=== PATIENT | male | born 1950 | race Caucasian/White ===

== ENCOUNTER 2019-09-24 03:04 | Emergency (ER) | payer MEDICARE, SELFPAY ==
--- NOTE | ~2019-09-24 | CT_ITS ---
EXAMINATION: CT abdomen pelvis w con DATE: 09/24/2019 04:09 INDICATION: Right flank pain. History of kidney stones. TECHNIQUE: Computed tomography (CT) of the abdomen and pelvis was performed with 100 cc Omnipaque 350 intravenous contrast. Automated exposure control and iterative reconstruction technique were employe d. Exam dose: 1540.76 mGy-cm total exam DLP. COMPARISON: 03/26/2019 CT abdomen pelvis noncontrast examination FINDINGS: The lung bases are clear of infiltrate or consolidation. Normal heart size. No pericardial or pleural effusion. Small sliding hiatal hernia. Multiple gallstones are noted. No gallbladder distention or apparent significant wall thickening or a ny pericholecystic fluid or stranding. Approximately 13 mm hepatic dome cyst. There is prominent surface nodularity of the liver and diminis hed liver size, consistent with cirrhosis. Varices are evident, consistent with portal hypertension. Splenomegaly. No bile duct or pancreatic duct dilatation. No pancreatic mass lesion or calcification. Normal morphology of the adrenal glands. Approximately 5 mm distal right ureteral obstructing calculus with mild right hydroureteronephrosis. Approximately 3 mm nonobstructing left renal calculus. Probable renal cysts. No evidence of appendicitis. No bowel obstruction or intraperitoneal free air. Trace perihepatic ascites. Prostate enlargement and calcifications. The urinary bladder is unremarkable except for possible 2.7 x 6.8 mm stone or calcification at the lower posterior urinary bladder wall. No abdominal aortic aneurysm. No intraperitoneal or retroperitoneal or pelvic mass lesion or adenopat hy or ascites. IMPRESSION: 5 mm distal right ureteral obstructing calculus with mild right hydroureteronephrosis Approximately 3 mm nonobstructing left renal calculus Possible urinary bladder calculus or bladder wall calcification Cirrhosis 13 mm hepatic dome cyst Bilateral renal cysts Reviewed, dictated and finalized at [facility]. Reviewed, dictated and finalized at location A. IMPRESSION: 5 mm distal right ureteral obstructing calculus with mild right hy droureteronephrosis Approximately 3 mm nonobstructing left renal calculus Possible urinary bladder calculus or bladder wall calcification Cirrhosis 13 mm hepatic dome cyst Bilateral renal cysts
[2019-09-24 03:08] VITALS: BP 154/70; PULSE 76; RESP 16; TEMP 37.6; O2SAT 98
[2019-09-24 03:43] LABS: Add Urine Microscopic? YES; Appearance Urine Clear (Clear); Basophils Percent Auto 0.6 % (0.2-1.2); Bilirubin Urine Negative (Negative); Blood Urine Negative (Negative); Color Urine Yellow (Yellow); Eosinophils Absolute Auto 0.1 K/mm3 (0-0.3); Eosinophils Percent Auto 2.4 % (0-4.4); Glucose Urine UA Negative (Negative); Hematocrit 36.1 % (42.0-52.0); Hemoglobin 12.7 g/dL (14.0-18.0); Immature Granulocyte Absolute 0.01 K/mm3 (0.00-0.031); Immature Granulocyte Percent A 0.2 % (0-0.5); Immature Platelet Fraction Pct 8.1 % (0.9-11.2); Ketones Urine Negative (Negative); Leukocyte Esterase Ur Negative LEU/UL (Negative); Lymphocytes Absolute Auto 0.95 K/mm3 (0.9-3.2); Lymphocytes Percent Auto 20.3 % (18.3-44.2); Mean Corpuscular HGB Conc 35.2 g/dl (32-36); Mean Corpuscular Hemoglobin 35.1 pg (26-34); Mean Corpuscular Volume 99.7 fl (80-100); Mean Platelet Volume 13.6 fl (7.4-10.4); Monocytes Absolute Auto 0.5 K/mm3 (0.1-0.6); Monocytes Percent Auto 9.8 % (2.6-8.5); Mucus Urine Rare /lpf; Neutrophils Absolute Auto 3.1 K/mm3 (1.3-6.7); Neutrophils Percent Auto 66.7 % (45.5-73.1); Nitrate Urine Negative (Negative); Platelet Count Result 42 k/mm3 (150-375); Protein Urine 1+ mg/dL (Negative); Red Blood Count 3.62 M/mm3 (4.6-6.20); Red Cell Distribution Width 13.2 % (11.5-14.5); Specific Grav Ur 1.016 (1.001-1.035); WBC Urine 0-3 /hpf; White Blood Count 4.7 K/mm3 (4.5-10.0)
[2019-09-24 03:52] LABS: Alanine Aminotransferase 63 U/L (4-50); Albumin Level 3.6 g/dL (3.5-5.1); Alkaline Phosphatase 109 U/L (38-126); Aspartate Amino Transferase 97 U/L (17-59); Blood Urea Nitrogen 23 mg/dL (9-20); Calcium 9.8 mg/dL (8.4-10.2); Carbon Dioxide 21 mmol/L (22-30); Chloride 110 mmol/L (98-107); Estimated Glomerular Filt Rate 55; Glucose 109 mg/dL (75-110); Lipase 269 U/L (23-300); Sodium 136 mmol/L (137-145)
--- NOTE | 2019-09-24 04:06 | ED.ABDPAIN ---
HPI - Abdominal Pain General Chief Complaint: Abdominal Pain Stated Complaint: abd pain Time Seen by Provider: 09/24/19 03:34 History of Present Illness HPI narrative: Patient presents for right lower abdominal pain. Last night he tried to go to bed, but the pain was 8 out of 10 and he could not get to sleep, the pain is currently a 3 out of 10. He is known to have kidney stones, and gallstones. He said he did not know about the cirrhosis that showed up on his CAT scan last time. He had an alcoholic beverage last evening. MD elicited complaint: abdominal pain Pertinent past history: kidney stones and other (Gallstones, cirrhosis) Onset (ago): hour(s) Pain Consistency: constant Severity: moderate Related Data Home Medications Medication Instructions Recorded Confirmed losartan 50 mg tablet 50 mg PO DAILY 02/24/19 04/08/19 Centrum Men 1 tablet PO DAILY 04/04/19 04/08/19 Allergies Allergy/AdvReac Type Severity Reaction Status Date / Time No Known Allergies Allergy Verified 09/24/19 03:19 Review of Systems Review of Systems: Narrative: CONSTITUTIONAL: Denies fever, chills, or sweats. EYES: Denies visual changes, redness, or discharge. ENT: Denies rhinorrhea, congestion, sore throat, or otalgia. CARDIOVASCULAR: Denies chest pain, palpitations, or edema. RESPIRATORY: Denies cough or dyspnea. GASTROINTESTINAL: He has abdominal pain, but not nausea, vomiting, or diarrhea. GENITOURINARY: Denies dysuria or hematuria. SKIN: Denies rash or itching. MUSCULOSKELETAL: Denies back pain, joint pain, or myalgia. NEUROLOGIC: Denies headache, numbness, or weakness. PSYCHIATRIC: Denies anxiety or depression. [facility] Social History Social History Smoking status: Former smoker Smoking end date: 04/20/16 Alcohol intake: current Gender identity (if verbalized by the patient): Male Course Reevaluation(s) Reevaluation #1: Patient needed several doses of pain medicine to get through this stone passing. His is now here and would rather get prescriptions and go home. Date: 09/24/19 Time: 06:59 Vital Signs Vital signs: Vital Signs Temperature 99.6 F 09/24/19 03:08 Pulse Rate 76 09/24/19 03:08 Respiratory Rate 16 09/24/19 03:08 Blood Pressure 154/70 H 09/24/19 03:08 Pulse Oximetry 98 09/24/19 03:08 Temperature 99.6 F 09/24/19 03:08 Pulse Rate 74 09/24/19 06:40 Respiratory Rate 18 09/24/19 06:40 Blood Pressure 143/77 H 09/24/19 06:40 Pulse Oximetry 98 09/24/19 06:40 MDM - Abdominal Pain Lab Data Result diagrams: 09/24/19 03:36 09/24/19 03:36 Labs: Lab Results 09/24/19 09/24/19 09/24/19 Range/Units 03:36 03:36 03:36 WBC 4.7 (4.5-10.0) K/mm3 RBC 3.62 L (4.6-6.20) M/mm3 Hgb 12.7 L (14.0-18.0) g/dL Hct 36.1 L (42.0-52.0) % MCV 99.7 (80-100) fl MCH 35.1 H (26-34) pg MCHC 35.2 (32-36) g/dl RDW 13.2 (11.5-14.5) % Plt Count 42 L (150-375) k/mm3 MPV 13.6 H (7.4-10.4) fl Immature Gran % (Auto) 0.2 (0-0.5) % Neut % (Auto) 66.7 (45.5-73.1) % Lymph % (Auto) 20.3 (18.3-44.2) % [place] % (Auto) 9.8 H (2.6-8.5) % Eos % (Auto) 2.4 (0-4.4) % Baso % (Auto) 0.6 (0.2-1.2) % Lymph # (Auto) 0.95 (0.9-3.2) K/mm3 [place] # (Auto) 0.5 (0.1-0.6) K/mm3 Eos # (Auto) 0.1 (0-0.3) K/mm3 Baso # (Auto) 0.0 (0.0-0.1) K/mm3 Abs Immat Gran (auto) 0.01 (0.00-0.031) K/mm3 Absolute Neuts (auto) 3.1 (1.3-6.7) K/mm3 Absolute Nucleated RBC 0.0 (0.0-0.012) K/mm3 Nucleated RBC % 0.0 (0.0-0.2) % % Immature Plt Fraction 8.1 (0.9-11.2) % Sodium 136 L (137-145) mmol/L Potassium 4.0 (3.4-5.0) mmol/L Chloride 110 H (98-107) mmol/L Carbon Dioxide 21 L (22-30) mmol/L BUN 23 H (9-20) mg/dL Creatinine 1.30 (0.7-1.3) mg/dL Estim Creat Clear Calc Not Reportable Estimated GFR 55 L (59
[2019-09-24] MEDS: MORPHINE SULFATE 4 MG/ML INJ IV PUSH (04:27)
[2019-09-24] MEDS: TAMSULOSIN HCL 0.4 MG CAPSULE PO (05:39)
[2019-09-24] MEDS: SODIUM CHLORIDE 0.9% IV 1,000 ML 999 ML IV CONT (05:39)
[2019-09-24 06:40] VITALS: BP 143/77; PULSE 74; RESP 18; O2SAT 98
[2019-09-24] MEDS: MORPHINE SULFATE 2 MG/ML INJ IV PUSH (06:40)
[2019-09-24 07:11] VITALS: BP 132/77; PULSE 84; RESP 18; O2SAT 99
== END 2019-09-24 07:12 | disposition home or self-care (01) ==
PROVIDERS: Emergency Provider Emergency Medicine; PCP Family Medicine
DX: N13.2 Hydronephrosis with renal and ureteral calculous obstruction (principal); K74.60 Unspecified cirrhosis of liver; Z87.891 Personal history of nicotine dependence
CPT/HCPCS: 36415; 74177; 80053; 81001; 83690; 85025; 85055; 96365; 96375; 96376; 99284; A9270; J0696; J2270; J7030; Q9967

== ENCOUNTER 2019-09-28 10:35 | Outpatient (CLI) | payer MEDICARE, SELFPAY ==
[2019-09-28 11:40] LABS: Iron 78 ug/dL (49-181)
[2019-09-28 11:51] LABS: Percent Iron Saturation 22 % (20-50)
[2019-09-28 12:12] LABS: Hepatitis B Surface Antigen Negative (Negative)
[2019-09-28 12:17] LABS: HAV RESULT Negative (Negative); Hepatitis B Core IgM Result Negative (Negative)
[2019-09-28 12:29] LABS: Hepatitis C Virus Antibody Negative (Negative)
[2019-09-30 21:35] LABS: Mitochondrial (M2) Ab (IgG) <=20.0 U (<=20.0)
[2019-10-01 22:01] LABS: Ceruloplasmin 27 mg/dL (18-36)
== END 2019-09-28 10:36 | disposition home or self-care (01) ==
LOC: ANHLAB 10:37
PROVIDERS: PCP Family Medicine; Visit Provider Internal Medicine Gastroenterology
DX: K74.60 Unspecified cirrhosis of liver (principal); D69.6 Thrombocytopenia, unspecified
CPT/HCPCS: 36415; 80074; 82103; 82390; 82728; 83520; 83540; 83550; 86038

== ENCOUNTER 2019-10-01 01:30 | Outpatient (CLI) | payer MEDICARE, SELFPAY ==
[2019-10-01 16:42] LABS: SARS-CoV-2 RNA PCR Negative
== END 2019-10-01 01:31 | disposition home or self-care (01) ==
LOC: ANHCOVIDDT 01:30
PROVIDERS: PCP Family Medicine; Visit Provider Internal Medicine Gastroenterology
DX: Z01.812 Encounter for preprocedural laboratory examination (principal); Z20.828 Contact with and (suspected) exposure to other viral communicable diseases
CPT/HCPCS: 87635; C9803; U0003

== ENCOUNTER 2019-10-04 00:55 | Day surgery (SDC) | payer MEDICARE, SELFPAY ==
[2019-09-28 13:34] VITALS: BMI 40.5
[2019-10-04 07:36] VITALS: BP 147/71; PULSE 72; RESP 16; TEMP 37.1; O2SAT 99; BMI 40.1
[2019-10-04] MEDS: LACTATED RINGERS 1,000 ML 150 ML IV CONT (07:39)
--- NOTE | 2019-10-04 08:01 | WPDANESEPPF ---
Anes - Initial Pre Proc Eval Procedure: Operation Date: 10/04/19 08:30 Proposed Procedures p Esophagogastroduodenoscopy - Chapo Chiu MD Date/Time: 10/04/19 08:01 Surgeon: Chapo Chiu MD Pre Op Diagnosis: hepatic cirrhosis Patient Data Age: 69 Gender: M Height: 5 ft 8 in Weight: 119.8 kg Last Vital Signs Temp 37.1 C 10/04/19 07:36 Pulse 72 10/04/19 07:36 Resp 16 10/04/19 07:36 BP 147/71 H 10/04/19 07:36 Pulse Ox 99 10/04/19 07:36 Allergies Allergy/AdvReac Type Severity Reaction Status Date / Time No Known Allergies Allergy Verified 10/04/19 07:33 Home Medications Medication Instructions Recorded Confirmed Type losartan 50 mg tablet 50 mg PO DAILY 02/24/19 09/28/19 History ciprofloxacin HCl 500 mg PO Q12H #10 tablet 09/24/19 09/28/19 Rx Patient hx anesthesia problems: none Family hx anesthesia problems: none PMFSH Past Medical History Medical History Asthma Basal cell carcinoma CPAP (continuous positive airway pressure) dependence HTN (hypertension) Kidney stone Kidney stone Liver disease 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 Sleep apnea Thrombocytopenia Surgical History Surgical History H/O colonoscopy Hx of tonsillectomy Family History Family History Father Family history of elevated blood lipids Family history of coronary artery disease Mother Family history of lung cancer Social History Social History Smoking status: Former smoker Smoking end date: 04/20/16 Alcohol intake: current Gender identity (if verbalized by the patient): Male Anes - Eval Final PreProcedure Day of Procedure 10/04/19 08:01 Patient weight: morbidly obese Heart: regular rate and rhythm Lungs: clear to auscultation Airway: Mallampati scale class II Neurological: alert and oriented Last oral intake: >/= 8 hours ASA classification: III Emergent: no Anesthetic plan: proceed Anesthesia type and monitoring: general GIVS and standard monitoring Informed Consent: The patient's anesthetic plan and its attendant risks and benefits were discussed with the patient/family/POA. Questions were solicited and answers provided to the satisfaction of the patient/family/POA.
--- NOTE | 2019-10-04 09:04 | WPDHPUPDATE1 ---
History and Physical Update Update Date/Time: 10/04/19 09:04 History and Physical has been reviewed, including an updated exam of the patient. There are NO changes in the patient's condition. Risks, benefits, and alternatives have been discussed and questions answered. Patient agrees to proceed with procedure.
[2019-10-04 09:18] VITALS: BP 117/60; PULSE 67; RESP 23; O2SAT 100
[2019-10-04 09:28] VITALS: BP 130/72; PULSE 67; RESP 23; O2SAT 98
[2019-10-04 09:38] VITALS: BP 133/73; PULSE 66; RESP 20; O2SAT 98
== END 2019-10-04 09:44 | disposition home or self-care (01) ==
PROVIDERS: PCP Family Medicine; Visit Provider Internal Medicine Gastroenterology
PROC: 0DJ08ZZ Inspection of Upper Intestinal Tract, Via Natural or Artificial Opening Endoscopic (ICD-10-PCS; CPT 43235; principal; 2019-10-04 08:30)
DX: K74.60 Unspecified cirrhosis of liver (principal); K29.50 Unspecified chronic gastritis without bleeding; J45.909 Unspecified asthma, uncomplicated; I10 Essential (primary) hypertension; G47.33 Obstructive sleep apnea (adult) (pediatric); Z87.891 Personal history of nicotine dependence; E66.01 Morbid (severe) obesity due to excess calories; Z68.41 Body mass index [BMI] 40.0-44.9, adult
CPT/HCPCS: 43239; 88305; J2704; J7120

== ENCOUNTER 2019-10-08 07:08 | Outpatient (CLI) | payer MEDICARE, SELFPAY ==
--- NOTE | ~2019-10-08 | XR_ITS ---
XR abdomen/kub 1V 10/08/2019 07:33 Indication: Right ureteral stone Procedure: KUB Comparison: Comparison to multiple prior studies sequentially, with oldest reviewed study dated 02/19. Findings: There is a small left renal stone. Bowel gas pattern is nonobstructive. No acute osseous ab normality. Moderate degenerative changes of the hips. Impression: 1: Left nephrolithiasis. Reviewed, dictated and finalized at location [facility]. Impression: 1: Left nephrolithiasis.
== END 2019-10-08 07:09 | disposition home or self-care (01) ==
PROVIDERS: PCP Family Medicine; Visit Provider Urology
DX: N20.0 Calculus of kidney (principal)
CPT/HCPCS: 74018

== ENCOUNTER 2020-01-01 11:16 | Outpatient (CLI) | payer MEDICARE, SELFPAY ==
--- NOTE | ~2020-01-01 | MR_ITS ---
EXAMINATION: MR brain IAC wo/w con DATE: 01/01/2020 13:16 INDICATION: Other amnesia. Memory loss. Gait abnormality. TECHNIQUE: Magnetic resonance imaging (MRI) of the brain, brainstem, and internal auditory canals was performed without and with 20 mL MultiHance intravenous contrast. Sequences included sagittal and ax ial T1-weighted FSE, axial diffusion-weighted FS EPI, axial T2*-weighted GRE, axial T2-weighted FLAIR Propeller, axial T2-weighted Propeller, small xjwze-vm-nttt coronal FIESTA, small syrmy-vx-znxo raissa nal T1-weighted FSE, and small kwwxy-lt-kqqj axial T1-weighted SPGR. Postcontrast sequences included axial T1-weighted FSE, small xobnr-ke-amtf coronal T1-weighted FSE, and small oigjq-dg-rviy axial T1- weighted SPGR. Apparent diffusion coefficient (ADC) maps were created. COMPARISON: None. FINDINGS: There are scattered areas of nonspecific increased T2-weighted signal intensity in the cere bral white matter. In the right frontal lobe, there is an area of thickened cortex, consistent with p olymicrogyria. There is no acute ischemic infarct or intracranial hemorrhage. The ventricles are norm al in size. There is mild mucosal thickening in the paranasal sinuses. The orbits are normal. The int ernal auditory canals and inner and middle ears are normal. The mastoid air cells are normal. 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 2. Moderate nonspecific cerebral white matter disease, which likely represents chronic small vessel i schemic disease. Reviewed, dictated and finalized at location A. 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 2. Moderate nonspecific cerebral white matter disease, which likely represents chronic small vessel ischemic disease.
== END 2020-01-01 11:17 | disposition home or self-care (01) ==
PROVIDERS: PCP Family Medicine; Visit Provider Family Medicine
DX: R41.3 Other amnesia (principal); R90.82 White matter disease, unspecified; G93.89 Other specified disorders of brain
CPT/HCPCS: 70553; A9577

== ENCOUNTER 2020-03-27 09:06 | Outpatient (CLI) | payer MEDICARE, SELFPAY ==
--- NOTE | ~2020-03-27 | XR_ITS ---
EXAMINATION: XR abdomen/kub 1V INDICATION: Left ureteral stone TECHNIQUE: Supine views of the abdomen were obtained on 2 radiographs. COMPARISON: 10/08/2019 FINDINGS: A 2 mm stone projects in the left kidney lower pole. Punctate right upper quadrant calcific ations have the appearance of cholelithiasis. No definite stones are identified in the right kidney o r the expected course of the ureters or bladder. The visualized lung bases are clear. The bowel gas p attern is normal. There is moderate osteoarthritis of the hips. IMPRESSION: 1. Left nephrolithiasis. Reviewed, dictated and finalized at location A. OR COURT OFFICE ASSISTANT IMPRESSION: 1. Left nephrolithiasis.
--- NOTE | ~2020-03-27 | US_ITS ---
EXAMINATION: US right upper quadrant DATE: 03/27/2020 09:48 INDICATION: Cirrhosis of the liver. TECHNIQUE: Multiple grayscale and Doppler ultrasound images of the abdomen were obtained. COMPARISON: CT abdomen and pelvis 09/24/2019 FINDINGS: The visualized portions of the head and body of the fingers are normal. The liver demonstra junior coarsened echotexture and surface nodularity, consistent with cirrhosis. There is a 13 mm cyst in the liver. There is normal flow in main portal vein. The gallbladder is contracted and contains gall stones. Gallbladder wall thickening is likely secondary to chronic liver disease and gallbladder cont raction. No sonographic Burden sign. The common duct is normal and measures 4 mm. The spleen measures 17.9 cm, consistent with portal venous hypertension. IMPRESSION: 1. Cirrhosis of the liver with portal venous hypertension. 2. Cholelithiasis. Reviewed, dictated and finalized at location B. F PROJECTIONIST
== END 2020-03-27 09:07 | disposition home or self-care (01) ==
PROVIDERS: PCP Family Medicine; Referring Provider Urology; Visit Provider Internal Medicine Gastroenterology
DX: K74.60 Unspecified cirrhosis of liver (principal); N20.2 Calculus of kidney with calculus of ureter; D69.6 Thrombocytopenia, unspecified; K76.89 Other specified diseases of liver; K80.80 Other cholelithiasis without obstruction; M16.0 Bilateral primary osteoarthritis of hip
CPT/HCPCS: 74018; 76705

== ENCOUNTER 2020-05-03 10:12 | Outpatient (CLI) | payer MEDICARE, SELFPAY ==
--- NOTE | ~2020-05-03 | US_ITS ---
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 TECHNIQUE: Multiple grayscale and Doppler images of the abdomen right upper quadrant were obtained (b y a technologist who performed the scan) and subsequently reviewed. There is no prior study for db ibarra. FINDINGS: The pancreatic head and body are normal in appearance. The pancreatic tail is not visualized. Mild liver surface nodularity. There are no focal liver lesions identified. There is no evidence of int rahepatic biliary duct dilation. Portal venous flow was seen in the hepatopedal, normal direction an d has normal Doppler waveform. No right-sided hydronephrosis. Common bile duct measures 6 mm, which is normal. The gallbladder wall is normal in thickness, with ex pected amount of distention. No sonographic evidence of pericholecystic fluid. There is cholelithia sis. Technologist performing exam reports patient did not demonstrate sonographic Burden's sign. P lease note that this sign is less reliable in patients who have received pain medication. IMPRESSION: 1. Mild liver surface nodularity consistent with cirrhosis. No focal lesions identified. 2. Cholelithiasis. Reviewed, dictated and finalized at location B. EGE INSTRUCTOR IMPRESSION: 1. Mild liver surface nodularity consistent with cirrhosis. No focal lesions i dentified. 2. Cholelithiasis.
== END 2020-05-03 10:13 | disposition home or self-care (01) ==
PROVIDERS: PCP Family Medicine
DX: K75.81 Nonalcoholic steatohepatitis (NASH) (principal); K74.60 Unspecified cirrhosis of liver; K80.20 Calculus of gallbladder without cholecystitis without obstruction
CPT/HCPCS: 76705

== ENCOUNTER 2020-09-05 07:21 | Outpatient (CLI) | payer MEDICARE, SELFPAY ==
--- NOTE | ~2020-09-05 | US_ITS ---
US right upper quadrant DATE: 09/05/2020 07:41 INDICATION: Nonalcoholic steatohepatitis TECHNIQUE: Real-time imaging of liver, pancreas, gallbladder COMPARISON: 05/03/2020 Limited abdominal ultrasound examination 09/24/2019 CT abdomen pelvis FINDINGS: There is surface nodularity of the liver and coarsened echotexture of the liver consistent with cirrhosis. Normal hepatopedal portal venous flow direction. The pancreas is obscured by bowel gas. Dependent gallstones are noted. Borderline gallbladder wall thickness. Negative sonographic Burden's sign. Common bile duct measures 4 mm, normal. IMPRESSION: Cirrhosis Cholelithiasis Reviewed, dictated and finalized at [facility]. Reviewed, dictated and finalized at location B. IMPRESSION: Cirrhosis Cholelithiasis
== END 2020-09-05 07:22 | disposition home or self-care (01) ==
LOC: ANHIMG 07:23
PROVIDERS: PCP Family Medicine; Visit Provider Internal Medicine Gastroenterology
DX: D69.6 Thrombocytopenia, unspecified (principal); K75.81 Nonalcoholic steatohepatitis (NASH); K74.60 Unspecified cirrhosis of liver; K80.20 Calculus of gallbladder without cholecystitis without obstruction
CPT/HCPCS: 76705

== ENCOUNTER 2021-02-27 09:45 | Outpatient (CLI) | payer MEDICARE, SELFPAY ==
--- NOTE | 2021-03-20 13:45 | WPDSLEEPSTUD ---
Sleep Study Date of Study: 02/27/21 <Mery Diaz, DO - Last Filed: 03/20/21 14:58> Ordering Provider: Jeffry Edge MD <Mery Diaz, DO - Last Filed: 03/20/21 14:58> Interpreting Physician: Mery Diaz DO <Mery Diaz, DO - Last Filed: 03/20/21 14:58> Sleep Study Type: CPAP Titration <Mery Diaz DO - Last Filed: 03/20/21 14:58> Height: 1.83 m <Mery Diaz DO - Last Filed: 03/20/21 14:58> Weight: 77.111 kg <Mery Diaz DO - Last Filed: 03/20/21 14:58> Body Mass Index: 23.0 <Mery Diaz DO - Last Filed: 03/20/21 14:58> Neck Circumference (inches): 18 <Mery Diaz DO - Last Filed: 03/20/21 14:58> [place]: 7 <Mery Diaz DO - Last Filed: 03/20/21 14:58> Reason for Sleep Study The patient has known EDUARDO and has been compliant with PAP Therapy for 20 years. He needs to re-establish his diagnosis because he needs a new machine. <Mery Diaz, DO - Last Filed: 03/20/21 14:58> Sleep History The patient is a 70 y/o male with HTN, COPD, GERD, Hx of TIA x2, Hx of throat cancer x2, and EDUARDO on PAP that had a HSAT ordered by his ENT. The HSAT was done on 01/05/21 had an evaluation time of 135 minutes and had an AHI of 1.3. A PSG was then ordered. Questions Answered While Patient is Regularly using CPAP: The patient denies awakening from sleep short of breath. He denies awakening at night with heartburn, belching or cough. He denies snoring loudly enough that others complain. He denies having trouble sleeping when he has a cold. He denies waking gasping for air throughout the night. He occasionally has breathing problems at night observed by others. He denies sweating excessively at night. He denies heart palpitations or irregular heartbeats during the night. He occasionally falls asleep during the day but never while driving. He denies sleep paralysis, cataplexy and hypnagogic / hypnopompic hallucinations. He denies having nightmares. He denies feeling sad, depressed or anxious. He denies noticing parts of his body jerk. He occasionally kicks during the night. He denies crawling and aching feelings in his legs as well as leg pain during the night. He denies grinding his teeth during sleep as well as awakening with jaw pain in the morning. He denies being bothered by pain during the day and being awakened by pain during the night. He denies waking up feeling stiff in the morning with sore and achy muscles. The patient goes to bed at 6:00 p.m. on both weekdays and weekends. He takes him 3 hours to fall asleep. He wakes up 3 times throughout the night. When he awakens, he will watch television. He wakes up at 8:00 a.m. on both weekdays and weekends. He typically gets 5 hours of sleep per night. He will stay in bed after awakening in the morning. He currently lives with his spouse. He does consume caffeinated beverages within 2 hours of bedtime. He does engage in physical exercise before bedtime. He will watch television before falling asleep. He does take naps in the afternoon or the evening. He drinks 1 soda per day. He denies tobacco, alcohol recreational drug use. 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
[2021-03-20 14:13] VITALS: BMI 23.0
== END 2021-02-28 08:25 | disposition home or self-care (01) ==
LOC: ANHCSM 09:45
PROVIDERS: PCP Family Medicine; Visit Provider Otolaryngology
DX: G47.33 Obstructive sleep apnea (adult) (pediatric) (principal)
CPT/HCPCS: 95810

== ENCOUNTER 2021-03-25 12:41 | Outpatient (CLI) | payer MEDICARE, SELFPAY ==
--- NOTE | ~2021-03-25 | US_ITS ---
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 COMPARISON: 09/05/2020 FINDINGS: visualized portion of the pancreatic body appears normal. The majority of the pancreas is obscured. V isualized proximal inferior vena cava is normal. There is moderate amount of perihepatic ascites. Shr unken liver with nodular surface consistent with given history of cirrhosis. No liver lesion identifi ed. No intrahepatic biliary duct dilation suspected. Portal venous flow was seen in the hepatopetal, normal direction and has normal Doppler waveform. The gallbladder is normal in appearance. Small shad owing gallstones layering in the neck of the gallbladder.. The common bile duct measures 3 mm, which is normal. Sonographic Burden sign was reported as negative by the machine iii coremaker. IMPRESSION: 1. Cirrhotic liver with moderate amount of perihepatic ascites. 2. Cholelithiasis. Reviewed, dictated and finalized at location B. D HAND
== END 2021-03-25 12:42 | disposition home or self-care (01) ==
LOC: ANHIMG 12:47
PROVIDERS: PCP Family Medicine; Visit Provider Internal Medicine Gastroenterology
DX: K75.81 Nonalcoholic steatohepatitis (NASH) (principal); K74.60 Unspecified cirrhosis of liver; K80.20 Calculus of gallbladder without cholecystitis without obstruction
CPT/HCPCS: 76705

== ENCOUNTER 2021-09-27 12:45 | Outpatient (CLI) | payer MEDICARE, SELFPAY ==
[2021-09-27 13:33] LABS: Hemoglobin 9.6 g/dL (14.0-18.0); Immature Platelet Fraction Pct 11.4 % (0.9-11.2); Mean Corpuscular HGB Conc 33.1 g/dl (32-36); Mean Corpuscular Hemoglobin 35.3 pg (26-34); Mean Corpuscular Volume 106.6 fl (80-100); Mean Platelet Volume 13.6 fl (7.4-10.4); Platelet Count Result 44 k/mm3 (150-375); Red Blood Count 2.72 M/mm3 (4.6-6.20); Red Cell Distribution Width 13.1 % (11.5-14.5)
[2021-09-27 13:46] LABS: Alanine Aminotransferase 56 U/L (6-50); Alkaline Phosphatase 139 U/L (38-126); Anion Gap 2 mmol/L (8-16); Aspartate Amino Transferase 87 U/L (17-59); Bilirubin,Total 2.1 mg/dL (0.2-1.3); Blood Urea Nitrogen 25 mg/dL (9-20); Calcium 11.3 mg/dL (8.4-10.2); Carbon Dioxide 22 mmol/L (22-30); Chloride 114 mmol/L (98-107); Estimated Glomerular Filt Rate 60; Glucose 110 mg/dL (65-110); INR 1.4; Potassium 4.9 mmol/L (3.4-5.0); Prothrombin Time 16.2 Seconds (11.1-14.7); Sodium 138 mmol/L (137-145)
== END 2021-09-27 12:46 | disposition home or self-care (01) ==
LOC: ANHLAB 12:48
PROVIDERS: PCP Family Medicine; Visit Provider Internal Medicine Gastroenterology
DX: K74.60 Unspecified cirrhosis of liver (principal)
CPT/HCPCS: 36415; 80053; 85027; 85055; 85610

== ENCOUNTER 2021-10-01 09:14 | Outpatient (CLI) | payer MEDICARE, SELFPAY ==
--- NOTE | ~2021-10-01 | US_ITS ---
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 TECHNIQUE: Multiple grayscale and Doppler ultrasound images of the abdomen were obtained. COMPARISON: CT abdomen and pelvis 09/24/2019 FINDINGS: The visualized portions of the head, body, and tail of the pancreas are normal. The liver d emonstrates coarsened echotexture and surface nodularity, consistent with cirrhosis. There is normal flow in main portal vein. The gallbladder is normal in size and contains gallstones. Gallbladder wall thickening is seen, likely secondary to chronic liver disease. The common duct is normal and measure s 4 mm. IMPRESSION: 1. Cirrhosis of the liver. 2. Cholelithiasis. Reviewed, dictated and finalized at location B.
== END 2021-10-01 09:15 | disposition home or self-care (01) ==
PROVIDERS: PCP Family Medicine; Referring Provider Internal Medicine Gastroenterology; Visit Provider Internal Medicine Gastroenterology
DX: K75.81 Nonalcoholic steatohepatitis (NASH) (principal); K74.60 Unspecified cirrhosis of liver; K80.20 Calculus of gallbladder without cholecystitis without obstruction
CPT/HCPCS: 76705

== ENCOUNTER 2022-03-10 16:37 | Inpatient (IN) | payer MEDICARE, SELFPAY ==
[2022-03-10] VITALS (17 sets, daily range): BP systolic 117–130; BP diastolic 55–86; PULSE 100–126; RESP 19–96; TEMP 37–37.9; O2SAT 97–100; BMI 36.6
--- NOTE | ~2022-03-10 | US_ITS ---
EXAMINATION: US paracentesis abd w/image DATE: 03/11/2022 16:02 INDICATION: Fever. Altered mental status. Ascites. TECHNIQUE: The procedure and its risks and benefits were discussed with the patient. Potential risks discussed included bleeding and infection. The skin was prepped and draped in sterile fashion. 1% lid ocaine was used for local anesthesia. Under ultrasound guidance, a 5 Fr catheter with trochar was adv anced into the largest but still relatively small pocket of ascites in the left lower quadrant. Fluid was aspirated into vacuum bottles. The catheter was removed, and a dressing was applied. There were no immediate complications. FINDINGS: Ultrasound images demonstrate ascites and the catheter within the fluid. IMPRESSION: 1. Successful ultrasound-guided paracentesis yielding 30 mL of clear yellow fluid. Reviewed, dictated and finalized at location A. MAKER IMPRESSION: 1. Successful ultrasound-guided paracentesis yielding 30 mL of clear yellow fl uid.
--- NOTE | ~2022-03-10 | XR_ITS ---
EXAMINATION: XR chest 1V portable Exam Date/Time: 03/10/2022 18:10 PHOTOGRAPHIC EQUIPMENT TECHNICIAN HISTORY: fever/ ams, HX LIVER DISEASE, NO CARDIAC HX Comparison: None available. RESULT: Lines, tubes, and devices: A temporary heart monitor overlies the Chest. Lungs and pleura: Clear. Cardiomediastinal silhouette: Unremarkable. Other: No acute osseous or upper abdominal finding. IMPRESSION: No acute cardiopulmonary process. Reviewed, dictated and finalized at location K. OGRAPHIC EQUIPMENT TECHNICIAN
--- NOTE | ~2022-03-10 | CT_ITS ---
EXAMINATION: CT abdomen pelvis w con DATE: 03/10/2022 19:16 INDICATION: fever, confusion, hx of liver cirrhosis TECHNIQUE: Computed tomography (CT) of the abdomen and pelvis was performed with 100 mL Omnipaque-350 intravenous contrast. Automated exposure control and iterative reconstruction technique were employe d. The dose-length product was 1712.38 mGy-cm. COMPARISON: None. FINDINGS: Motion limited examination. Lower thorax: Senescent change. Bilateral gynecomastia. Mild coronary artery calcification. Small hia janice hernia. Liver: Nodular, shrunken liver. Biliary/Gallbladder: Cholelithiasis. Gallbladder wall edema. No bile duct dilation. Pancreas: No mass or duct dilation. Spleen: Splenomegaly. Adrenals:No mass. Kidneys: Simple left midpole cyst. Punctate bilateral nonobstructing calculi. No suspicious mass. No hydronephrosis. GI tract: No small or large bowel dilation. Mild gastric and small bowel wall thickening, likely rela israel to chronic liver disease. Colonic wall edema involving the cecum, ascending colon, and proximal t ransverse colon Appendix not confidently visualized. Mesentery/Peritoneum: Small volume simple appearing mesenteric and deep pelvic free fluid. Upper abdo sera varices. Retroperitoneum: No mass. Mild atherosclerotic abdominal aortic and/or arterial calcifications. Pelvis: The bladder is decompressed by a Anderson catheter. Prostatomegaly. Soft Tissues: Soft tissues and body wall unremarkable. Bones: No acute osseous finding. IMPRESSION: Cirrhosis and portal hypertension. Cholelithiasis. Gallbladder wall thickening/edema, a nonspecific f inding in the setting of chronic liver disease, correlate with clinical and laboratory findings of ch olecystitis. Right-sided colitis, likely related to portal hypertension but infectious and ischemic c olitis can appear similarly. Reviewed, dictated and finalized at location K. ET WRITER IMPRESSION: Cirrhosis and portal hypertension. Cholelithiasis. Gallbladder wall thickening/ edema, a nonspecific finding in the setting of chronic liver disease, correlate with clinical and laboratory findings of cholecystitis. Right-sided colitis, l ikely related to portal hypertension but infectious and ischemic colitis can ap pear similarly.
--- NOTE | 2022-03-10 17:08 | ECG_ITS ---
Measurements Intervals [place] Rate: 111 P: 44 NV: 135 QRS: 10 QRSD: 101 T: 58 QT: 320 QTc: 435 Interpretive Statements SINUS TACHYCARDIA ABNORMAL ECG COMPARED TO ECG 04/05/2019 14:51:14 SINUS TACHYCARDIA NOW PRESENT Electronically Signed On 03-10-2022 20:13:09 INSTRUCTIONAL CONSULTANT by Valentin Horn D.O.
--- NOTE | 2022-03-10 17:31 | ED.FEVER ---
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 According to his , who is at the bedside, patient recently spent 8 days at [facility] for confusion secondary to encephalopathy. Patient was also found to be anemic, and was evaluated by GI with colonoscopy and endoscopy. No source of bleeding was identified. Family states that patient was at his mental status baseline yesterday, but when he woke up today was showing signs of confusion and had a low-grade fever. Family also states patient has had a cough. Related Data Home Medications Medication Instructions Recorded Confirmed furosemide 20 mg tablet 10 mg PO BID On hold 08/22/21 lactulose 10 gram/15 mL oral 15 ml PO BID 08/22/21 solution rifaximin 550 mg tablet (Xifaxan) 550 mg PO BID 08/22/21 spironolactone 50 mg tablet 50 mg PO BID on hold 08/22/21 Allergies Allergy/AdvReac Type Severity Reaction Status Date / Time No Known Allergies Allergy Verified 03/10/22 17:08 Review of Systems Review of Systems: CONSTITUTIONAL: Reports fever EYES: Denies visual changes, redness, or discharge. ENT: Denies rhinorrhea, congestion, sore throat, or otalgia. CARDIOVASCULAR: Denies chest pain, palpitations, or edema. RESPIRATORY: Reports cough GASTROINTESTINAL: Denies abdominal pain, nausea, vomiting, or diarrhea. GENITOURINARY: Denies dysuria or hematuria. SKIN: Denies rash or itching. MUSCULOSKELETAL: Denies back pain, joint pain, or myalgia. NEUROLOGIC: Reports confusion PSYCHIATRIC: Denies anxiety or depression. 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 Roxana Heller of tonsillectomy Family History Family History Father Family history of elevated blood lipids Family history of coronary artery disease Heart disease Mother Family history of lung cancer Grandparent Dementia Throat cancer Social History Social History Smoking status: Former smoker Tobacco type: cigars Smoking end date: 04/20/16 Alcohol intake: current Alcohol use details: occasional Lack of Transportation: No Lack of Food: Never True Current Housing: I Have Housing Concerned About Future Housing: No Difficulty Paying Gas/Electric Bills: No Difficulty Paying for Meds: No Currently Unemployed: No Education: Master's Degree or Higher Difficulty w/ Childcare or Family Care: No Gender identity (if verbalized by the patient): Male Exam Narrative: GENERAL: ill-appearing chronically, well-nourished HEAD: Normocephalic, atraumatic. EYES: Conjunctivae normal, PERRLA and EOMI. CHEST: Clear to auscultation. No respiratory distress. No wheezes rales or rhonchi. No tenderness. HEART: Sinus tachycardia. No murmur heard. Normal peripheral pulses. ABDOMEN: Soft, nontender, nondistended, normal active bowel sounds. EXTREMITIES: Normal range of motion. No kuldip
--- NOTE | 2022-03-10 17:48 | PC.NURSE ---
Upon arrival to room 12, accompanied by his pt is confused, does not answer questions or follow commands. reports pt had recent [facility]. Abdomen is large, firm and appears edematous
[2022-03-10 17:56] LABS: Hematocrit 25.7 % (42.0-52.0); Hemoglobin 8.3 g/dL (14.0-18.0); Immature Platelet Fraction Pct 12.4 % (0.9-11.2); Mean Corpuscular HGB Conc 32.3 g/dl (32-36); Mean Corpuscular Hemoglobin 32.9 pg (26-34); Platelet Count Result 39 k/mm3 (150-375); Red Blood Count 2.52 M/mm3 (4.6-6.20); Red Cell Distribution Width 18.5 % (11.5-14.5); White Blood Count 10.7 K/mm3 (4.5-10.0)
[2022-03-10 18:00] LABS: Influenza A QL RT-PCR Negative (Negative); Influenza B QL RT-PCR Negative (Negative); RSV RNA, RT-PCR Negative (Negative); SARS-CoV-2 RNA PCR Negative
[2022-03-10 18:03] LABS: Ammonia 33 umol/L (9-30)
[2022-03-10 18:03] LABS: Lactic Acid Reflex 2.4 mmol/L (0.7-2.0)
[2022-03-10 18:05] LABS: INR 1.7; Prothrombin Time 19.2 Seconds (11.1-14.7)
[2022-03-10 18:06] LABS: Alanine Aminotransferase 40 U/L (6-50); Albumin Level 3.1 g/dL (3.5-5.1); Alkaline Phosphatase 139 U/L (38-126); Anion Gap 9 mmol/L (8-16); Aspartate Amino Transferase 73 U/L (17-59); Bilirubin,Total 4.6 mg/dL (0.2-1.3); Blood Urea Nitrogen 20 mg/dL (9-20); CRP 3.4 mg/dL (<1.0); Carbon Dioxide 17 mmol/L (22-30); Chloride 111 mmol/L (98-107); Estimated CRCL calculation 67 ml/min; Estimated Glomerular Filt Rate > 60; Glucose 114 mg/dL (65-110); Potassium 4.3 mmol/L (3.4-5.0); Sodium 137 mmol/L (137-145)
[2022-03-10 18:06] LABS: Partial Thromboplastin Time 39.7 SECONDS (22.3-36.8)
[2022-03-10 18:31] LABS: Band Neutrophils Percent 8 % (0-6); Lymphocytes Absolute Manual 0.74 K/mm3 (1.1-4.5); Monocytes Absolute Manual 0.32 K/mm3 (0.1-0.90); Monocytes Percent Manual 3 % (3-9); Neutrophils Absolute Manual 9.63 K/mm3 (1.3-6.7); Neutrophils Percent Manual 82 % (46-73); Total Cells Counted 100
[2022-03-10 18:32] LABS: Platelet Estimate Decreased (Adequate); Schistocytes None Seen (NORMAL)
[2022-03-10 18:33] LABS: Anisocytosis 2+ (NORMAL); Microcytosis 1+ (NORMAL)
[2022-03-10 19:11] LABS: Appearance Urine Clear (Clear); Bilirubin Urine Negative (Negative); Blood Urine 1+ (Negative); Color Urine Yellow (Yellow); Glucose Urine UA Negative (Negative); Ketones Urine Negative (Negative); Leukocyte Esterase Ur Negative LEU/UL (Negative); Nitrate Urine Negative (Negative); Protein Urine Negative (Negative); Specific Grav Ur 1.015 (1.001-1.035); Urobilinogen Urine 0.2 mg/dL (<2.0); pH Urine 5.5 (5.0-9.0)
[2022-03-10] MEDS: SODIUM CHLORIDE 0.9% IV 1,000 ML 999 ML IV CONT ×2 (19:18→21:09)
[2022-03-10] MEDS: KETOROLAC 30 MG/ML VIAL (*BKC) IV PUSH (19:19)
[2022-03-10 19:22] LABS: Bacteria Urine Trace /hpf; Mucus Urine Rare /lpf
[2022-03-10 19:23] LABS: Add Urine Microscopic? YES
[2022-03-10 20:51] LABS: Reflex Lactic Acid Yes or No Add Lactic
--- NOTE | 2022-03-10 20:58 | PM.IMHP ---
H&P: HPI History of Present Illness Date/Time: 03/10/22 22:58 Chief Complaint: Confusion Narrative: 71-year-old male with past medical history of cirrhosis due to TORO, central hypertension, GERD and obstructive sleep apnea who presented to the ER with confusion and fever. The patient had recently been hospitalized at [facility] for 8 days due to confusion from hepatic encephalopathy.. The patient is alert oriented person the S HPI has been obtained from review of ER records and past medical records. Patient's reported the ER staff that the patient had recent EGD and colonoscopy at [facility] due to recurrent anemia. No source of bleeding was identified. The patient had returned to his baseline mental status prior to being discharged from the hospital. He was at his normal yesterday. When he woke up today he was confused and they reported a low-grade fever. Family also reported that the patient had a cough. On arrival to the ER the patient was noted to have a fever of 100.3?. He had RSV, COVID and influenza PCR is completed that were negative. His chest x-ray demonstrated no acute cardiopulmonary process. He had a CT of the abdomen and pelvis with contrast that demonstrated cirrhosis, portal hypertension, cholelithiasis and gallbladder wall thickening/edema fluid these findings are nonspecific in the setting of the patient's chronic liver disease. Patient had no evidence of right upper quadrant pain on exam. CT scan also demonstrated right-sided colitis likely related to portal hypotension but infectious or ischemic colitis could not be ruled out. The patient had no reproducible pain on abdominal exam. The patient answered no to every question I asked. He told me that he was at Dr. Vegas's office. He denied any nausea or vomiting. Patient was noted to be tachypneic at the time of my exam with respiratory rate around 22 and tachycardic with heart rate in the low 100s. He denied feeling short of breath. Review of Systems Review of Systems: Unobtainable due to patient's mentation /confusion. 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 Schmidt Hx of tonsillectomy Family History Family History Father Family history of elevated blood lipids Family history of coronary artery disease Heart disease Mother Family history of lung cancer Grandparent Dementia Throat cancer Social History Social History Smoking status: Never smoker Tobacco type: cigars Smoking end date: 04/20/16 Alcohol intake: never Alcohol use details: occasional Substance use: never Substance use type: does not use Lack of Transportation: No Lack of Food: Never True Current Housing: Decline to Answer Concerned About Future Housing: No Difficulty Paying Gas/Electric Bills: No Difficulty Paying for Meds: No Currently Unemployed: No Education: Decline to Answer Difficulty w/ Childcare or Family Care: No Gender identity (if verbalized by the patient): Male Spiritual care concerns: No Meds Home Medications and Allergies Home Medications Medication Instructions Recorded Confirmed Type losartan 50 mg tablet See Rx Ins
[2022-03-10 21:11] LABS: Lipase 289 U/L (23-300)
[2022-03-10] MEDS: SODIUM CHLORIDE 0.9% IV 1,000 ML 125 ML IV CONT (21:55)
--- NOTE | 2022-03-10 22:12 | PC.NURSE ---
This patient, Emmanuel Norris, was admitted to [facility] Room 327-01. Patient/family oriented to hospital policies and general routines including ID bracelet, bed and alarms, visiting hours, pain management, procedures, bathroom and other care routines, personal items, smoking policy, room service/diet, and visiting hours. Information on how to activate the Rapid Response Team has been discussed. Patient/Family are encouraged to report perceived risks to care and to ask questions if they do not understand what they are told or what they should do. Pt remains confused, medication and health hx verified with daughter Bess. Continue to monitor. Report received from Teresa ED RN.
[2022-03-10 22:37] LABS: Lactic Acid 1.6 mmol/L (0.7-2.0)
--- NOTE | 2022-03-10 23:50 | PC.NURSE ---
informed respiratory of home cpap order per DO Horner
[2022-03-11] VITALS (19 sets, daily range): BP systolic 103–121; BP diastolic 59–90; PULSE 73–100; RESP 16–20; TEMP 36.8–37.6; O2SAT 99–100
--- NOTE | 2022-03-11 00:12 | PC.NURSE ---
respiratory here to place on cpap
[2022-03-11] MEDS: SODIUM CHLORIDE 0.9% IV 1,000 ML 125 ML IV CONT (06:16)
[2022-03-11 06:34] LABS: Prothrombin Time 21.7 Seconds (11.1-14.7)
[2022-03-11 06:35] LABS: Partial Thromboplastin Time 41.3 SECONDS (22.3-36.8)
[2022-03-11 06:39] LABS: Alanine Aminotransferase 36 U/L (6-50); Albumin Level 2.6 g/dL (3.5-5.1); Alkaline Phosphatase 117 U/L (38-126); Anion Gap 5 mmol/L (8-16); Aspartate Amino Transferase 59 U/L (17-59); Bilirubin,Total 4.2 mg/dL (0.2-1.3); Blood Urea Nitrogen 23 mg/dL (9-20); CRP 5.2 mg/dL (<1.0); Calcium 10.4 mg/dL (8.4-10.2); Carbon Dioxide 16 mmol/L (22-30); Chloride 116 mmol/L (98-107); Estimated CRCL calculation 69 ml/min; Estimated Glomerular Filt Rate > 60; Glucose 101 mg/dL (65-110); Lactate Dehydrogenase 187 U/L (120-246); Potassium 3.9 mmol/L (3.4-5.0); Sodium 137 mmol/L (137-145)
[2022-03-11 07:52] LABS: Hematocrit 21.5 % (42.0-52.0); Immature Platelet Fraction Pct 9.5 % (0.9-11.2); Mean Corpuscular HGB Conc 32.1 g/dl (32-36); Mean Corpuscular Hemoglobin 33.2 pg (26-34); Mean Corpuscular Volume 103.4 fl (80-100); Red Blood Count 2.08 M/mm3 (4.6-6.20); Red Cell Distribution Width 18.3 % (11.5-14.5); White Blood Count 4.1 K/mm3 (4.5-10.0)
[2022-03-11] MEDS: LACTULOSE 20 GM/30 ML UDC 10 GM PO ×3 (08:00→16:30)
[2022-03-11] MEDS: LOSARTAN POTASSIUM 50 MG TABLET BY MOUTH (08:00)
[2022-03-11] MEDS: SPIRONOLACTONE 50 MG TABLET PO ×2 (08:00→16:31)
[2022-03-11] MEDS: rifAXIMin 550 MG TABLET PO ×2 (08:00→16:31)
[2022-03-11 08:22] LABS: Hemoglobin 6.9 g/dL (14.0-18.0); Platelet Count Result 22 k/mm3 (150-375)
[2022-03-11 08:49] LABS: Band Neutrophils Percent 1 % (0-6); Eosinophils Absolute Manual 0.04 K/mm3 (0.02-0.5); Eosinophils Percent Manual 1 % (0-4); Lymphocytes Absolute Manual 0.49 K/mm3 (1.1-4.5); Monocytes Absolute Manual 0.16 K/mm3 (0.1-0.90); Monocytes Percent Manual 4 % (3-9); Neutrophils Percent Manual 82 % (46-73); Platelet Estimate Decreased (Adequate); Total Cells Counted 100
[2022-03-11 08:50] LABS: Schistocytes None Seen (NORMAL)
[2022-03-11 09:20] LABS: Vitamin D 25 Hydroxy 40.7 ng/mL
[2022-03-11 09:22] LABS: Parathyroid Intact 306.2 pg/mL (7.5-53.5)
[2022-03-11] MEDS: SODIUM CHLORIDE 0.9% IV 250 ML 30 ML IV CONT (11:18)
[2022-03-11] MEDS: TUBING, BLOOD PLUM PUMP TUBING 1 EACH XX (11:19)
--- NOTE | 2022-03-11 11:35 | PM.IMPN ---
Progress Note: A&P Assessment and Plan (1) Sepsis: Qualifiers: Sepsis acute organ dysfunction status: with acute organ dysfunction Sepsis type: sepsis due to unspecified organism Severe sepsis acute organ dysfunction type: encephalopathy Code(s): A41.9 - Sepsis, unspecified organism Status: Acute Assessment and Plan: Sepsis criteria met on admission with tachycardia, tachypnea, transient hypotension, lactic acidosis and acute encephalopathy with fever. Possibly due to colitis versus SBP versus bacteremia. chest x-ray negative for acute pulmonary disease UA negative for leukocytes or nitrates Will treat with IV Rocephin 2 g Q 24 hours for possible SBP and add metronidazole 500 mg IV q.8 hours for possible colitis. ultrasound-guided paracentesis ordered with minimal ascites removed. Gram stain and culture ordered. albumin 25% 1.5 g per kg x1 ordered -max dose 100 g given Blood cultures are pending. continue IV fluid hydration. trend CBC and CMP in a.m. Will provide antipyretic therapy with low-dose Tylenol 500 mg q.6 hours as needed. With a goal to not exceed 2 g of Tylenol in a 24 hour interval. Patient does have a cardiac murmur it is unknown if he has a prior history of cardiac murmur. If blood cultures come back positive will probably need at on echocardiogram. (2) Altered mental status: Qualifiers: Altered mental status type: delirium Qualified Code(s): R41.0 - Disorientation, unspecified Code(s): R41.82 - Altered mental status, unspecified Status: Acute Assessment and Plan: Encephalopathy resulting in delirium associated with acute sepsis. possible hepatic encephalopathy as patient was previously admitted to [facility] with similar symptoms. ammonia level 33 (prior values of up to 120). Repeat ammonia level 61 today. Increase lactulose 10 g p.o. t.i.d. with goal of at least 3 bowel movements per day. continue rifaximin. continue antibiotics as above. A calcium level is noted to be elevated when corrected for help hypoalbuminemia, calcium is 11.5. Continue IV fluids. Will give 1 dose Lasix 40 mg IV x1 following administration of albumin repeat chemistry in a.m. (3) Transient hypotension: Code(s): I95.9 - Hypotension, unspecified Status: Acute Assessment and Plan: Resolved after 1 L fluid bolus. Continue maintenance fluids. stop losartan. Will continue spironolactone and low-dose Lasix for liver cirrhosis as BP tolerates. IV albumin given x1 as above (4) Bandemia: Code(s): D72.825 - Bandemia Status: Acute Assessment and Plan: likely due to underlying sepsis given pitcher of fever, tachycardia and encephalopathy. trend CBC with differential in a.m.. (5) Lactic acidosis: Code(s): E87.20 - Acidosis, unspecified Status: Acute Assessment and Plan: Due to underlying sepsis and/or component of chronic cirrhosis. However more acute component associated with sepsis is suspected given low serum bicarb on CMP. Repeat lactic acid improved 1.6. (6) Thrombocytopenia: Code(s): D69.6 - Thrombocytopenia, unspecified Status: Acute Assessment and Plan: Chronic thrombocytopenia due to cirrhosis. Hold any anti-platelet medications and or blood thinners. 03/11/2022 platelet count 22, it was 39 on admission, may be worsened secondary to acute infection and sepsis. Trend CBC. Consider platelet transfusion if platelet count continues to drop less than 20 (7) Hypercalcemia: Code(s): E83.52 - Hypercalcemia Status: Acute Assessment and Plan: calcium level 11 on admission and 10.4 today. Albumin 2.6 therefore corrected calcium 11.5 and elevated. Appears to be somewhat chronic at least since July of this year. Continue IV fluids and Lasix 40 mg IV x1 given PTH mildly elevated 300 and vitamin-D level 40, TSH within normal limits. PTH related prot
[2022-03-11] MEDS: ALBUMIN HUMAN 25% 25 GM/100 ML 200 ML IVPB ×2 (12:15→14:11)
[2022-03-11 15:22] LABS: Hematocrit 25.2 % (42.0-52.0); Hemoglobin 8.2 g/dL (14.0-18.0)
[2022-03-11 15:32] LABS: Ammonia 61 umol/L (9-30)
[2022-03-11] MEDS: FUROSEMIDE INJ 40 MG/4 ML VIAL IV PUSH (16:30)
[2022-03-11] MEDS: cefTRIAXone 2 GM in SODIUM CHLORIDE 0.9% IV 100 ML 200 ML IVPB (17:28)
[2022-03-11 18:26] LABS: Appearance Peritoneal Fluid Cloudy (Clear); Color Peritoneal Fluid Yellow (Colorless); Lymphocytes Peritoneal Fluid 9 %; Neutrophils Peritoneal Fluid 64 % (0-25); Source Peritoneal Fluid Peritoneal Fluid
[2022-03-11 18:27] LABS: Macrophages Peritoneal Fluid 5 %; Mesothelial Cells Peritoneal Fluid 6 %; Monocytes Peritoneal Fluid 16 %
[2022-03-11 18:35] LABS: Nucleated Cells Peritoneal Flu 4374 /uL (0-500); RBC Peritoneal Fluid 1726 /uL (0-100000)
[2022-03-11] MEDS: metroNIDAZOLE 500 MG/ISO 100ML 500 MG/100 ML BAG 100 MG IVPB (21:07)
[2022-03-11] MEDS: SODIUM CHLORIDE 0.9% IV 1,000 ML 75 ML IV CONT (21:07)
[2022-03-11] MEDS: ACETAMINOPHEN 500 MG TABLET PO (22:24)
[2022-03-12] VITALS (10 sets, daily range): BP systolic 105–114; BP diastolic 44–66; PULSE 70–110; RESP 18–20; TEMP 36.6–36.9; O2SAT 98–100
[2022-03-12] MEDS: metroNIDAZOLE 500 MG/ISO 100ML 500 MG/100 ML BAG 100 MG IVPB ×3 (05:05→21:03)
[2022-03-12 07:32] LABS: Basophils Percent Auto 1.3 % (0.2-1.2); Eosinophils Absolute Auto 0.1 K/mm3 (0-0.3); Hematocrit 22.9 % (42.0-52.0); Hemoglobin 7.5 g/dL (14.0-18.0); Immature Granulocyte Absolute 0.01 K/mm3 (0.00-0.031); Immature Granulocyte Percent A 0.4 % (0-0.5); Immature Platelet Fraction Pct 10.1 % (0.9-11.2); Lymphocytes Absolute Auto 0.64 K/mm3 (0.9-3.2); Lymphocytes Percent Auto 28.4 % (18.3-44.2); Mean Corpuscular HGB Conc 32.8 g/dl (32-36); Mean Corpuscular Hemoglobin 31.9 pg (26-34); Mean Corpuscular Volume 97.4 fl (80-100); Mean Platelet Volume 14.7 fl (7.4-10.4); Monocytes Absolute Auto 0.3 K/mm3 (0.1-0.6); Monocytes Percent Auto 11.1 % (2.6-8.5); Neutrophils Absolute Auto 1.2 K/mm3 (1.3-6.7); Neutrophils Percent Auto 54.8 % (45.5-73.1); Red Blood Count 2.35 M/mm3 (4.6-6.20); Red Cell Distribution Width 19.1 % (11.5-14.5); White Blood Count 2.3 K/mm3 (4.5-10.0)
[2022-03-12 07:35] LABS: Alanine Aminotransferase 31 U/L (6-50); Albumin Level 2.7 g/dL (3.5-5.1); Alkaline Phosphatase 89 U/L (38-126); Anion Gap 5 mmol/L (8-16); Aspartate Amino Transferase 51 U/L (17-59); Bilirubin,Total 4.4 mg/dL (0.2-1.3); Blood Urea Nitrogen 23 mg/dL (9-20); Calcium 10.1 mg/dL (8.4-10.2); Carbon Dioxide 20 mmol/L (22-30); Chloride 115 mmol/L (98-107); Estimated CRCL calculation 69 ml/min; Estimated Glomerular Filt Rate > 60; Glucose 79 mg/dL (65-110); Potassium 3.7 mmol/L (3.4-5.0); Sodium 140 mmol/L (137-145)
[2022-03-12 08:08] LABS: Platelet Count Result 20 k/mm3 (150-375)
[2022-03-12] MEDS: FUROSEMIDE 20 MG TABLET PO (09:13)
[2022-03-12] MEDS: rifAXIMin 550 MG TABLET PO ×2 (09:13→17:08)
[2022-03-12] MEDS: LACTULOSE 20 GM/30 ML UDC 10 GM PO ×3 (09:13→17:08)
[2022-03-12] MEDS: PANTOPRAZOLE SODIUM IV 40 MG VIAL IV PUSH (09:14)
[2022-03-12] MEDS: SPIRONOLACTONE 50 MG TABLET PO ×2 (09:14→17:09)
[2022-03-12 10:21] LABS: Iron 62 ug/dL (49-181)
[2022-03-12 10:31] LABS: Percent Iron Saturation 25 % (20-50)
[2022-03-12 10:36] LABS: Transferrin 167 mg/dL (206-381)
[2022-03-12 11:35] LABS: Folic Acid 10.9 ng/mL (2.76->20); Vitamin B12 > 1000.0 pg/mL (239-931)
--- NOTE | 2022-03-12 16:41 | PM.IMPN ---
Progress Note: A&P Assessment and Plan (1) Sepsis: Qualifiers: Sepsis type: sepsis due to unspecified organism Sepsis acute organ dysfunction status: with acute organ dysfunction Severe sepsis acute organ dysfunction type: encephalopathy Code(s): A41.9 - Sepsis, unspecified organism Status: Acute Assessment and Plan: Sepsis criteria met on admission with tachycardia, tachypnea, transient hypotension, lactic acidosis and acute encephalopathy with fever. Possibly due to colitis versus SBP versus bacteremia. chest x-ray negative for acute pulmonary disease UA negative for leukocytes or nitrates Will treat with IV Rocephin 2 g Q 24 hours for possible SBP and add metronidazole 500 mg IV q.8 hours for possible colitis. ultrasound-guided paracentesis ordered with minimal ascites removed. Gram stain and culture ordered. albumin 25% 1.5 g per kg x1 ordered -max dose 100 g given Blood cultures are pending. continue IV fluid hydration. Will provide antipyretic therapy with low-dose Tylenol 500 mg q.6 hours as needed. With a goal to not exceed 2 g of Tylenol in a 24 hour interval. Patient does have a cardiac murmur it is unknown if he has a prior history of cardiac murmur. If blood cultures come back positive will probably need at on echocardiogram. (2) Altered mental status: Qualifiers: Altered mental status type: delirium Qualified Code(s): R41.0 - Disorientation, unspecified Code(s): R41.82 - Altered mental status, unspecified Status: Acute Assessment and Plan: calcium is 10.4 and patient has improved mental status alert and oriented x3 (3) Transient hypotension: Code(s): I95.9 - Hypotension, unspecified Status: Acute Assessment and Plan: Resolved after 1 L fluid bolus. Continue maintenance fluids. stop losartan. Will continue spironolactone and low-dose Lasix for liver cirrhosis as BP tolerates. IV albumin given x1 as above (4) Bandemia: Code(s): D72.825 - Bandemia Status: Acute Assessment and Plan: likely due to underlying sepsis given pitcher of fever, tachycardia and encephalopathy. trend CBC with differential in a.m.. (5) Lactic acidosis: Code(s): E87.20 - Acidosis, unspecified Status: Acute Assessment and Plan: Repeat lactic acid improved 1.6. (6) Thrombocytopenia: Code(s): D69.6 - Thrombocytopenia, unspecified Status: Acute Assessment and Plan: Chronic thrombocytopenia due to cirrhosis. Hold any anti-platelet medications and or blood thinners. Platelet count of 20 today (7) Hypercalcemia: Code(s): E83.52 - Hypercalcemia Status: Acute Assessment and Plan: calcium level 11 on admission and 10.4 today. Albumin 2.6 therefore corrected calcium 11.5 and elevated. Appears to be somewhat chronic at least since July of this year. Continue IV fluids and Lasix 40 mg IV x1 given PTH mildly elevated 300 and vitamin-D level 40, TSH within normal limits. PTH related protein pending calcium level this a.m. is 10.4 trend calcium level states that they are following an diet counselor (8) BPH (benign prostatic hyperplasia): Qualifiers: Lower urinary tract symptom presence: unspecified whether lower urinary tract symptoms present Qualified Code(s): N40.0 - Benign prostatic hyperplasia without lower urinary tract symptoms Code(s): N40.0 - Benign prostatic hyperplasia without lower urinary tract symptoms Status: Chronic Assessment and Plan: BPH noted on CT of the abdomen and pelvis. Anderson catheter was placed in the ER for monitoring of I&O's in the setting with patient with sepsis and altered mental status. Depending on symptomatology patient may benefit from addition of Flomax on discharge. 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
[2022-03-12] MEDS: cefTRIAXone 2 GM in SODIUM CHLORIDE 0.9% IV 100 ML 200 ML IVPB (17:09)
[2022-03-12] MEDS: SODIUM CHLORIDE 0.9% IV 1,000 ML 75 ML IV CONT (17:09)
[2022-03-13] VITALS (9 sets, daily range): BP systolic 100–110; BP diastolic 55–64; PULSE 72–87; RESP 20–24; TEMP 36.2–36.9; O2SAT 97–100
[2022-03-13] MEDS: metroNIDAZOLE 500 MG/ISO 100ML 500 MG/100 ML BAG 100 MG IVPB ×3 (05:52→21:02)
[2022-03-13 06:06] LABS: Basophils Percent Auto 1.4 % (0.2-1.2); Eosinophils Absolute Auto 0.1 K/mm3 (0-0.3); Eosinophils Percent Auto 4.6 % (0-4.4); Hematocrit 23.3 % (42.0-52.0); Hemoglobin 7.7 g/dL (14.0-18.0); Immature Granulocyte Absolute 0.01 K/mm3 (0.00-0.031); Immature Granulocyte Percent A 0.5 % (0-0.5); Immature Platelet Fraction Pct 9.9 % (0.9-11.2); Lymphocytes Percent Auto 27.8 % (18.3-44.2); Mean Corpuscular Hemoglobin 32.4 pg (26-34); Mean Corpuscular Volume 97.9 fl (80-100); Monocytes Absolute Auto 0.3 K/mm3 (0.1-0.6); Monocytes Percent Auto 12.5 % (2.6-8.5); Neutrophils Absolute Auto 1.2 K/mm3 (1.3-6.7); Neutrophils Percent Auto 53.2 % (45.5-73.1); Red Blood Count 2.38 M/mm3 (4.6-6.20); White Blood Count 2.2 K/mm3 (4.5-10.0)
[2022-03-13 06:20] LABS: Platelet Count Result 25 k/mm3 (150-375)
[2022-03-13 06:30] LABS: Alanine Aminotransferase 32 U/L (6-50); Albumin Level 2.7 g/dL (3.5-5.1); Alkaline Phosphatase 99 U/L (38-126); Anion Gap 4 mmol/L (8-16); Aspartate Amino Transferase 59 U/L (17-59); Bilirubin,Total 2.2 mg/dL (0.2-1.3); Blood Urea Nitrogen 17 mg/dL (9-20); Carbon Dioxide 19 mmol/L (22-30); Chloride 115 mmol/L (98-107); Estimated CRCL calculation 75 ml/min; Estimated Glomerular Filt Rate > 60; Glucose 86 mg/dL (65-110); Potassium 3.8 mmol/L (3.4-5.0); Sodium 138 mmol/L (137-145)
[2022-03-13] MEDS: PANTOPRAZOLE SODIUM IV 40 MG VIAL IV PUSH (08:34)
[2022-03-13] MEDS: rifAXIMin 550 MG TABLET PO ×2 (08:34→17:18)
[2022-03-13] MEDS: SPIRONOLACTONE 50 MG TABLET PO ×2 (08:34→17:18)
[2022-03-13] MEDS: LACTULOSE 20 GM/30 ML UDC 10 GM PO ×3 (08:34→17:18)
[2022-03-13] MEDS: FUROSEMIDE 20 MG TABLET PO (08:34)
--- NOTE | 2022-03-13 12:04 | PM.IMPN ---
Progress Note: A&P Assessment and Plan (1) Sepsis: Qualifiers: Sepsis acute organ dysfunction status: with acute organ dysfunction Sepsis type: sepsis due to unspecified organism Severe sepsis acute organ dysfunction type: encephalopathy Code(s): A41.9 - Sepsis, unspecified organism Status: Acute Assessment and Plan: Sepsis criteria met on admission with tachycardia, tachypnea, transient hypotension, lactic acidosis and acute encephalopathy with fever. Possibly due to colitis versus SBP versus bacteremia. chest x-ray negative for acute pulmonary disease UA negative for leukocytes or nitrates Will treat with IV Rocephin 2 g Q 24 hours for possible SBP and add metronidazole 500 mg IV q.8 hours for possible colitis. ultrasound-guided paracentesis ordered with minimal ascites removed. gram stain revealed no growth, aerobic and anaerobic culture no growth to date. Blood cultures are pending. continue IV fluid hydration. Will provide antipyretic therapy with low-dose Tylenol 500 mg q.6 hours as needed. With a goal to not exceed 2 g of Tylenol in a 24 hour interval. Patient does have a cardiac murmur it is unknown if he has a prior history of cardiac murmur. If blood cultures come back positive will probably need at on echocardiogram. Patient's heart rate, blood pressure, and temperature have all been stable. Lactic acid has come decreased to 1.6 (2) Altered mental status: Qualifiers: Altered mental status type: delirium Qualified Code(s): R41.0 - Disorientation, unspecified Code(s): R41.82 - Altered mental status, unspecified Status: Acute Assessment and Plan: calcium is 10. and patient has improved mental status alert and oriented x3 (3) Thrombocytopenia: Code(s): D69.6 - Thrombocytopenia, unspecified Status: Acute Assessment and Plan: Chronic thrombocytopenia due to cirrhosis. Hold any anti-platelet medications and or blood thinners. Platelet count has increased to 25. Plan to discharge tomorrow if platelet count remains stable. (4) Transient hypotension: Code(s): I95.9 - Hypotension, unspecified Status: Acute Assessment and Plan: Resolved after 1 L fluid bolus. Continue maintenance fluids. stop losartan. Will continue spironolactone and low-dose Lasix for liver cirrhosis as BP tolerates. (5) Bandemia: Code(s): D72.825 - Bandemia Status: Acute Assessment and Plan: likely due to underlying sepsis given pitcher of fever, tachycardia and encephalopathy. trend CBC with differential in a.m.. (6) Lactic acidosis: Code(s): E87.20 - Acidosis, unspecified Status: Acute Assessment and Plan: Repeat lactic acid improved 1.6. (7) Hypercalcemia: Code(s): E83.52 - Hypercalcemia Status: Acute Assessment and Plan: calcium level 11 on admission and 10.0 today. Albumin 2.6 therefore corrected calcium 11.5 and elevated. Appears to be somewhat chronic at least since July of this year. Continue IV fluids and Lasix 40 mg IV x1 given PTH mildly elevated 300 and vitamin-D level 40, TSH within normal limits. PTH related protein pending calcium level this a.m. is 10.0 trend calcium level states that they are following an cook ship (8) BPH (benign prostatic hyperplasia): Qualifiers: Lower urinary tract symptom presence: unspecified whether lower urinary tract symptoms present Qualified Code(s): N40.0 - Benign prostatic hyperplasia without lower urinary tract symptoms Code(s): N40.0 - Benign prostatic hyperplasia without lower urinary tract symptoms Status: Chronic Assessment and Plan: BPH noted on CT of the abdomen and pelvis. Anderson catheter was placed in the ER for monitoring of I&O's in the setting with patient with sepsis and altered mental status. Depending on symptomatology patient may benefit from add
[2022-03-13] MEDS: cefTRIAXone 2 GM in SODIUM CHLORIDE 0.9% IV 100 ML 200 ML IVPB (17:21)
[2022-03-13] MEDS: SODIUM CHLORIDE 0.9% IV 1,000 ML 75 ML IV CONT (17:27)
[2022-03-14] VITALS (7 sets, daily range): BP systolic 88–118; BP diastolic 52–70; PULSE 74–82; RESP 20; TEMP 36.8–37.1; O2SAT 98–99
[2022-03-14] MEDS: metroNIDAZOLE 500 MG/ISO 100ML 500 MG/100 ML BAG 100 MG IVPB (05:00)
[2022-03-14 05:51] LABS: Basophils Percent Auto 0.9 % (0.2-1.2); Eosinophils Absolute Auto 0.1 K/mm3 (0-0.3); Eosinophils Percent Auto 4.1 % (0-4.4); Hematocrit 23.5 % (42.0-52.0); Hemoglobin 7.8 g/dL (14.0-18.0); Immature Platelet Fraction Pct 8.5 % (0.9-11.2); Lymphocytes Absolute Auto 0.63 K/mm3 (0.9-3.2); Lymphocytes Percent Auto 28.5 % (18.3-44.2); Mean Corpuscular HGB Conc 33.2 g/dl (32-36); Mean Corpuscular Hemoglobin 32.6 pg (26-34); Mean Corpuscular Volume 98.3 fl (80-100); Monocytes Absolute Auto 0.3 K/mm3 (0.1-0.6); Monocytes Percent Auto 11.3 % (2.6-8.5); Neutrophils Absolute Auto 1.2 K/mm3 (1.3-6.7); Neutrophils Percent Auto 55.2 % (45.5-73.1); Platelet Count Result 28 k/mm3 (150-375); Red Blood Count 2.39 M/mm3 (4.6-6.20); Red Cell Distribution Width 18.6 % (11.5-14.5); White Blood Count 2.2 K/mm3 (4.5-10.0)
[2022-03-14 06:04] LABS: Alanine Aminotransferase 32 U/L (6-50); Albumin Level 2.5 g/dL (3.5-5.1); Alkaline Phosphatase 95 U/L (38-126); Anion Gap 9 mmol/L (8-16); Aspartate Amino Transferase 61 U/L (17-59); Blood Urea Nitrogen 13 mg/dL (9-20); Calcium 9.8 mg/dL (8.4-10.2); Carbon Dioxide 19 mmol/L (22-30); Chloride 113 mmol/L (98-107); Estimated CRCL calculation 92 ml/min; Estimated Glomerular Filt Rate > 60; Glucose 82 mg/dL (65-110); Potassium 3.8 mmol/L (3.4-5.0); Sodium 141 mmol/L (137-145)
[2022-03-14] MEDS: LACTULOSE 20 GM/30 ML UDC 10 GM PO ×3 (09:41→17:04)
[2022-03-14] MEDS: PANTOPRAZOLE SODIUM IV 40 MG VIAL IV PUSH (09:41)
[2022-03-14] MEDS: rifAXIMin 550 MG TABLET PO ×2 (09:41→17:03)
--- NOTE | 2022-03-14 13:01 | PM.DS ---
DS: Admitting Diagnosis Discharge Date 03/14/2022 Admitting Diagnosis fever altered mental status DS: Discharge Diagnosis Discharge Diagnosis (1) Sepsis: Qualifiers: Sepsis acute organ dysfunction status: with acute organ dysfunction Sepsis type: sepsis due to unspecified organism Severe sepsis acute organ dysfunction type: encephalopathy Code(s): A41.9 - Sepsis, unspecified organism Status: Acute (2) Altered mental status: Qualifiers: Altered mental status type: delirium Qualified Code(s): R41.0 - Disorientation, unspecified Code(s): R41.82 - Altered mental status, unspecified Status: Acute (3) Thrombocytopenia: Code(s): D69.6 - Thrombocytopenia, unspecified Status: Acute (4) Transient hypotension: Code(s): I95.9 - Hypotension, unspecified Status: Acute (5) Bandemia: Code(s): D72.825 - Bandemia Status: Acute (6) Lactic acidosis: Code(s): E87.20 - Acidosis, unspecified Status: Acute (7) Hypercalcemia: Code(s): E83.52 - Hypercalcemia Status: Acute (8) BPH (benign prostatic hyperplasia): Qualifiers: Lower urinary tract symptom presence: unspecified whether lower urinary tract symptoms present Qualified Code(s): N40.0 - Benign prostatic hyperplasia without lower urinary tract symptoms Code(s): N40.0 - Benign prostatic hyperplasia without lower urinary tract symptoms Status: Chronic (9) 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 patient presents to the ER for evaluation of confusion and fever of 100.3. He was found to be anemic and was consulted by GI with colonoscopy and endoscopy; source of bleeding not identified. Chest x-ray did not reveal any acute pulmonary process. CT abdomen and pelvis revealed cirrhosis and portal hypertension. Cholelithiasis. Gallbladder wall thickening/edema, a nonspecific finding in the setting of chronic liver disease, correlate with clinical and laboratory findings of cholecystitis. Right-sided colitis, likely related to portal hypertension but infectious and ischemic colitis can appear similarly. Patient met sepsis criteria with tachypnea with respirations of 22, tachycardia with heart rate in the low 100s, lactic acidosis, and fever of 100.3. Patient's labs revealed leukopenia, platelet count of 39 which can be common for this patient, lactic acid of 2.4, and a calcium of 11. source of infection differential included colitis versus SBP versus bacteremia. patient was started on ceftriaxone and Flagyl. Patient received 1 unit of packed red blood cells due to hemoglobin of 6.9. hemoglobin then increased to 8.2 and remained stable. Patient's platelets dropped to 20 during his stay and are trending up and are 28 on discharge. Patient did not receive platelet transfusion. lactic acid recheck it in was within normal limits at 1.6. Patient was alert orient x3 on 03/12/[address] has remained that way up until discharge. Patient underwent ultrasound-guided paracentesis with minimal ascites removal and g stain and culture ordered. On discharge ascites fluid culture and blood cultures revealed no growth today after 4 days. Plan to discharge patient on antibiotics to complete a 7 day course. Patient will be contacted if cultures reveal any growth. ? Time Spent with Patient Time attestation: Total time spent pro
[2022-03-17 13:08] LABS: Amylase Peritoneal Fluid 12 U/L
[2022-03-17 13:33] LABS: Glucose Peritoneal Fluid 83 mg/dL; LDH Peritoneal Fluid 264 U/L (<63); Total Protein Peritoneal Fluid <3.0 g/dL
[2022-03-18 21:01] LABS: Albumin Peritoneal Fluid 0.3 g/dL
--- NOTE | 2022-03-19 09:09 | PC.NURSE ---
Ascites fluid cx and blood cx are negative.
[2022-03-21 20:06] LABS: Parathyroid Hormone Related Pr 10 pg/mL (11-20)
== END 2022-03-14 17:07 | disposition home health service (06) | DRG 871 ==
LOC: ANHED 20:47 → ANH3MEDSUR 21:06
PROVIDERS: Emergency Medicine; Internal Medicine Critical Care Medicine; Nurse Practitioner Family; Admitting Provider Internal Medicine; Emergency Provider Nurse Practitioner Family; PCP Family Medicine; Visit Provider Internal Medicine
DX: A41.9 Sepsis, unspecified organism (principal); G93.41 Metabolic encephalopathy; R18.8 Other ascites; K76.6 Portal hypertension; R65.20 Severe sepsis without septic shock; K52.9 Noninfective gastroenteritis and colitis, unspecified; D72.825 Bandemia; D69.6 Thrombocytopenia, unspecified; N40.0 Benign prostatic hyperplasia without lower urinary tract symptoms; E83.52 Hypercalcemia; K75.81 Nonalcoholic steatohepatitis (NASH); J45.909 Unspecified asthma, uncomplicated; K74.60 Unspecified cirrhosis of liver; E88.01 Alpha-1-antitrypsin deficiency; D64.9 Anemia, unspecified; R01.1 Cardiac murmur, unspecified; K80.20 Calculus of gallbladder without cholecystitis without obstruction; I10 Essential (primary) hypertension; G47.33 Obstructive sleep apnea (adult) (pediatric); Z20.822 Contact with and (suspected) exposure to COVID-19; Z79.899 Other long term (current) drug therapy; Z85.828 Personal history of other malignant neoplasm of skin; Z87.891 Personal history of nicotine dependence; Z99.89 Dependence on other enabling machines and devices
CPT/HCPCS: 36415; 36430; 49083; 71045; 74177; 80053; 81001; 82042; 82140; 82150; 82306; 82607; 82728; 82746; 82945; 83519; 83540; 83550; 83605; 83615; 83690; 83970; 84157; 84443; 84466; 85014; 85018; 85025; 85055; 85610; 85730; 86140; 86850; 86900; 86901; 86923; 87040; 87070; 87075; 87205; 87637; 89051; 93005; 96361; 96374; 97161; 97165; 99285; A9270; C9113; J0696; J1885; J1940; J2543; J7030; J7050; P9016; P9047; Q9967

== ENCOUNTER 2022-03-28 13:53 | Emergency (ER) | payer MEDICARE, SELFPAY ==
--- NOTE | ~2022-03-28 | US_ITS ---
EXAMINATION:US venous doppler LE RT INDICATION:Right leg swelling and bruising. TECHNIQUE: Multiple grayscale, color flow and Doppler images of the right lower extremity deep venous systems were obtained and reviewed. COMPARISON:No prior studies for comparison. FINDINGS: The common femoral, superficial femoral and popliteal veins demonstrate normal respiratory variation, augmentation and compressibility. Color flow is also seen within the posterior tibial, pe roneal, greater saphenous and profunda veins. In the right lower leg medially there is a lentiform hypoechoic areas soft tissue, likely hematoma. T his measures 12.1 x 1.1 x 2 cm. IMPRESSION: 1: No lower extremity deep venous thrombosis. Reviewed, dictated and finalized at location A. ET SEWING MACHINE OPERATOR
--- NOTE | ~2022-03-28 | XR_ITS ---
XR foot RT min 3V 03/28/2022 18:37 Indication: Bruising swelling of the toes Procedure: 4 views right foot Comparison: No prior studies for comparison. Findings: There is moderate osteoarthritis of the first MTP joint. Osteopenia. Lisfranc joint intact. Moderate dorsal soft tissue swelling. There are degenerative calcaneal enthesophytes. No acute fract ure or traumatic malalignment. Lisfranc joint intact. Impression: 1: No acute fracture. Reviewed, dictated and finalized at location A. UTER LAB ASSISTANT Impression: 1: No acute fracture.
[2022-03-28 14:03] VITALS: BP 107/56; PULSE 88; RESP 14; TEMP 36.8; O2SAT 100
[2022-03-28 16:50] LABS: Basophils Percent Auto 0.8 % (0.2-1.2); Eosinophils Absolute Auto 0.1 K/mm3 (0-0.3); Eosinophils Percent Auto 2.5 % (0-4.4); Hematocrit 25.7 % (42.0-52.0); Hemoglobin 8.3 g/dL (14.0-18.0); Immature Granulocyte Absolute 0.01 K/mm3 (0.00-0.031); Immature Granulocyte Percent A 0.3 % (0-0.5); Immature Platelet Fraction Pct 7.8 % (0.9-11.2); Lymphocytes Absolute Auto 0.74 K/mm3 (0.9-3.2); Lymphocytes Percent Auto 20.7 % (18.3-44.2); Mean Corpuscular HGB Conc 32.3 g/dl (32-36); Mean Corpuscular Volume 105.3 fl (80-100); Mean Platelet Volume 12.9 fl (7.4-10.4); Monocytes Absolute Auto 0.4 K/mm3 (0.1-0.6); Monocytes Percent Auto 10.4 % (2.6-8.5); Neutrophils Absolute Auto 2.3 K/mm3 (1.3-6.7); Neutrophils Percent Auto 65.3 % (45.5-73.1); Platelet Count Result 54 k/mm3 (150-375); Red Blood Count 2.44 M/mm3 (4.6-6.20); White Blood Count 3.6 K/mm3 (4.5-10.0)
[2022-03-28 17:01] LABS: INR 1.8
[2022-03-28 17:02] LABS: Anion Gap 2 mmol/L (8-16); Blood Urea Nitrogen 12 mg/dL (9-20); Calcium 10.4 mg/dL (8.4-10.2); Carbon Dioxide 23 mmol/L (22-30); Chloride 110 mmol/L (98-107); Estimated CRCL calculation 80 ml/min; Estimated Glomerular Filt Rate > 60; Glucose 115 mg/dL (65-110); Potassium 3.5 mmol/L (3.4-5.0); Sodium 135 mmol/L (137-145)
[2022-03-28 18:04] VITALS: BP 120/57; PULSE 77; RESP 16; O2SAT 100
--- NOTE | 2022-03-28 18:14 | ED.EXTPRO ---
HPI - Extremity Problem General Chief complaint: Extremity Problem,Nontraumatic Stated complaint: right leg purple and painful for a week now Time Seen by Provider: 03/28/22 18:00 History of Present Illness HPI Narrative: 71-year-old male here for evaluation of a purple rash to his right lower extremity. Patient states that he noticed purple dots on his right calf about a week ago. He denies obvious trigger for this. States that the dots disappeared but today he noticed the purple dots are present in his toes today. No pain, trauma, fevers, chills, systemic symptoms, weakness or confusion. Patient has a history of liver disease and has chronically low platelets. Related Data Home Medications Medication Instructions Recorded Confirmed furosemide 20 mg tablet 10 mg PO BID On hold 08/22/21 03/10/22 lactulose 10 gram/15 mL oral 15 ml PO BID 08/22/21 03/10/22 solution rifaximin 550 mg tablet (Xifaxan) 550 mg PO BID 08/22/21 03/10/22 spironolactone 50 mg tablet 50 mg PO BID on hold 08/22/21 03/10/22 Allergies Allergy/AdvReac Type Severity Reaction Status Date / Time No Known Allergies Allergy Verified 03/28/22 13:53 Review of Systems Review of Systems: Gen.: Denies fevers or chills Eyes: Denies eye pain or visual change ENT: Denies congestion Respiratory: Denies shortness of breath or cough CV: Denies chest pain or palpitations GI: Denies abdominal pain nausea, emesis or diarrhea denies burning, urgency, frequency or hematuria Musculoskeletal: denies back pain or muscle pain Neuro: Denies numbness, tingling, weakness or focal weakness Skin: Reports purple discoloration to toes Except as documented, all other systems reviewed and negative [facility] Past Medical History Medical History 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 Schmidt Hx of tonsillectomy Family History Family History Father Family history of elevated blood lipids Family history of coronary artery disease Heart disease Mother Family history of lung cancer Grandparent Dementia Throat cancer Social History Social History Smoking status: Never smoker Tobacco type: cigars Smoking end date: 04/20/16 Alcohol intake: never Alcohol use details: occasional Substance use: never Substance use type: does not use Lack of Transportation: No Lack of Food: Never True Current Housing: Decline to Answer Concerned About Future Housing: No Difficulty Paying Gas/Electric Bills: No Difficulty Paying for Meds: No Currently Unemployed: No Education: Decline to Answer Difficulty w/ Childcare or Family Care: No Gender identity (if verbalized by the patient): Male Spiritual care concerns: No Exam Narrative: APPEARANCE: Well appearing, no pain in distress, well-nourished. Head: Normocephalic and atraumatic. EYES: PERRLA/EOMI, conjunctivae clear NOSE: No nasal drainage EARS: External ear normal in appearance THROAT: Oropharynx is clear. Mucous membranes are moist. NECK: Supple. No adenopathy, no masses. RESPIRATORY: Airway patent, respirations nonlabored. Clear to auscultation bilaterally, no rales, rhonchi, wheezing. CARDIOVASCULAR: Strong DP and PT pulses bilateral
[2022-03-28 18:16] VITALS: BP 110/58; O2SAT 98
[2022-03-28 18:31] VITALS: BP 95/47; O2SAT 91
== END 2022-03-28 19:30 | disposition home or self-care (01) ==
LOC: ANHED 19:18
PROVIDERS: Emergency Medicine; Emergency Provider Physician Assistant; PCP Family Medicine
DX: M79.81 Nontraumatic hematoma of soft tissue (principal); J45.909 Unspecified asthma, uncomplicated; I10 Essential (primary) hypertension; K74.60 Unspecified cirrhosis of liver; K75.81 Nonalcoholic steatohepatitis (NASH); G47.33 Obstructive sleep apnea (adult) (pediatric); D69.6 Thrombocytopenia, unspecified; R60.0 Localized edema; Z87.442 Personal history of urinary calculi; Z85.828 Personal history of other malignant neoplasm of skin; Z87.891 Personal history of nicotine dependence
CPT/HCPCS: 36415; 73630; 80048; 85025; 85055; 85610; 85730; 93971; 99284

== ENCOUNTER 2022-06-25 06:34 | Inpatient (IN) | payer MEDICARE, SELFPAY ==
[2022-06-25] VITALS (48 sets, daily range): BP systolic 79–127; BP diastolic 50–85; PULSE 93–133; RESP 16–32; TEMP 36.8–39.6; O2SAT 87–100; BMI 36.4
--- NOTE | ~2022-06-25 | CT_ITS ---
EXAMINATION: CT abdomen pelvis w con DATE: 06/25/2022 07:38 INDICATION: Abdominal pain and fever TECHNIQUE: Computed tomography (CT) of the abdomen and pelvis was performed with 100 mL Omnipaque-350 intravenous contrast. Automated exposure control and iterative reconstruction technique were employe d. The dose-length product was 1721.56 mGy-cm. COMPARISON: None FINDINGS: Respiratory motion at the lung bases with minimal dependent atelectasis in the bilateral lower lobes. Heart size is normal. No pericardial or pleural effusion. Moderate to large amount of ascites scatte red throughout the abdomen and pelvis. Shrunken and nodular cirrhotic liver. Secondary portal venous hypertension with portosystemic collaterals about the right adrenal gland and paraesophageal varices. Multiple gallstones in the dependent aspect of the nondilated gallbladder. No intra or extrahepatic biliary ductal dilation. Spleen, pancreas, bilateral adrenal glands are normal. 2 mm nonobstructing s tones at the lower pole calyces of both kidneys. 1.8 cm left renal cyst. No abnormal bowel wall thick ening or obstruction. Intracranially containing small amount of fat and ascites. Mild scattered degen erative skeletal changes. IMPRESSION: 1. Cirrhosis with portosystemic collaterals including paraesophageal varices consistent with secondar y portal venous hypertension 2. Moderate to large amount of ascites. 3. Cholelithiasis. 4. Bilateral nonobstructing nephrolithiasis. Reviewed, dictated and finalized at location A. IAC RN IMPRESSION: 1. Cirrhosis with portosystemic collaterals including paraesophageal varices co nsistent with secondary portal venous hypertension 2. Moderate to large amount of ascites. 3. Cholelithiasis. 4. Bilateral nonobstructing nephrolithiasis.
--- NOTE | ~2022-06-25 | CT_ITS ---
EXAMINATION: CT brain wo con DATE: 06/25/2022 07:38 INDICATION: Altered mental status TECHNIQUE: Computed tomography (CT) of the head was performed without intravenous contrast. Sagittal and coronal reconstructions were performed. The mA was adjusted according to patient size. Iterative reconstruction technique was employed. The dose-length product was 681.00 mGy-cm. COMPARISON: Brain MR dated 01/01/2020 FINDINGS: No acute intracranial hemorrhage, acute infarction or abnormal extra axial fluid collection. There is moderate scattered white matter hypoattenuation consistent with chronic small vessel ischemic diseas e. Ventricles are normal and symmetric. No mass/mass effect. The orbits, paranasal sinuses and masto id air cells are normal. IMPRESSION: 1. Moderate scattered white matter hypoattenuation consistent with chronic small vessel ischemic dise ase. No other acute intracranial process. Reviewed, dictated and finalized at location A. T PROTECTION LEAD IMPRESSION: 1. Moderate scattered white matter hypoattenuation consistent with chronic smal l vessel ischemic disease. No other acute intracranial process.
--- NOTE | ~2022-06-25 | US_ITS ---
EXAMINATION: US paracentesis abd w/image DATE: 06/26/2022 14:40 INDICATION: Ascites. TECHNIQUE: The procedure and its risks, benefits, and alternatives were discussed with the patient. P otential risks discussed included bleeding and infection. The skin was prepped and draped in sterile fashion. 1% lidocaine was used for local anesthesia. Under ultrasound guidance, a 5 Fr catheter with trochar was advanced into the ascites in the right lower quadrant. Fluid was aspirated. The catheter was removed, and a dressing was applied. There were no immediate complications. FINDINGS: Ultrasound images demonstrate ascites and the catheter within the fluid. IMPRESSION: 1. Successful ultrasound-guided paracentesis yielding 4,400 mL of carlotta-colored fluid. Reviewed, dictated and finalized at location A. TER OPERATOR IMPRESSION: 1. Successful ultrasound-guided paracentesis yielding 4,400 mL of carlotta-colore d fluid.
--- NOTE | 2022-06-25 06:42 | ECG_ITS ---
Measurements Intervals Lewis Rate: 133 P: 58 AR: 138 QRS: 4 QRSD: 92 T: 66 QT: 369 QTc: 551 Interpretive Statements SINUS TACHYCARDIA ATRIAL PREMATURE COMPLEX BORDERLINE T WAVE ABNORMALITY- INFERIOR LEADS BASELINE ARTIFACT- I, III, AVR, AVL, AVF ABNORMAL ECG COMPARED TO ECG 03/10/2022 17:51:45 HEART RATE HAS INCREASED Electronically Signed On 06-25-2022 8:35:38 CARBON BRUSHER ASSEMBLER by Valentin Horn D.O.
--- NOTE | 2022-06-25 06:43 | ED.GENADULT ---
HPI - General Adult General Chief complaint: Altered Mental Status <Herbie Espana MD - Last Filed: 06/27/22 02:00> Stated complaint: AMS, wekness, fever <Herbie Espana MD - Last Filed: 06/27/22 02:00> Time Seen by Provider: 06/25/22 06:37 <Herbie Espana MD - Last Filed: 06/27/22 02:00> History of Present Illness HPI narrative: This 72-year-old male presenting ED chief complaint of altered mental status and fever. Patient is able to answer his name but provide no other useful information. patient has soiled himself. Per EMS patient has liver cirrhosis and had a paracentesis yesterday. He has a history of SBP. in the past. <Herbie Espana MD - Last Filed: 06/27/22 02:00> Related Data Home medications: Home Medications Medication Instructions Recorded Confirmed furosemide 20 mg tablet 20 mg PO BID On hold 08/22/21 06/25/22 rifaximin 550 mg tablet (Xifaxan) 550 mg PO BID 08/22/21 06/25/22 spironolactone 50 mg tablet 50 mg PO BID on hold 08/22/21 06/25/22 lactulose 10 gram/15 mL oral 20 g PO BID 06/25/22 06/25/22 solution omeprazole 20 mg capsule,delayed 20 mg DAILY 06/25/22 06/25/22 release <Herbie Espana MD - Last Filed: 06/27/22 02:00> Allergies/adverse reactions: Allergies Allergy/AdvReac Type Severity Reaction Status Date / Time No Known Allergies Allergy Verified 06/20/22 11:00 <Herbie Espana MD - Last Filed: 06/27/22 02:00> Review of Systems Review of Systems: ROS unobtainable: No unobtainable due to medical condition <Alivia White MD - Last Filed: 06/25/22 11:17> [facility] Past Medical History Medical History: Medical History (Updated 06/26/22 @ 14:43 by Chapo Chiu MD) [id number] deficiency carrier Asthma Basal cell carcinoma Decompensation of cirrhosis of liver Erosive gastritis Essential hypertension Hepatitis C antibody test negative (05/11/03) Kidney stone 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 Schmidt History of removal of pigmented skin lesion History of basal cell carcinoma Removed from behind his ear and nose. Hx of tonsillectomy <Herbie Espana MD - Last Filed: 06/27/22 02:00> Family History Family History: Family History Father Family history of elevated blood lipids Family history of coronary artery disease Heart disease Mother Family history of lung cancer Grandparent Dementia Throat cancer <Herbie Espana MD - Last Filed: 06/27/22 02:00> Social History Social History: Social History (Updated 06/25/22 @ 19:17 by Edilma Osorio NP) Social History: The patient is and has 4 sons. The patient used occasionally smokes cigars. The patient is retired. Code status full code Smoking status: Never smoker Tobacco type: cigars Smoking end date: 04/20/16 Alcohol intake: never Alcohol use details: occasional Substance use: never Substance use type: does not use Lack of Transportation: No Lack of Food: Never True Current Housing: Decline to Answer Concerned About Future Housing: No Difficulty Paying Gas/Electric Bills: No Difficulty Paying for Meds: No Currently Unemployed: No Education: Bachelor's Degree Difficulty w/ Childcare or Family Care: No Gender identity (if verbalized by the patient): Male Spiritual care concerns: No <Herbie Espana MD - Last Filed: 06/27/22
[2022-06-25 06:56] LABS: Basophils Percent Auto 0.2 % (0.2-1.2); Eosinophils Percent Auto 0.1 % (0-4.4); Hematocrit 26.2 % (42.0-52.0); Hemoglobin 8.2 g/dL (14.0-18.0); Immature Granulocyte Absolute 0.07 K/mm3 (0.00-0.031); Immature Granulocyte Percent A 0.7 % (0-0.5); Immature Platelet Fraction Pct 7.2 % (0.9-11.2); Lymphocytes Percent Auto 3.1 % (18.3-44.2); Mean Corpuscular HGB Conc 31.3 g/dl (32-36); Mean Corpuscular Hemoglobin 33.5 pg (26-34); Mean Corpuscular Volume 106.9 fl (80-100); Mean Platelet Volume 12.4 fl (7.4-10.4); Monocytes Absolute Auto 0.8 K/mm3 (0.1-0.6); Monocytes Percent Auto 8.8 % (2.6-8.5); Neutrophils Absolute Auto 8.3 K/mm3 (1.3-6.7); Neutrophils Percent Auto 87.1 % (45.5-73.1); Platelet Count Result 50 k/mm3 (150-375); Red Blood Count 2.45 M/mm3 (4.6-6.20); Red Cell Distribution Width 15.3 % (11.5-14.5); White Blood Count 9.6 K/mm3 (4.5-10.0)
[2022-06-25 07:04] LABS: Lactic Acid Reflex 3.3 mmol/L (0.7-2.0)
[2022-06-25 07:05] LABS: Alanine Aminotransferase 43 U/L (6-50); Albumin Level 3.1 g/dL (3.5-5.1); Alkaline Phosphatase 155 U/L (38-126); Anion Gap 4 mmol/L (8-16); Aspartate Amino Transferase 84 U/L (17-59); Bilirubin,Total 3.6 mg/dL (0.2-1.3); Blood Urea Nitrogen 21 mg/dL (9-20); Carbon Dioxide 23 mmol/L (22-30); Chloride 103 mmol/L (98-107); Estimated Glomerular Filt Rate 50; Glucose 97 mg/dL (65-110); INR 2.1; Lipase 274 U/L (23-300); Magnesium 1.9 mg/dL (1.6-2.3); Partial Thromboplastin Time 38.7 SECONDS (22.3-36.8); Potassium 4.6 mmol/L (3.4-5.0); Prothrombin Time 22.8 Seconds (11.1-14.7); Sodium 130 mmol/L (137-145)
[2022-06-25 07:06] LABS: Ammonia 13 umol/L (9-30)
[2022-06-25] MEDS: SODIUM CHLORIDE 0.9% IV 1,000 ML 999 ML IV CONT ×2 (07:06→11:08)
[2022-06-25 07:10] LABS: Glucose Point of Care 91 mg/dl (65-105)
[2022-06-25 07:16] LABS: Anisocytosis 1+ (NORMAL); Platelet Estimate Decreased (Adequate); Schistocytes None Seen (NORMAL)
[2022-06-25 07:31] LABS: Influenza A QL RT-PCR Negative (Negative); Influenza B QL RT-PCR Negative (Negative); RSV RNA, RT-PCR Negative (Negative); SARS-CoV-2 RNA PCR Negative
[2022-06-25] MEDS: SODIUM CHLORIDE 0.9% IV 2,000 ML 999 ML IV CONT (07:45)
[2022-06-25 07:49] LABS: Appearance Urine Cloudy (Clear); Bacteria Urine None Seen /hpf; Bilirubin Urine 1+ (Negative); Blood Urine Negative (Negative); Calcium Oxalate Crystals Urine Present /hpf; Color Urine Dark Yellow (Yellow); Glucose Urine UA Negative (Negative); Ketones Urine Trace mg/dL (Negative); Leukocyte Esterase Ur 1+ LEU/UL (Negative); Nitrate Urine Negative (Negative); Protein Urine Negative (Negative); Specific Grav Ur 1.015 (1.001-1.035); Squamous Epithelial Cell Urine None seen /hpf (Few)
[2022-06-25 08:14] LABS: Add Urine Microscopic? YES
[2022-06-25 09:52] LABS: Reflex Lactic Acid Yes or No Add Lactic
--- NOTE | 2022-06-25 10:07 | PC.NURSE ---
Per family, pt typically deals with low BP. Pt is drowsy, easily arrousable and was answering appropriately on arrival. pt is still easily awakened, answering appropriately and has no complaints at this time. manual bp done per erp request on both sides. both 90/70s, pt is calm but very antsy in bed. erp aware no new orders at this time.
[2022-06-25] MEDS: ALBUMIN HUMAN 5% 25 GM/500 ML BTL IV CONT ×2 (10:50→14:39)
[2022-06-25 10:54] LABS: Lactic Acid 2.4 mmol/L (0.7-2.0)
--- NOTE | 2022-06-25 11:11 | PC.NURSE ---
Pt receiving 3 of 3 NS bolus at this time. Pt handoff given to Criss RN over phone for ICU. All questions and concerns addressed. family updated at bedside .
--- NOTE | 2022-06-25 12:32 | PM.IMHP ---
H&P: HPI History of Present Illness Date/Time: 06/25/22 12:32 Chief Complaint: Altered mental status Narrative: This is a 72-year-old male patient who has a history of cirrhosis of the liver. The patient came to the emergency room today with complaints of altered mental status and fever. The patient recently had a paracentesis on Thursday. According to the family the patient had 11 L during at [facility]. After that the patient developed fever and chills and became confused. He has a history of having SBP. The patient was also started on Rocephin for UTI. His H&H is 8.2 and 26.2. MCV is 106.9. Creatinine is 1.4. Lactic was 3.3 now 2.4. Calcium is 2.0. Urine is cloudy 1+ bilirubin 3 the 5 RBCs 1+ leukocyte esterase. WBC 6-10. The patient was negative for influenza A/B RSV and COVID. Patient's heart rate is over 100. His temperature was 100.4? F . The patient was given 4 L of IV fluid, Tylenol, albumin and Rocephin. The patient was admitted to inpatient ICU as IMU overflow on the date of service of 06/25/2022. Review of Systems Review of Systems: SEE HPI All systems reviewed & are unremarkable except as noted in HPI and below Constitutional: Constitutional: Reports as per HPI and Reports no additional constitutional complaints Eyes: Eyes: Reports as per HPI and Reports no additional eye complaints ENT: Reports system reviewed and no additional complaints, except as documented and Reports Normal hearing present Cardiovascular: Cardiovascular: Reports no additional cardiovascular complaints Respiratory: Respiratory: Reports no additional respiratory complaints and Reports no additional respiratory complaints Gastrointestinal: Gastrointestinal: Reports as per HPI and Reports no additional gastrointestinal complaints Musculoskeletal: Musculoskeletal: Reports no additional musculoskeletal complaints Integumentary/Breasts: Skin/Breast: Reports system reviewed and no additional complaints, except as docu and Reports as per HPI Neurologic: Reports system reviewed and no additional complaints, except as documented, Reports as per HPI and Reports Normal hearing present Psychiatric: Psychiatric: Reports no additional psychiatric complaints and Reports as per HPI Endocrine: Endocrine: Reports no additional endocrine complaints Hematologic/Lymphatic: Hematologic/Lymphatic: Reports no additional hematologic/lymphatic complaints Allergic/Immunologic: Allergic/Immunologic: Reports no additional allergic/immunologic complaints [facility] Past Medical History Medical History Mirlr-[id number] deficiency carrier Asthma Basal cell carcinoma Erosive gastritis Essential hypertension Hepatitis C antibody test negative (05/11/03) Kidney stone 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 Schmidt History of removal of pigmented skin lesion History of basal cell carcinoma Removed from behind his ear and nose. Hx of tonsillectomy Family History Family History Father Family history of elevated blood lipids Family history of coronary artery disease Heart disease Mother Family history of lung cancer Grandparent Dementia Throat cancer Social History Social History (Updated 06/25/22 @ 19:17 by Edilma Osorio NP) Social History: The patient is and has 4 sons. The patient used occasionally smokes cigars. The patient is retired. Code status full code Smoking status: Never smoker Tobacco type: cigars
[2022-06-25 19:35] LABS: Ammonia 29 umol/L (9-30)
[2022-06-25] MEDS: SODIUM CHLORIDE 0.9% IV 1,000 ML 50 ML IV CONT (19:52)
[2022-06-25] MEDS: cefTRIAXone 2 GM in SODIUM CHLORIDE 0.9% IV 100 ML 200 ML IVPB (20:37)
[2022-06-26] VITALS (23 sets, daily range): BP systolic 101–124; BP diastolic 55–71; PULSE 85–98; RESP 16–35; TEMP 36.6–37.2; O2SAT 98–100
[2022-06-26 04:53] LABS: Eosinophils Percent Auto 0.6 % (0-4.4); Immature Granulocyte Absolute 0.01 K/mm3 (0.00-0.031); Immature Granulocyte Percent A 0.3 % (0-0.5); Immature Platelet Fraction Pct 12.8 % (0.9-11.2); Lymphocytes Absolute Auto 0.46 K/mm3 (0.9-3.2); Lymphocytes Percent Auto 13.8 % (18.3-44.2); Mean Corpuscular HGB Conc 30.7 g/dl (32-36); Mean Corpuscular Hemoglobin 33.5 pg (26-34); Mean Corpuscular Volume 109.2 fl (80-100); Mean Platelet Volume 14.2 fl (7.4-10.4); Monocytes Absolute Auto 0.3 K/mm3 (0.1-0.6); Monocytes Percent Auto 9.9 % (2.6-8.5); Neutrophils Absolute Auto 2.5 K/mm3 (1.3-6.7); Neutrophils Percent Auto 75.4 % (45.5-73.1); Platelet Count Result 28 k/mm3 (150-375); Red Blood Count 1.85 M/mm3 (4.6-6.20); Red Cell Distribution Width 15.5 % (11.5-14.5); White Blood Count 3.3 K/mm3 (4.5-10.0)
[2022-06-26 05:04] LABS: Lactic Acid Reflex 1.4 mmol/L (0.7-2.0)
[2022-06-26 05:06] LABS: Alanine Aminotransferase 34 U/L (6-50); Albumin Level 2.5 g/dL (3.5-5.1); Alkaline Phosphatase 86 U/L (38-126); Anion Gap 3 mmol/L (8-16); Aspartate Amino Transferase 57 U/L (17-59); Bilirubin,Total 3.1 mg/dL (0.2-1.3); Blood Urea Nitrogen 21 mg/dL (9-20); CRP 2.7 mg/dL (<1.0); Calcium 12.1 mg/dL (8.4-10.2); Carbon Dioxide 21 mmol/L (22-30); Chloride 109 mmol/L (98-107); Estimated CRCL calculation 68 ml/min; Estimated Glomerular Filt Rate > 60; Glucose 79 mg/dL (65-110); Lipase 122 U/L (23-300); Magnesium 1.9 mg/dL (1.6-2.3); Phosphorus 2.9 mg/dL (2.5-4.5); Sodium 133 mmol/L (137-145)
[2022-06-26 05:16] LABS: Hematocrit 20.2 % (42.0-52.0); Hemoglobin 6.2 g/dL (14.0-18.0)
[2022-06-26 05:17] LABS: Ovalocytes 1+ (NORMAL); Platelet Estimate Decreased (Adequate); Schistocytes None Seen (NORMAL); Tear Drop Cells 1+ (NORMAL)
--- NOTE | 2022-06-26 06:54 | PCRCNOTE ---
Pt refused cpap
[2022-06-26 08:00] LABS: Thyroid Stimulating Hormone Reflex 0.475 uIU/mL (0.465-4.68)
[2022-06-26] MEDS: LACTULOSE 20 GM/30 ML UDC PO ×2 (09:18→17:32)
[2022-06-26] MEDS: cefTRIAXone 2 GM in SODIUM CHLORIDE 0.9% IV 100 ML 200 ML IVPB (09:18)
[2022-06-26] MEDS: SODIUM CHLORIDE 0.9% IV 250 ML 30 ML IV CONT ×2 (09:19→12:40)
[2022-06-26] MEDS: rifAXIMin 550 MG TABLET PO ×2 (09:19→17:32)
[2022-06-26] MEDS: PANTOPRAZOLE 40 MG TABLET PO (09:19)
--- NOTE | 2022-06-26 11:42 | PM.IMPN ---
Progress Note: A&P Assessment and Plan (1) Sepsis: Qualifiers: Sepsis type: sepsis due to unspecified organism Sepsis acute organ dysfunction status: with acute organ dysfunction Severe sepsis acute organ dysfunction type: encephalopathy Code(s): A41.9 - Sepsis, unspecified organism Status: Acute Assessment and Plan: Likely secondary to SBP, patient also has a UTI The patient was placed in ICU is a IMU overflow. Urine and blood cultures are pending Appreciate GI input. Continue IV antibiotics (2) UTI (urinary tract infection): Code(s): N39.0 - Urinary tract infection, site not specified Status: Acute Assessment and Plan: The patient was started on Rocephin. Although he is on higher doses to cover for SBP Tailor antibiotics according to culture and sensitivity Blood and urine cultures are pending. (3) ALLISON (acute kidney injury): Code(s): N17.9 - Acute kidney failure, unspecified Status: Acute Assessment and Plan: Patient's creatinine is 1.4. Typically he has a normal baseline. Continue with IV fluids and check lactic level (4) Anemia: Qualifiers: Anemia type: unspecified type Qualified Code(s): D64.9 - Anemia, unspecified Code(s): D64.9 - Anemia, unspecified Status: Acute Assessment and Plan: Hemoglobin 8.2 which is his baseline. (5) BPH (benign prostatic hyperplasia): Qualifiers: Lower urinary tract symptom presence: unspecified whether lower urinary tract symptoms present Qualified Code(s): N40.0 - Benign prostatic hyperplasia without lower urinary tract symptoms Code(s): N40.0 - Benign prostatic hyperplasia without lower urinary tract symptoms Status: Chronic Assessment and Plan: Continue with current treatment (6) Hypotension: Code(s): I95.9 - Hypotension, unspecified Status: Acute Assessment and Plan: Patient is in ICU and I spoke to the about possibly doing a central line and vasopressors. The did agree. However patient is maintaining her blood pressure with albumin and IV fluids. 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 I am attempting to get record from that paracentesis. Check his ammonia level as he has altered mental status. Continue with his home dose of Lasix, lactulose, rifaximin, and spironolactone. (8) Thrombocytopenia: Code(s): D69.6 - Thrombocytopenia, unspecified Status: Acute Assessment and Plan: Secondary to the cirrhosis of the liver. The patient's platelets are currently 50 any appears to be at his baseline. (9) Mixed hyperlipidemia: Code(s): E78.2 - Mixed hyperlipidemia Status: Acute Assessment and Plan: Continue with current treatment (10) Obstructive sleep apnea (adult) (pediatric): Code(s): G47.33 - Obstructive sleep apnea (adult) (pediatric) Status: Acute Assessment and Plan: Home settings for CPAP Subjective Date/time seen: 06/26/22 11:42 No new complaints Exam Const: General: cooperative, healthy appearing, comfortable, no acute distress, well developed, alert, awake, Physically active, average body habitus and well nourished Nutritional Appearance: average body habitus and well nourished Orientation/consciousness: oriented to person and oriented to place Limitations: no limitations HENMT: Head: normal to inspection, No palpable skull fracture present, normocephalic, atraumatic and abrasion Ears: hearing grossly normal bilaterally and external ears normal Face/Nose/Sinus: Normal external nose present and Normal nares present Eyes: General: appearance normal, both eyes and all related structures
--- NOTE | 2022-06-26 14:35 | WPDGICN ---
Assessment and Plan Assessment and plan (1) Sepsis: Qualifiers: Sepsis type: sepsis due to unspecified organism Sepsis acute organ dysfunction status: with acute organ dysfunction Severe sepsis acute organ dysfunction type: encephalopathy Code(s): A41.9 - Sepsis, unspecified organism Status: Acute Assessment and Plan: probably sbp, could be also uti on antibiotics, also received iv albumin he seems better pending paracentesis (already ordered)- had 11 L removed earlier this week (2) Decompensation of cirrhosis of liver: Code(s): K72.90 - Hepatic failure, unspecified without coma; K74.60 - Unspecified cirrhosis of liver Status: Acute Assessment and Plan: he is seeing hepatology at [facility] renal function improved MELD just few days ago ~ 21, will repeat labs and calculate (3) ALLISON (acute kidney injury): Code(s): N17.9 - Acute kidney failure, unspecified Status: Acute Assessment and Plan: improved (4) Abdominal ascites: Code(s): R18.8 - Other ascites Status: Acute Assessment and Plan: check for sbp diuretics on hold for now given sepsis and low BP on arrival- better now (5) UTI (urinary tract infection): Code(s): N39.0 - Urinary tract infection, site not specified Status: Acute Assessment and Plan: on abx (6) Fever: Code(s): R50.9 - Fever, unspecified Status: Acute (7) Transient hypotension: Code(s): I95.9 - Hypotension, unspecified Status: Acute Assessment and Plan: improved (8) Liver encephalopathy: Code(s): K72.90 - Hepatic failure, unspecified without coma Status: Acute Assessment and Plan: more alert on xifaxan and lactulose (9) Liver cirrhosis secondary to COLMENARES: Code(s): K75.81 - Nonalcoholic steatohepatitis (COLMENARES); K74.60 - Unspecified cirrhosis of liver Status: Chronic (10) Thrombocytopenia: Code(s): D69.6 - Thrombocytopenia, unspecified Status: Acute GI Consult Note Consult date/time: 06/26/22 14:35 Reason for consult: sepsis, decompensated cirrhosis with ascites HPI: Emmanuel Norris is a 72 year old male with history of colmenares cirrhosis, 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 He has been getting paracentesis last one just 3 days ago [facility] about 11 liters as outpatient. Then at home the patient developed fever and chills and became confused, he also had SBP in the past. He had fever as high as 103F per , diagnosed with UTI (pending paracentesis), started on antibiotic, given fluids and iv albumin (he was hypotensive), hb 8.2 but dropped to 6.2 (now also on blood transfusion), Creatinine is 1.4 but today normal, bili 3.2. Lactic was 3.3 now 2.4.?Urine is cloudy 1+ bilirubin 3 the 5 RBCs 1+ leukocyte esterase.? WBC 6-10.? The patient was negative for influenza A/B RSV and COVID. Admitted to ICU. is at bedside, he looks much better after medical treatment and less confused. Review of Systems Constitutional: Constitutional: Reports body ache(s), Reports chills and Reports fever(s) Eyes: Eyes: Denies blurry vision ENT: Reports Normal hearing present Cardiovascular: Cardiovascular: Denies chest pain Respiratory: Respiratory: Denies cough Gastrointestinal: Gastrointestinal: Denies nausea Genitourinary: Genitourinary: Denies urinary frequency Musculoskeletal: Musculoskeletal: Reports myalgias Integumentary/Breasts: Skin/Breast: Denies rash Neurologic: Reports confusion Psychiatric: Psychiatric: Reports confusion PMFSH Past Medical History Medical History (Updated 06/26/22 @ 14:43 by Chapo Chiu MD) 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
--- NOTE | 2022-06-26 15:13 | PCCCNOTE ---
On 06/26/22, the student, [Alix Welch ], provided care and completed [facility] documentation on this patient. I have reviewed the student's documentation and agree with the findings.
[2022-06-26 16:09] LABS: Appearance Peritoneal Fluid Hazy (Clear); Color Peritoneal Fluid Yellow (Colorless); Source Peritoneal Fluid Peritoneal Fluid
[2022-06-26 16:59] LABS: Neutrophils Peritoneal Fluid 61 % (0-25); Nucleated Cells Peritoneal Flu 629 /uL (0-500); RBC Peritoneal Fluid < 2000 /uL (0-100000)
[2022-06-26 17:00] LABS: Lymphocytes Peritoneal Fluid 17 %; Macrophages Peritoneal Fluid 10 %; Mesothelial Cells Peritoneal Fluid 12 %
[2022-06-26 19:33] LABS: IFOB Positive Control Positive; Immunochemical Fecal Occult Bl Positive (N)
--- NOTE | 2022-06-26 22:53 | PC.NURSE ---
Addendum entered by Marsha Mosqueda RN 06/26/22 23:28: 2310 Patient transported with belongings to room 206-1 Original Note: 2240 Report called to REYES Sue on IMU. Patient informed and belongings packed up.
[2022-06-27] VITALS (10 sets, daily range): BP systolic 116–120; BP diastolic 58–71; PULSE 81–99; RESP 16–24; TEMP 36.3–36.7; O2SAT 99–100
--- NOTE | 2022-06-27 00:05 | PC.NURSE ---
This patient, Emmanuel Norris, was received from [ICU 7] on 06/26/22 at 2315. Report received from Regina Mosqueda RN. Patient/family oriented to unit policies and routines
[2022-06-27] MEDS: SODIUM CHLORIDE 0.9% IV 1,000 ML 50 ML IV CONT (03:56)
[2022-06-27 05:00] LABS: Hematocrit 26.9 % (42.0-52.0); Hemoglobin 8.5 g/dL (14.0-18.0)
[2022-06-27 05:11] LABS: Alanine Aminotransferase 35 U/L (6-50); Albumin Level 2.4 g/dL (3.5-5.1); Alkaline Phosphatase 88 U/L (38-126); Anion Gap 0 mmol/L (8-16); Aspartate Amino Transferase 64 U/L (17-59); Bilirubin,Total 4.1 mg/dL (0.2-1.3); Blood Urea Nitrogen 18 mg/dL (9-20); Calcium 11.4 mg/dL (8.4-10.2); Carbon Dioxide 24 mmol/L (22-30); Chloride 110 mmol/L (98-107); Estimated CRCL calculation 83 ml/min; Estimated Glomerular Filt Rate > 60; Glucose 88 mg/dL (65-110); Potassium 4.1 mmol/L (3.4-5.0); Sodium 134 mmol/L (137-145)
[2022-06-27 05:48] LABS: INR 2.5; Prothrombin Time 25.8 Seconds (11.1-14.7)
[2022-06-27] MEDS: rifAXIMin 550 MG TABLET PO ×2 (09:11→17:50)
[2022-06-27] MEDS: PANTOPRAZOLE 40 MG TABLET PO (09:11)
[2022-06-27] MEDS: cefTRIAXone 2 GM in SODIUM CHLORIDE 0.9% IV 100 ML 200 ML IVPB (09:12)
--- NOTE | 2022-06-27 11:54 | PM.IMPN ---
Progress Note: A&P Assessment and Plan (1) Sepsis: Qualifiers: Sepsis type: sepsis due to unspecified organism Sepsis acute organ dysfunction status: with acute organ dysfunction Severe sepsis acute organ dysfunction type: encephalopathy Code(s): A41.9 - Sepsis, unspecified organism Status: Acute Assessment and Plan: Likely secondary to SBP, patient also has a UTI Urine and blood cultures are pending Appreciate GI input. Continue IV antibiotics Blood cultures positive. We sensitive (2) UTI (urinary tract infection): Code(s): N39.0 - Urinary tract infection, site not specified Status: Acute Assessment and Plan: The patient was started on Rocephin. Although he is on higher doses to cover for SBP Tailor antibiotics according to culture and sensitivity Blood and urine cultures are pending. (3) ALLISON (acute kidney injury): Code(s): N17.9 - Acute kidney failure, unspecified Status: Acute Assessment and Plan: Patient's creatinine is 1.4. Typically he has a normal baseline. Continue with IV fluids and check lactic level (4) Anemia: Qualifiers: Anemia type: unspecified type Qualified Code(s): D64.9 - Anemia, unspecified Code(s): D64.9 - Anemia, unspecified Status: Acute Assessment and Plan: Hemoglobin 8.2 which is his baseline. (5) BPH (benign prostatic hyperplasia): Qualifiers: Lower urinary tract symptom presence: unspecified whether lower urinary tract symptoms present Qualified Code(s): N40.0 - Benign prostatic hyperplasia without lower urinary tract symptoms Code(s): N40.0 - Benign prostatic hyperplasia without lower urinary tract symptoms Status: Chronic Assessment and Plan: Continue with current treatment (6) Hypotension: Code(s): I95.9 - Hypotension, unspecified Status: Acute Assessment and Plan: Patient is in ICU and I spoke to the about possibly doing a central line and vasopressors. The did agree. However patient is maintaining her blood pressure with albumin and IV fluids. 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 I am attempting to get record from that paracentesis. Check his ammonia level as he has altered mental status. Continue with his home dose of Lasix, lactulose, rifaximin, and spironolactone. (8) Thrombocytopenia: Code(s): D69.6 - Thrombocytopenia, unspecified Status: Acute Assessment and Plan: Secondary to the cirrhosis of the liver. The patient's platelets are currently 50 any appears to be at his baseline. (9) Mixed hyperlipidemia: Code(s): E78.2 - Mixed hyperlipidemia Status: Acute Assessment and Plan: Continue with current treatment (10) Obstructive sleep apnea (adult) (pediatric): Code(s): G47.33 - Obstructive sleep apnea (adult) (pediatric) Status: Acute Assessment and Plan: Home settings for CPAP Subjective Date/time seen: 06/27/22 11:54 No new complaints, abdominal pain improved Exam Const: General: cooperative, healthy appearing, comfortable, no acute distress, well developed, alert, awake, Physically active, average body habitus and well nourished Nutritional Appearance: average body habitus and well nourished Orientation/consciousness: oriented to person and oriented to place Limitations: no limitations HENMT: Head: normal to inspection, No palpable skull fracture present, normocephalic, atraumatic and abrasion Ears: hearing grossly normal bilaterally and external ears normal Face/Nose/Sinus: Normal external nose present and Normal nares present Eyes: General: appearance normal, both eyes and all rela
--- NOTE | 2022-06-27 15:16 | WPDGIPROGNO ---
Progress Note: A&P Assessment and Plan (1) Spontaneous bacterial peritonitis: Code(s): K65.2 - Spontaneous bacterial peritonitis Status: Acute Assessment and Plan: paracentesis yesterday consistent with SBP already on antibiotics, renal function improved will give more iv albumin (2) Decompensation of cirrhosis of liver: Code(s): K72.90 - Hepatic failure, unspecified without coma; K74.60 - Unspecified cirrhosis of liver Status: Acute Assessment and Plan: he is seeing hepatology at [facility] now with sbp (3) Coagulopathy: Code(s): D68.9 - Coagulation defect, unspecified Status: Acute Assessment and Plan: from cirrhosis will give vitamin k (4) Sepsis: Qualifiers: Sepsis type: sepsis due to unspecified organism Sepsis acute organ dysfunction status: with acute organ dysfunction Severe sepsis acute organ dysfunction type: encephalopathy Code(s): A41.9 - Sepsis, unspecified organism Status: Acute Assessment and Plan: improved (5) 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: Code(s): K75.81 - Nonalcoholic steatohepatitis (TORO); K74.60 - Unspecified cirrhosis of liver Status: Chronic (6) Anemia: Qualifiers: Anemia type: unspecified type Qualified Code(s): D64.9 - Anemia, unspecified Code(s): D64.9 - Anemia, unspecified Status: Acute Assessment and Plan: better after blood transfusion Subjective Date/time seen: 06/27/22 15:16 Interval history: he was moved to floor, doing better Review of Systems Review of Systems: All systems reviewed & are unremarkable except as noted in HPI and below Exam Const: Other: chronically ill appearing, he is awake and alert HENMT: Face/Nose/Sinus: Normal nares present Eyes: General: appearance normal, both eyes and all related structures Neck: Neck: supple Resp: Effort & Inspection: normal respiratory effort Cardio: Rate: regular rate GI: Inspection: distended GI Palp: No Guarding due to palpation present (GI) Other: + fluid wave Skin: General skin exam: normal color Neuro: Speech: normal speech Other: awake, alert, talking and less confused Extrem: General: pedal edema Psych: Affect: normal affect Objective Data Vital Signs Vital Signs: Vital Signs - 24 hr 06/26/22 15:26 06/26/22 16:00 06/26/22 16:00 Temperature 99.0 F Pulse Rate 89 90 90 Respiratory Rate 17 16 Blood Pressure 113/63 Pulse Oximetry 100 99 Oxygen Delivery Room Air 06/26/22 16:00 06/26/22 18:00 06/26/22 20:00 Temperature 98.9 F Pulse Rate 90 90 96 Respiratory Rate 16 Blood Pressure 111/67 Pulse Oximetry 98 Oxygen Delivery 06/26/22 20:00 06/26/22 20:00 06/26/22 22:00 Temperature 98.6 F Pulse Rate 96 96 87 Respiratory Rate 16 16 Blood Pressure 118/68 Pulse Oximetry 99 99 Oxygen Delivery Room Air 06/27/22 03:46 06/27/22 02:00 06/27/22 00:00 Temperature 97.7 F Pulse Rate 81 92 96 Respiratory Rate 18 20 Blood Pressure 120/60 Pulse Oximetry 100 99 Oxygen Delivery Room Air 06/27/22 04:00 06/27/22 04:00 06/27/22 06:00 Temperature Pulse Rate 96 88 82 Respiratory Rate 18 Blood Pressure Pulse Oximetry 99 Oxygen Delivery Room Air 06/27/22 08:00 06/27/22 08:00 06/27/22 08:00 Temperature 97.8 F Pulse Rate 91 88 Respiratory Rate 22 H Blood Pressure 117/68 Pulse Oximetry 99 Oxygen Delivery Room Air 06/27/22 10:00 06/27/22 12:00 06/27/22 12:00 Temperature 98.1 F Pulse Rate 88 88 99 Respiratory Rate 16 Blood Pressure 118/66 Pulse Oximetry 99 Oxygen Delivery 06/27/22 12:00 Temperature Pulse Rate Respiratory Rate Blood Pressure Pulse Oximetry Oxygen Delivery Room Air Intake/Output Intake/Output: Intake & Output 06/24/22 06/25/22 06/26/22 06/27/22 23:59 23:59 23:59 23:59 Intake Total 5250 1810 1770 Output Total 300 6050 603 Balance
[2022-06-27] MEDS: PHYTONADIONE 5 MG TABLET 10 MG PO (16:18)
[2022-06-27] MEDS: ALBUMIN HUMAN 25% 25 GM/100 ML 200 ML IVPB (17:50)
[2022-06-28] VITALS (8 sets, daily range): BP systolic 89–103; BP diastolic 52–65; PULSE 80–89; RESP 14–22; TEMP 36.2–36.4; O2SAT 96–100
[2022-06-28 06:20] LABS: Basophils Percent Auto 0.4 % (0.2-1.2); Eosinophils Absolute Auto 0.1 K/mm3 (0-0.3); Eosinophils Percent Auto 3.9 % (0-4.4); Hematocrit 26.5 % (42.0-52.0); Hemoglobin 8.3 g/dL (14.0-18.0); Immature Platelet Fraction Pct 9.9 % (0.9-11.2); Lymphocytes Absolute Auto 0.63 K/mm3 (0.9-3.2); Lymphocytes Percent Auto 27.2 % (18.3-44.2); Mean Corpuscular HGB Conc 31.3 g/dl (32-36); Mean Corpuscular Hemoglobin 32.4 pg (26-34); Mean Corpuscular Volume 103.5 fl (80-100); Mean Platelet Volume 13.2 fl (7.4-10.4); Monocytes Absolute Auto 0.3 K/mm3 (0.1-0.6); Monocytes Percent Auto 14.7 % (2.6-8.5); Neutrophils Absolute Auto 1.3 K/mm3 (1.3-6.7); Neutrophils Percent Auto 53.8 % (45.5-73.1); Red Blood Count 2.56 M/mm3 (4.6-6.20); Red Cell Distribution Width 16.9 % (11.5-14.5); White Blood Count 2.3 K/mm3 (4.5-10.0)
[2022-06-28 06:34] LABS: Anion Gap 2 mmol/L (8-16); Blood Urea Nitrogen 15 mg/dL (9-20); Calcium 11.1 mg/dL (8.4-10.2); Carbon Dioxide 23 mmol/L (22-30); Chloride 111 mmol/L (98-107); Estimated CRCL calculation 100 ml/min; Estimated Glomerular Filt Rate > 60; Glucose 90 mg/dL (65-110); Potassium 3.8 mmol/L (3.4-5.0); Sodium 136 mmol/L (137-145)
[2022-06-28 07:11] LABS: Platelet Count Result 24 k/mm3 (150-375)
[2022-06-28 07:28] LABS: Platelet Estimate Decreased (Adequate)
[2022-06-28 07:29] LABS: Anisocytosis 1+ (NORMAL); Crenated RBC 1+ (NORMAL); Schistocytes 1+ (NORMAL)
[2022-06-28] MEDS: LACTULOSE 20 GM/30 ML UDC PO ×2 (08:49→17:37)
[2022-06-28] MEDS: rifAXIMin 550 MG TABLET PO ×2 (08:49→17:37)
[2022-06-28] MEDS: PANTOPRAZOLE 40 MG TABLET PO (08:49)
[2022-06-28] MEDS: cefTRIAXone 2 GM in SODIUM CHLORIDE 0.9% IV 100 ML 200 ML IVPB (08:55)
--- NOTE | 2022-06-28 09:55 | WPDGIPROGNO ---
Progress Note: A&P Assessment and Plan (1) Spontaneous bacterial peritonitis: Code(s): K65.2 - Spontaneous bacterial peritonitis Status: Acute Assessment and Plan: Patient with SBP. Now on intravenous antibiotics. Plan to continue diuretics for his ascites. Low-salt diet. Monitor electrolytes. And blood pressure. (2) Coagulopathy: Code(s): D68.9 - Coagulation defect, unspecified Status: Acute Assessment and Plan: Patient with coagulopathy on the basis of his cirrhosis. Continue vitamin K monitor. Watch for signs of bleeding non active at present. (3) Abdominal ascites: Code(s): R18.8 - Other ascites Status: Acute Assessment and Plan: Diuresing in progress. Continue low-salt diet as tolerated. Monitor daily weights. This should be a routine even after discharge. 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 Bejarano. The patient appears to be doing well. Now on the floor. Denies significant abdominal pain. On diuretics for his ascites. [place] have underlying this SBP. Review of Systems Review of Systems: Review of systems noncontributory. Exam Narrative: Physical exam reveals patient comfortable at rest. He is alert and oriented x3. HEENT exam reveals no icterus. Lungs are clear. Heart without murmur. Abdomen is distended. Shifting dullness appreciated. Bowel sounds are present. No masses or localized tenderness. Extremities without clubbing nor edema. Objective Data Vital Signs Vital Signs: Vital Signs - 24 hr 06/27/22 10:00 06/27/22 12:00 06/27/22 12:00 Temperature 98.1 F Pulse Rate 88 88 99 Respiratory Rate 16 Blood Pressure 118/66 Pulse Oximetry 99 Oxygen Delivery 06/27/22 12:00 06/27/22 16:54 06/27/22 18:10 Temperature 97.3 F L Pulse Rate 83 Respiratory Rate 16 Blood Pressure 116/71 Pulse Oximetry 99 Oxygen Delivery Room Air Room Air 06/27/22 20:00 06/27/22 20:00 06/28/22 06:16 Temperature 97.5 F L 97.1 F L Pulse Rate 89 89 82 Respiratory Rate 24 H 24 H 22 H Blood Pressure 120/58 L 103/65 Pulse Oximetry 100 100 100 Oxygen Delivery Room Air 06/28/22 07:29 Temperature Pulse Rate Respiratory Rate Blood Pressure Pulse Oximetry Oxygen Delivery Room Air Intake/Output Intake/Output: Intake & Output 06/25/22 06/26/22 06/27/22 06/28/22 23:59 23:59 23:59 23:59 Intake Total 5250 1810 2170 400 Output Total 300 6050 878 800 Balance 4950 -4240 1292 -400 Meds/Results Medications: Active Medications Generic Name Dose Route Start Last Admin Trade Name Freq PRN Reason Stop Dose Admin Sodium Chloride 1,000 mls @ 50 mls/hr 06/25/22 10:30 06/27/22 03:56 Normal Saline Iv IV CONT 50 mls/hr .Q20H [place] Administration Ceftriaxone Sodium 2 gm/ 100 mls @ 200 mls/hr 06/26/22 09:00 06/28/22 08:55 Sodium Chloride IVPB 200 mls/hr DAILY [place] Administration Sodium Chloride 250 mls @ 30 mls/hr 06/28/22 07:52 Normal Saline Iv IV CONT 06/28/22 16:11 .Q8H20M STA Lactulose 20 gm 06/26/22 09:00 06/28/22 08:49 Lactulose 20 Gm/30 Ml Udc PO 07/26/22 08:59 20 gm BID [place] Administration Ondansetron HCl 4 mg 06/25/22 10:30 Ondansetron Inj 4 Mg/2 Ml Vial IV PUSH Q4H PRN Nausea Pantoprazole Sodium 40 mg 06/26/22 09:00 06/28/22 08:49 Pantoprazole 40 Mg Tablet PO 07/26/22 08:59 40 mg DAILY [place] Administration Rifaximin 550 mg 06/26/22 09:00 06/28/22 08:49 Rifaximin 550 Mg Tablet PO 550 mg BID [place] Administration Radiology Results: ITS Impressions Head CT 06/25/22 07:5
--- NOTE | 2022-06-28 10:09 | PM.IMPN ---
Progress Note: A&P Assessment and Plan (1) Sepsis: Qualifiers: Sepsis type: sepsis due to unspecified organism Sepsis acute organ dysfunction status: with acute organ dysfunction Severe sepsis acute organ dysfunction type: encephalopathy Code(s): A41.9 - Sepsis, unspecified organism Status: Acute Assessment and Plan: Likely secondary to SBP, patient also has a UTI Cultures noted Appreciate GI input. Continue IV antibiotics Blood cultures positive. (2) UTI (urinary tract infection): Code(s): N39.0 - Urinary tract infection, site not specified Status: Acute Assessment and Plan: Resolved (3) ALLISON (acute kidney injury): Code(s): N17.9 - Acute kidney failure, unspecified Status: Acute Assessment and Plan: Patient's creatinine is 1.4. Typically he has a normal baseline. Continue with IV fluids and check lactic level (4) Anemia: Qualifiers: Anemia type: unspecified type Qualified Code(s): D64.9 - Anemia, unspecified Code(s): D64.9 - Anemia, unspecified Status: Acute Assessment and Plan: Hemoglobin stable (5) BPH (benign prostatic hyperplasia): Qualifiers: Lower urinary tract symptom presence: unspecified whether lower urinary tract symptoms present Qualified Code(s): N40.0 - Benign prostatic hyperplasia without lower urinary tract symptoms Code(s): N40.0 - Benign prostatic hyperplasia without lower urinary tract symptoms Status: Chronic Assessment and Plan: Continue with current treatment (6) Hypotension: Code(s): I95.9 - Hypotension, unspecified Status: Acute Assessment and Plan: Patient is in ICU and I spoke to the about possibly doing a central line and vasopressors. The did agree. However patient is maintaining her blood pressure with albumin and IV fluids. 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 I am attempting to get record from that paracentesis. Check his ammonia level as he has altered mental status. Continue with his home dose of Lasix, lactulose, rifaximin, and spironolactone. (8) Thrombocytopenia: Code(s): D69.6 - Thrombocytopenia, unspecified Status: Acute Assessment and Plan: Secondary to the cirrhosis of the liver. The patient's platelets are currently 50 any appears to be at his baseline. (9) Mixed hyperlipidemia: Code(s): E78.2 - Mixed hyperlipidemia Status: Acute Assessment and Plan: Continue with current treatment (10) Obstructive sleep apnea (adult) (pediatric): Code(s): G47.33 - Obstructive sleep apnea (adult) (pediatric) Status: Acute Assessment and Plan: Home settings for CPAP Subjective Date/time seen: 06/28/22 10:09 No new complaints Exam Const: General: cooperative, healthy appearing, comfortable, no acute distress, well developed, alert, awake, Physically active, average body habitus and well nourished Nutritional Appearance: average body habitus and well nourished Orientation/consciousness: oriented to person and oriented to place Limitations: no limitations HENMT: Head: normal to inspection, No palpable skull fracture present, normocephalic, atraumatic and abrasion Ears: hearing grossly normal bilaterally and external ears normal Face/Nose/Sinus: Normal external nose present and Normal nares present Eyes: General: appearance normal, both eyes and all related structures Alignment and Position: alignment normal Periorbital: periorbital findings normal Eyelids: eyelids normal Sclera: sclerae normal Pupils: Equal, round and reactive pupils present EOM: EOMs intact bilaterally Neck: Neck: normal
[2022-06-28] MEDS: SODIUM CHLORIDE 0.9% IV 250 ML 30 ML IV CONT (14:04)
[2022-06-28] MEDS: TUBING, BLOOD PLUM PUMP TUBING 1 EACH XX (14:05)
--- NOTE | 2022-06-29 01:59 | PC.NURSE ---
Daylight Savings Time For Daylight Savings Time Ending in the Fall - Clocks are moved back. For Daylight Savings Time Beginning in the Spring - Clocks are moved ahead. For [facility], the time of change occurs at 0200 hrs. Time is taken from the windows server architect. This entry on the patient's chart recognizes the change in time reflected during documentation. Example: 2 entries for vital signs may be charted for 0200 hrs.
[2022-06-29 06:00] VITALS: BP 110/94; PULSE 83; RESP 20; TEMP 36.4; O2SAT 99
[2022-06-29] MEDS: LACTULOSE 20 GM/30 ML UDC PO ×2 (08:44→16:57)
[2022-06-29] MEDS: SPIRONOLACTONE 50 MG TABLET PO (08:44)
[2022-06-29] MEDS: rifAXIMin 550 MG TABLET PO ×2 (08:44→16:57)
[2022-06-29] MEDS: FUROSEMIDE 20 MG TABLET PO (08:44)
[2022-06-29] MEDS: PANTOPRAZOLE 40 MG TABLET PO (08:44)
[2022-06-29] MEDS: cefTRIAXone 2 GM in SODIUM CHLORIDE 0.9% IV 100 ML 200 ML IVPB (08:44)
--- NOTE | 2022-06-29 10:37 | WPDGIPROGNO ---
Progress Note: A&P Assessment and Plan (1) Decompensation of cirrhosis of liver: Code(s): K72.90 - Hepatic failure, unspecified without coma; K74.60 - Unspecified cirrhosis of liver Status: Acute Assessment and Plan: Patient with cirrhosis of the liver. Patient with pancytopenia and ascites on this basis. He now has SBP. Currently on antibiotics. Had positive blood culture. Recent paracentesis confirms peritonitis. He recently has been followed at [facility]. Currently with relatively soft blood pressure unable to push diuretics. He may need intermittent paracenteses with albumin infusion to help relieve abdominal distention. Now on low-salt diet. Continue To assess daily weights. Cirrhosis felt to be on the basis of TORO. (2) Spontaneous bacterial peritonitis: Code(s): K65.2 - Spontaneous bacterial peritonitis Status: Acute Assessment and Plan: paracenteses confirms SBP. Plan to continue antibiotics. Unable to push diuretics given is soft blood pressure a present. (3) UTI (urinary tract infection): Code(s): N39.0 - Urinary tract infection, site not specified Status: Acute (4) Abdominal ascites: Code(s): R18.8 - Other ascites Status: Acute (5) Pancytopenia: Code(s): D61.818 - Other pancytopenia Status: Acute Assessment and Plan: Pancytopenia appears to be on the basis cirrhosis. Subjective Date/time seen: 06/29/22 10:37 Interval history: Patient alert comfortable at rest this morning. Denies any significant abdominal pain. Has had not had much activity since admission hospital. Had some fecal incontinence noted. Review of Systems Review of Systems: Review of systems noncontributory. Exam Narrative: Physical exam reveals patient be alert. He has significant icterus. Lungs are clear. Heart without murmur. Abdomen distended. Bowel sounds are present should if team dullness appreciated. No localized tenderness. Objective Data Vital Signs Vital Signs: Vital Signs - 24 hr 06/28/22 14:01 06/28/22 14:17 06/28/22 15:17 Temperature 97.5 F L 97.6 F 97.3 F L Pulse Rate 82 83 89 Respiratory Rate 14 16 15 Blood Pressure 89/53 L 95/58 L 95/52 L Pulse Oximetry 97 98 100 Oxygen Delivery 06/28/22 16:17 06/28/22 16:32 06/28/22 14:00 Temperature 97.4 F L 97.4 F L 97.5 F L Pulse Rate 80 80 82 Respiratory Rate 16 16 14 Blood Pressure 102/58 L 102/58 L 89/53 L Pulse Oximetry 100 100 97 Oxygen Delivery 06/28/22 14:27 06/28/22 21:30 06/28/22 22:00 Temperature 97.1 F L Pulse Rate 86 Respiratory Rate 22 H Blood Pressure 103/65 Pulse Oximetry 96 Oxygen Delivery Room Air Room Air 06/29/22 06:00 06/29/22 08:30 Temperature 97.6 F Pulse Rate 83 Respiratory Rate 20 Blood Pressure 110/94 H Pulse Oximetry 99 Oxygen Delivery Room Air Intake/Output Intake/Output: Intake & Output 06/26/22 06/27/22 06/28/22 06/30/22 23:59 23:59 23:59 00:59 Intake Total 1810 2170 998 890 Output Total 6050 878 925 350 Balance -4240 1292 73 540 Meds/Results Medications: Active Medications Generic Name Dose Route Start Last Admin Trade Name Freq PRN Reason Stop Dose Admin Furosemide 20 mg 06/29/22 09:00 06/29/22 08:44 Furosemide 20 Mg Tablet PO 20 mg DAILY [facility]ERTON Administration Ceftriaxone Sodium 2 gm/ 100 mls @ 200 mls/hr 06/26/22 09:00 06/29/22 09:14 Sodium Chloride IVPB Infused DAILY [facility] Infusion Lactulose 20 gm 06/26/22 09:00 06/29/22 08:44 Lactulose 20 Gm/30 Ml Udc PO 07/26/22 08:59 20 gm BID [facility] Administration Ondansetron HCl 4 mg 06/25/22 10:30 Ondansetron Inj 4 Mg/2 Ml Vial IV PUSH Q4H PRN Nausea Pantoprazole Sodium 40 mg 06/26/22 09:00 06/29/22 08:44 Pantoprazole 40 Mg Tablet PO 07/26/22 08:59 40 mg DAILY [facility] Administration Rifaximin 550 mg 06/26/22 09:00 06/29/22 08:44 Rifaximin 550 Mg Tablet PO
--- NOTE | 2022-06-29 11:35 | PM.IMPN ---
Progress Note: A&P Assessment and Plan (1) Sepsis: Qualifiers: Sepsis type: sepsis due to unspecified organism Sepsis acute organ dysfunction status: with acute organ dysfunction Severe sepsis acute organ dysfunction type: encephalopathy Code(s): A41.9 - Sepsis, unspecified organism Status: Acute Assessment and Plan: Likely secondary to SBP, patient also has a UTI Cultures noted Appreciate GI input. Continue IV antibiotics Blood cultures positive. (2) UTI (urinary tract infection): Code(s): N39.0 - Urinary tract infection, site not specified Status: Acute Assessment and Plan: Resolved (3) ALLISON (acute kidney injury): Code(s): N17.9 - Acute kidney failure, unspecified Status: Acute Assessment and Plan: Creatinine at baseline (4) Anemia: Qualifiers: Anemia type: unspecified type Qualified Code(s): D64.9 - Anemia, unspecified Code(s): D64.9 - Anemia, unspecified Status: Acute Assessment and Plan: Hemoglobin stable (5) BPH (benign prostatic hyperplasia): Qualifiers: Lower urinary tract symptom presence: unspecified whether lower urinary tract symptoms present Qualified Code(s): N40.0 - Benign prostatic hyperplasia without lower urinary tract symptoms Code(s): N40.0 - Benign prostatic hyperplasia without lower urinary tract symptoms Status: Chronic Assessment and Plan: Continue with current treatment (6) Hypotension: Code(s): I95.9 - Hypotension, unspecified Status: Acute Assessment and Plan: Patient is in ICU and I spoke to the about possibly doing a central line and vasopressors. The did agree. However patient is maintaining her blood pressure with albumin and IV fluids. 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 I am attempting to get record from that paracentesis. Check his ammonia level as he has altered mental status. Continue with his home dose of Lasix, lactulose, rifaximin, and spironolactone. (8) Thrombocytopenia: Code(s): D69.6 - Thrombocytopenia, unspecified Status: Acute Assessment and Plan: Secondary to the cirrhosis of the liver. The patient's platelets are currently 50 any appears to be at his baseline. (9) Mixed hyperlipidemia: Code(s): E78.2 - Mixed hyperlipidemia Status: Acute Assessment and Plan: Continue with current treatment (10) Obstructive sleep apnea (adult) (pediatric): Code(s): G47.33 - Obstructive sleep apnea (adult) (pediatric) Status: Acute Assessment and Plan: Home settings for CPAP Subjective Date/time seen: 06/29/22 11:35 No complaints Exam Const: General: cooperative, healthy appearing, comfortable, no acute distress, well developed, alert, awake, Physically active, average body habitus and well nourished Nutritional Appearance: average body habitus and well nourished Orientation/consciousness: oriented to person and oriented to place Limitations: no limitations HENMT: Head: normal to inspection, No palpable skull fracture present, normocephalic, atraumatic and abrasion Ears: hearing grossly normal bilaterally and external ears normal Face/Nose/Sinus: Normal external nose present and Normal nares present Eyes: General: appearance normal, both eyes and all related structures Alignment and Position: alignment normal Periorbital: periorbital findings normal Eyelids: eyelids normal Sclera: sclerae normal Pupils: Equal, round and reactive pupils present EOM: EOMs intact bilaterally Neck: Neck: normal visual inspection, full ROM, no lymphadenopathy, trachea midline and supple Chest: Chest pal
[2022-06-29 12:55] LABS: Basophils Percent Auto 0.7 % (0.2-1.2); Eosinophils Absolute Auto 0.1 K/mm3 (0-0.3); Eosinophils Percent Auto 4.1 % (0-4.4); Hematocrit 26.6 % (42.0-52.0); Hemoglobin 8.6 g/dL (14.0-18.0); Immature Granulocyte Absolute 0.01 K/mm3 (0.00-0.031); Immature Granulocyte Percent A 0.4 % (0-0.5); Immature Platelet Fraction Pct 6.4 % (0.9-11.2); Lymphocytes Absolute Auto 0.67 K/mm3 (0.9-3.2); Lymphocytes Percent Auto 25.1 % (18.3-44.2); Mean Corpuscular HGB Conc 32.3 g/dl (32-36); Mean Corpuscular Hemoglobin 32.8 pg (26-34); Mean Corpuscular Volume 101.5 fl (80-100); Mean Platelet Volume 12.9 fl (7.4-10.4); Monocytes Absolute Auto 0.4 K/mm3 (0.1-0.6); Monocytes Percent Auto 15.7 % (2.6-8.5); Neutrophils Absolute Auto 1.4 K/mm3 (1.3-6.7); Platelet Count Result 35 k/mm3 (150-375); Red Blood Count 2.62 M/mm3 (4.6-6.20); Red Cell Distribution Width 16.7 % (11.5-14.5); White Blood Count 2.7 K/mm3 (4.5-10.0)
[2022-06-29 13:07] LABS: Anisocytosis 1+ (NORMAL); Ovalocytes 1+ (NORMAL); Platelet Estimate Decreased (Adequate); Tear Drop Cells 1+ (NORMAL)
[2022-06-29 13:08] LABS: Schistocytes None Seen (NORMAL)
[2022-06-29 15:13] VITALS: BP 116/58; PULSE 83; RESP 16; TEMP 36.4; O2SAT 100
[2022-06-29 21:51] VITALS: BP 119/60; PULSE 86; RESP 18; TEMP 36.5; O2SAT 98
[2022-06-30 05:56] VITALS: BP 137/76; PULSE 97; RESP 18; TEMP 36.2; O2SAT 99
[2022-06-30 07:20] LABS: Basophils Percent Auto 0.7 % (0.2-1.2); Eosinophils Absolute Auto 0.1 K/mm3 (0-0.3); Eosinophils Percent Auto 3.4 % (0-4.4); Hematocrit 28.9 % (42.0-52.0); Immature Granulocyte Absolute 0.01 K/mm3 (0.00-0.031); Immature Granulocyte Percent A 0.3 % (0-0.5); Immature Platelet Fraction Pct 7.7 % (0.9-11.2); Lymphocytes Absolute Auto 0.77 K/mm3 (0.9-3.2); Lymphocytes Percent Auto 25.9 % (18.3-44.2); Mean Corpuscular HGB Conc 31.1 g/dl (32-36); Mean Corpuscular Hemoglobin 32.6 pg (26-34); Mean Corpuscular Volume 104.7 fl (80-100); Mean Platelet Volume 12.2 fl (7.4-10.4); Monocytes Absolute Auto 0.3 K/mm3 (0.1-0.6); Monocytes Percent Auto 11.4 % (2.6-8.5); Neutrophils Absolute Auto 1.7 K/mm3 (1.3-6.7); Neutrophils Percent Auto 58.3 % (45.5-73.1); Platelet Count Result 38 k/mm3 (150-375); Red Blood Count 2.76 M/mm3 (4.6-6.20); Red Cell Distribution Width 16.6 % (11.5-14.5)
[2022-06-30 07:35] LABS: Anion Gap 0 mmol/L (8-16); Blood Urea Nitrogen 12 mg/dL (9-20); Calcium 11.5 mg/dL (8.4-10.2); Carbon Dioxide 25 mmol/L (22-30); Chloride 108 mmol/L (98-107); Estimated CRCL calculation 87 ml/min; Estimated Glomerular Filt Rate > 60; Glucose 80 mg/dL (65-110); Potassium 4.1 mmol/L (3.4-5.0); Sodium 133 mmol/L (137-145)
[2022-06-30] MEDS: FUROSEMIDE 20 MG TABLET PO (09:20)
[2022-06-30] MEDS: LACTULOSE 20 GM/30 ML UDC PO (09:20)
[2022-06-30] MEDS: PANTOPRAZOLE 40 MG TABLET PO (09:20)
[2022-06-30] MEDS: cefTRIAXone 2 GM in SODIUM CHLORIDE 0.9% IV 100 ML 200 ML IVPB (09:20)
[2022-06-30] MEDS: rifAXIMin 550 MG TABLET PO (09:20)
[2022-06-30] MEDS: SPIRONOLACTONE 50 MG TABLET PO (09:20)
[2022-06-30 10:22] VITALS: O2SAT 95
--- NOTE | 2022-06-30 12:36 | PM.DS ---
DS: Admitting Diagnosis Discharge Date June 30, 2022 Admitting Diagnosis Cirrhosis with ascites, sepsis present on admission, SBP DS: Discharge Diagnosis Discharge Diagnosis (1) Sepsis: Qualifiers: Sepsis type: sepsis due to unspecified organism Sepsis acute organ dysfunction status: with acute organ dysfunction Severe sepsis acute organ dysfunction type: encephalopathy Code(s): A41.9 - Sepsis, unspecified organism Status: Acute Assessment and Plan: Likely secondary to SBP, patient also has a UTI Cultures noted Appreciate GI input. Continue IV antibiotics Blood cultures positive. (2) UTI (urinary tract infection): Code(s): N39.0 - Urinary tract infection, site not specified Status: Acute Assessment and Plan: Resolved (3) ALLISON (acute kidney injury): Code(s): N17.9 - Acute kidney failure, unspecified Status: Acute Assessment and Plan: Creatinine at baseline (4) Anemia: Qualifiers: Anemia type: unspecified type Qualified Code(s): D64.9 - Anemia, unspecified Code(s): D64.9 - Anemia, unspecified Status: Acute Assessment and Plan: Hemoglobin stable (5) BPH (benign prostatic hyperplasia): Qualifiers: Lower urinary tract symptom presence: unspecified whether lower urinary tract symptoms present Qualified Code(s): N40.0 - Benign prostatic hyperplasia without lower urinary tract symptoms Code(s): N40.0 - Benign prostatic hyperplasia without lower urinary tract symptoms Status: Chronic Assessment and Plan: Continue with current treatment (6) Hypotension: Code(s): I95.9 - Hypotension, unspecified Status: Acute Assessment and Plan: Patient is in ICU and I spoke to the about possibly doing a central line and vasopressors. The did agree. However patient is maintaining her blood pressure with albumin and IV fluids. 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 I am attempting to get record from that paracentesis. Check his ammonia level as he has altered mental status. Continue with his home dose of Lasix, lactulose, rifaximin, and spironolactone. (8) Thrombocytopenia: Code(s): D69.6 - Thrombocytopenia, unspecified Status: Acute Assessment and Plan: Secondary to the cirrhosis of the liver. The patient's platelets are currently 50 any appears to be at his baseline. (9) Mixed hyperlipidemia: Code(s): E78.2 - Mixed hyperlipidemia Status: Acute Assessment and Plan: Continue with current treatment (10) Obstructive sleep apnea (adult) (pediatric): Code(s): G47.33 - Obstructive sleep apnea (adult) (pediatric) Status: Acute Assessment and Plan: Home settings for CPAP DS: Summary Hospital Course Hospital Course: Patient was admitted for sepsis, this is likely related SBP. He had significant ascites which was tapped. He was treated for SBP along with bacteremia. Patient will continue oral antibiotics on discharge. He will also be continued on SBP prophylaxis with ciprofloxacin every day. Hold his other hepatic medications will be continued. 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 Time Spent with Patient Time attestation: Total time spent providing and/or coordinating discharge services: Exam Const: General: cooperative, healthy appearing, comfortable, no acute distress, well developed, alert, awake, Physically active, average body habitus and well nourished Nutritional Appearance: average body habitus and well nourished Orientation/consciousness: oriented to person and oriented to place Limitations: no limitations HENMT: Head: [place]
[2022-06-30 14:00] VITALS: BP 108/83; PULSE 80; RESP 20; TEMP 36.3; O2SAT 98
--- NOTE | 2022-06-30 15:18 | WPDGIPROGNO ---
Progress Note: A&P Assessment and Plan (1) Spontaneous bacterial peritonitis: Code(s): K65.2 - Spontaneous bacterial peritonitis Status: Acute Assessment and Plan: this is being treated with iv antibiotics, iv albumin and supportive care doing much better complete course of abx (also had strept bacteremia) (2) Decompensation of cirrhosis of liver: Code(s): K72.90 - Hepatic failure, unspecified without coma; K74.60 - Unspecified cirrhosis of liver Status: Acute Assessment and Plan: he is established with [facility] hepatology and will need follow-up (3) Bacteremia due to Streptococcus: Code(s): R78.81 - Bacteremia; B95.5 - Unspecified streptococcus as the cause of diseases classified elsewhere Status: Acute Assessment and Plan: on iv abx (4) Sepsis: Qualifiers: Sepsis type: sepsis due to unspecified organism Sepsis acute organ dysfunction status: with acute organ dysfunction Severe sepsis acute organ dysfunction type: encephalopathy Code(s): A41.9 - Sepsis, unspecified organism Status: Acute Assessment and Plan: resolved (5) Liver encephalopathy: Code(s): K72.90 - Hepatic failure, unspecified without coma Status: Acute Assessment and Plan: at baseline, on xifaxan and lactulose Subjective Date/time seen: 06/30/22 15:18 Interval history: improved, back to his baseline Review of Systems Review of Systems: All systems reviewed & are unremarkable except as noted in HPI and below Exam Const: Other: chronically ill appearing, he is awake and alert HENMT: Face/Nose/Sinus: Normal nares present Eyes: General: appearance normal, both eyes and all related structures Neck: Neck: supple Resp: Effort & Inspection: normal respiratory effort Cardio: Rate: regular rate GI: Inspection: distended GI Palp: No Firmness to palpation present (GI), No Tenderness to palpation present (GI) and No Guarding due to palpation present (GI) Other: + fluid wave Skin: General skin exam: normal color Neuro: Speech: normal speech Motor exam (neuro): 5/5 motor strength present throughout Other: awake, alert Extrem: General: pedal edema Psych: Affect: normal affect Objective Data Vital Signs Vital Signs: Vital Signs - 24 hr 06/29/22 21:51 06/29/22 20:00 06/30/22 05:56 Temperature 97.7 F 97.1 F L Pulse Rate 86 97 Respiratory Rate 18 18 Blood Pressure 119/60 137/76 Pulse Oximetry 98 99 Oxygen Delivery Room Air 06/30/22 10:22 06/30/22 08:00 06/30/22 14:00 Temperature 97.4 F L Pulse Rate 80 Respiratory Rate 20 Blood Pressure 108/83 Pulse Oximetry 95 98 Oxygen Delivery Room Air Room Air Intake/Output Intake/Output: Intake & Output 06/27/22 06/28/22 06/29/22 06/30/22 22:59 22:59 23:59 23:59 Intake Total 1254 Output Total 50 Balance 1204 Meds/Results Medications: Active Medications Generic Name Dose Route Start Last Admin Trade Name Freq PRN Reason Stop Dose Admin Furosemide 20 mg 06/29/22 09:00 06/30/22 09:20 Furosemide 20 Mg Tablet PO 20 mg DAILY [facility] Administration Ceftriaxone Sodium 2 gm/ 100 mls @ 200 mls/hr 06/26/22 09:00 06/30/22 09:20 Sodium Chloride IVPB 200 mls/hr DAILY [facility] Administration Lactulose 20 gm 06/26/22 09:00 06/30/22 09:20 Lactulose 20 Gm/30 Ml Udc PO 07/26/22 08:59 20 gm BID [facility] Administration Ondansetron HCl 4 mg 06/25/22 10:30 Ondansetron Inj 4 Mg/2 Ml Vial IV PUSH Q4H PRN Nausea Pantoprazole Sodium 40 mg 06/26/22 09:00 06/30/22 09:20 Pantoprazole 40 Mg Tablet PO 07/26/22 08:59 40 mg DAILY [facility] Administration Rifaximin 550 mg 06/26/22 09:00 06/30/22 09:20 Rifaximin 550 Mg Tablet PO 550 mg BID [facility] Administration Spironolactone 50 mg 06/29/22 09:00 06/30/22 09:20 Spironolactone 50 Mg Tablet PO 50 mg QAM [facility] Administration Radiology Results: ITS
[2022-07-05 17:02] LABS: Albumin Peritoneal Fluid 0.4 g/dL
== END 2022-06-30 16:10 | disposition home or self-care (01) | DRG 871 ==
LOC: ANHED 10:32 → ANHICU 10:45 → ANHIMU 06-26 23:30 → ANH3MEDSUR 06-27 15:26
PROVIDERS: Emergency Medicine; Internal Medicine Gastroenterology; Nurse Practitioner; Admitting Provider Chiropractor; Emergency Provider Emergency Medicine; PCP Family Medicine; Visit Provider Chiropractor
DX: A40.9 Streptococcal sepsis, unspecified (principal); G93.41 Metabolic encephalopathy; K65.2 Spontaneous bacterial peritonitis; N39.0 Urinary tract infection, site not specified; N17.9 Acute kidney failure, unspecified; R18.8 Other ascites; D61.818 Other pancytopenia; K76.6 Portal hypertension; I85.10 Secondary esophageal varices without bleeding; R65.20 Severe sepsis without septic shock; D64.9 Anemia, unspecified; K75.81 Nonalcoholic steatohepatitis (NASH); D69.6 Thrombocytopenia, unspecified; E78.2 Mixed hyperlipidemia; G47.33 Obstructive sleep apnea (adult) (pediatric); K74.69 Other cirrhosis of liver; Z20.822 Contact with and (suspected) exposure to COVID-19
CPT/HCPCS: 36415; 36430; 49083; 70450; 74177; 80048; 80053; 81001; 82042; 82140; 82274; 82728; 82948; 83605; 83690; 83735; 84100; 84443; 85014; 85018; 85025; 85055; 85610; 85730; 86140; 86850; 86900; 86901; 86923; 87040; 87070; 87075; 87086; 87147; 87181; 87186; 87205; 87637; 89051; 93005; 96361; 96365; 97110; 97116; 97161; 97165; 99285; A9270; J0131; J0696; J7030; J7050; P9016; P9034; P9045; P9047; Q9967

== ENCOUNTER 2022-07-17 08:50 | Emergency (ER) | payer MEDICARE, SELFPAY ==
--- NOTE | ~2022-07-17 | XR_ITS ---
EXAMINATION: XR sternum min 2V DATE: 07/17/2022 09:28 INDICATION: Midsternal chest pain. Fall. TECHNIQUE: 2 views of the sternum on 3 radiographs were obtained. COMPARISON: Chest single view 03/10/2022, CT abdomen and pelvis 06/25/2022 FINDINGS: Bone alignment is normal. No fracture. IMPRESSION: 1. Normal sternum. Reviewed, dictated and finalized at location A. IMPRESSION: 1. Normal sternum.
[2022-07-17 09:02] VITALS: BP 126/75; PULSE 92; RESP 18; TEMP 36.6; O2SAT 99
--- NOTE | 2022-07-17 09:15 | ED.FALL ---
HPI - Fall General Chief Complaint: Fall Stated Complaint: fall Time Seen by Provider: 07/17/22 08:58 History of Present Illness HPI Narrative: 72-year-old male presents to the emergency room for evaluations of chest pain. Patient states 2 days ago. He was sitting on the fireplace when he stood up, noticed that his toe, causing him to fall landing on the ground. Patient states he fell, landing on his chest. States has tenderness over his sternum and right upper rib cage. Pain is worse with inspiration and movement no other symptoms. No other injuries. Related Data Home Medications Medication Instructions Recorded Confirmed furosemide 20 mg tablet 20 mg PO BID On hold 08/22/21 06/25/22 rifaximin 550 mg tablet (Xifaxan) 550 mg PO BID 08/22/21 06/25/22 spironolactone 50 mg tablet 50 mg PO BID on hold 08/22/21 06/25/22 lactulose 10 gram/15 mL oral 20 g PO BID 06/25/22 06/25/22 solution omeprazole 20 mg capsule,delayed 20 mg DAILY 06/25/22 06/25/22 release Allergies Allergy/AdvReac Type Severity Reaction Status Date / Time No Known Allergies Allergy Verified 06/20/22 11:00 Review of Systems Review of Systems: CONSTITUTIONAL: Denies fever, chills, or sweats. EYES: Denies visual changes, redness, or discharge. ENT: Denies rhinorrhea, congestion, sore throat, or otalgia. CARDIOVASCULAR: Denies chest pain, palpitations, or edema. RESPIRATORY: Denies cough or dyspnea. GASTROINTESTINAL: Denies abdominal pain, nausea, vomiting, or diarrhea. GENITOURINARY: Denies dysuria or hematuria. SKIN: Denies rash or itching. MUSCULOSKELETAL: Denies back pain, joint pain, or myalgia. NEUROLOGIC: Denies headache, numbness, dizziness, or weakness. PSYCHIATRIC: Denies anxiety or depression. 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 Schmidt History of removal of pigmented skin lesion History of basal cell carcinoma Removed from behind his ear and nose. Hx of tonsillectomy Family History Family History Father Family history of elevated blood lipids Family history of coronary artery disease Heart disease Mother Family history of lung cancer Grandparent Dementia Throat cancer Social History Social History Social History: The patient is and has 4 sons. The patient used occasionally smokes cigars. The patient is retired. Code status full code Smoking status: Never smoker Tobacco type: cigars Smoking end date: 04/20/16 Alcohol intake: never Alcohol use details: occasional Substance use: never Substance use type: does not use Lack of Transportation: No Lack of Food: Never True Current Housing: Decline to Answer Concerned About Future Housing: No Difficulty Paying Gas/Electric Bills: No Difficulty Paying for Meds: No Currently Unemployed: No Education: Bachelor's Degree Difficulty w/ Childcare or Family Care: No Gender identity (if verbalized by the patient): Male Spiritual care concerns: No Exam Narrative: GENERAL: Well-appearing, well-nourished, no physical limitations, and i
[2022-07-17 10:59] VITALS: BP 136/79; PULSE 93; RESP 20; O2SAT 100
== END 2022-07-17 11:48 | disposition home or self-care (01) ==
PROVIDERS: Emergency Provider Nurse Practitioner Family; PCP Family Medicine
DX: S20.219A Contusion of unspecified front wall of thorax, initial encounter (principal); J45.909 Unspecified asthma, uncomplicated; I10 Essential (primary) hypertension; K75.81 Nonalcoholic steatohepatitis (NASH); K74.60 Unspecified cirrhosis of liver; G93.40 Encephalopathy, unspecified; G47.33 Obstructive sleep apnea (adult) (pediatric); D69.6 Thrombocytopenia, unspecified; Z85.828 Personal history of other malignant neoplasm of skin; Z87.442 Personal history of urinary calculi; Z87.891 Personal history of nicotine dependence; W18.39XA Other fall on same level, initial encounter
CPT/HCPCS: 71120; 99283

== ENCOUNTER 2022-07-21 17:43 | Inpatient (IN) | payer MEDICARE, SELFPAY ==
[2022-07-21] VITALS (17 sets, daily range): BP systolic 113–132; BP diastolic 65–80; PULSE 109–119; RESP 18–20; TEMP 37.6; O2SAT 96–99
--- NOTE | ~2022-07-21 | XR_ITS ---
EXAMINATION: XR chest 1V DATE: 07/21/2022 19:49 INDICATION: Weakness TECHNIQUE: frontal view of the chest was obtained. COMPARISON: Chest radiograph dated 03/10/22 FINDINGS: Patient is rotated towards the left. No focal airspace opacities, pulmonary edema, pleural effusion o r pneumothorax. Heart size is normal. Calcified gallstone in the right upper quadrant. IMPRESSION: 1. No acute cardiopulmonary disease. 2. Cholelithiasis. Reviewed, dictated and finalized at location A.
--- NOTE | ~2022-07-21 | CT_ITS ---
EXAMINATION: CT abdomen pelvis wo con DATE: 07/23/2022 16:54 INDICATION: sepsis TECHNIQUE: Computed tomography (CT) of the abdomen and pelvis was performed without intravenous contr ast. Automated exposure control and iterative reconstruction technique were employed. The dose-length product was 1459.70 mGy-cm. COMPARISON: 06/25/2022. FINDINGS: Lower thorax: Unremarkable Liver: Small, nodular liver. Biliary/Gallbladder: Cholelithiasis. No bile duct dilation. Pancreas: No mass or duct dilation. Spleen: Enlarged Adrenals:No mass. Kidneys: Punctate nonobstructing bilateral calculi. Proteinaceous/hemorrhagic right upper pole cyst. Simple exophytic left midpole cyst. GI tract: No small or large bowel dilation. Appendix not visualized Mesentery/Peritoneum: Moderate ascites. Upper abdominal varices. Upper abdominal lymphadenopathy. Retroperitoneum: No mass. Atherosclerotic abdominal aortic and/or arterial calcifications. Pelvis: Pelvic organs are within normal limits. Soft Tissues: Dermal thickening in the lower anterior abdomen. Abdominal subcutaneous stranding, grea ter on the left. Bones: No acute osseous finding. IMPRESSION: Cirrhosis with portal hypertension. Cholelithiasis. Upper abdominal lymphadenopathy. Moderate ascites . Dermal and subcutaneous thickening in the anterior abdominal wall, likely related to body wall kuldip a unless accompanied by clinical findings of infection. Reviewed, dictated and finalized at location K. IMPRESSION: Cirrhosis with portal hypertension. Cholelithiasis. Upper abdominal lymphadenop athy. Moderate ascites. Dermal and subcutaneous thickening in the anterior abdo sera wall, likely related to body wall edema unless accompanied by clinical fi ndings of infection.
--- NOTE | ~2022-07-21 | US_ITS ---
EXAMINATION: US paracentesis abd w/image DATE: 07/22/2022 15:03 INDICATION: Fever and cirrhosis. Evaluate for spontaneous bacterial peritonitis. TECHNIQUE: The procedure and its risks and benefits were discussed with the patient. Potential risks discussed included bleeding and infection. The skin was prepped and draped in sterile fashion. 1% lid ocaine was used for local anesthesia. Under ultrasound guidance, a 5 Fr catheter with trochar was adv anced into the ascites in the left lower quadrant. Fluid was aspirated into vacuum bottles. The eula ter was removed, and a dressing was applied. There were no immediate complications. FINDINGS: Ultrasound images demonstrate ascites and the catheter within the fluid. IMPRESSION: 1. Successful ultrasound-guided paracentesis yielding 5000 mL of cloudy orange fluid. Reviewed, dictated and finalized at location A.
--- NOTE | ~2022-07-21 | CT_ITS ---
EXAMINATION: CT abdomen pelvis wo con DATE: 07/27/2022 14:05 INDICATION: large ascites, hgb is trending down, concern for bl TECHNIQUE: Computed tomography (CT) of the abdomen and pelvis was performed without intravenous contr ast. Automated exposure control and iterative reconstruction technique were employed. The dose-length product was 1506.99 mGy-cm. COMPARISON: 07/23/2022. FINDINGS: Lower thorax: Unremarkable Liver: Cirrhotic changes. Biliary/Gallbladder: Cholelithiasis. No bile duct dilation. Pancreas: No mass or duct dilation. Spleen: Enlarged. Adrenals:No mass. Kidneys: Punctate bilateral calcifications. Proteinaceous/hemorrhagic right upper pole cyst. Simple e xophytic left midpole cyst. No suspicious mass, obstructing stone, or hydronephrosis. GI tract: No small or large bowel dilation. Appendix not visualized. Mesentery/Peritoneum: No mass or free air. Moderate volume, low density abdominopelvic ascites, uncha nged. Upper abdominal varices and lymphadenopathy. Retroperitoneum: No mass. Pelvis: Pelvic organs are within normal limits. Soft Tissues: Body wall edema, unchanged. Bones: No acute osseous finding. IMPRESSION: No abdominopelvic hemorrhage detected. Unchanged moderate volume low density ascites. Cirrhosis with portal hypertension. Cholelithiasis. Upper abdominal lymphadenopathy. Body wall edema. Reviewed, dictated and finalized at location K. IMPRESSION: No abdominopelvic hemorrhage detected. Unchanged moderate volume low density as cites. Cirrhosis with portal hypertension. Cholelithiasis. Upper abdominal lymp hadenopathy. Body wall edema.
--- NOTE | ~2022-07-21 | CT_ITS ---
EXAMINATION: CT brain wo con DATE: 07/21/2022 19:39 INDICATION: Found in bathtub with loss of consciousness and altered mental status. TECHNIQUE: Computed tomography (CT) of the head was performed without intravenous contrast. Sagittal and coronal reconstructions were performed. The mA was adjusted according to patient size. Iterative reconstruction technique was employed. The dose-length product was 605.33 mGy-cm. COMPARISON: head CT dated 06/25/2022 FINDINGS: No fracture. No acute intracranial hemorrhage, acute infarction or abnormal extra axial fluid collect ion. There is moderate scattered white matter hypoattenuation consistent with chronic small vessel is chemic disease. Ventricles are normal and symmetric. No mass/mass effect. The orbits, paranasal sinus es and mastoid air cells are normal. IMPRESSION: 1. No fracture or acute intracranial process. 2. Moderate scattered white matter hypoattenuation consistent with chronic small vessel ischemic dise ase. Reviewed, dictated and finalized at location A. IMPRESSION: 1. No fracture or acute intracranial process. 2. Moderate scattered white matter hypoattenuation consistent with chronic smal l vessel ischemic disease.
--- NOTE | 2022-07-21 18:16 | ECG_ITS ---
Measurements Intervals [place] Rate: 113 P: 14 SD: 147 QRS: 5 QRSD: 100 T: 35 QT: 311 QTc: 427 Interpretive Statements SINUS TACHYCARDIA PREMATURE ATRIAL COMPLEX COMPARED TO ECG 06/25/2022 06:40:31 NO SIGNIFICANT CHANGES Electronically Signed On 07-22-2022 15:14:51 CDT by Beatriz Smith M.D.
[2022-07-21 18:51] LABS: Bacteria Urine None Seen /hpf; Hyaline Casts Urine Present /lpf; Non Pathogenic Casts 0-2; RBC Urine 0-2 /hpf (0-2); Squamous Epithelial Cell Urine None seen /hpf (Few)
[2022-07-21 18:54] LABS: Appearance Urine Clear (Clear); Bilirubin Urine 1+ (Negative); Blood Urine Trace-lysed (Negative); Color Urine Yellow (Yellow); Glucose Urine UA Negative (Negative); Ketones Urine Negative (Negative); Leukocyte Esterase Ur Negative LEU/UL (Negative); Nitrate Urine Positive (Negative); Protein Urine Negative (Negative); Urobilinogen Urine 0.2 mg/dL (<2.0)
[2022-07-21 18:56] LABS: Add Urine Microscopic? YES
[2022-07-21 18:59] LABS: Basophils Percent Auto 0.4 % (0.2-1.2); Eosinophils Percent Auto 0.2 % (0-4.4); Hematocrit 27.1 % (42.0-52.0); Immature Granulocyte Absolute 0.02 K/mm3 (0.00-0.031); Immature Granulocyte Percent A 0.4 % (0-0.5); Immature Platelet Fraction Pct 6.9 % (0.9-11.2); Lymphocytes Absolute Auto 0.26 K/mm3 (0.9-3.2); Lymphocytes Percent Auto 5.2 % (18.3-44.2); Mean Corpuscular HGB Conc 33.2 g/dl (32-36); Mean Corpuscular Hemoglobin 34.2 pg (26-34); Monocytes Absolute Auto 0.6 K/mm3 (0.1-0.6); Monocytes Percent Auto 12.3 % (2.6-8.5); Neutrophils Absolute Auto 4.1 K/mm3 (1.3-6.7); Neutrophils Percent Auto 81.5 % (45.5-73.1); Platelet Count Result 31 k/mm3 (150-375); Red Blood Count 2.63 M/mm3 (4.6-6.20); Red Cell Distribution Width 18.2 % (11.5-14.5)
[2022-07-21 19:07] LABS: Alanine Aminotransferase 44 U/L (6-50); Albumin Level 2.7 g/dL (3.5-5.1); Alkaline Phosphatase 194 U/L (38-126); Anion Gap 6 mmol/L (8-16); Aspartate Amino Transferase 94 U/L (17-59); Bilirubin,Total 6.9 mg/dL (0.2-1.3); Blood Urea Nitrogen 18 mg/dL (9-20); Calcium 10.9 mg/dL (8.4-10.2); Carbon Dioxide 20 mmol/L (22-30); Chloride 107 mmol/L (98-107); Estimated Glomerular Filt Rate > 60; Glucose 111 mg/dL (65-110); Potassium 3.5 mmol/L (3.4-5.0); Sodium 133 mmol/L (137-145)
[2022-07-21 19:17] LABS: INR 2.1; Partial Thromboplastin Time 34.6 SECONDS (22.3-36.8); Prothrombin Time 22.5 Seconds (11.1-14.7)
[2022-07-21 19:20] LABS: Platelet Estimate Decreased (Adequate)
[2022-07-21 19:22] LABS: Schistocytes Rare (NORMAL)
[2022-07-21 19:23] LABS: Anisocytosis 2+ (NORMAL)
[2022-07-21 20:01] LABS: Magnesium 1.9 mg/dL (1.6-2.3)
[2022-07-21 20:12] LABS: Alveolar/Arterial O2 Gradient 30.7 mmHg; Base Excess ABG -2.9 mEq/l (+/-2.0); Fractional Inspired Oxygen 21 %; HCO3 ABG 19.6 mEq/l (22.0-26.0); Oxygen Content ABG 13.3 %vol (16.0-22.0); Oxygen Saturation ABG 97.3 % (95.0-100.0); Oxyhemoglobin 94.6 % THb (90.0-100.0); PCO2 ABG 26.8 mmHg (35.0-45.0); PO2 ABG 86.9 mmHg (80.0-100.0); PO2 FiO2 Ratio Arterial Blood 4.14 %; Total Hemoglobin 9.9 g/dL (12.0-18.0); pH ABG 7.483 (7.350-7.450)
[2022-07-21 20:13] LABS: Modified Allen's Test Pass; Site Drawn RIGHT RADIAL
[2022-07-21 20:13] LABS: Troponin I 0.017 ng/mL (0.000-0.034)
[2022-07-21 20:27] LABS: Amphetamine Screen Urine Negative (Negative); Barbiturate Screen Urine Negative (Negative); Benzodiazepines Screen Urine Negative (Negative); Cannabinoid Screen Urine Negative (Negative); Cocaine Screen Urine Negative (Negative); Methadone Screen Urine Negative (Negative); Opiate Screen Urine Negative (Negative); Phencyclidine Screen Urine Negative (Negative)
[2022-07-21 20:49] LABS: Ammonia 24 umol/L (9-30); Ethanol < 10 mg/dL (<10)
[2022-07-21 20:50] LABS: Lactic Acid Reflex 2.4 mmol/L (0.7-2.0)
[2022-07-21 21:16] LABS: Influenza A QL RT-PCR Negative (Negative); Influenza B QL RT-PCR Negative (Negative); RSV RNA, RT-PCR Negative (Negative); SARS-CoV-2 RNA PCR Negative
--- NOTE | 2022-07-21 21:21 | ED.GENADULT ---
HPI - General Adult General Chief complaint: Altered Mental Status Stated complaint: altered mental status Time Seen by Provider: 07/21/22 19:22 History of Present Illness HPI narrative: Patient 72-year-old gentleman who presents the emergency department with chief complaint of altered mental status. Patient has prior prior history of Toro with cirrhosis and hepatic encephalopathy. Patient has had large-volume paracentesis is and has had possible SBP before in the past. Patient was admitted to the hospital and discharged on the of last month. The patient has been doing well and this morning was doing okay and the family found him in the bathroom laying in the bathtub and was not acting his normal self. They did notice that he was running a fever and felt hot to touch. Patient has been compliant with his lactulose and has not had any further paracentesis since he was in the hospital. The family notices that his abdomen has not increased substantially Related Data Home Medications Medication Instructions Recorded Confirmed furosemide 20 mg tablet 20 mg PO BID On hold 08/22/21 06/25/22 rifaximin 550 mg tablet (Xifaxan) 550 mg PO BID 08/22/21 06/25/22 spironolactone 50 mg tablet 50 mg PO BID on hold 08/22/21 06/25/22 lactulose 10 gram/15 mL oral 20 g PO BID 06/25/22 06/25/22 solution omeprazole 20 mg capsule,delayed 20 mg DAILY 06/25/22 06/25/22 release Allergies Allergy/AdvReac Type Severity Reaction Status Date / Time No Known Allergies Allergy Verified 06/20/22 11:00 Review of Systems Review of Systems: A 10 system review of systems was completed on the patient and is negative except for what is stated in the HPI. Nursing and ancillary documentation was reviewed. 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 Schmidt History of removal of pigmented skin lesion History of basal cell carcinoma Removed from behind his ear and nose. Hx of tonsillectomy Family History Family History Father Family history of elevated blood lipids Family history of coronary artery disease Heart disease Mother Family history of lung cancer Grandparent Dementia Throat cancer Social History Social History Social History: The patient is and has 4 sons. The patient used occasionally smokes cigars. The patient is retired. Code status full code Smoking status: Never smoker Tobacco type: cigars Smoking end date: 04/20/16 Alcohol intake: never Alcohol use details: occasional Substance use: never Substance use type: does not use Lack of Transportation: No Lack of Food: Never True Current Housing: Decline to Answer Concerned About Future Housing: No Difficulty Paying Gas/Electric Bills: No Difficulty Paying for Meds: No Currently Unemployed: No Education: Bachelor's Degree Difficulty w/ Childcare or Family Care: No Gender identity (if verbalized by the patient): Male Spiritual care concerns: No Exam Narrative: GENERAL: Well-appearing, well-nourished,
[2022-07-21] MEDS: SODIUM CHLORIDE 0.9% IV 1,000 ML 999 ML IV CONT (23:23)
[2022-07-21] MEDS: cefTRIAXone 2 GM/NS 100 ML 2 GM/100 ML BAG IVPB (23:23)
[2022-07-21 23:38] LABS: Reflex Lactic Acid Yes or No Add Lactic
[2022-07-22] VITALS (11 sets, daily range): BP systolic 92–130; BP diastolic 44–78; PULSE 66–106; RESP 14–18; TEMP 36.2–36.4; O2SAT 98–100; BMI 37.1
--- NOTE | 2022-07-22 00:26 | ADMGEN ---
This patient, Emmanuel Norris, was admitted to [facility] Surg Room 332-02. Patient/family oriented to hospital policies and general routines including ID bracelet, bed and alarms, visiting hours, pain management, procedures, bathroom and other care routines, personal items, smoking policy, room service/diet, and visiting hours. Information on how to activate the Rapid Response Team has been discussed. Patient/Family are encouraged to report perceived risks to care and to ask questions if they do not understand what they are told or what they should do.
[2022-07-22 01:15] LABS: Lactic Acid 2.4 mmol/L (0.7-2.0)
--- NOTE | 2022-07-22 04:41 | PC.NURSE ---
Pt given urinal, measurable 50ml, spilled or void in bed as well. Difficulty using urinal due to large abdominal girth and retraction of penis within scrotum. Pt NPO as per order. Pt multiple bruising to left side of body, outer area of L- eye, L - shoulder, upper L-arm, L - lower leg. Pencil sized red raina noted to left side of buttock. Bilateral lower ext edema pitting +2 .... Pt much difficulty moving in bed due to abd girth. Tele SR _ST Plan of care discussed with pt. Continue to monitor.
--- NOTE | 2022-07-22 06:09 | PM.IMHP ---
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 Family found patient in the bathroom laying in the bathtub and was not acting like his usual self. They thought that he felt hot to the touch. Patient has been compliant with his lactulose. He had been admitted to the hospital for several days and discharged on the 30 of June. He has not required any further paracentesis since he was discharged from the hospital. He was treated during last hospitalization for possible SBP. The family does not feel that the patient's abdomen has increased substantially. The patient had Erika mildly elevated temperature in the ER to 99.7. Blood cultures were obtained. He was started on empiric antibiotic therapy with Rocephin. The patient's urine did demonstrate nitrates but no significant bacteria. He was placed on 2 g of Rocephin to cover for possible SBP as well as UTI. Urine cultures and blood cultures have been sent. The patient himself cannot provide any history. He is oriented to his full name but thinks the years 2031. He seems to be aware that he is in the hospital but cannot tell me why he is in the hospital. He denies any complaints. Source of information is from ER report and EMS report. 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 Schmidt History of removal of pigmented skin lesion History of basal cell carcinoma Removed from behind his ear and nose. Hx of tonsillectomy Family History Family History Father Family history of elevated blood lipids Family history of coronary artery disease Heart disease Mother Family history of lung cancer Grandparent Dementia Throat cancer Social History Social History Social History: The patient is and has 4 sons. The patient used occasionally smokes cigars. The patient is retired. Code status full code Smoking status: Former smoker Tobacco type: cigars Smoking end date: 04/20/16 Alcohol intake: former Alcohol use details: occasional Substance use: never Substance use type: does not use Lack of Transportation: No Lack of Food: Never True Current Housing: I Have Housing Concerned About Future Housing: No Difficulty Paying Gas/Electric Bills: No Difficulty Paying for Meds: No Currently Unemployed: No Education: High School Diploma/GED Difficulty w/ Childcare or Family Care: No Gender identity (if verbalized by the patient): Male Spiritual care concerns: No Meds Home Medications and Allergies Home Medications Medication Instructions Recorded Confirmed Type furosemide 20 mg tablet 40 mg PO DAILY 08/22/21 07/22/22 History rifaximin 550 mg tablet (Xifaxan) 550 mg PO BID 08/22/21 06/25/22 History spironola
--- NOTE | 2022-07-22 06:56 | PC.NURSE ---
0671 Dr Ratliff on floor- notified of latest BP 92/44 Pt NPO. No orders received
[2022-07-22 07:43] LABS: Basophils Percent Auto 0.3 % (0.2-1.2); Eosinophils Percent Auto 0.3 % (0-4.4); Hematocrit 24.7 % (42.0-52.0); Immature Granulocyte Absolute 0.02 K/mm3 (0.00-0.031); Immature Granulocyte Percent A 0.6 % (0-0.5); Immature Platelet Fraction Pct 7.3 % (0.9-11.2); Lymphocytes Percent Auto 14.1 % (18.3-44.2); Mean Corpuscular HGB Conc 32.4 g/dl (32-36); Mean Corpuscular Hemoglobin 33.8 pg (26-34); Mean Corpuscular Volume 104.2 fl (80-100); Mean Platelet Volume 12.5 fl (7.4-10.4); Monocytes Absolute Auto 0.4 K/mm3 (0.1-0.6); Monocytes Percent Auto 12.1 % (2.6-8.5); Neutrophils Absolute Auto 2.6 K/mm3 (1.3-6.7); Neutrophils Percent Auto 72.6 % (45.5-73.1); Red Blood Count 2.37 M/mm3 (4.6-6.20); Red Cell Distribution Width 18.3 % (11.5-14.5); White Blood Count 3.6 K/mm3 (4.5-10.0)
[2022-07-22 07:49] LABS: Lactic Acid Reflex 1.8 mmol/L (0.7-2.0)
[2022-07-22 07:53] LABS: Alanine Aminotransferase 41 U/L (6-50); Albumin Level 2.3 g/dL (3.5-5.1); Alkaline Phosphatase 154 U/L (38-126); Anion Gap 3 mmol/L (8-16); Aspartate Amino Transferase 88 U/L (17-59); Bilirubin,Total 5.6 mg/dL (0.2-1.3); Blood Urea Nitrogen 20 mg/dL (9-20); Calcium 11.1 mg/dL (8.4-10.2); Carbon Dioxide 24 mmol/L (22-30); Chloride 107 mmol/L (98-107); Estimated CRCL calculation 80 ml/min; Estimated Glomerular Filt Rate > 60; Glucose 96 mg/dL (65-110); Potassium 3.8 mmol/L (3.4-5.0); Sodium 134 mmol/L (137-145)
[2022-07-22 08:01] LABS: Platelet Count Result 24 k/mm3 (150-375)
[2022-07-22 08:02] LABS: Platelet Estimate Decreased (Adequate)
[2022-07-22 08:03] LABS: Anisocytosis 1+ (NORMAL); Macrocytosis 1+ (NORMAL); Schistocytes None Seen (NORMAL)
[2022-07-22] MEDS: ALBUMIN HUMAN 25% 25 GM/100 ML 100 ML IVPB ×4 (08:33→21:41)
[2022-07-22] MEDS: LACTULOSE 20 GM/30 ML UDC PO ×2 (08:34→17:55)
[2022-07-22] MEDS: FUROSEMIDE 40 MG TABLET PO (08:34)
[2022-07-22] MEDS: PANTOPRAZOLE 40 MG TABLET PO (08:34)
[2022-07-22] MEDS: SPIRONOLACTONE 50 MG TABLET 100 MG PO (08:34)
[2022-07-22 16:22] LABS: Appearance Peritoneal Fluid Clear (Clear); Color Peritoneal Fluid Yellow (Colorless); Lymphocytes Peritoneal Fluid 47 %; Macrophages Peritoneal Fluid 10 %; Mesothelial Cells Peritoneal Fluid 6 %; Monocytes Peritoneal Fluid 20 %; Neutrophils Peritoneal Fluid 17 % (0-25); Source Peritoneal Fluid Peritoneal Fluid
[2022-07-22 16:23] LABS: Nucleated Cells Peritoneal Flu 145 /uL (0-500); RBC Peritoneal Fluid 4000 /uL (0-100000)
[2022-07-22] MEDS: ACETAMINOPHEN 325 MG TABLET 650 MG PO (21:41)
[2022-07-22] MEDS: cefTRIAXone 2 GM/NS 100 ML 2 GM/100 ML BAG IVPB (23:02)
[2022-07-23] VITALS (10 sets, daily range): BP systolic 92–102; BP diastolic 45–71; PULSE 76–95; RESP 18–20; TEMP 35.8–37; O2SAT 96–100
[2022-07-23] MEDS: ALBUMIN HUMAN 25% 25 GM/100 ML 100 ML IVPB ×3 (06:05→18:46)
--- NOTE | 2022-07-23 06:36 | PC.NURSE ---
Parectasis site to left lower abd draining yellow thin fluid Changed drsg x3 this past 12 hours. Moderate amount drainage. Pt stands to void with assist to hold gown/tele and use of walker, staff holds onto one arm. Pt grimaces with any movement. Pt voids 100ml carlotta colored urine per void . Pt alert/ orientated to name, place , forgetful, needs reminders/ instructions during care.
[2022-07-23 08:09] LABS: Basophils Percent Auto 0.6 % (0.2-1.2); Eosinophils Percent Auto 2.5 % (0-4.4); Hematocrit 22.4 % (42.0-52.0); Hemoglobin 7.1 g/dL (14.0-18.0); Immature Granulocyte Absolute 0.01 K/mm3 (0.00-0.031); Immature Granulocyte Percent A 0.6 % (0-0.5); Immature Platelet Fraction Pct 9.1 % (0.9-11.2); Lymphocytes Percent Auto 31.4 % (18.3-44.2); Mean Corpuscular HGB Conc 31.7 g/dl (32-36); Mean Corpuscular Hemoglobin 34.5 pg (26-34); Mean Corpuscular Volume 108.7 fl (80-100); Monocytes Absolute Auto 0.3 K/mm3 (0.1-0.6); Monocytes Percent Auto 18.9 % (2.6-8.5); Neutrophils Absolute Auto 0.7 K/mm3 (1.3-6.7); Red Blood Count 2.06 M/mm3 (4.6-6.20); Red Cell Distribution Width 17.9 % (11.5-14.5)
[2022-07-23 08:19] LABS: Alanine Aminotransferase 32 U/L (6-50); Albumin Level 2.8 g/dL (3.5-5.1); Alkaline Phosphatase 111 U/L (38-126); Anion Gap 2 mmol/L (8-16); Aspartate Amino Transferase 77 U/L (17-59); Bilirubin,Total 3.6 mg/dL (0.2-1.3); Blood Urea Nitrogen 21 mg/dL (9-20); Calcium 11.8 mg/dL (8.4-10.2); Carbon Dioxide 27 mmol/L (22-30); Chloride 107 mmol/L (98-107); Estimated CRCL calculation 89 ml/min; Estimated Glomerular Filt Rate > 60; Glucose 86 mg/dL (65-110); Potassium 3.9 mmol/L (3.4-5.0); Sodium 136 mmol/L (137-145)
[2022-07-23] MEDS: SPIRONOLACTONE 50 MG TABLET 100 MG PO (08:31)
[2022-07-23] MEDS: LACTULOSE 20 GM/30 ML UDC PO ×2 (08:31→17:26)
[2022-07-23] MEDS: PANTOPRAZOLE 40 MG TABLET PO (08:32)
[2022-07-23] MEDS: FUROSEMIDE 40 MG TABLET PO (08:32)
[2022-07-23 09:52] LABS: Platelet Count Result 22 k/mm3 (150-375); White Blood Count 1.6 K/mm3 (4.5-10.0)
[2022-07-23 10:02] LABS: Anisocytosis 1+ (NORMAL); Hypochromasia 2+ (NORMAL); Macrocytosis 1+ (NORMAL); Platelet Estimate Decreased (Adequate); Schistocytes None Seen (NORMAL)
--- NOTE | 2022-07-23 13:41 | PM.IMPN ---
Progress Note: A&P Assessment and Plan (1) Sepsis: Qualifiers: Sepsis acute organ dysfunction status: with acute organ dysfunction Sepsis type: sepsis due to unspecified organism Severe sepsis acute organ dysfunction type: encephalopathy Code(s): A41.9 - Sepsis, unspecified organism Status: Acute Assessment and Plan: 07/23: 2/2 blood cultures taken 07/22 positive for Klebsiella pneumoniae, d/c rocephin which was started at admission on 07/22 in favor of ertapenem started on 07/23, repeat blood cultures 07/25, unsure of source, urine culture was negative, chest x-ray was negative, check CT abdomen/pelvis, follow fluid studies from paracentesis, pending (2) Acute metabolic encephalopathy: Code(s): G93.41 - Metabolic encephalopathy Status: Acute Assessment and Plan: Resolving, likely secondary to sepsis, see above (3) Acute UTI: Code(s): N39.0 - Urinary tract infection, site not specified Status: Acute Assessment and Plan: Urine culture came back negative, do not suspect UTI (4) Decompensation of cirrhosis of liver: Code(s): K72.90 - Hepatic failure, unspecified without coma; K74.60 - Unspecified cirrhosis of liver Status: Acute Assessment and Plan: LFT slightly improved from yesterday, monitor Status post paracentesis 07/22 yielding 5 L Plan DVT prophylaxis with SCDs GI prophylaxis not indicated Code status full code Subjective Date/time seen: 07/23/22 13:41 Interval history: 72-year-old male with medical history significant for 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 No overnight events noted. No chest pain or shortness of breath. No nausea, vomiting or diarrhea. No fevers or chills. Review of Systems Review of Systems: 12 point review of systems was assessed and was negative except as noted in the HPI Exam Narrative: General: No acute distress, alert and oriented per baseline HEENT: Atraumatic, normocephalic, mucous membranes moist CV: Regular rate and rhythm, S1, S2 Lungs: Clear to auscultation bilaterally, no rales or crackles noted, no wheezes, good air entry Abdomen: Soft, nontender, significantly distended, bandage in place from paracentesis Extremities: Normal to inspection Skin: No rashes noted, no lesions or wounds seen Psych: Euthymic, normal affect Objective Data Vital Signs Vital Signs: Vital Signs - 24 hr 07/22/22 14:00 07/22/22 16:00 07/22/22 22:00 Temperature 97.1 F L 97.4 F L Pulse Rate 89 79 88 Respiratory Rate 16 18 Blood Pressure 101/53 L 101/57 L Pulse Oximetry 98 98 Oxygen Delivery 07/22/22 20:00 07/23/22 00:00 07/23/22 04:00 Temperature Pulse Rate 89 78 92 Respiratory Rate Blood Pressure Pulse Oximetry Oxygen Delivery 07/23/22 06:00 07/23/22 08:18 07/23/22 08:00 Temperature 96.5 F L Pulse Rate 76 Respiratory Rate 18 Blood Pressure 99/71 L Pulse Oximetry 98 96 Oxygen Delivery Room Air Room Air Intake/Output Intake/Output: Intake & Output 07/20/22 07/21/22 07/22/22 07/23/22 23:59 23:59 23:59 23:59 Intake Total 100 1940 1620 Output Total 100 5675 400 Balance 0 -3735 1220 Meds/Results Medications: Active Medications Generic Name Dose Route Start Last Admin Trade Name Freq PRN Reason Stop Dose Admin Acetaminophen 650 mg 07/22/22 07:07 07/22/22 21:41 Acetaminophen 325 Mg Tablet PO 650 mg Q6H PRN Administration Mild Pain (1-3) or Fever Furosemide 40 mg 07/22/22 09:00 07/23/22 08:32 Furosemide 40 Mg Tablet PO 40 mg DAILY [place] Administration Ceftriaxone Sodium 2 gm in 100 mls @ 200 mls/hr 07/22/22 23:00 07/22/22 23:15 Rocephin 2 Gm/Ns 100 Ml IVPB Infused Q24H [place] Infusion Albumin Human 100 mls @ 60 mls/hr 07/22/22 12:00 07/23/22 11:39 Albutein IVPB 60 ml
--- NOTE | 2022-07-23 15:41 | PC.NURSE ---
On 07/23/22, the student, Doris Awad, provided care and completed [facility] documentation on this patient. I have reviewed the student's documentation and agree with the findings.
[2022-07-23 17:01] LABS: Lactic Acid Reflex 2.3 mmol/L (0.7-2.0)
[2022-07-23 17:04] LABS: CRP 2.5 mg/dL (<1.0)
[2022-07-23] MEDS: ERTAPENEM 1 GM/NS 50 ML 1 GM/50 ML BAG IVPB (17:25)
[2022-07-23 18:15] LABS: Procalcitonin 0.9 ng/mL
[2022-07-23 19:48] LABS: Reflex Lactic Acid Yes or No Add Lactic
[2022-07-23 20:19] LABS: Lactic Acid 2.4 mmol/L (0.7-2.0)
[2022-07-24] VITALS (9 sets, daily range): BP systolic 96–106; BP diastolic 57–83; PULSE 84–95; RESP 13–14; TEMP 36.4–36.8; O2SAT 95–99
[2022-07-24] MEDS: ALBUMIN HUMAN 25% 25 GM/100 ML 100 ML IVPB ×5 (00:12→23:08)
[2022-07-24 06:36] LABS: Basophils Percent Auto 0.7 % (0.2-1.2); Eosinophils Absolute Auto 0.1 K/mm3 (0-0.3); Eosinophils Percent Auto 3.4 % (0-4.4); Lymphocytes Absolute Auto 0.45 K/mm3 (0.9-3.2); Lymphocytes Percent Auto 30.2 % (18.3-44.2); Mean Corpuscular HGB Conc 31.5 g/dl (32-36); Mean Corpuscular Hemoglobin 33.3 pg (26-34); Mean Corpuscular Volume 105.8 fl (80-100); Mean Platelet Volume 13.6 fl (7.4-10.4); Monocytes Absolute Auto 0.2 K/mm3 (0.1-0.6); Monocytes Percent Auto 13.4 % (2.6-8.5); Neutrophils Absolute Auto 0.8 K/mm3 (1.3-6.7); Neutrophils Percent Auto 52.3 % (45.5-73.1); Red Blood Count 1.89 M/mm3 (4.6-6.20); Red Cell Distribution Width 17.7 % (11.5-14.5)
[2022-07-24 06:47] LABS: Alanine Aminotransferase 32 U/L (6-50); Albumin Level 4.3 g/dL (3.5-5.1); Alkaline Phosphatase 104 U/L (38-126); Anion Gap 8 mmol/L (8-16); Aspartate Amino Transferase 75 U/L (17-59); Bilirubin,Total 1.9 mg/dL (0.2-1.3); Blood Urea Nitrogen 16 mg/dL (9-20); Calcium 10.9 mg/dL (8.4-10.2); Carbon Dioxide 25 mmol/L (22-30); Chloride 105 mmol/L (98-107); Estimated CRCL calculation 89 ml/min; Estimated Glomerular Filt Rate > 60; Glucose 88 mg/dL (65-110); Potassium 3.5 mmol/L (3.4-5.0); Sodium 138 mmol/L (137-145)
[2022-07-24 07:07] LABS: Hemoglobin 6.3 g/dL (14.0-18.0); Platelet Count Result 18 k/mm3 (150-375); White Blood Count 1.5 K/mm3 (4.5-10.0)
[2022-07-24 07:08] LABS: Hypochromasia 2+ (NORMAL); Macrocytosis 1+ (NORMAL); Platelet Estimate Decreased (Adequate); Schistocytes None Seen (NORMAL)
--- NOTE | 2022-07-24 07:59 | PM.IMPN ---
Progress Note: A&P Assessment and Plan (1) Sepsis: Qualifiers: Sepsis acute organ dysfunction status: with acute organ dysfunction Sepsis type: sepsis due to unspecified organism Severe sepsis acute organ dysfunction type: encephalopathy Code(s): A41.9 - Sepsis, unspecified organism Status: Acute Assessment and Plan: 07/23: 2/2 blood cultures taken 07/22 positive for Klebsiella pneumoniae, d/c rocephin which was started at admission on 07/22 in favor of ertapenem started on 07/23, repeat blood cultures 07/25, unsure of source--could be SBP?, urine culture was negative, chest x-ray was negative, check CT abdomen/pelvis, follow fluid studies from paracentesis, pending 07/24: d/c ertapenem, start rocephin due to sens, CT abd/pelvis benign, some abdominal wall thickening (2) Acute metabolic encephalopathy: Code(s): G93.41 - Metabolic encephalopathy Status: Acute Assessment and Plan: Resolving, likely secondary to sepsis, see above (3) Acute UTI: Code(s): N39.0 - Urinary tract infection, site not specified Status: Acute Assessment and Plan: Urine culture came back negative, do not suspect UTI (4) Decompensation of cirrhosis of liver: Code(s): K72.90 - Hepatic failure, unspecified without coma; K74.60 - Unspecified cirrhosis of liver Status: Acute Assessment and Plan: LFT trending down, monitor, bili also trending down, follow Status post paracentesis 07/22 yielding 5 L Consult GI pending, may need albumin, concern for SBP? 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 No overnight events noted. No chest pain or shortness of breath. No nausea, vomiting or diarrhea. No fevers or chills. Review of Systems Review of Systems: 12 point review of systems was assessed and was negative except as noted in the HPI Exam Narrative: General: No acute distress, alert and oriented per baseline HEENT: Atraumatic, normocephalic, mucous membranes moist CV: Regular rate and rhythm, S1, S2 Lungs: Clear to auscultation bilaterally, no rales or crackles noted, no wheezes, good air entry Abdomen: Soft, nontender, significantly distended, bandage in place from paracentesis Extremities: Normal to inspection Skin: No rashes noted, no lesions or wounds seen Psych: Euthymic, normal affect Objective Data Vital Signs Vital Signs: Vital Signs - 24 hr 07/23/22 08:18 07/23/22 08:00 07/23/22 14:00 Temperature 98.2 F Pulse Rate 88 Respiratory Rate 20 Blood Pressure 102/53 L Pulse Oximetry 96 100 Oxygen Delivery Room Air Room Air 07/23/22 08:00 07/23/22 12:00 07/23/22 16:00 Temperature Pulse Rate 94 80 77 Respiratory Rate Blood Pressure Pulse Oximetry Oxygen Delivery 07/23/22 20:00 07/23/22 22:00 07/23/22 20:00 Temperature 98.6 F Pulse Rate 77 95 86 Respiratory Rate 20 20 Blood Pressure 92/45 L Pulse Oximetry 100 98 Oxygen Delivery Room Air 07/24/22 00:00 07/24/22 04:00 07/24/22 06:00 Temperature 97.5 F L Pulse Rate 84 88 84 Respiratory Rate 13 Blood Pressure 96/57 L Pulse Oximetry 99 Oxygen Delivery Intake/Output Intake/Output: Intake & Output 07/21/22 07/22/22 07/23/22 07/24/22 23:59 23:59 23:59 23:59 Intake Total 100 1940 2210 400 Output Total 100 5675 1150 325 Balance 0 -3962 1060 75 Meds/Results Medications: Active Medicat
[2022-07-24 08:32] LABS: Hematocrit 23.3 % (42.0-52.0); Hemoglobin 7.4 g/dL (14.0-18.0)
[2022-07-24] MEDS: FUROSEMIDE 40 MG TABLET PO (09:28)
[2022-07-24] MEDS: LACTULOSE 20 GM/30 ML UDC PO ×2 (09:28→17:37)
[2022-07-24] MEDS: PANTOPRAZOLE 40 MG TABLET PO (09:28)
[2022-07-24] MEDS: SPIRONOLACTONE 50 MG TABLET 100 MG PO (09:28)
--- NOTE | 2022-07-24 12:57 | PDONCCN ---
HPI - Date of Consult Date/Time: 07/24/22 12:57 Requesting Physician: Siomara Ratliff DO Primary Care Provider: Marii Rhodes DO - Consult Narrative Reason for consult: Pancytopenia Narrative: Emmanuel Norris is a 72 year old male with diagnosis of nonalcoholic steatohepatitis and liver cirrhosis almost 2 years ago along with sleep apnea, hypertension and asthma came into the hospital with mental status changes. He had multiple falls recently and has been feeling quite tired and fatigue. He has lost almost 100 lb weight since the diagnosis of liver cirrhosis. He had 11 L of fluid from abdomen removed recently and since University. He had another paracentesis done with 7 L of fluid removed here. According to the patient has been compliant with the lactulose. He was empirically started on Rocephin and well blood cultures were pending. Blood cultures came back positive for Klebsiella pneumonia. CT abdomen and pelvis showed liver cirrhosis with portal hypertension. There was upper abdominal lymphadenopathy and moderate ascites. His labs showed WBC count of 1.5 with hemoglobin [place] 6[place] [address]. There was no bleeding. ANC was 800. 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 Schmidt History of removal of pigmented skin lesion History of basal cell carcinoma Removed from behind his ear and nose. Hx of tonsillectomy Family History: Family History (Last Reviewed 07/22/22 @ 06:23 by Siomara Ratliff DO) Father Family history of elevated blood lipids Family history of coronary artery disease Heart disease Mother Family history of lung cancer Grandparent Dementia Throat cancer - Social History Social History: Social History (Last Reviewed 07/22/22 @ 06:23 by Siomara Ratliff DO) Gender Identity: Gender identity (if verbalized by the patient): Male Alcohol Use: Alcohol intake: former Alcohol use details: occasional Substance Use: Substance use: never Substance use type: does not use Others: Spiritual care concerns: No Smoking Status: Smoking status: Former smoker Tobacco type: cigars Smoking end date: 04/20/16 Approximate Smoking End Date: 2012 Social Determinants of Health: Has the Lack of Transportation Kept You From Medical Appointments or From Getting Medications?: No Within the Past 12 Months, Were You Worried Whether Your Food Would Run Out Before You Got Money to Buy More?: Never True What is Your Housing Situation Today?: I Have Housing Are You Worried That in the Next 2 Months, You May Not Have Your Own Housing to Live In?: No Do You Have Trouble Paying Your Heating Or Electricity Bill?: No Do You Have Trouble Paying For Medicines?: No Are You Currently Unemployed and Looking for Work?: No Highest Level of Education Completed: High School Diploma/GED Do You Have Trouble With Childcare or the Care of a Family Member?: No Exam - Vital Signs Vital
--- NOTE | 2022-07-24 13:14 | WPDGICN ---
Assessment and Plan Assessment and plan (1) Cirrhosis: Code(s): K74.60 - Unspecified cirrhosis of liver Status: Acute Assessment and Plan: Patient with cirrhosis of liver. [place] to be secondary to TORO. Currently appears to be compensated. He has pancytopenia on this basis. At home is quite weak with frequent falls. He suffers with hepatic encephalopathy an alteration in mental status. Mental status apparently improved after admission currently at his baseline. Likely decompensated recommend secondary to infection currently felt to be a UTI. Plan to continue a low-salt diet. Daily weights if possible so that this can be monitored. Diuretics as tolerated by monitoring renal function and vital signs. Continue Xifaxan and lactulose for encephalopathy. He will need long-term follow up with his established GI service at tertiary care center. (2) Pancytopenia: Code(s): D61.818 - Other pancytopenia Status: Acute Assessment and Plan: Pancytopenia likely on the basis of his severe cirrhosis. I understand hematology will see him. (3) Acute metabolic encephalopathy: Code(s): G93.41 - Metabolic encephalopathy Status: Acute Assessment and Plan: Patient with hepatic encephalopathy. Continue lactulose and Xifaxan. Continue supportive care. (4) Acute UTI: Code(s): N39.0 - Urinary tract infection, site not specified Status: Acute Assessment and Plan: UTI at time of admission. Continue antibiotics that would help both UTI and SBP. Paracentesis with low PMN count suggest this is being treated. suppressive doses of antibiotics long-term may be of benefit. (5) Spontaneous bacterial peritonitis: Code(s): K65.2 - Spontaneous bacterial peritonitis Status: Acute GI Consult Note Consult date/time: 07/24/22 13:14 Reason for consult: Decompensated cirrhosis with ascites. HPI: Emmanuel Norris is a 72 year old male I am asked to see because of cirrhosis of liver. Patient recently hospitalized. Recently followed in [place] for his end-stage liver disease. [place] to have decompensated cirrhosis of liver. When hospitalized several weeks ago found to have SBP. Sent home on antibiotics. At home he suffered increasing confusion felt to be consistent with his known hepatic encephalopathy. He had several falls prompting him to be admitted the hospital. At the time of admission hospital was found to have a urinary tract infection. Repeat paracentesis revealed that the PMN count in the ascitic fluid had lessened. Patient remains on broad-spectrum antibiotics because of concern over SBP. Currently on lactulose and Xifaxan. His mental status has improved. Apparently is now at his baseline. Remains somewhat weak and has not yet gotten out of bed. He is tolerating diet with the assistance of his daughter. 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 Schmidt History of removal of pigmented skin lesion History of basal cell carcinoma Removed from behind his ear and nose. Hx of tonsillectomy Family History Family History (Reviewed
[2022-07-24 16:26] LABS: Iron 32 ug/dL (49-181)
[2022-07-24 16:45] LABS: Percent Iron Saturation 22 % (20-50)
[2022-07-24] MEDS: cefTRIAXone 2 GM/NS 100 ML 2 GM/100 ML BAG IVPB (17:37)
[2022-07-24 18:28] LABS: Lactate Dehydrogenase 171 U/L (120-246)
[2022-07-24 19:32] LABS: Folic Acid 9.6 ng/mL (2.76->20)
[2022-07-25] VITALS (9 sets, daily range): BP systolic 92–104; BP diastolic 44–51; PULSE 62–88; RESP 14–20; TEMP 36.6–36.8; O2SAT 96–100
[2022-07-25 05:21] LABS: Basophils Percent Auto 0.6 % (0.2-1.2); Eosinophils Absolute Auto 0.1 K/mm3 (0-0.3); Eosinophils Percent Auto 3.2 % (0-4.4); Hematocrit 21.4 % (42.0-52.0); Immature Platelet Fraction Pct 10.7 % (0.9-11.2); Lymphocytes Absolute Auto 0.48 K/mm3 (0.9-3.2); Mean Corpuscular HGB Conc 32.7 g/dl (32-36); Mean Corpuscular Hemoglobin 34.8 pg (26-34); Mean Corpuscular Volume 106.5 fl (80-100); Mean Platelet Volume 13.7 fl (7.4-10.4); Monocytes Absolute Auto 0.2 K/mm3 (0.1-0.6); Monocytes Percent Auto 13.5 % (2.6-8.5); Neutrophils Absolute Auto 0.8 K/mm3 (1.3-6.7); Neutrophils Percent Auto 51.7 % (45.5-73.1); Red Blood Count 2.01 M/mm3 (4.6-6.20); Red Cell Distribution Width 17.6 % (11.5-14.5)
[2022-07-25 05:31] LABS: Alanine Aminotransferase 32 U/L (6-50); Albumin Level 3.1 g/dL (3.5-5.1); Alkaline Phosphatase 93 U/L (38-126); Anion Gap 3 mmol/L (8-16); Aspartate Amino Transferase 75 U/L (17-59); Blood Urea Nitrogen 13 mg/dL (9-20); Calcium 11.5 mg/dL (8.4-10.2); Carbon Dioxide 25 mmol/L (22-30); Chloride 107 mmol/L (98-107); Estimated CRCL calculation 101 ml/min; Estimated Glomerular Filt Rate > 60; Glucose 87 mg/dL (65-110); Potassium 3.5 mmol/L (3.4-5.0); Sodium 135 mmol/L (137-145)
[2022-07-25 05:31] LABS: Platelet Count Result 21 k/mm3 (150-375); White Blood Count 1.6 K/mm3 (4.5-10.0)
[2022-07-25] MEDS: ALBUMIN HUMAN 25% 25 GM/100 ML 100 ML IVPB ×4 (05:34→23:00)
[2022-07-25 05:40] LABS: Platelet Estimate Decreased (Adequate)
[2022-07-25 05:41] LABS: Anisocytosis 2+ (NORMAL); Hypochromasia 1+ (NORMAL); Schistocytes None Seen (NORMAL)
[2022-07-25] MEDS: PANTOPRAZOLE 40 MG TABLET PO (10:07)
[2022-07-25] MEDS: SPIRONOLACTONE 50 MG TABLET 100 MG PO (10:07)
[2022-07-25] MEDS: LACTULOSE 20 GM/30 ML UDC PO ×2 (10:07→17:33)
[2022-07-25] MEDS: FUROSEMIDE 40 MG TABLET PO (10:07)
[2022-07-25] MEDS: FILGRASTIM-SNDZ 300 MCG/0.5 ML SYRINGE SUB-Q (10:08)
--- NOTE | 2022-07-25 12:41 | WPDGIPROGNO ---
Progress Note: A&P Assessment and Plan (1) Cirrhosis: Code(s): K74.60 - Unspecified cirrhosis of liver Status: Acute Assessment and Plan: Patient with cirrhosis of the liver. This is felt to be from TORO. Appears somewhat decompensated with ascites present patient recently hospitalized with documented SBP. Now on antibiotics. Admitted this admission with urinary tract infection. Plan to continue antibiotics for both UTI and SBP. Low-salt diet. Ultimately anticipate patient following up [facility] where he is established with Hepatology. (2) Pancytopenia: Code(s): D61.818 - Other pancytopenia Status: Acute Assessment and Plan: Pancytopenia likely on the basis of cirrhosis. Hematology following and considering other possible etiologies. (3) Acute UTI: Code(s): N39.0 - Urinary tract infection, site not specified Status: Acute (4) Spontaneous bacterial peritonitis: Code(s): K65.2 - Spontaneous bacterial peritonitis Status: Acute Assessment and Plan: Patient documented avid SBP on recent admission. Continues to have ascites. Continue prophylactic antibiotics because of this for now. We should also make sure that cover the UTI. (5) Abdominal ascites: Code(s): R18.8 - Other ascites Status: Acute Assessment and Plan: Low-salt diet advised. Continue diuretics as tolerated. Subjective Date/time seen: 07/25/22 12:41 Interval history: Patient alert comfortable today. He appears to be at his baseline. Tolerating diet. Review of Systems Review of Systems: ROS unobtainable: Yes unobtainable due to medical condition Exam Narrative: Physical exam reveals patient be alert comfortable at rest appears to be a baseline level of orientation. Is afebrile and anicteric. Lungs are clear. Heart without murmur. Abdomen is obese. Modest to stents and some shifting dullness appreciated. Objective Data Vital Signs Vital Signs: Vital Signs - 24 hr 07/24/22 14:00 07/24/22 16:00 07/24/22 20:00 Temperature 98.2 F Pulse Rate 93 86 86 Respiratory Rate 13 13 Blood Pressure 106/83 Pulse Oximetry 99 99 Oxygen Delivery Room Air 07/24/22 21:51 07/24/22 20:00 07/25/22 00:00 Temperature 97.9 F Pulse Rate 87 95 85 Respiratory Rate 14 Blood Pressure 103/59 L Pulse Oximetry 95 Oxygen Delivery 07/25/22 04:00 07/25/22 05:41 07/25/22 08:00 Temperature 97.8 F Pulse Rate 78 62 62 Respiratory Rate 14 Blood Pressure 104/45 L Pulse Oximetry 96 Oxygen Delivery 07/25/22 08:00 Temperature Pulse Rate Respiratory Rate Blood Pressure Pulse Oximetry Oxygen Delivery Room Air Intake/Output Intake/Output: Intake & Output 07/22/22 07/23/22 07/24/22 07/25/22 23:59 23:59 23:59 23:59 Intake Total 1940 2210 3340 1430 Output Total 5675 1150 1425 1300 Balance -3735 1060 1915 130 Meds/Results Medications: Active Medications Generic Name Dose Route Start Last Admin Trade Name Freq PRN Reason Stop Dose Admin Acetaminophen 650 mg 07/22/22 07:07 07/22/22 21:41 Acetaminophen 325 Mg Tablet PO 650 mg Q6H PRN Administration Mild Pain (1-3) or Fever Filgrastim-Sndz 300 mcg 07/25/22 09:00 07/25/22 10:08 Filgrastim-Sndz 300 Mcg/0.5 Ml Syringe SUB-Q 07/30/22 08:59 300 mcg DAILY [facility] Administration Furosemide 40 mg 07/22/22 09:00 07/25/22 10:07 Furosemide 40 Mg Tablet PO 40 mg DAILY [facility] Administration Albumin Human 100 mls @ 60 mls/hr 07/22/22 12:00 07/25/22 12:31 Albutein IVPB 60 mls/hr Q6HR [facility] Administration Ceftriaxone Sodium 2 gm in 100 mls @ 200 mls/hr 07/24/22 16:00 07/24/22 17:37 Rocephin 2 Gm/Ns 100 Ml IVPB 200 mls/hr Q24H [facility] Administration Lactulose 20 gm 07/22/22 09:00 07/25/22 10:07 Lactulose 20 Gm/30 Ml Udc PO 20 gm BID [facility] Administration Pantoprazole Sodium 40 mg 07/22/22 09:00 0
--- NOTE | 2022-07-25 16:13 | PM.IMPN ---
Progress Note: A&P Assessment and Plan (1) Sepsis: Qualifiers: Sepsis acute organ dysfunction status: with acute organ dysfunction Sepsis type: sepsis due to unspecified organism Severe sepsis acute organ dysfunction type: encephalopathy Code(s): A41.9 - Sepsis, unspecified organism Status: Acute Assessment and Plan: 07/23: 2/2 blood cultures taken 07/22 positive for Klebsiella pneumoniae, d/c rocephin which was started at admission on 07/22 in favor of ertapenem started on 07/23, repeat blood cultures 07/25, unsure of source--could be SBP?, urine culture was negative, chest x-ray was negative, check CT abdomen/pelvis, follow fluid studies from paracentesis, pending 07/24: d/c ertapenem, start rocephin due to sens, CT abd/pelvis benign, some abdominal wall thickening 07/25/2022 interval history: 72-year-old male with liver cirrhosis most likely secondary to TORO, and ascites status post paracentesis, patient is also found to have leukopenia seen by Hematology suspect secondary to liver cirrhosis patient is started on Neupogen upon arrival white counts were 1600, cash control specialist recommended to continue Neupogen until patient white counts over 5000 or absolute neutrophil above 1000, patient is also being diuresed, will place the patient on fluid restriction to improve with his ascites electrolytes. Patient denies any abdominal pain nausea or vomiting fever or chills (2) Acute metabolic encephalopathy: Code(s): G93.41 - Metabolic encephalopathy Status: Acute Assessment and Plan: Resolving, likely secondary to sepsis, see above (3) Acute UTI: Code(s): N39.0 - Urinary tract infection, site not specified Status: Acute Assessment and Plan: Urine culture came back negative, do not suspect UTI (4) Decompensation of cirrhosis of liver: Code(s): K72.90 - Hepatic failure, unspecified without coma; K74.60 - Unspecified cirrhosis of liver Status: Acute Assessment and Plan: LFT trending down, monitor, bili also trending down, follow Status post paracentesis 07/22 yielding 5 L Consult GI pending, may need albumin, concern for SBP? (5) Pancytopenia: Code(s): D61.818 - Other pancytopenia Status: Acute Assessment and Plan: Likely 2/2 cirrhosis 07/24: hgb dropped 6.6, transfuse 1 unit, recheck pending, check FOBT, hematology consult pending Plan DVT prophylaxis with SCDs GI prophylaxis not indicated Code status full code Subjective Date/time seen: 07/25/22 16:13 07/23: 2/2 blood cultures taken 07/22 positive for Klebsiella pneumoniae, d/c rocephin which was started at admission on 07/22 in favor of ertapenem started on 07/23, repeat blood cultures 07/25, unsure of source--could be SBP?, urine culture was negative, chest x-ray was negative, check CT abdomen/pelvis, follow fluid studies from paracentesis, pending 07/24: d/c ertapenem, start rocephin due to sens, CT abd/pelvis benign, some abdominal wall thickening 07/25/2022 interval history: 72-year-old male with liver cirrhosis most likely secondary to TORO, and ascites status post paracentesis, patient is also found to have leukopenia seen by Hematology suspect secondary to liver cirrhosis patient is started on Neupogen upon arrival white counts were 1600, cash control specialist recommended to continue Neupogen until patient white counts over 5000 or absolute neutrophil above 1000, patient is also being diuresed, will place the patient on fluid restriction to improve with his ascites electrolytes. Patient denies any abdominal pain nausea or vomiting fever or chills Review of Systems Review of Systems: per HPI Exam Narrative: Patient is comfortable, NAD HEENT: eyes are clear and none icteric LUNGS: Normal respiratory effort ABD: Distended ascites Lower extremities: no edema SKIN: nonjaundiced Neuro: grossly intact. Objective Data Vital Signs Vital Signs: Vital Signs - 24 hr 07/24/
[2022-07-25] MEDS: cefTRIAXone 2 GM/NS 100 ML 2 GM/100 ML BAG IVPB (17:33)
[2022-07-25 21:00] LABS: IFOB Positive Control Positive; Immunochemical Fecal Occult Bl Negative (N)
[2022-07-26] VITALS (13 sets, daily range): BP systolic 92–116; BP diastolic 50–66; PULSE 83–95; RESP 16–20; TEMP 36.2–36.8; O2SAT 91–100
[2022-07-26] MEDS: ALBUMIN HUMAN 25% 25 GM/100 ML 100 ML IVPB ×3 (05:19→18:03)
[2022-07-26 06:13] LABS: Basophils Percent Auto 0.5 % (0.2-1.2); Eosinophils Absolute Auto 0.1 K/mm3 (0-0.3); Eosinophils Percent Auto 1.6 % (0-4.4); Immature Granulocyte Absolute 0.01 K/mm3 (0.00-0.031); Immature Granulocyte Percent A 0.2 % (0-0.5); Immature Platelet Fraction Pct 12.9 % (0.9-11.2); Lymphocytes Absolute Auto 0.66 K/mm3 (0.9-3.2); Lymphocytes Percent Auto 15.4 % (18.3-44.2); Mean Corpuscular HGB Conc 32.1 g/dl (32-36); Mean Corpuscular Hemoglobin 35.1 pg (26-34); Mean Corpuscular Volume 109.4 fl (80-100); Monocytes Absolute Auto 0.4 K/mm3 (0.1-0.6); Monocytes Percent Auto 9.3 % (2.6-8.5); Neutrophils Absolute Auto 3.1 K/mm3 (1.3-6.7); Red Blood Count 1.91 M/mm3 (4.6-6.20); Red Cell Distribution Width 18.5 % (11.5-14.5); White Blood Count 4.3 K/mm3 (4.5-10.0)
[2022-07-26 06:18] LABS: Alanine Aminotransferase 28 U/L (6-50); Albumin Level 3.6 g/dL (3.5-5.1); Alkaline Phosphatase 88 U/L (38-126); Anion Gap 8 mmol/L (8-16); Aspartate Amino Transferase 61 U/L (17-59); Bilirubin,Total 3.5 mg/dL (0.2-1.3); Blood Urea Nitrogen 13 mg/dL (9-20); Calcium 11.8 mg/dL (8.4-10.2); Carbon Dioxide 24 mmol/L (22-30); Chloride 107 mmol/L (98-107); Estimated CRCL calculation 101 ml/min; Estimated Glomerular Filt Rate > 60; Glucose 82 mg/dL (65-110); Magnesium 1.8 mg/dL (1.6-2.3); Potassium 3.7 mmol/L (3.4-5.0); Sodium 139 mmol/L (137-145)
[2022-07-26 06:44] LABS: Hematocrit 20.9 % (42.0-52.0); Hemoglobin 6.7 g/dL (14.0-18.0); Platelet Count Result 21 k/mm3 (150-375)
[2022-07-26 06:46] LABS: Anisocytosis 1+ (NORMAL); Platelet Estimate Decreased (Adequate); Schistocytes None Seen (NORMAL)
--- NOTE | 2022-07-26 08:24 | WPDGIPROGNO ---
Progress Note: A&P Assessment and Plan (1) Pancytopenia: Code(s): D61.818 - Other pancytopenia Status: Acute Assessment and Plan: Profound pancytopenia noted on presentation. Now on Neupogen because of leukopenia. White count improved. Hematology following. (2) Cirrhosis: Code(s): K74.60 - Unspecified cirrhosis of liver Status: Acute Assessment and Plan: Patient with underlying cirrhosis. [place] to be decompensated. Not currently felt to be on basis of TORO. Continue supportive care. (3) UTI (urinary tract infection): Code(s): N39.0 - Urinary tract infection, site not specified Status: Acute Assessment and Plan: Patient with UTI on presentation. Antibiotic coverage hopefully will also cover the possibility for SBP. (4) Abdominal ascites: Code(s): R18.8 - Other ascites Status: Acute Assessment and Plan: Patient with ascites secondary to cirrhosis. He had SBP on previous admission. Paracentesis shows improvement will but would continue coverage with broad-spectrum antibiotics. Currently on antibiotics for UTI. Subjective Date/time seen: 07/26/22 08:24 Interval history: Patient comfortable lying in bed. States he is at his baseline. Seems appropriate learn and oriented present. Denies abdominal pain. Review of Systems Review of Systems: Review of systems noncontributory. Exam Narrative: Physical exam reveals patient be alert. Comfortable at rest appears to be oriented present. HEENT exam reveals no icterus. Lungs are clear. Heart without murmur. Abdomen is obese. There does appear to be some shifting dullness noted. No localized tenderness. No organomegaly palpable. Objective Data Vital Signs Vital Signs: Vital Signs - 24 hr 07/25/22 14:00 07/25/22 12:00 07/25/22 16:00 Temperature 98.2 F Pulse Rate 81 81 81 Respiratory Rate 18 Blood Pressure 98/51 L Pulse Oximetry 100 Oxygen Delivery 07/25/22 20:00 07/25/22 22:00 07/25/22 20:00 Temperature 97.8 F Pulse Rate 88 86 Respiratory Rate 20 Blood Pressure 92/44 L Pulse Oximetry 98 Oxygen Delivery Room Air 07/26/22 00:00 07/26/22 04:00 07/26/22 06:00 Temperature 98.3 F Pulse Rate 84 94 87 Respiratory Rate 18 Blood Pressure 98/50 L Pulse Oximetry 99 Oxygen Delivery Intake/Output Intake/Output: Intake & Output 07/23/22 07/24/22 07/25/22 07/26/22 23:59 23:59 23:59 23:59 Intake Total 2210 3440 2520 300 Output Total 1150 1425 1500 700 Balance 1060 2014 1020 -400 Meds/Results Medications: Active Medications Generic Name Dose Route Start Last Admin Trade Name Freq PRN Reason Stop Dose Admin Acetaminophen 650 mg 07/22/22 07:07 07/22/22 21:41 Acetaminophen 325 Mg Tablet PO 650 mg Q6H PRN Administration Mild Pain (1-3) or Fever Filgrastim-Sndz 300 mcg 07/25/22 09:00 07/25/22 10:08 Filgrastim-Sndz 300 Mcg/0.5 Ml Syringe SUB-Q 07/30/22 08:59 300 mcg DAILY [facility] Administration Furosemide 40 mg 07/22/22 09:00 07/25/22 10:07 Furosemide 40 Mg Tablet PO 40 mg DAILY [facility] Administration Albumin Human 100 mls @ 60 mls/hr 07/22/22 12:00 07/26/22 05:19 Albutein IVPB 60 mls/hr Q6HR [facility] Administration Ceftriaxone Sodium 2 gm in 100 mls @ 200 mls/hr 07/24/22 16:00 07/25/22 18:17 Rocephin 2 Gm/Ns 100 Ml IVPB Infused Q24H [facility] Infusion Lactulose 20 gm 07/22/22 09:00 07/25/22 17:33 Lactulose 20 Gm/30 Ml Udc PO 20 gm BID [facility] Administration Pantoprazole Sodium 40 mg 07/22/22 09:00 07/25/22 10:07 Pantoprazole 40 Mg Tablet PO 08/21/22 08:59 40 mg DAILY [facility] Administration Spironolactone 100 mg 07/22/22 09:00 07/25/22 10:07 Spironolactone 50 Mg Tablet PO 100 mg DAILY [facility] Administration Radiology Results: ITS Impressions Chest X-Ray 07/22/22 06:43 IMPRESSION: 1. No acute cardiopulmonary disease. 2. Cholelithiasis. Head CT
[2022-07-26] MEDS: LACTULOSE 20 GM/30 ML UDC PO ×2 (08:55→17:05)
[2022-07-26] MEDS: SPIRONOLACTONE 50 MG TABLET 100 MG PO (08:55)
[2022-07-26] MEDS: PANTOPRAZOLE 40 MG TABLET PO (08:55)
[2022-07-26] MEDS: FUROSEMIDE INJ 40 MG/4 ML VIAL IV PUSH (08:56)
[2022-07-26] MEDS: SODIUM CHLORIDE 0.9% IV 250 ML 30 ML IV CONT (09:00)
[2022-07-26] MEDS: FILGRASTIM-SNDZ 300 MCG/0.5 ML SYRINGE SUB-Q (12:22)
--- NOTE | 2022-07-26 13:24 | PM.IMPN ---
Progress Note: A&P Assessment and Plan (1) Sepsis: Qualifiers: Sepsis type: sepsis due to unspecified organism Sepsis acute organ dysfunction status: with acute organ dysfunction Severe sepsis acute organ dysfunction type: encephalopathy Code(s): A41.9 - Sepsis, unspecified organism Status: Acute Assessment and Plan: 07/23: 2/2 blood cultures taken 07/22 positive for Klebsiella pneumoniae, d/c rocephin which was started at admission on 07/22 in favor of ertapenem started on 07/23, repeat blood cultures 07/25, unsure of source--could be SBP?, urine culture was negative, chest x-ray was negative, check CT abdomen/pelvis, follow fluid studies from paracentesis, pending 07/24: d/c ertapenem, start rocephin due to sens, CT abd/pelvis benign, some abdominal wall thickening 07/26/2022 interval history: 72-year-old male with liver cirrhosis most likely secondary to TORO, and ascites status post paracentesis, patient is also found to have leukopenia seen by Hematology suspect secondary to liver cirrhosis patient was started on Neupogen upon arrival white counts were 1600, today patient white counts are 4300, spanish literature professor recommended to continue Neupogen until patient white counts over 5000 or absolute neutrophil above 1000, patient's hemoglobin is trending down to 6.7 patient denies any abdominal pain nausea or vomiting or bleeding, will do stool Hemoccult, will order 1 unit of pack RBC will monitor, patient is also being diuresed, will stop p.o. Lasix and switch to IV Lasix, placed the patient on fluid restriction to improve with his ascites, will monitor electrolytes. Patient denies any abdominal pain nausea or vomiting fever or chills, patient is seen by GI and further recommendation to follow, (2) Acute metabolic encephalopathy: Code(s): G93.41 - Metabolic encephalopathy Status: Acute Assessment and Plan: Resolving, likely secondary to sepsis, see above (3) Acute UTI: Code(s): N39.0 - Urinary tract infection, site not specified Status: Acute Assessment and Plan: Urine culture came back negative, do not suspect UTI (4) Decompensation of cirrhosis of liver: Code(s): K72.90 - Hepatic failure, unspecified without coma; K74.60 - Unspecified cirrhosis of liver Status: Acute Assessment and Plan: LFT trending down, monitor, bili also trending down, follow Status post paracentesis 07/22 yielding 5 L Consult GI pending, may need albumin, concern for SBP? (5) Pancytopenia: Code(s): D61.818 - Other pancytopenia Status: Acute Assessment and Plan: Likely 2/2 cirrhosis 07/24: hgb dropped 6.6, transfuse 1 unit, recheck pending, check FOBT, hematology consult pending Plan DVT prophylaxis with SCDs GI prophylaxis not indicated Code status full code Subjective Date/time seen: 07/26/22 13:24 07/23: 2/2 blood cultures taken 07/22 positive for Klebsiella pneumoniae, d/c rocephin which was started at admission on 07/22 in favor of ertapenem started on 07/23, repeat blood cultures 07/25, unsure of source--could be SBP?, urine culture was negative, chest x-ray was negative, check CT abdomen/pelvis, follow fluid studies from paracentesis, pending 07/24: d/c ertapenem, start rocephin due to sens, CT abd/pelvis benign, some abdominal wall thickening 07/26/2022 interval history: 72-year-old male with liver cirrhosis most likely secondary to TORO, and ascites status post paracentesis, patient is also found to have leukopenia seen by Hematology suspect secondary to liver cirrhosis patient was started on Neupogen upon arrival white counts were 1600, today patient white counts are 4300, spanish literature professor recommended to continue Neupogen until patient white counts over 5000 or absolute neutrophil above 1000, patient's hemoglobin is trending down to 6.7 patient denies any abdominal pain nausea or vomiting or bleeding, will do stool Hemoccult, will order 1 unit of pack
[2022-07-26] MEDS: cefTRIAXone 2 GM/NS 100 ML 2 GM/100 ML BAG IVPB (16:18)
[2022-07-26] MEDS: rifAXIMin 550 MG TABLET PO (20:46)
[2022-07-27] VITALS (9 sets, daily range): BP systolic 96–99; BP diastolic 44–59; PULSE 81–93; RESP 17–20; TEMP 36.4–36.9; O2SAT 97–100
[2022-07-27] MEDS: ALBUMIN HUMAN 25% 25 GM/100 ML 100 ML IVPB ×5 (00:19→23:12)
[2022-07-27 06:12] LABS: Basophils Percent Auto 0.2 % (0.2-1.2); Eosinophils Absolute Auto 0.1 K/mm3 (0-0.3); Eosinophils Percent Auto 1.8 % (0-4.4); Hematocrit 22.5 % (42.0-52.0); Hemoglobin 7.2 g/dL (14.0-18.0); Immature Granulocyte Absolute 0.17 K/mm3 (0.00-0.031); Immature Granulocyte Percent A 3.8 % (0-0.5); Immature Platelet Fraction Pct 11.6 % (0.9-11.2); Lymphocytes Absolute Auto 0.65 K/mm3 (0.9-3.2); Lymphocytes Percent Auto 14.4 % (18.3-44.2); Mean Corpuscular Hemoglobin 33.3 pg (26-34); Mean Corpuscular Volume 104.2 fl (80-100); Mean Platelet Volume 14.6 fl (7.4-10.4); Monocytes Absolute Auto 0.4 K/mm3 (0.1-0.6); Monocytes Percent Auto 8.9 % (2.6-8.5); Neutrophils Absolute Auto 3.2 K/mm3 (1.3-6.7); Neutrophils Percent Auto 70.9 % (45.5-73.1); Red Blood Count 2.16 M/mm3 (4.6-6.20); Red Cell Distribution Width 20.8 % (11.5-14.5); White Blood Count 4.5 K/mm3 (4.5-10.0)
[2022-07-27 06:19] LABS: Alanine Aminotransferase 27 U/L (6-50); Albumin Level 3.6 g/dL (3.5-5.1); Alkaline Phosphatase 80 U/L (38-126); Anion Gap 7 mmol/L (8-16); Aspartate Amino Transferase 52 U/L (17-59); Bilirubin,Total 4.1 mg/dL (0.2-1.3); Blood Urea Nitrogen 14 mg/dL (9-20); Carbon Dioxide 26 mmol/L (22-30); Chloride 106 mmol/L (98-107); Estimated CRCL calculation 101 ml/min; Estimated Glomerular Filt Rate > 60; Glucose 81 mg/dL (65-110); Magnesium 1.8 mg/dL (1.6-2.3); Potassium 3.6 mmol/L (3.4-5.0); Sodium 139 mmol/L (137-145)
[2022-07-27 07:19] LABS: Platelet Count Result 18 k/mm3 (150-375)
[2022-07-27] MEDS: SPIRONOLACTONE 50 MG TABLET PO ×2 (08:57→16:46)
[2022-07-27] MEDS: rifAXIMin 550 MG TABLET PO ×2 (08:57→20:24)
[2022-07-27] MEDS: FUROSEMIDE INJ 40 MG/4 ML VIAL IV PUSH (08:57)
[2022-07-27] MEDS: PANTOPRAZOLE 40 MG TABLET PO (08:57)
[2022-07-27] MEDS: LACTULOSE 20 GM/30 ML UDC PO ×2 (08:57→16:46)
[2022-07-27] MEDS: FILGRASTIM-SNDZ 300 MCG/0.5 ML SYRINGE SUB-Q (08:58)
--- NOTE | 2022-07-27 11:52 | PM.IMPN ---
Progress Note: A&P Assessment and Plan (1) Sepsis: Qualifiers: Sepsis type: sepsis due to unspecified organism Sepsis acute organ dysfunction status: with acute organ dysfunction Severe sepsis acute organ dysfunction type: encephalopathy Code(s): A41.9 - Sepsis, unspecified organism Status: Acute Assessment and Plan: 07/23: 2/2 blood cultures taken 07/22 positive for Klebsiella pneumoniae, d/c rocephin which was started at admission on 07/22 in favor of ertapenem started on 07/23, repeat blood cultures 07/25, unsure of source--could be SBP?, urine culture was negative, chest x-ray was negative, check CT abdomen/pelvis, follow fluid studies from paracentesis, pending 07/24: d/c ertapenem, start rocephin due to sens, CT abd/pelvis benign, some abdominal wall thickening 07/27/2022 interval history: 72-year-old male with liver cirrhosis most likely secondary to TORO, and ascites status post paracentesis, patient is also found to have leukopenia seen by Hematology suspect secondary to liver cirrhosis patient was started on Neupogen upon arrival white counts were 1600, today patient white counts are 4500, formwork carpenter recommended to continue Neupogen until patient white counts over 5000 or absolute neutrophil above 1000, on 07/26 patient's hemoglobin was trending down to 6.7 patient denies any abdominal pain nausea or vomiting or bleeding, will do stool Hemoccult, will order 1 unit of pack RBC will monitor, and today his platelets are 18 compare to 21 there is no bleeding or bruing, will do CT scan of abdomen, patient is also being diuresed, will stop p.o. Lasix and switch to IV Lasix, placed the patient on fluid restriction to improve with his ascites, will monitor electrolytes. Patient denies any abdominal pain nausea or vomiting fever or chills, patient is seen by GI and further recommendation to follow, (2) Acute metabolic encephalopathy: Code(s): G93.41 - Metabolic encephalopathy Status: Acute Assessment and Plan: Resolving, likely secondary to sepsis, see above (3) Acute UTI: Code(s): N39.0 - Urinary tract infection, site not specified Status: Acute Assessment and Plan: Urine culture came back negative, do not suspect UTI (4) Decompensation of cirrhosis of liver: Code(s): K72.90 - Hepatic failure, unspecified without coma; K74.60 - Unspecified cirrhosis of liver Status: Acute Assessment and Plan: LFT trending down, monitor, bili also trending down, follow Status post paracentesis 07/22 yielding 5 L Consult GI pending, may need albumin, concern for SBP? (5) Pancytopenia: Code(s): D61.818 - Other pancytopenia Status: Acute Assessment and Plan: Likely 2/2 cirrhosis 07/24: hgb dropped 6.6, transfuse 1 unit, recheck pending, check FOBT, hematology consult pending Plan DVT prophylaxis with SCDs GI prophylaxis not indicated Code status full code Subjective Date/time seen: 07/27/22 11:52 07/23: 2/2 blood cultures taken 07/22 positive for Klebsiella pneumoniae, d/c rocephin which was started at admission on 07/22 in favor of ertapenem started on 07/23, repeat blood cultures 07/25, unsure of source--could be SBP?, urine culture was negative, chest x-ray was negative, check CT abdomen/pelvis, follow fluid studies from paracentesis, pending 07/24: d/c ertapenem, start rocephin due to sens, CT abd/pelvis benign, some abdominal wall thickening 07/27/2022 interval history: 72-year-old male with liver cirrhosis most likely secondary to TORO, and ascites status post paracentesis, patient is also found to have leukopenia seen by Hematology suspect secondary to liver cirrhosis patient was started on Neupogen upon arrival white counts were 1600, today patient white counts are 4500, formwork carpenter recommended to continue Neupogen until patient white counts over 5000 or absolute neutrophil above 1000, on 07/26 patient's hemoglobin was trending down to 6.7
[2022-07-27 13:04] LABS: Heparin Induced Platelet Antib Negative (Negative)
[2022-07-27 13:49] LABS: Glucose Peritoneal Fluid 96 mg/dL
[2022-07-27] MEDS: cefTRIAXone 2 GM/NS 100 ML 2 GM/100 ML BAG IVPB (16:46)
[2022-07-28] VITALS (13 sets, daily range): BP systolic 72–122; BP diastolic 33–69; PULSE 80–93; RESP 16–20; TEMP 36.4–36.8; O2SAT 92–97
[2022-07-28] MEDS: ALBUMIN HUMAN 25% 25 GM/100 ML 100 ML IVPB ×3 (05:08→17:39)
[2022-07-28 07:23] LABS: Basophils Percent Auto 0.5 % (0.2-1.2); Eosinophils Absolute Auto 0.1 K/mm3 (0-0.3); Eosinophils Percent Auto 1.9 % (0-4.4); Hematocrit 21.5 % (42.0-52.0); Immature Granulocyte Absolute 0.04 K/mm3 (0.00-0.031); Immature Granulocyte Percent A 0.9 % (0-0.5); Lymphocytes Percent Auto 16.2 % (18.3-44.2); Mean Corpuscular HGB Conc 32.1 g/dl (32-36); Mean Corpuscular Hemoglobin 33.3 pg (26-34); Mean Corpuscular Volume 103.9 fl (80-100); Monocytes Absolute Auto 0.4 K/mm3 (0.1-0.6); Monocytes Percent Auto 9.7 % (2.6-8.5); Neutrophils Absolute Auto 3.1 K/mm3 (1.3-6.7); Neutrophils Percent Auto 70.8 % (45.5-73.1); Red Blood Count 2.07 M/mm3 (4.6-6.20); Red Cell Distribution Width 20.6 % (11.5-14.5); White Blood Count 4.3 K/mm3 (4.5-10.0)
[2022-07-28 07:46] LABS: Alanine Aminotransferase 25 U/L (6-50); Alkaline Phosphatase 77 U/L (38-126); Anion Gap 7 mmol/L (8-16); Aspartate Amino Transferase 48 U/L (17-59); Bilirubin,Total 3.4 mg/dL (0.2-1.3); Blood Urea Nitrogen 14 mg/dL (9-20); Calcium 12.6 mg/dL (8.4-10.2); Carbon Dioxide 28 mmol/L (22-30); Chloride 106 mmol/L (98-107); Estimated CRCL calculation 101 ml/min; Estimated Glomerular Filt Rate > 60; Glucose 84 mg/dL (65-110); Potassium 3.5 mmol/L (3.4-5.0); Sodium 141 mmol/L (137-145)
[2022-07-28 08:00] LABS: Hemoglobin 6.9 g/dL (14.0-18.0); Platelet Count Result 21 k/mm3 (150-375)
[2022-07-28 08:04] LABS: Anisocytosis 2+ (NORMAL); Macrocytosis 1+ (NORMAL); Magnesium 1.8 mg/dL (1.6-2.3); Platelet Estimate Decreased (Adequate); Schistocytes None Seen (NORMAL)
[2022-07-28] MEDS: rifAXIMin 550 MG TABLET PO ×2 (09:40→20:54)
[2022-07-28] MEDS: PANTOPRAZOLE 40 MG TABLET PO (09:40)
[2022-07-28] MEDS: LACTULOSE 20 GM/30 ML UDC PO ×2 (09:40→17:40)
[2022-07-28] MEDS: SPIRONOLACTONE 50 MG TABLET PO ×2 (09:40→17:40)
[2022-07-28] MEDS: FILGRASTIM-SNDZ 300 MCG/0.5 ML SYRINGE SUB-Q (09:40)
[2022-07-28] MEDS: FUROSEMIDE INJ 40 MG/4 ML VIAL IV PUSH (09:41)
--- NOTE | 2022-07-28 11:17 | WPDGIPROGNO ---
Progress Note: A&P Assessment and Plan (1) Cirrhosis: Code(s): K74.60 - Unspecified cirrhosis of liver Status: Acute Assessment and Plan: Patient with known cirrhosis of liver. [place] to be secondary to TORO. Appears somewhat decompensated. He does have ongoing ascites. Plan to continue supportive care. Low-salt diet. Continue diuretics as allowed by renal function and blood pressure. (2) Abdominal ascites: Code(s): R18.8 - Other ascites Status: Acute Assessment and Plan: Patient with ascites. This has been somewhat recalcitrant to treatment. Diuretics have been limited by electrolytes and blood pressure. Plan to continue low-salt diet. Increase diuretics as tolerated. This should be followed up as an outpatient. Patient recently established at [facility] hepatology in should follow up with them after discharge. Follow-up CT scan continues to confirm ascites. (3) Pancytopenia: Code(s): D61.818 - Other pancytopenia Status: Acute Assessment and Plan: Patient with pancytopenia. Likely on the basis of cirrhosis. Hematology following. Was given Neupogen with increased white count. Continues be anemic. (4) Acute metabolic encephalopathy: Code(s): G93.41 - Metabolic encephalopathy Status: Acute Assessment and Plan: Patient's mental status much improved. Likely secondary to hepatic encephalopathy. Would recommend continuing lactulose. If insurance will cover it a addition of Xifaxan is also beneficial. (5) Acute UTI: Code(s): N39.0 - Urinary tract infection, site not specified Status: Acute Assessment and Plan: Patient on antibiotics for a urinary tract infection. Hopefully this will also cover SBP. Patient had SBP at last admission and chronic prophylactic antibiotics recommended at this time. Subjective Date/time seen: 07/28/22 11:17 Interval history: Patient alert comfortable this morning. He looks like he is at his baseline. Denies any abdominal pain. Tolerating diet. Review of Systems Review of Systems: review of systems noncontributory. Exam Narrative: Physical exam reveals patient comfortable lying in bed. HEENT exam reveals no icterus. Lungs are clear. Heart without murmur. Abdomen is obese. Distended abdomen with shifting dullness noted. Extremities without clubbing cyanosis or edema. Objective Data Vital Signs Vital Signs: Vital Signs - 24 hr 07/27/22 14:00 07/27/22 12:00 07/27/22 16:00 Temperature 98.1 F Pulse Rate 87 86 93 Respiratory Rate 17 Blood Pressure 98/59 L Pulse Oximetry 100 Oxygen Delivery 07/27/22 20:00 07/27/22 22:00 07/27/22 20:00 Temperature 98.5 F Pulse Rate 93 85 91 Respiratory Rate 17 18 Blood Pressure 96/44 L Pulse Oximetry 100 97 Oxygen Delivery Room Air 07/28/22 00:00 07/28/22 04:00 07/28/22 06:00 Temperature 98.2 F Pulse Rate 88 85 87 Respiratory Rate 20 Blood Pressure 92/46 L Pulse Oximetry 97 Oxygen Delivery 07/28/22 07:35 07/28/22 09:00 07/28/22 08:00 Temperature Pulse Rate 91 80 Respiratory Rate 18 Blood Pressure Pulse Oximetry 96 Oxygen Delivery Room Air Room Air Intake/Output Intake/Output: Intake & Output 07/25/22 07/26/22 07/27/22 07/28/22 23:59 23:59 23:59 23:59 Intake Total 2520 2285 1245 340 Output Total 1500 2105 1375 125 Balance 1020 180 -130 215 Meds/Results Medications: Active Medications Generic Name Dose Route Start Last Admin Trade Name Freq PRN Reason Stop Dose Admin Acetaminophen 650 mg 07/22/22 07:07 07/22/22 21:41 Acetaminophen 325 Mg Tablet PO 650 mg Q6H PRN Administration Mild Pain (1-3) or Fever Ergocalciferol 50,000 units 07/29/22 09:00 Ergocalciferol 50,000 Units Capsule PO Tu@0900 [facility] Filgrastim-Sndz 300 mcg 07/25/22 09:00 07/28/22 09:40 Filgrastim-Sndz 300 Mcg/0.5 Ml Syringe SUB-Q
--- NOTE | 2022-07-28 14:48 | PM.IMPN ---
Progress Note: A&P Assessment and Plan (1) Sepsis: Qualifiers: Sepsis type: sepsis due to unspecified organism Sepsis acute organ dysfunction status: with acute organ dysfunction Severe sepsis acute organ dysfunction type: encephalopathy Code(s): A41.9 - Sepsis, unspecified organism Status: Acute Assessment and Plan: 07/23: 2/2 blood cultures taken 07/22 positive for Klebsiella pneumoniae, d/c rocephin which was started at admission on 07/22 in favor of ertapenem started on 07/23, repeat blood cultures 07/25, unsure of source--could be SBP?, urine culture was negative, chest x-ray was negative, check CT abdomen/pelvis, follow fluid studies from paracentesis, pending 07/24: d/c ertapenem, start rocephin due to sens, CT abd/pelvis benign, some abdominal wall thickening 07/28/2022 interval history: 72-year-old male with liver cirrhosis most likely secondary to TORO, and ascites status post paracentesis, patient is also found to have leukopenia seen by Hematology suspect secondary to liver cirrhosis patient was started on Neupogen upon arrival white counts were 1600, today patient white counts are 4300, commercial cleaner recommended to continue Neupogen until patient white counts over 5000 or absolute neutrophil above 1000, on 07/26 patient's hemoglobin was trending down to 6.7 patient denies any abdominal pain nausea or vomiting or bleeding, will do stool Hemoccult, ordered 1 unit of pack RBC will monitor, and today his platelets are 21 there is no bleeding or bruing, CT scan of abdomen did not show any bleeding, patient is also being diuresed, will stop p.o. Lasix and switch to IV Lasix, placed the patient on fluid restriction to improve with his ascites, will monitor electrolytes. Patient denies any abdominal pain nausea or vomiting fever or chills, patient is seen by GI and further recommendation to follow, (2) Acute metabolic encephalopathy: Code(s): G93.41 - Metabolic encephalopathy Status: Acute Assessment and Plan: Resolving, likely secondary to sepsis, see above (3) Acute UTI: Code(s): N39.0 - Urinary tract infection, site not specified Status: Acute Assessment and Plan: Urine culture came back negative, do not suspect UTI (4) Decompensation of cirrhosis of liver: Code(s): K72.90 - Hepatic failure, unspecified without coma; K74.60 - Unspecified cirrhosis of liver Status: Acute Assessment and Plan: LFT trending down, monitor, bili also trending down, follow Status post paracentesis 07/22 yielding 5 L Consult GI pending, may need albumin, concern for SBP? (5) Pancytopenia: Code(s): D61.818 - Other pancytopenia Status: Acute Assessment and Plan: Likely 2/2 cirrhosis 07/24: hgb dropped 6.6, transfuse 1 unit, recheck pending, check FOBT, hematology consult pending Plan DVT prophylaxis with SCDs GI prophylaxis not indicated Code status full code Subjective Date/time seen: 07/28/22 14:48 07/23: 2/2 blood cultures taken 07/22 positive for Klebsiella pneumoniae, d/c rocephin which was started at admission on 07/22 in favor of ertapenem started on 07/23, repeat blood cultures 07/25, unsure of source--could be SBP?, urine culture was negative, chest x-ray was negative, check CT abdomen/pelvis, follow fluid studies from paracentesis, pending 07/24: d/c ertapenem, start rocephin due to sens, CT abd/pelvis benign, some abdominal wall thickening 07/28/2022 interval history: 72-year-old male with liver cirrhosis most likely secondary to TORO, and ascites status post paracentesis, patient is also found to have leukopenia seen by Hematology suspect secondary to liver cirrhosis patient was started on Neupogen upon arrival white counts were 1600, today patient white counts are 4300, commercial cleaner recommended to continue Neupogen until patient white counts over 5000 or absolute neutrophil above 1000, on 07/26 patient's hemoglobin was trending down to
[2022-07-28] MEDS: cefTRIAXone 2 GM/NS 100 ML 2 GM/100 ML BAG IVPB (15:29)
[2022-07-28] MEDS: BETAMETHASONE/CLOTRIMAZOLE CR 15 GM TUBE 1 APPLIC TOPICAL ×2 (17:40→20:55)
[2022-07-28] MEDS: SODIUM CHLORIDE 0.9% IV 250 ML 30 ML IV CONT (22:45)
[2022-07-29] VITALS (16 sets, daily range): BP systolic 96–111; BP diastolic 49–70; PULSE 79–97; RESP 14–22; TEMP 36.2–37; O2SAT 94–98
[2022-07-29] MEDS: ALBUMIN HUMAN 25% 25 GM/100 ML 100 ML IVPB ×4 (01:12→18:55)
--- NOTE | 2022-07-29 02:19 | PCRCNOTE ---
Pt refused to wear hospital CPAP. Pt resting in bed in no distress
[2022-07-29 07:14] LABS: Basophils Percent Auto 0.5 % (0.2-1.2); Eosinophils Absolute Auto 0.1 K/mm3 (0-0.3); Eosinophils Percent Auto 2.1 % (0-4.4); Hematocrit 21.2 % (42.0-52.0); Immature Granulocyte Absolute 0.02 K/mm3 (0.00-0.031); Immature Granulocyte Percent A 0.5 % (0-0.5); Lymphocytes Absolute Auto 0.55 K/mm3 (0.9-3.2); Lymphocytes Percent Auto 14.4 % (18.3-44.2); Mean Corpuscular HGB Conc 32.1 g/dl (32-36); Mean Corpuscular Hemoglobin 33.2 pg (26-34); Mean Corpuscular Volume 103.4 fl (80-100); Monocytes Absolute Auto 0.4 K/mm3 (0.1-0.6); Monocytes Percent Auto 9.4 % (2.6-8.5); Neutrophils Absolute Auto 2.8 K/mm3 (1.3-6.7); Neutrophils Percent Auto 73.1 % (45.5-73.1); Red Blood Count 2.05 M/mm3 (4.6-6.20); Red Cell Distribution Width 21.2 % (11.5-14.5); White Blood Count 3.8 K/mm3 (4.5-10.0)
[2022-07-29 07:22] LABS: Alanine Aminotransferase 22 U/L (6-50); Albumin Level 5.8 g/dL (3.5-5.1); Alkaline Phosphatase 81 U/L (38-126); Anion Gap 20 mmol/L (8-16); Aspartate Amino Transferase 44 U/L (17-59); Bilirubin,Total 3.7 mg/dL (0.2-1.3); Blood Urea Nitrogen 15 mg/dL (9-20); Carbon Dioxide 25 mmol/L (22-30); Chloride 100 mmol/L (98-107); Estimated CRCL calculation 116 ml/min; Estimated Glomerular Filt Rate > 60; Glucose 79 mg/dL (65-110); Magnesium 1.5 mg/dL (1.6-2.3); Potassium 3.2 mmol/L (3.4-5.0); Sodium 145 mmol/L (137-145)
[2022-07-29 08:01] LABS: Hemoglobin 6.8 g/dL (14.0-18.0); Platelet Count Result 23 k/mm3 (150-375)
[2022-07-29 08:05] LABS: Hypochromasia 2+ (NORMAL); Platelet Estimate Decreased (Adequate)
[2022-07-29 08:06] LABS: Anisocytosis 1+ (NORMAL); Ovalocytes 1+ (NORMAL); Target Cells 1+ (NORMAL); Tear Drop Cells 1+ (NORMAL)
[2022-07-29 08:07] LABS: Schistocytes None Seen (NORMAL)
[2022-07-29] MEDS: rifAXIMin 550 MG TABLET PO ×2 (08:58→21:12)
[2022-07-29] MEDS: BETAMETHASONE/CLOTRIMAZOLE CR 15 GM TUBE 1 APPLIC TOPICAL ×2 (08:58→21:06)
[2022-07-29] MEDS: SPIRONOLACTONE 50 MG TABLET PO ×2 (08:58→17:11)
[2022-07-29] MEDS: LACTULOSE 20 GM/30 ML UDC PO ×2 (08:58→17:11)
[2022-07-29] MEDS: FUROSEMIDE INJ 40 MG/4 ML VIAL IV PUSH (08:58)
[2022-07-29] MEDS: ERGOCALCIFEROL 50,000 UNITS CAPSULE 50000 UNITS PO (08:58)
[2022-07-29] MEDS: PANTOPRAZOLE 40 MG TABLET PO (08:58)
[2022-07-29] MEDS: FILGRASTIM-SNDZ 300 MCG/0.5 ML SYRINGE SUB-Q (09:10)
--- NOTE | 2022-07-29 13:10 | PM.IMPN ---
Progress Note: A&P Assessment and Plan (1) Sepsis: Qualifiers: Sepsis acute organ dysfunction status: with acute organ dysfunction Sepsis type: sepsis due to unspecified organism Severe sepsis acute organ dysfunction type: encephalopathy Code(s): A41.9 - Sepsis, unspecified organism Status: Acute Assessment and Plan: 07/23: 2/2 blood cultures taken 07/22 positive for Klebsiella pneumoniae, d/c rocephin which was started at admission on 07/21 in favor of ertapenem started on 07/23, repeat blood cultures 07/25, unsure of source--could be SBP?, urine culture was negative, chest x-ray was negative, check CT abdomen/pelvis, follow fluid studies from paracentesis, pending 07/24: d/c ertapenem, start rocephin due to sens, CT abd/pelvis benign, some abdominal wall thickening 07/28/2022 interval history: 72-year-old male with liver cirrhosis most likely secondary to TORO, and ascites status post paracentesis, patient is also found to have leukopenia seen by Hematology suspect secondary to liver cirrhosis patient was started on Neupogen upon arrival white counts were 1600, today patient white counts are 4300, professor of counseling recommended to continue Neupogen until patient white counts over 5000 or absolute neutrophil above 1000, on 07/26 patient's hemoglobin was trending down to 6.7 patient denies any abdominal pain nausea or vomiting or bleeding, will do stool Hemoccult, ordered 1 unit of pack RBC will monitor, and today his platelets are 21 there is no bleeding or bruing, CT scan of abdomen did not show any bleeding, patient is also being diuresed, will stop p.o. Lasix and switch to IV Lasix, placed the patient on fluid restriction to improve with his ascites, will monitor electrolytes. Patient denies any abdominal pain nausea or vomiting fever or chills, patient is seen by GI and further recommendation to follow, 07/29: appreciate GI consultation, cont current management, day 9 of abx with rocephin for bacteremia, will discontinue abx for tomorrow to complete total 10 day course (2) Acute metabolic encephalopathy: Code(s): G93.41 - Metabolic encephalopathy Status: Acute Assessment and Plan: Resolving, likely secondary to sepsis, see above (3) Acute UTI: Code(s): N39.0 - Urinary tract infection, site not specified Status: Acute Assessment and Plan: Urine culture came back negative, do not suspect UTI (4) Decompensation of cirrhosis of liver: Code(s): K72.90 - Hepatic failure, unspecified without coma; K74.60 - Unspecified cirrhosis of liver Status: Acute Assessment and Plan: LFT trending down, monitor, bili also trending down, follow Status post paracentesis 07/22 yielding 5 L Appreciate GI consultation (5) Pancytopenia: Code(s): D61.818 - Other pancytopenia Status: Acute Assessment and Plan: Likely 2/2 cirrhosis 07/24: hgb dropped 6.6, transfuse 1 unit, recheck pending, check FOBT, hematology consult pending Plan DVT prophylaxis with SCDs GI prophylaxis not indicated Code status full code Subjective Date/time seen: 07/29/22 13:10 Interval history: 32-year-old male with history of cirrhosis secondary to TORO, status post paracentesis due to recurrent ascites here with diuresis. No overnight events noted. No chest pain or shortness of breath. No nausea, vomiting or diarrhea. No fevers or chills. Review of Systems Review of Systems: 12 point review of systems was assessed and was negative except as noted in the HPI Exam Narrative: General: No acute distress, alert and oriented per baseline HEENT: Atraumatic, normocephalic, mucous membranes moist CV: Regular rate and rhythm, S1, S2 Lungs: Clear to auscultation bilaterally, no rales or crackles noted, no wheezes, good air entry Abdomen: Soft, nontender, nondistended Extremities: Normal to inspection Skin: No rashes noted, no lesions or wounds seen
--- NOTE | 2022-07-29 13:44 | WPDGIPROGNO ---
Progress Note: A&P Assessment and Plan (1) Cirrhosis: Code(s): K74.60 - Unspecified cirrhosis of liver Status: Acute Assessment and Plan: Patient was cirrhosis of the liver felt to be secondary to TORO. Continue supportive care. Patient has been followed at [place] where it is anticipated he will follow up after discharge. (2) Pancytopenia: Code(s): D61.818 - Other pancytopenia Status: Acute Assessment and Plan: Patient with pancytopenia. Hematology is evaluated. Indices appears stable. But chronically low. I suspect these are related cirrhosis. Hematology has added suggestions. (3) Abdominal ascites: Code(s): R18.8 - Other ascites Status: Acute Assessment and Plan: Patient with significant ascites. Plan to continue low-salt diet. At [facility] diuretics if electrolytes and blood pressure allows. Patient hospitalized recently with SBP. Currently on antibiotics because of UTI. Continue antibiotics prophylactically for SBP appears appropriate currently. (4) Acute metabolic encephalopathy: Code(s): G93.41 - Metabolic encephalopathy Status: Acute Assessment and Plan: Encephalopathy is resolved. Patient currently oriented appears to be functioning well. Continue lactulose and Xifaxan if possible after discharge. (5) Acute UTI: Code(s): N39.0 - Urinary tract infection, site not specified Status: Acute Subjective Date/time seen: 07/29/22 13:44 Interval history: Patient alert comfortable today. Appears oriented. Denies abdominal pain. Tolerating diet without difficulty. Review of Systems Review of Systems: Review of systems noncontributory. Exam Narrative: Physical exam reveals patient be alert. Vital signs stable. He is afebrile and anicteric. Lungs are clear. Heart without murmur. Abdomen obese bowel sounds are present soft some indication for shifting dullness noted. Objective Data Vital Signs Vital Signs: Vital Signs - 24 hr 07/28/22 14:00 07/28/22 16:00 07/28/22 20:57 Temperature 97.6 F Pulse Rate 83 84 Respiratory Rate 20 Blood Pressure 122/69 98/56 L Pulse Oximetry 97 Oxygen Delivery 07/28/22 20:00 07/28/22 22:00 07/28/22 22:42 Temperature 97.6 F 97.6 F Pulse Rate 84 85 93 Respiratory Rate 20 16 16 Blood Pressure 72/33 L 90/43 L Pulse Oximetry 97 96 96 Oxygen Delivery Room Air 04/10/23 23:00 07/29/22 00:00 07/29/22 00:00 Temperature 98.1 F 98.6 F 98.6 F Pulse Rate 91 81 81 Respiratory Rate 18 16 16 Blood Pressure 90/42 L 111/57 L 111/57 L Pulse Oximetry 92 94 94 Oxygen Delivery 07/29/22 00:55 07/29/22 02:20 07/28/22 20:00 Temperature 97.9 F Pulse Rate 89 88 90 Respiratory Rate 16 18 Blood Pressure 99/49 L Pulse Oximetry 96 95 Oxygen Delivery Room Air 07/29/22 00:00 07/29/22 04:00 07/29/22 05:46 Temperature 97.2 F L Pulse Rate 88 97 89 Respiratory Rate 14 Blood Pressure 104/56 L Pulse Oximetry 97 Oxygen Delivery 07/29/22 08:00 07/29/22 11:04 07/29/22 12:00 Temperature Pulse Rate 90 79 Respiratory Rate Blood Pressure Pulse Oximetry 94 Oxygen Delivery Room Air Intake/Output Intake/Output: Intake & Output 07/26/22 07/27/22 07/28/22 07/29/22 23:59 23:59 23:59 23:59 Intake Total 2285 8839 540 6676 Output Total 2105 1375 125 500 Balance 180 -130 855 508 Meds/Results Medications: Active Medications Generic Name Dose Route Start Last Admin Trade Name Freq PRN Reason Stop Dose Admin Acetaminophen 650 mg 07/22/22 07:07 07/22/22 21:41 Acetaminophen 325 Mg Tablet PO 650 mg Q6H PRN Administration Mild Pain (1-3) or Fever Clotrimazole 1 applic 07/28/22 14:00 07/29/22 08:58 Betamethasone/Clotrimazole Cr 15 Gm Tube TOPICAL 1 applic Q12HR [place] Administration Ergocalciferol 50,000 units 07/29/22 09:00 07/29/22 08:58 Ergocalciferol 50,000 Units Capsule PO 50
[2022-07-29 14:16] LABS: Hematocrit 24.4 % (42.0-52.0); Hemoglobin 7.8 g/dL (14.0-18.0)
[2022-07-29] MEDS: SODIUM CHLORIDE 0.9% IV 250 ML 30 ML IV CONT (14:25)
--- NOTE | 2022-07-29 16:48 | PC.NURSE ---
Called Alex referring to critical lab values, no response. Called multiple other times throughout the day and there was no response. Met Alex in patients room and discussed plan in patients room.
[2022-07-29] MEDS: cefTRIAXone 2 GM/NS 100 ML 2 GM/100 ML BAG IVPB (17:13)
[2022-07-30] VITALS (10 sets, daily range): BP systolic 85–110; BP diastolic 46–74; PULSE 78–87; RESP 16; TEMP 36.3–36.8; O2SAT 92–98
[2022-07-30] MEDS: ALBUMIN HUMAN 25% 25 GM/100 ML 100 ML IVPB ×5 (00:37→23:54)
[2022-07-30 06:35] LABS: Hemoglobin 8.5 g/dL (14.0-18.0); Immature Platelet Fraction Pct 14.1 % (0.9-11.2); Mean Corpuscular HGB Conc 31.5 g/dl (32-36); Mean Corpuscular Hemoglobin 32.2 pg (26-34); Mean Corpuscular Volume 102.3 fl (80-100); Red Blood Count 2.64 M/mm3 (4.6-6.20); Red Cell Distribution Width 21.2 % (11.5-14.5); White Blood Count 4.5 K/mm3 (4.5-10.0)
[2022-07-30 06:52] LABS: Alanine Aminotransferase 24 U/L (6-50); Albumin Level 4.3 g/dL (3.5-5.1); Alkaline Phosphatase 79 U/L (38-126); Anion Gap 7 mmol/L (8-16); Aspartate Amino Transferase 49 U/L (17-59); Bilirubin,Total 5.5 mg/dL (0.2-1.3); Blood Urea Nitrogen 18 mg/dL (9-20); Calcium 13.3 mg/dL (8.4-10.2); Carbon Dioxide 29 mmol/L (22-30); Chloride 105 mmol/L (98-107); Estimated CRCL calculation 101 ml/min; Estimated Glomerular Filt Rate > 60; Glucose 84 mg/dL (65-110); Magnesium 1.7 mg/dL (1.6-2.3); Potassium 3.5 mmol/L (3.4-5.0); Sodium 141 mmol/L (137-145)
[2022-07-30 07:10] LABS: Platelet Count Result 20 k/mm3 (150-375)
[2022-07-30 07:22] LABS: Band Neutrophils Percent 26 % (0-6); Eosinophils Absolute Manual 0.09 K/mm3 (0.02-0.5); Eosinophils Percent Manual 2 % (0-4); Lymphocytes Absolute Manual 0.76 K/mm3 (1.1-4.5); Monocytes Absolute Manual 0.09 K/mm3 (0.1-0.90); Monocytes Percent Manual 2 % (3-9); Neutrophils Absolute Manual 3.55 K/mm3 (1.3-6.7); Neutrophils Percent Manual 53 % (46-73); Total Cells Counted 100
[2022-07-30 07:24] LABS: Platelet Estimate Decreased (Adequate); Schistocytes None Seen (NORMAL)
[2022-07-30 07:25] LABS: Hypochromasia 2+ (NORMAL); Ovalocytes 1+ (NORMAL)
[2022-07-30 07:26] LABS: Tear Drop Cells 1+ (NORMAL)
[2022-07-30] MEDS: SPIRONOLACTONE 50 MG TABLET PO ×2 (09:10→17:03)
[2022-07-30] MEDS: BETAMETHASONE/CLOTRIMAZOLE CR 15 GM TUBE 1 APPLIC TOPICAL ×2 (09:10→21:13)
[2022-07-30] MEDS: rifAXIMin 550 MG TABLET PO ×2 (09:10→21:13)
[2022-07-30] MEDS: PANTOPRAZOLE 40 MG TABLET PO (09:11)
[2022-07-30] MEDS: LACTULOSE 20 GM/30 ML UDC PO ×2 (09:11→17:03)
[2022-07-30] MEDS: FUROSEMIDE INJ 40 MG/4 ML VIAL IV PUSH (09:11)
--- NOTE | 2022-07-30 15:08 | PM.IMPN ---
Progress Note: A&P Assessment and Plan (1) Sepsis: Qualifiers: Sepsis type: sepsis due to unspecified organism Sepsis acute organ dysfunction status: with acute organ dysfunction Severe sepsis acute organ dysfunction type: encephalopathy Code(s): A41.9 - Sepsis, unspecified organism Status: Acute Assessment and Plan: 07/23: 2/2 blood cultures taken 07/22 positive for Klebsiella pneumoniae, d/c rocephin which was started at admission on 07/21 in favor of ertapenem started on 07/23, repeat blood cultures 07/25, unsure of source--could be SBP?, urine culture was negative, chest x-ray was negative, check CT abdomen/pelvis, follow fluid studies from paracentesis, pending 07/24: d/c ertapenem, start rocephin due to sens, CT abd/pelvis benign, some abdominal wall thickening 07/28/2022 interval history: 72-year-old male with liver cirrhosis most likely secondary to TORO, and ascites status post paracentesis, patient is also found to have leukopenia seen by Hematology suspect secondary to liver cirrhosis patient was started on Neupogen upon arrival white counts were 1600, today patient white counts are 4300, magazine keeper recommended to continue Neupogen until patient white counts over 5000 or absolute neutrophil above 1000, on 07/26 patient's hemoglobin was trending down to 6.7 patient denies any abdominal pain nausea or vomiting or bleeding, will do stool Hemoccult, ordered 1 unit of pack RBC will monitor, and today his platelets are 21 there is no bleeding or bruing, CT scan of abdomen did not show any bleeding, patient is also being diuresed, will stop p.o. Lasix and switch to IV Lasix, placed the patient on fluid restriction to improve with his ascites, will monitor electrolytes. Patient denies any abdominal pain nausea or vomiting fever or chills, patient is seen by GI and further recommendation to follow, 07/29: appreciate GI consultation, cont current management, day 9 of abx with rocephin for bacteremia, will discontinue abx for tomorrow to complete total 10 day course 07/30/2022 interval history: 72-year-old male with liver cirrhosis most likely secondary to TORO, and ascites status post paracentesis, patient is also found to have leukopenia seen by Hematology suspect secondary to liver cirrhosis patient was started on Neupogen upon arrival white counts were 1600, today patient white counts are 4500, magazine keeper recommended to continue Neupogen until patient white counts over 5000 or absolute neutrophil above 1000, on 07/26 patient's hemoglobin was trending down to 6.7 patient denies any abdominal pain nausea or vomiting or bleeding, will do stool Hemoccult, ordered 1 unit of pack RBC will monitor, and today again his platelets are 20 there is no bleeding or brusing, CT scan of abdomen did not show any bleeding, I called his hepatalogist Dr. Cele smith for call back, patient is also being diuresed, stopped p.o. Lasix and switch to IV Lasix, placed the patient on fluid restriction to improve with his ascites, will monitor electrolytes. Patient denies any abdominal pain nausea or vomiting fever or chills, patient is seen by GI and further recommendation to follow, (2) Acute metabolic encephalopathy: Code(s): G93.41 - Metabolic encephalopathy Status: Acute Assessment and Plan: Resolving, likely secondary to sepsis, see above (3) Acute UTI: Code(s): N39.0 - Urinary tract infection, site not specified Status: Acute Assessment and Plan: Urine culture came back negative, do not suspect UTI (4) Decompensation of cirrhosis of liver: Code(s): K72.90 - Hepatic failure, unspecified without coma; K74.60 - Unspecified cirrhosis of liver Status: Acute Assessment and Plan: LFT trending down, monitor, bili also trending down, follow Status post paracentesis 07/22 yielding 5 L Appreciate GI consultation (5) Pancytopenia: Code(s): D61.818 - Other pancytopeni
[2022-07-30] MEDS: cefTRIAXone 2 GM/NS 100 ML 2 GM/100 ML BAG IVPB (15:25)
[2022-07-31] VITALS: PULSE 86
[2022-07-31 04:00] VITALS: PULSE 84
[2022-07-31] MEDS: ALBUMIN HUMAN 25% 25 GM/100 ML 100 ML IVPB (05:48)
[2022-07-31 06:00] VITALS: BP 104/52; PULSE 82; RESP 18; TEMP 36.9; O2SAT 96
[2022-07-31 08:30] LABS: Basophils Percent Auto 0.9 % (0.2-1.2); Eosinophils Absolute Auto 0.1 K/mm3 (0-0.3); Eosinophils Percent Auto 2.3 % (0-4.4); Hematocrit 26.6 % (42.0-52.0); Hemoglobin 8.5 g/dL (14.0-18.0); Immature Granulocyte Absolute 0.01 K/mm3 (0.00-0.031); Immature Granulocyte Percent A 0.5 % (0-0.5); Immature Platelet Fraction Pct 15.5 % (0.9-11.2); Lymphocytes Absolute Auto 0.43 K/mm3 (0.9-3.2); Lymphocytes Percent Auto 19.7 % (18.3-44.2); Mean Corpuscular Hemoglobin 33.7 pg (26-34); Mean Corpuscular Volume 105.6 fl (80-100); Monocytes Absolute Auto 0.3 K/mm3 (0.1-0.6); Monocytes Percent Auto 12.4 % (2.6-8.5); Neutrophils Absolute Auto 1.4 K/mm3 (1.3-6.7); Neutrophils Percent Auto 64.2 % (45.5-73.1); Red Blood Count 2.52 M/mm3 (4.6-6.20); White Blood Count 2.2 K/mm3 (4.5-10.0)
[2022-07-31 08:48] LABS: Platelet Count Result 21 k/mm3 (150-375)
[2022-07-31 08:49] LABS: Platelet Estimate Decreased (Adequate)
[2022-07-31 08:50] LABS: Hypochromasia 3+ (NORMAL)
[2022-07-31 08:51] LABS: Schistocytes None Seen (NORMAL)
[2022-07-31 09:05] LABS: Alanine Aminotransferase 23 U/L (6-50); Albumin Level 4.7 g/dL (3.5-5.1); Alkaline Phosphatase 74 U/L (38-126); Anion Gap 9 mmol/L (8-16); Aspartate Amino Transferase 48 U/L (17-59); Blood Urea Nitrogen 20 mg/dL (9-20); Calcium 13.3 mg/dL (8.4-10.2); Carbon Dioxide 31 mmol/L (22-30); Chloride 103 mmol/L (98-107); Estimated CRCL calculation 101 ml/min; Estimated Glomerular Filt Rate > 60; Glucose 89 mg/dL (65-110); Magnesium 1.6 mg/dL (1.6-2.3); Potassium 3.5 mmol/L (3.4-5.0); Sodium 143 mmol/L (137-145)
--- NOTE | 2022-07-31 09:28 | PM.DS ---
DS: Admitting Diagnosis Discharge Date 08/01/2022 Admitting Diagnosis Found in the bathtub unconscious DS: Discharge Diagnosis Discharge Diagnosis (1) Sepsis: Qualifiers: Sepsis type: sepsis due to unspecified organism Sepsis acute organ dysfunction status: with acute organ dysfunction Severe sepsis acute organ dysfunction type: encephalopathy Code(s): A41.9 - Sepsis, unspecified organism Status: Acute Assessment and Plan: 07/23: 2/2 blood cultures taken 07/22 positive for Klebsiella pneumoniae, d/c rocephin which was started at admission on 07/21 in favor of ertapenem started on 07/23, repeat blood cultures 07/25, unsure of source--could be SBP?, urine culture was negative, chest x-ray was negative, check CT abdomen/pelvis, follow fluid studies from paracentesis, pending 07/24: d/c ertapenem, start rocephin due to sens, CT abd/pelvis benign, some abdominal wall thickening 07/28/2022 interval history: 72-year-old male with liver cirrhosis most likely secondary to TORO, and ascites status post paracentesis, patient is also found to have leukopenia seen by Hematology suspect secondary to liver cirrhosis patient was started on Neupogen upon arrival white counts were 1600, today patient white counts are 4300, 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 Lasix and switch to IV Lasix, placed the patient on fluid restriction to improve with his ascites, will monitor electrolytes. Patient denies any abdominal pain nausea or vomiting fever or chills, patient is seen by GI and further recommendation to follow, 07/29: appreciate GI consultation, cont current management, day 9 of abx with rocephin for bacteremia, will discontinue abx for tomorrow to complete total 10 day course 07/30/2022 interval history: 72-year-old male with liver cirrhosis most likely secondary to TORO, and ascites status post paracentesis, patient is also found to have leukopenia seen by Hematology suspect secondary to liver cirrhosis patient was started on Neupogen upon arrival white counts were 1600, today patient white counts are 4500, laminating machine feeder recommended to continue Neupogen until patient white counts over 5000 or absolute neutrophil above 1000, on 07/26 patient's hemoglobin was trending down to 6.7 patient denies any abdominal pain nausea or vomiting or bleeding, will do stool Hemoccult, ordered 1 unit of pack RBC will monitor, and today again his platelets are 20 there is no bleeding or brusing, CT scan of abdomen did not show any bleeding, I called his hepatalogist Dr. Cele smith for call back, patient is also being diuresed, stopped p.o. Lasix and switch to IV Lasix, placed the patient on fluid restriction to improve with his ascites, will monitor electrolytes. Patient denies any abdominal pain nausea or vomiting fever or chills, patient is seen by GI and further recommendation to follow, (2) Acute metabolic encephalopathy: Code(s): G93.41 - Metabolic encephalopathy Status: Acute Assessment and Plan: Resolving, likely secondary to sepsis, see above (3) Acute UTI: Code(s): N39.0 - Urinary tract infection, site not specified Status: Acute Assessment and Plan: Urine culture came back negative, do not suspect UTI (4) Decompensation of cirrhosis of liver: Code(s): K72.90 - Hepatic failure, unspecified without coma; K74.60 - Unspecified cirrhosis of liver Status: Acute Assessment and Plan: LFT trending down, monitor, bili also trending down, follow Status post paracentes
[2022-07-31] MEDS: SPIRONOLACTONE 50 MG TABLET PO (11:15)
[2022-07-31] MEDS: PANTOPRAZOLE 40 MG TABLET PO (11:15)
[2022-07-31] MEDS: LACTULOSE 20 GM/30 ML UDC PO (11:15)
[2022-07-31] MEDS: FUROSEMIDE INJ 40 MG/4 ML VIAL IV PUSH (11:15)
[2022-07-31] MEDS: BETAMETHASONE/CLOTRIMAZOLE CR 15 GM TUBE 1 APPLIC TOPICAL (11:15)
[2022-07-31] MEDS: rifAXIMin 550 MG TABLET PO (11:15)
== END 2022-07-31 12:50 | disposition home health service (06) | DRG 871 ==
LOC: ANHED 22:47 → ANH3MEDSUR 23:29
PROVIDERS: Emergency Medicine; Internal Medicine Hematology & Oncology; Student in an Organized Health Care Education/Training Program; Admitting Provider Internal Medicine; Emergency Provider Emergency Medicine; PCP Family Medicine; Visit Provider Family Medicine
DX: A41.9 Sepsis, unspecified organism (principal); G93.41 Metabolic encephalopathy; R18.8 Other ascites; D61.818 Other pancytopenia; K75.81 Nonalcoholic steatohepatitis (NASH); K74.60 Unspecified cirrhosis of liver; K72.90 Hepatic failure, unspecified without coma; B96.1 Klebsiella pneumoniae [K. pneumoniae] as the cause of diseases classified elsewhere; D69.6 Thrombocytopenia, unspecified; F17.290 Nicotine dependence, other tobacco product, uncomplicated; G47.33 Obstructive sleep apnea (adult) (pediatric); I10 Essential (primary) hypertension; J45.909 Unspecified asthma, uncomplicated; R29.6 Repeated falls; Z85.828 Personal history of other malignant neoplasm of skin; Z99.89 Dependence on other enabling machines and devices; Z20.822 Contact with and (suspected) exposure to COVID-19
CPT/HCPCS: 36415; 36430; 36600; 49083; 70450; 71045; 74176; 80053; 80307; 81001; 82140; 82274; 82607; 82728; 82746; 82805; 82945; 83540; 83550; 83605; 83615; 83735; 84145; 84484; 85014; 85018; 85025; 85055; 85610; 85730; 86022; 86023; 86140; 86850; 86900; 86901; 86923; 87040; 87070; 87075; 87077; 87081; 87086; 87088; 87186; 87205; 87637; 89051; 93005; 96365; 96366; 96367; 96376; 99285; A9270; G0378; J0696; J1335; J1940; J7030; J7050; P9016; P9047; Q5101

== ENCOUNTER 2022-09-17 10:22 | Outpatient (CLI) | payer MEDICARE, SELFPAY ==
--- NOTE | ~2022-09-17 | US_ITS ---
Limited Abdominal Sonogram: Real-time sonographic imaging of the right upper quadrant was performed. Clinical History: Cirrhosis Findings: The liver appears heterogeneous, nodular contour. No focal mass lesion or biliary dilatati on seen. Main portal vein demonstrates normal direction of flow. The gallbladder is well distended, a nd appears normal with no evidence of gallstone or wall thickening. The common bile duct measures 6 m m. The visualized pancreas, aorta, and IVC are unremarkable. Small amount of abdominal ascites prese nt. Impression: Cirrhotic liver. Small amount of ascites. Reviewed, dictated and finalized at location M. Impression: Cirrhotic liver. Small amount of ascites.
== END 2022-09-17 10:23 | disposition home or self-care (01) ==
PROVIDERS: PCP Family Medicine; Visit Provider Internal Medicine Gastroenterology
DX: K74.60 Unspecified cirrhosis of liver (principal)
CPT/HCPCS: 76705

== ENCOUNTER 2022-10-03 09:10 | Inpatient (IN) | payer MEDICARE, SELFPAY ==
[2022-10-03] VITALS (16 sets, daily range): BP systolic 93–127; BP diastolic 52–73; PULSE 66–90; RESP 16–20; TEMP 35.8–37.1; O2SAT 98–100; BMI 28.3
--- NOTE | ~2022-10-03 | US_ITS ---
EXAMINATION: US abdomen limited DATE: 10/03/2022 18:52 INDICATION: ascites TECHNIQUE: Multiple grayscale and Doppler ultrasound images of limited portions of the abdomen were o btained. COMPARISON: Ultrasound abdomen 09/17/2022. FINDINGS: Small volume fluid present in the right lower quadrant. IMPRESSION: Trace right lower quadrant fluid. Reviewed, dictated and finalized at location K.
--- NOTE | ~2022-10-03 | CT_ITS ---
EXAMINATION: CT brain wo con DATE: 10/03/2022 10:00 INDICATION: Altered mental status TECHNIQUE: Computed tomography (CT) of the head was performed without intravenous contrast. The dose- length product was 681.00 mGy-cm. Automated exposure control and iterative reconstruction technique w ere employed. COMPARISON: CT dated 07/21/2022 FINDINGS: Generalized atrophy. There are scattered moderate periventricular and subcortical white mat ter changes, most likely related to small vessel ischemic disease (microangiopathy). No ventriculomeg clarice or midline shift. Basilar cisterns are patent. No acute intracranial hemorrhage, infarction, mass or mass effect. IMPRESSION: 1. No acute intracranial abnormality. 2: Chronic age-related findings. Reviewed, dictated and finalized at location []
--- NOTE | 2022-10-03 09:15 | ECG_ITS ---
Measurements Intervals [place] Rate: 72 P: 40 CA: 143 QRS: -21 QRSD: 109 T: 29 QT: 355 QTc: 391 Interpretive Statements SINUS RHYTHM BORDERLINE LEFT AXIS DEVIATION [QRS AXIS < -20] COMPARED TO ECG 07/21/2022 18:19:46 HEART RATE REDUCED, NO OTHER CHANGE Electronically Signed On 10-03-2022 13:30:17 CDT by Pablo Bernardo M.D.
[2022-10-03 09:25] LABS: Glucose Point of Care 165 mg/dl (65-105)
[2022-10-03 09:30] LABS: Basophils Percent Auto 0.7 % (0.2-1.2); Eosinophils Absolute Auto 0.1 K/mm3 (0-0.3); Eosinophils Percent Auto 3.5 % (0-4.4); Hematocrit 27.6 % (42.0-52.0); Hemoglobin 9.3 g/dL (14.0-18.0); Immature Granulocyte Absolute 0.01 K/mm3 (0.00-0.031); Immature Granulocyte Percent A 0.2 % (0-0.5); Lymphocytes Absolute Auto 0.78 K/mm3 (0.9-3.2); Lymphocytes Percent Auto 19.3 % (18.3-44.2); Mean Corpuscular HGB Conc 33.7 g/dl (32-36); Mean Corpuscular Hemoglobin 37.1 pg (26-34); Mean Platelet Volume 13.3 fl (7.4-10.4); Monocytes Absolute Auto 0.3 K/mm3 (0.1-0.6); Monocytes Percent Auto 7.2 % (2.6-8.5); Neutrophils Absolute Auto 2.8 K/mm3 (1.3-6.7); Neutrophils Percent Auto 69.1 % (45.5-73.1); Platelet Count Result 41 k/mm3 (150-375); Red Blood Count 2.51 M/mm3 (4.6-6.20); Red Cell Distribution Width 14.2 % (11.5-14.5)
[2022-10-03 09:37] LABS: Ammonia 31 umol/L (9-30); Ethanol < 10 mg/dL (<10)
[2022-10-03 09:38] LABS: Lactic Acid Reflex 1.8 mmol/L (0.7-2.0)
[2022-10-03 09:39] LABS: INR 1.6; Prothrombin Time 20.2 Seconds (11.1-14.7)
[2022-10-03 09:41] LABS: Alanine Aminotransferase 76 U/L (6-50); Albumin Level 2.8 g/dL (3.5-5.1); Alkaline Phosphatase 128 U/L (38-126); Anion Gap 4 mmol/L (8-16); Aspartate Amino Transferase 128 U/L (17-59); Bilirubin,Total 6.1 mg/dL (0.2-1.3); Blood Urea Nitrogen 46 mg/dL (9-20); Calcium 11.9 mg/dL (8.4-10.2); Carbon Dioxide 23 mmol/L (22-30); Chloride 105 mmol/L (98-107); Estimated CRCL calculation 42 ml/min; Estimated Glomerular Filt Rate 43; Glucose 133 mg/dL (65-110); Partial Thromboplastin Time 40.3 SECONDS (22.3-36.8); Potassium 4.3 mmol/L (3.4-5.0); Sodium 132 mmol/L (137-145)
[2022-10-03 09:42] LABS: Alveolar/Arterial O2 Gradient 23.3 mmHg; Base Excess ABG -2.9 mEq/l (+/-2.0); Fractional Inspired Oxygen 21 %; HCO3 ABG 19.9 mEq/l (22.0-26.0); Oxygen Content ABG 13.7 %vol (16.0-22.0); Oxygen Saturation ABG 97.6 % (95.0-100.0); Oxyhemoglobin 95.5 % THb (90.0-100.0); PO2 ABG 92.9 mmHg (80.0-100.0); PO2 FiO2 Ratio Arterial Blood 4.42 %; Total Hemoglobin 10.1 g/dL (12.0-18.0)
[2022-10-03 09:43] LABS: Device ROOM AIR; Modified Allen's Test Pass; Site Drawn LEFT RADIAL
[2022-10-03 09:48] LABS: Platelet Estimate Decreased (Adequate)
[2022-10-03 09:50] LABS: Hypochromasia 1+ (NORMAL); Ovalocytes 1+ (NORMAL); Schistocytes Rare (NORMAL); Tear Drop Cells 1+ (NORMAL)
[2022-10-03 10:19] LABS: Appearance Urine Clear (Clear); Bacteria Urine 4+ /hpf; Bilirubin Urine Negative (Negative); Blood Urine 1+ (Negative); Color Urine Yellow (Yellow); Glucose Urine UA Negative (Negative); Ketones Urine Negative (Negative); Leukocyte Esterase Ur Trace LEU/UL (Negative); Nitrate Urine Negative (Negative); Non Pathogenic Casts 0-2; Protein Urine Negative (Negative); Specific Grav Ur 1.013 (1.001-1.035); Squamous Epithelial Cell Urine None seen /hpf (Few); Urobilinogen Urine 0.2 mg/dL (<2.0); pH Urine 5.5 (5.0-9.0)
[2022-10-03 10:22] LABS: Add Urine Microscopic? YES
--- NOTE | 2022-10-03 10:32 | ED.AMS ---
HPI - Altered Mental Status General Chief Complaint: Altered Mental Status Stated Complaint: INCREASED CONFUSION, HX LIVER DZ Time Seen by Provider: 10/03/22 09:14 History of Present Illness HPI narrative: 72-year-old male presents to the emergency department for evaluation of altered mental status. Patient does have a history of cirrhosis and cephalopathy UTI and possible SBP. Family states that the patient has had increased confusion over the course of the last month and this has worsened acutely over the course of the last week. They state this does appear similar to his previous urinary tract infections. Patient denies any pain or complaints. Patient denies any falls or injuries. Patient is alert but is confused during the examination. Related Data Home Medications Medication Instructions Recorded Confirmed rifaximin 550 mg tablet (Xifaxan) 550 mg PO BID 08/22/21 10/03/22 lactulose 10 gram/15 mL oral 30 g PO BID 06/25/22 10/03/22 solution omeprazole 20 mg capsule,delayed 20 mg PO DAILY 06/25/22 10/03/22 release furosemide 20 mg tablet 40 mg PO DAILY 08/25/22 10/03/22 spironolactone 50 mg tablet 450 mg PO DAILY 08/25/22 10/03/22 aspirin 81 mg tablet 81 mg PO DAILY 10/03/22 10/03/22 furosemide 20 mg tablet 20 mg PO DAILY 10/03/22 10/03/22 Allergies Allergy/AdvReac Type Severity Reaction Status Date / Time No Known Allergies Allergy Verified 10/03/22 09:14 Review of Systems Review of Systems: All systems reviewed & are unremarkable except as noted in HPI and below PMFSH Past Medical History Medical History (Updated 10/03/22 @ 10:37 by Bill Reyna MD) Otqtj-3-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 Schmidt History of removal of pigmented skin lesion History of basal cell carcinoma Removed from behind his ear and nose. Hx of tonsillectomy Family History Family History Father Family history of elevated blood lipids Family history of coronary artery disease Heart disease Mother Family history of lung cancer Grandparent Dementia Throat cancer Sibling Heart disease brother had pacemaker Social History Social History Social History: The patient is and has 4 sons. The patient used occasionally smokes cigars. The patient is retired. Code status full code Smoking packs per day: 0 Smoking cigarettes per day: 0.0 Years smoked: 10 Smoking pack-years: 0.00 Smoking status: Former smoker Tobacco type: cigars Additional smoking assessment comments: sttaes occasional cigar smoker Alcohol intake: former Alcohol use details: occasional Substance use: never Substance use type: does not use Lack of Transportation: No Lack of Food: Never True Current Housing: I Have Housing Concerned About Future Housing: No Difficulty Paying Gas/Electric Bills: No Difficulty Paying for Meds: No Currently Unemployed: No Education: Master's Degree or Higher Difficulty w/ Childcare or Family Care: No Gender identity (if verbalized by the patient): Male Spiritual care concerns: No Exam Narrative: APPEARANCE: Well appearing, no pain, no distress, well-nourished. HEAD: normocephal
[2022-10-03] MEDS: SODIUM CHLORIDE 0.9% IV 1,000 ML 125 ML IV CONT (11:25)
--- NOTE | 2022-10-03 11:50 | ADMGEN ---
This patient, Emmanuel Norris, was admitted to [facility] Room 304-02. Patient/family oriented to hospital policies and general routines including ID bracelet, bed and alarms, visiting hours, pain management, procedures, bathroom and other care routines, personal items, smoking policy, room service/diet, and visiting hours. Information on how to activate the Rapid Response Team has been discussed. Patient/Family are encouraged to report perceived risks to care and to ask questions if they do not understand what they are told or what they should do.
--- NOTE | 2022-10-03 12:29 | PC.NURSE ---
Called , Bess, at 1220 in attempt to go over the patients medical history and current medication. Unable to reach her, left a voicemail with phone number to contact us back.
--- NOTE | 2022-10-03 16:49 | PM.IMHP ---
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 ER chart states that family feels he has become more acutely confused over last month and especially over the last week. They are wondering if he had a UTI as he has done this in the past when he had an infection. He has not missed any doses of his lactulose or Xifaxan. Patient is confused and only intermittently answering questions. He denies chest pain, shortness a breath, nausea, vomiting or diarrhea. He denies fevers or chills. In the ER, the UA was positive for possible UTI and the patient was started on Rocephin which would also be prophylactic for SBP. Ammonia was elevated at 31. He was 12 last month. There was a transaminitis with hyperbilirubinemia, but not significantly higher than his baseline. Patient was admitted with a GI consult. 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 Schmidt History of removal of pigmented skin lesion History of basal cell carcinoma Removed from behind his ear and nose. Hx of tonsillectomy Family History Family History Father Family history of elevated blood lipids Family history of coronary artery disease Heart disease Mother Family history of lung cancer Grandparent Dementia Throat cancer Sibling Heart disease brother had pacemaker Social History Social History Social History: The patient is and has 4 sons. The patient used occasionally smokes cigars. The patient is retired. Code status full code Smoking packs per day: 0 Smoking cigarettes per day: 0.0 Years smoked: 10 Smoking pack-years: 0.00 Smoking status: Former smoker Tobacco type: cigars Additional smoking assessment comments: sttaes occasional cigar smoker Alcohol intake: former Alcohol use details: occasional Substance use: never Substance use type: does not use Lack of Transportation: No Lack of Food: Never True Current Housing: I Have Housing Concerned About Future Housing: No Difficulty Paying Gas/Electric Bills: No Difficulty Paying for Meds: No Currently Unemployed: No Education: Master's Degree or Higher Difficulty w/ Childcare or Family Care: No Gender identity (if verbalized by the patient): Male Spiritual care concerns: No Meds Home Medications and Allergies Home Medications Medication Instructions Recorded Confirmed Type rifaximin 550 mg tablet (Xifaxan) 550 mg PO BID 08/22/21 10/03/22 History lactulose 10 gram/15 mL oral 30 g PO BID 06/25/22 10/03/22 History solution omeprazole 20 mg capsule,delayed 20 mg PO DAILY 06/25/22 10/03/22 History release furosemide 20 mg tablet 40 mg PO DAILY 08/25/22 10/03/22 History spironolactone 50 mg
[2022-10-03] MEDS: LACTULOSE 20 GM/30 ML UDC 30 GM PO (17:35)
[2022-10-03] MEDS: rifAXIMin 550 MG TABLET PO (17:36)
[2022-10-03 17:56] LABS: Ammonia 36 umol/L (9-30); CRP 0.9 mg/dL (<1.0); Lactic Acid Reflex 1.2 mmol/L (0.7-2.0)
[2022-10-03 18:12] LABS: Procalcitonin 0.3 ng/mL
[2022-10-04] MEDS: SODIUM CHLORIDE 0.9% IV 1,000 ML 125 ML IV CONT ×2 (00:26→08:38)
[2022-10-04 06:00] VITALS: BP 100/40; PULSE 76; RESP 14; TEMP 35.9; O2SAT 98
[2022-10-04 06:10] LABS: Basophils Absolute Auto 0.1 K/mm3 (0.0-0.1); Basophils Percent Auto 1.3 % (0.2-1.2); Eosinophils Absolute Auto 0.2 K/mm3 (0-0.3); Eosinophils Percent Auto 3.9 % (0-4.4); Hematocrit 26.6 % (42.0-52.0); Hemoglobin 8.8 g/dL (14.0-18.0); Immature Granulocyte Absolute 0.01 K/mm3 (0.00-0.031); Immature Granulocyte Percent A 0.3 % (0-0.5); Immature Platelet Fraction Pct 6.8 % (0.9-11.2); Lymphocytes Absolute Auto 0.84 K/mm3 (0.9-3.2); Lymphocytes Percent Auto 21.8 % (18.3-44.2); Mean Corpuscular HGB Conc 33.1 g/dl (32-36); Mean Corpuscular Hemoglobin 37.1 pg (26-34); Mean Corpuscular Volume 112.2 fl (80-100); Mean Platelet Volume 12.9 fl (7.4-10.4); Monocytes Absolute Auto 0.4 K/mm3 (0.1-0.6); Monocytes Percent Auto 9.1 % (2.6-8.5); Neutrophils Absolute Auto 2.5 K/mm3 (1.3-6.7); Neutrophils Percent Auto 63.6 % (45.5-73.1); Platelet Count Result 36 k/mm3 (150-375); Red Blood Count 2.37 M/mm3 (4.6-6.20); Red Cell Distribution Width 13.9 % (11.5-14.5); White Blood Count 3.9 K/mm3 (4.5-10.0)
[2022-10-04 06:15] LABS: Alanine Aminotransferase 71 U/L (6-50); Albumin Level 2.5 g/dL (3.5-5.1); Alkaline Phosphatase 118 U/L (38-126); Anion Gap 1 mmol/L (8-16); Aspartate Amino Transferase 103 U/L (17-59); Bilirubin,Total 6.5 mg/dL (0.2-1.3); Blood Urea Nitrogen 36 mg/dL (9-20); Calcium 11.4 mg/dL (8.4-10.2); Carbon Dioxide 24 mmol/L (22-30); Chloride 108 mmol/L (98-107); Estimated CRCL calculation 48 ml/min; Estimated Glomerular Filt Rate 50; Glucose 80 mg/dL (65-110); Potassium 4.3 mmol/L (3.4-5.0); Sodium 133 mmol/L (137-145)
[2022-10-04 06:37] LABS: Burr Cells 1+ (NORMAL); Macrocytosis 1+ (NORMAL); Platelet Estimate Decreased (Adequate); Schistocytes None Seen (NORMAL)
[2022-10-04] MEDS: rifAXIMin 550 MG TABLET PO ×2 (08:35→16:43)
[2022-10-04] MEDS: PANTOPRAZOLE 40 MG TABLET PO ×2 (08:35→16:43)
[2022-10-04] MEDS: LACTULOSE 20 GM/30 ML UDC 30 GM PO ×2 (08:35→16:43)
--- NOTE | 2022-10-04 09:48 | WPDGICN ---
Assessment and Plan Assessment and plan (1) Altered mental status: Code(s): R41.82 - Altered mental status, unspecified Status: Acute Assessment and Plan: Altered mental status. Likely related to his known hepatic encephalopathy. No obvious precipitating cause at present. Infections have the potential of contributing to this. Would recommend continued treatment for hepatic encephalopathy close monitoring. (2) Liver encephalopathy: Code(s): K72.90 - Hepatic failure, unspecified without coma Status: Acute Assessment and Plan: He Xifaxan and lactulose. Titrate lactulose to 2-3 bowel movements a day. Continue follow-up with [facility] hepatology for possible liver transplant. 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 Workup in progress. Recent liver ultrasound noncontributory. Follow-up ultrasound in 6 months as surveillance is advised. previous ascites appears to have resolved. Will continue diuretics. Will need to monitor electrolytes. Avoid salt. (4) Vnbvu-1-yxvknmbmead deficiency carrier: Code(s): Z14.8 - 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 of other disease Status: Acute GI Consult Note Consult date/time: 10/04/22 09:48 Reason for consult: Hepatic encephalopathy. HPI: Emmanuel Norris is a 72 year old male I am asked to see at the request of the hospitalist service because of hepatic encephalopathy. Patient known to have cirrhosis of liver. [place] be on the basis of TORO. Patient also has alpha-1 antitrypsin deficiency. 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 Patient currently followed by Dr. Oakley at [facility]. He apparently is in the process of being placed on the liver transplant list. Patient recently hospitalized with ascites as well as hepatic encephalopathy. He has been maintained on lactulose and Xifaxan as an outpatient. Because of increasing confusion was brought to the emergency room and admitted to the hospital overnight. Currently patient is alert and appears oriented. No specific asterixis a identified on exam. He has been maintained on diuretics because of a history of ascites as well. Recent ultrasound of the abdomen performed last evening reveals only a trace fluid remains in the abdominal cavity. Review of Systems Review of Systems: Review of systems noncontributory. PMFSH Past Medical History Medical History Dfees-9-rorysgobacq deficiency carrier Asthma Bacteremia due to Streptococcus (06/2022) Basal cell carcinoma Colon polyps Decompensation of cirrhosis of liver Erosive gastritis Hepatitis C antibody test negative (05/11/03) Kidney stone Liver cirrhosis secondary to OTRO Liver encephalopathy Obstructive sleep apnea on CPAP most recent polysomnogram 02/2021: Auto PAP 5-18 cm 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 Thrombocytopenia Surgical History Surgical History H/O colonoscopy (~2017) History of esophagogastroduodenoscopy (EGD) (10/04/19) History of lithotripsy (03/2019) left [address] Schmidt History of removal of pigmented skin lesion History of basal cell carcinoma Removed from behind his ear and nose. Hx of tonsillectomy Family History Family History Father Family history of elevated blood lipids Family history of coronary artery disease Heart disease Mother Family history of lung cancer Grandparent Dementia Throat cancer Sibling Heart disease brother had pacemaker Social History Social History So
[2022-10-04 13:53] VITALS: BP 105/55; PULSE 83; RESP 18; TEMP 36.3; O2SAT 100
--- NOTE | 2022-10-04 17:59 | PM.IMPN ---
Progress Note: A&P Assessment and Plan (1) AMS (altered mental status): Code(s): R41.82 - Altered mental status, unspecified Status: Acute Assessment and Plan: Likely secondary to hepatic encephalopathy, appreciate GI consultation and management (2) ALLISON (acute kidney injury): Code(s): N17.9 - Acute kidney failure, unspecified Status: Acute Assessment and Plan: Gentle IV fluid hydration, monitor very closely for anasarca Improving, d/c IVF 10/04, monitor (3) Abnormal urinalysis: Code(s): R82.90 - Unspecified abnormal findings in urine Status: Acute Assessment and Plan: Rocephin started 10/03 (4) Acute metabolic encephalopathy: Code(s): G93.41 - Metabolic encephalopathy Status: Acute Assessment and Plan: See above (5) Spontaneous bacterial peritonitis: Code(s): K65.2 - Spontaneous bacterial peritonitis Status: Acute Assessment and Plan: Ultrasound for ascites showed only small amount, continue Rocephin (6) Acute UTI: Code(s): N39.0 - Urinary tract infection, site not specified Status: Acute Assessment and Plan: Continue Rocephin, follow urine culture (7) 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 No chest pain or shortness of breath. No nausea, vomiting or diarrhea. No fevers or chills. Review of Systems Review of Systems: 12 point review of systems was assessed and was negative except as noted in the HPI Exam Narrative: General: No acute distress, confused, different than baseline HEENT: Atraumatic, normocephalic, mucous membranes moist CV: Regular rate and rhythm, S1, S2 Lungs: Clear to auscultation bilaterally, no rales or crackles noted, no wheezes, good air entry Abdomen: Soft, nontender, significantly distended, no rebounding or guarding Extremities: Normal to inspection Skin: No rashes noted, no lesions or wounds seen Psych: Flattened affect, limited judgment and insight Objective Data Vital Signs Vital Signs: Vital Signs - 24 hr 10/03/22 21:45 10/04/22 06:00 10/04/22 08:00 Temperature 97.5 F L 96.7 F L Pulse Rate 80 76 Respiratory Rate 16 14 Blood Pressure 93/52 L 100/40 L Pulse Oximetry 100 98 Oxygen Delivery Room Air 10/04/22 13:53 Temperature 97.3 F L Pulse Rate 83 Respiratory Rate 18 Blood Pressure 105/55 L Pulse Oximetry 100 Oxygen Delivery Intake/Output Intake/Output: Intake & Output 10/01/22 10/02/22 10/03/22 10/04/22 23:59 23:59 23:59 23:59 Intake Total 6 2432 Output Total 400 625 Balance 1656 1807 Meds/Results Medications: Active Medications Generic Name Dose Route Start Last Admin Trade Name Freq PRN Reason Stop Dose Admin Sodium Chloride 1,000 mls @ 125 mls/hr 10/03/22 10:40 10/04/22 11:05 Normal Saline Iv IV CONT Not Given .Q8H [place] Ceftriaxone Sodium 1 gm in 50 mls @ 100 mls/hr 10/04/22 11:00 10/04/22 11:05 Rocephin 1 Gm/Ns 50 Ml IVPB 100 mls/hr Q24H [place] Administration Lactulose 30 gm 10/03/22 17:10 10/04/22 16:43 Lactulose 20 Gm/30 Ml Udc PO 30 gm BID [place] Administration Pantoprazole Sodium 40 mg 10/04/22 09:00 10/04/22 16:43 Pantoprazole 40 Mg Tablet PO 40 mg BID [place] Administration Rifaximin 550 mg 10/03/22 17:00 10/04/22 16:43 Rifaximin 550 Mg Tablet PO 550 mg BID [place]
[2022-10-04] MEDS: SPIRONOLACTONE 25 MG TABLET PO (20:37)
[2022-10-04] MEDS: FUROSEMIDE 20 MG TABLET PO (20:37)
[2022-10-04 22:00] VITALS: BP 127/71; PULSE 68; RESP 16; TEMP 36.1; O2SAT 99
[2022-10-04 22:20] VITALS: O2SAT 99
[2022-10-05 05:59] LABS: Basophils Percent Auto 0.5 % (0.2-1.2); Eosinophils Absolute Auto 0.2 K/mm3 (0-0.3); Eosinophils Percent Auto 4.3 % (0-4.4); Hematocrit 26.4 % (42.0-52.0); Hemoglobin 8.8 g/dL (14.0-18.0); Immature Granulocyte Absolute 0.01 K/mm3 (0.00-0.031); Immature Granulocyte Percent A 0.3 % (0-0.5); Immature Platelet Fraction Pct 5.3 % (0.9-11.2); Lymphocytes Absolute Auto 0.71 K/mm3 (0.9-3.2); Lymphocytes Percent Auto 19.1 % (18.3-44.2); Mean Corpuscular HGB Conc 33.3 g/dl (32-36); Mean Corpuscular Hemoglobin 37.3 pg (26-34); Mean Corpuscular Volume 111.9 fl (80-100); Mean Platelet Volume 12.4 fl (7.4-10.4); Monocytes Absolute Auto 0.4 K/mm3 (0.1-0.6); Monocytes Percent Auto 9.7 % (2.6-8.5); Neutrophils Absolute Auto 2.5 K/mm3 (1.3-6.7); Neutrophils Percent Auto 66.1 % (45.5-73.1); Platelet Count Result 36 k/mm3 (150-375); Red Blood Count 2.36 M/mm3 (4.6-6.20); Red Cell Distribution Width 13.7 % (11.5-14.5); White Blood Count 3.7 K/mm3 (4.5-10.0)
[2022-10-05 06:00] VITALS: BP 99/60; PULSE 72; RESP 18; TEMP 36; O2SAT 98
[2022-10-05 06:09] LABS: Alanine Aminotransferase 77 U/L (6-50); Albumin Level 2.5 g/dL (3.5-5.1); Alkaline Phosphatase 129 U/L (38-126); Anion Gap 3 mmol/L (8-16); Aspartate Amino Transferase 111 U/L (17-59); Bilirubin,Total 5.5 mg/dL (0.2-1.3); Blood Urea Nitrogen 30 mg/dL (9-20); Calcium 11.7 mg/dL (8.4-10.2); Carbon Dioxide 21 mmol/L (22-30); Chloride 109 mmol/L (98-107); Estimated CRCL calculation 51 ml/min; Estimated Glomerular Filt Rate 54; Glucose 88 mg/dL (65-110); Potassium 4.7 mmol/L (3.4-5.0); Sodium 133 mmol/L (137-145)
[2022-10-05] MEDS: LACTULOSE 20 GM/30 ML UDC 30 GM PO ×3 (08:16→16:52)
[2022-10-05] MEDS: PANTOPRAZOLE 40 MG TABLET PO ×2 (08:17→16:52)
[2022-10-05] MEDS: rifAXIMin 550 MG TABLET PO ×2 (08:17→16:52)
[2022-10-05] MEDS: SPIRONOLACTONE 25 MG TABLET PO ×2 (08:17→16:52)
[2022-10-05] MEDS: FUROSEMIDE 20 MG TABLET PO ×2 (08:17→16:52)
--- NOTE | 2022-10-05 09:18 | WPDGIPROGNO ---
Progress Note: A&P Assessment and Plan (1) Cirrhosis: Code(s): K74.60 - Unspecified cirrhosis of liver Status: Acute Assessment and Plan: Patient with cirrhosis. [place] to be secondary to TORO. Patient currently followed at [facility]. Liver transplant workup in progress. Anticipate he will follow up at [facility] after discharge. Continue low-salt diet and diuretics as currently prescribed. (2) Acute metabolic encephalopathy: Code(s): G93.41 - Metabolic encephalopathy Status: Acute Assessment and Plan: Patient admitted with confusion. Most likely metabolic patent encephalopathy. Plan to continue lactulose and Xifaxan. Titrate lactulose so that he has 1 or 2 loose stools a day. I suspect this encephalopathy was aggravated by his new urinary tract infection. (3) Pancytopenia: Code(s): D61.818 - Other pancytopenia Status: Acute Assessment and Plan: Pancytopenia if secondary to cirrhosis. Signs of bleeding at present. (4) UTI (urinary tract infection): Code(s): N39.0 - Urinary tract infection, site not specified Status: Acute Assessment and Plan: patient has abnormal urinalysis suspicious for urinary tract infection. I suspect this precipitated his decompensation of encephalopathy. Patient improving at present. Course of antibiotics per primary care service. Subjective Date/time seen: 10/05/22 09:18 Interval history: Patient alert this morning. Seen in conjunction with family. Patient appears to be at baseline per there are evaluation. Patient oriented. Count of difficult with specific questions however. States he had 1 loose stool. No bleeding noted. Denies abdominal pain. Review of Systems Review of Systems: Review of systems noncontributory. Exam Narrative: Physical exam reveals patient be comfortable lying in bed. Vital signs stable. He is afebrile and anicteric. Lungs are clear. Heart without murmur. Abdomen is obese. No specific shifting dullness appreciated. Extremities without clubbing cyanosis or edema. Objective Data Vital Signs Vital Signs: Vital Signs - 24 hr 10/04/22 13:53 10/04/22 22:00 10/04/22 22:20 Temperature 97.3 F L 96.9 F L Pulse Rate 83 68 Respiratory Rate 18 16 Blood Pressure 105/55 L 127/71 Pulse Oximetry 100 99 99 Oxygen Delivery Room Air 10/05/22 06:00 Temperature 96.8 F L Pulse Rate 72 Respiratory Rate 18 Blood Pressure 99/60 L Pulse Oximetry 98 Oxygen Delivery Intake/Output Intake/Output: Intake & Output 10/02/22 10/03/22 10/04/22 10/05/22 23:59 23:59 23:59 23:59 Intake Total 2056 2672 1120 Output Total 400 1250 400 Balance 1656 1422 720 Meds/Results Medications: Active Medications Generic Name Dose Route Start Last Admin Trade Name Marisabel PRN Reason Stop Dose Admin Furosemide 20 mg 10/04/22 18:10 10/05/22 08:17 Furosemide 20 Mg Tablet PO 20 mg BID [place] Administration Ceftriaxone Sodium 1 gm in 50 mls @ 100 mls/hr 10/04/22 11:00 10/05/22 07:36 Rocephin 1 Gm/Ns 50 Ml IVPB Infused Q24H [place] Infusion Lactulose 30 gm 10/04/22 18:10 10/05/22 08:16 Lactulose 20 Gm/30 Ml Udc PO 30 gm TID [place] Administration Pantoprazole Sodium 40 mg 10/04/22 09:00 10/05/22 08:17 Pantoprazole 40 Mg Tablet PO 40 mg BID [place] Administration Rifaximin 550 mg 10/03/22 17:00 10/05/22 08:17 Rifaximin 550 Mg Tablet PO 550 mg BID [place] Administration Spironolactone 25 mg 10/04/22 18:10 10/05/22 08:17 Spironolactone 25 Mg Tablet PO 25 mg BID [place] Administration Radiology Results: ITS Impressions Head CT 10/03/22 10:02 IMPRESSION: 1. No acute intracranial abnormality. 2: Chronic age-related findings. Abdomen Ultrasound 10/03/22 19:16 IMPRESSION: Trace right lower quadrant fluid. Labs Labs: Laboratory Results - last 24 hr 10/05/22
[2022-10-05 14:00] VITALS: BP 108/69; PULSE 84; RESP 16; TEMP 36.6; O2SAT 99
--- NOTE | 2022-10-05 18:43 | PM.IMPN ---
Progress Note: A&P Assessment and Plan (1) AMS (altered mental status): Code(s): R41.82 - Altered mental status, unspecified Status: Acute Assessment and Plan: Likely secondary to hepatic encephalopathy, appreciate GI consultation and management Resolved (2) ALLISON (acute kidney injury): Code(s): N17.9 - Acute kidney failure, unspecified Status: Acute Assessment and Plan: Gentle IV fluid hydration, monitor very closely for anasarca Improving, d/c IVF 10/04, monitor Improving off IVF (3) Abnormal urinalysis: Code(s): R82.90 - Unspecified abnormal findings in urine Status: Acute Assessment and Plan: Rocephin started 10/03 (4) Acute metabolic encephalopathy: Code(s): G93.41 - Metabolic encephalopathy Status: Acute Assessment and Plan: Resolved (5) Spontaneous bacterial peritonitis: Code(s): K65.2 - Spontaneous bacterial peritonitis Status: Acute Assessment and Plan: Ultrasound for ascites showed only small amount, continue Rocephin Do not suspect SBP (6) Acute UTI: Code(s): N39.0 - Urinary tract infection, site not specified Status: Acute Assessment and Plan: Continue Rocephin, follow urine culture (7) 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 No chest pain or shortness of breath. No nausea, vomiting or diarrhea. No fevers or chills. Patient is feeling much better. Review of Systems Review of Systems: 12 point review of systems was assessed and was negative except as noted in the HPI Exam Narrative: General: No acute distress, confused, different than baseline HEENT: Atraumatic, normocephalic, mucous membranes moist CV: Regular rate and rhythm, S1, S2 Lungs: Clear to auscultation bilaterally, no rales or crackles noted, no wheezes, good air entry Abdomen: Soft, nontender, significantly distended, no rebounding or guarding Extremities: Normal to inspection Skin: No rashes noted, no lesions or wounds seen Psych: Flattened affect, limited judgment and insight Objective Data Vital Signs Vital Signs: Vital Signs - 24 hr 10/04/22 22:00 10/04/22 22:20 10/05/22 06:00 Temperature 96.9 F L 96.8 F L Pulse Rate 68 72 Respiratory Rate 16 18 Blood Pressure 127/71 99/60 L Pulse Oximetry 99 99 98 Oxygen Delivery Room Air 10/05/22 08:00 10/05/22 14:00 Temperature 98 F Pulse Rate 84 Respiratory Rate 16 Blood Pressure 108/69 Pulse Oximetry 99 Oxygen Delivery Room Air Intake/Output Intake/Output: Intake & Output 10/02/22 10/03/22 10/04/22 10/05/22 23:59 23:59 23:59 23:59 Intake Total 2056 2672 1410 Output Total 400 1250 1250 Balance 1656 1422 160 Meds/Results Medications: Active Medications Generic Name Dose Route Start Last Admin Trade Name Freq PRN Reason Stop Dose Admin Furosemide 20 mg 10/04/22 18:10 10/05/22 16:52 Furosemide 20 Mg Tablet PO 20 mg BID [place] Administration Ceftriaxone Sodium 1 gm in 50 mls @ 100 mls/hr 10/04/22 11:00 10/05/22 14:47 Rocephin 1 Gm/Ns 50 Ml IVPB Infused Q24H [place] Infusion Lactulose 30 gm 10/04/22 18:10 10/05/22 16:52 Lactulose 20 Gm/30 Ml Udc PO 30 gm TID [place] Administration Pantoprazole Sodium 40 mg 10/04/22 09:00 10/05/22 16:52 Pantoprazole 40 Mg Tablet PO 40 mg BID EVERT[place] Administration
[2022-10-05 20:00] VITALS: PULSE 84; RESP 16; O2SAT 99
[2022-10-05 22:00] VITALS: BP 116/66; PULSE 99; RESP 16; TEMP 36.6; O2SAT 100
[2022-10-06 06:00] VITALS: BP 101/58; PULSE 90; RESP 16; TEMP 36.4; O2SAT 99
[2022-10-06 06:41] LABS: Basophils Percent Auto 0.6 % (0.2-1.2); Eosinophils Absolute Auto 0.2 K/mm3 (0-0.3); Eosinophils Percent Auto 3.7 % (0-4.4); Hematocrit 25.6 % (42.0-52.0); Hemoglobin 8.7 g/dL (14.0-18.0); Immature Granulocyte Absolute 0.02 K/mm3 (0.00-0.031); Immature Granulocyte Percent A 0.4 % (0-0.5); Lymphocytes Absolute Auto 0.85 K/mm3 (0.9-3.2); Lymphocytes Percent Auto 18.4 % (18.3-44.2); Mean Corpuscular Hemoglobin 37.5 pg (26-34); Mean Corpuscular Volume 110.3 fl (80-100); Mean Platelet Volume 11.8 fl (7.4-10.4); Monocytes Absolute Auto 0.4 K/mm3 (0.1-0.6); Monocytes Percent Auto 9.1 % (2.6-8.5); Neutrophils Absolute Auto 3.1 K/mm3 (1.3-6.7); Neutrophils Percent Auto 67.8 % (45.5-73.1); Platelet Count Result 39 k/mm3 (150-375); Red Blood Count 2.32 M/mm3 (4.6-6.20); Red Cell Distribution Width 13.7 % (11.5-14.5); White Blood Count 4.6 K/mm3 (4.5-10.0)
[2022-10-06 06:49] LABS: Alanine Aminotransferase 75 U/L (6-50); Albumin Level 2.5 g/dL (3.5-5.1); Alkaline Phosphatase 127 U/L (38-126); Anion Gap 2 mmol/L (8-16); Aspartate Amino Transferase 106 U/L (17-59); Bilirubin,Total 4.8 mg/dL (0.2-1.3); Blood Urea Nitrogen 28 mg/dL (9-20); Calcium 11.6 mg/dL (8.4-10.2); Carbon Dioxide 22 mmol/L (22-30); Chloride 107 mmol/L (98-107); Estimated CRCL calculation 51 ml/min; Estimated Glomerular Filt Rate 54; Glucose 100 mg/dL (65-110); Potassium 4.4 mmol/L (3.4-5.0); Sodium 131 mmol/L (137-145)
[2022-10-06 06:59] LABS: Ammonia 14 umol/L (9-30)
[2022-10-06 08:03] VITALS: BP 109/57
[2022-10-06] MEDS: rifAXIMin 550 MG TABLET PO (08:43)
[2022-10-06] MEDS: SPIRONOLACTONE 25 MG TABLET PO (08:43)
[2022-10-06] MEDS: FUROSEMIDE 20 MG TABLET PO (08:43)
[2022-10-06] MEDS: PANTOPRAZOLE 40 MG TABLET PO (08:43)
[2022-10-06] MEDS: LACTULOSE 20 GM/30 ML UDC 30 GM PO ×2 (08:44→13:01)
[2022-10-06 09:03] VITALS: O2SAT 95
--- NOTE | 2022-10-06 09:47 | PM.DS ---
DS: Admitting Diagnosis Discharge Date 10/06/22 Admitting Diagnosis ams DS: Discharge Diagnosis Discharge Diagnosis (1) AMS (altered mental status): Code(s): R41.82 - Altered mental status, unspecified Status: Acute Assessment and Plan: Likely secondary to hepatic encephalopathy, appreciate GI consultation and management Resolved (2) ALLISON (acute kidney injury): Code(s): N17.9 - Acute kidney failure, unspecified Status: Acute Assessment and Plan: Gentle IV fluid hydration, monitor very closely for anasarca Improving, d/c IVF 10/04, monitor Improving off IVF (3) Abnormal urinalysis: Code(s): R82.90 - Unspecified abnormal findings in urine Status: Acute Assessment and Plan: Rocephin started 10/03 (4) Acute metabolic encephalopathy: Code(s): G93.41 - Metabolic encephalopathy Status: Acute Assessment and Plan: Resolved (5) Spontaneous bacterial peritonitis: Code(s): K65.2 - Spontaneous bacterial peritonitis Status: Acute Assessment and Plan: Ultrasound for ascites showed only small amount, continue Rocephin Do not suspect SBP (6) Acute UTI: Code(s): N39.0 - Urinary tract infection, site not specified Status: Acute Assessment and Plan: Continue Rocephin, follow urine culture 10/06: urine culture positive for enterococcus sens to vanc + macrobid, will d/c on macrobid for 5 day course (7) 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 Home medications were restarted and patient was found to have UTI. He was started on Rocephin and all symptoms resolved. Urine culture did come back Enterococcus sensitive to vancomycin Macrobid only, therefore, the patient was transitioned to Macrobid to complete a 5 day course of antibiotics. Ammonia did come back down to 14 on home doses of lactulose and Xifaxan. No other medication changes made. Please see above and med rec for details. Patient was discharged in stable condition with close outpatient follow-up by [facility] hepatology. Time Spent with Patient Time attestation: Total time spent providing and/or coordinating discharge services: Exam Narrative: General: No acute distress, alert and oriented per baseline today HEENT: Atraumatic, normocephalic, mucous membranes moist CV: Regular rate and rhythm, S1, S2 Lungs: Clear to auscultation bilaterally, no rales or crackles noted, no wheezes, good air entry Abdomen: Soft, nontender, significantly distended, no rebounding or guarding Extremities: Normal to inspection Skin: No rashes noted, no lesions or wounds seen Psych: Flattened affect, limited judgment and insight DS: Data Data Completed and Pending Labs on day of discharge: Labs from last 24 hours 10/06/22 06:32 WBC 4.6 RBC 2.32 L Hgb 8.7 L Hct 25.6 L MCV 110.3 H MCH 37.5 H MCHC 34.0 RDW 13.7 Plt Count 39 L MPV 11.8 H Immature Gran % (Auto) 0.4 Neut % (Auto) 67.8 Lymph % (Auto) 18.4 [place] % (Auto) 9.1 H Eos % (Auto) 3.7 Baso % (Auto) 0.6 Lymph # (Auto) 0.85 L [place] # (Auto) 0.4 Eos # (Auto) 0.2 Baso # (Auto) 0.0 Abs Immat Gran (auto) 0.02 Absolute Neuts (auto) 3.1 Absolute Nucleated RBC 0.0 Nucleated RBC % 0.0 % Immature Plt Fraction 6.0 Sodium 131 L
--- NOTE | 2022-10-06 11:27 | PCNFU ---
Nutrition Follow-Up Complete: Moderate protein calorie malnutrition related to chronic illness (cirrhosis) as evidenced by intake <75% needs >1 month; weight loss 13%/3 months. Goal:Adequate PO intake at least 75% meals and supplements Maintain weight during admission Pt current nutrition is Heart healthy, low NA, Ensure compact BID in place. Nutrition recommendation: continue with current plan of care Last recorded weight is 94.8 kg. Bowel Motility: +BM 10/06 Labs Reviewed: Hgb:8.7, HCT:25.6, Alb:2.5, NA:131, GFR:54, BUN:28 Meds Noted: lasix, lactulose, protonix Skin: WNL Additional Notes: Pt reports a good appetite and intake of meals, charted intake 75-100% most meals. Drinking Ensure compact BID. Encouraged good intake. Monitor intakes, weights, labs, supplement tolerance, plan of care. Follow up in 7 days.
--- NOTE | 2022-10-06 12:57 | PCCCNOTE ---
On 10/06/22, the student, [Regina Lock], provided care and completed [facility] documentation on this patient. I have reviewed the student's documentation and agree with the findings.
[2022-10-06 14:00] VITALS: BP 112/64; PULSE 84; RESP 19; TEMP 37.3; O2SAT 99
== END 2022-10-06 15:10 | disposition home or self-care (01) | DRG 689 ==
LOC: ANHED 10:38 → ANH3MEDSUR 11:10
PROVIDERS: Admitting Provider Student in an Organized Health Care Education/Training Program; Emergency Provider Emergency Medicine; PCP Family Medicine; Visit Provider Student in an Organized Health Care Education/Training Program
DX: N39.0 Urinary tract infection, site not specified (principal); G93.41 Metabolic encephalopathy; K65.2 Spontaneous bacterial peritonitis; N17.9 Acute kidney failure, unspecified; D61.818 Other pancytopenia; K76.82 Hepatic encephalopathy; B95.2 Enterococcus as the cause of diseases classified elsewhere; K75.81 Nonalcoholic steatohepatitis (NASH); K74.60 Unspecified cirrhosis of liver; E88.01 Alpha-1-antitrypsin deficiency; D69.6 Thrombocytopenia, unspecified; G47.33 Obstructive sleep apnea (adult) (pediatric); Z85.828 Personal history of other malignant neoplasm of skin; Z85.89 Personal history of malignant neoplasm of other organs and systems; Z87.891 Personal history of nicotine dependence
CPT/HCPCS: 36415; 36600; 70450; 76705; 80053; 80307; 81001; 82140; 82805; 82948; 83605; 84145; 85025; 85055; 85610; 85730; 86140; 87040; 87086; 87147; 87181; 87186; 93005; 96374; 99285; A9270; G0378; J0696; J7030

== ENCOUNTER 2022-10-22 16:25 | Inpatient (IN) | payer MEDICARE, SELFPAY ==
--- NOTE | ~2022-10-22 | CT_ITS ---
EXAMINATION: CT brain wo con DATE: 10/22/2022 18:03 INDICATION: Altered mental state. Difficulty speaking. Fall. TECHNIQUE: Computed tomography (CT) of the head was performed without intravenous contrast. The mA wa s adjusted according to patient size. Iterative reconstruction technique was employed. Exam dose: 68 1.00 mGy-cm total exam DLP. COMPARISON: None FINDINGS: Bilateral carotid siphon internal carotid artery calcifications. There is nonspecific dimin ished attenuation of the cerebral white matter, likely due to chronic small vessel ischemic change. No intracranial mass lesion or hemorrhage or cerebrovascular accident is detected. No midline shift o r mass effect. There is moderately prominent cerebral and cerebellar atrophy No subdural or epidural hematoma. No fracture or bone destruction of the cranial vault. The mastoid air cells and included paranasal sinuses are normally developed and aerated. IMPRESSION: Cerebral atherosclerosis and chronic small vessel ischemic changes of the cerebral white matter Moderately prominent cerebellar and cerebral atrophy Reviewed, dictated and finalized at [facility]. Reviewed, dictated and finalized at location [facility].
--- NOTE | ~2022-10-22 | US_ITS ---
EXAMINATION: US paracentesis abd w/image DATE: 10/23/2022 13:11 INDICATION: Ascites. TECHNIQUE: Consent was provided by the patient's . The skin was prepped and draped in sterile fas hion. 1% lidocaine was used for local anesthesia. Under ultrasound guidance, a 5 Fr catheter with tro gavin was advanced into the ascites in the right lower quadrant. Fluid was aspirated. The catheter was removed, and a dressing was applied. There were no immediate complications. FINDINGS: Ultrasound images demonstrate ascites and the catheter within the fluid. IMPRESSION: 1. Successful ultrasound-guided paracentesis yielding 5000 mL of cloudy, dark yellow fluid. Reviewed, dictated and finalized at location [facility].
--- NOTE | ~2022-10-22 | NM_ITS ---
EXAMINATION: NM GI bleeding DATE: 10/28/2022 15:24 INDICATION: Gastrointestinal bleed TECHNIQUE: 24.1 mCi Tc 99m in vitro labeled red cells administered intravenously. Scintigraphic imag es of the abdomen were obtained through 1 hour. FINDINGS: No interval change throughout the 60 minutes of observation in typical blood pool pattern o f activity. No pattern of abnormal activity is seen in the abdomen or pelvis to suggest gastrointesti nal hemorrhage. IMPRESSION: 1. No scintigraphic evidence for active gastrointestinal bleeding. Reviewed, dictated and finalized at location A.
[2022-10-22 16:33] VITALS: BP 133/118; PULSE 94; RESP 16; TEMP 36.3; O2SAT 100
--- NOTE | 2022-10-22 16:47 | ECG_ITS ---
Measurements Intervals [place] Rate: 91 P: 6 ME: 120 QRS: -10 QRSD: 110 T: 31 QT: 320 QTc: 394 Interpretive Statements SINUS RHYTHM VENTRICULAR PREMATURE COMPLEX BASELINE ARTIFACT- I, III, AVR, AVL, AVF BORDERLINE ECG COMPARED TO ECG 10/03/2022 09:19:43 NO SIGNIFICANT CHANGES Electronically Signed On 10-22-2022 21:35:46 CDT by Valentin Horn D.O.
[2022-10-22 16:53] VITALS: BP 107/72; PULSE 89; RESP 24; O2SAT 99
[2022-10-22 17:00] LABS: Basophils Percent Auto 0.3 % (0.2-1.2); Eosinophils Absolute Auto 0.2 K/mm3 (0-0.3); Eosinophils Percent Auto 2.8 % (0-4.4); Hematocrit 25.6 % (42.0-52.0); Hemoglobin 8.6 g/dL (14.0-18.0); Immature Granulocyte Absolute 0.05 K/mm3 (0.00-0.031); Immature Granulocyte Percent A 0.7 % (0-0.5); Lymphocytes Absolute Auto 0.82 K/mm3 (0.9-3.2); Lymphocytes Percent Auto 11.1 % (18.3-44.2); Mean Corpuscular HGB Conc 33.6 g/dl (32-36); Mean Corpuscular Hemoglobin 37.4 pg (26-34); Mean Corpuscular Volume 111.3 fl (80-100); Mean Platelet Volume 12.4 fl (7.4-10.4); Monocytes Absolute Auto 0.9 K/mm3 (0.1-0.6); Monocytes Percent Auto 11.7 % (2.6-8.5); Neutrophils Absolute Auto 5.5 K/mm3 (1.3-6.7); Neutrophils Percent Auto 73.4 % (45.5-73.1); Platelet Count Result 66 k/mm3 (150-375); Red Cell Distribution Width 14.5 % (11.5-14.5); White Blood Count 7.4 K/mm3 (4.5-10.0)
[2022-10-22 17:07] LABS: INR 1.8; Prothrombin Time 21.5 Seconds (11.1-14.7)
[2022-10-22 17:25] LABS: Alanine Aminotransferase 83 U/L (6-50); Albumin Level 2.5 g/dL (3.5-5.1); Alkaline Phosphatase 137 U/L (38-126); Anion Gap 6 mmol/L (8-16); Aspartate Amino Transferase 133 U/L (17-59); Bilirubin,Total 3.3 mg/dL (0.2-1.3); Blood Urea Nitrogen 41 mg/dL (9-20); Calcium 11.1 mg/dL (8.4-10.2); Carbon Dioxide 20 mmol/L (22-30); Chloride 103 mmol/L (98-107); Estimated CRCL calculation 47 ml/min; Estimated Glomerular Filt Rate 46; Glucose 126 mg/dL (65-110); Sodium 129 mmol/L (137-145)
[2022-10-22 17:41] LABS: Platelet Estimate Decreased (Adequate)
[2022-10-22 17:42] LABS: Schistocytes None Seen (NORMAL)
[2022-10-22 17:43] LABS: Anisocytosis 1+ (NORMAL); Macrocytosis 1+ (NORMAL)
--- NOTE | 2022-10-22 17:52 | ED.AMS ---
HPI - Altered Mental Status General Chief Complaint: Altered Mental Status <Elinor Mitchell PA-C - Last Filed: 10/25/22 09:06> Stated Complaint: Altered status <Elinor Mitchell PA-C - Last Filed: 10/25/22 09:06> Time Seen by Provider: 10/22/22 17:01 <Elinor Mitchell PA-C - Last Filed: 10/25/22 09:06> History of Present Illness HPI narrative: 72-year-old male with a history of sepsis, metabolic encephalopathy, cirrhosis, SBP, portal venous hypertension, hyperparathyroidism reports for evaluation with his and son for increased confusion and altered mental status for the past week, worsening over the past few days. Family states the patient has not been talking much the past few days, attempted to get ice out of the sink, and was unsure how to use kitchen utensils which is unusual for him. They also report that his abdomen has distended more quickly than usual. States he normally has to get a paracentesis 3-4 times a year, however in the past 3 weeks his abdomen is distended exponentially. Patient has been complaining of increased dizziness with movement that resolves when he lays still. He denies chest pain or shortness of breath, cough or congestion, fever or abdominal pain, vision changes or focal numbness or weakness, neck pain or headache, urinary complaints or back pain. He was admitted here on 10/03 from the ED after being diagnosed with ALLISON, UTI, AMS. He has a liver specialist at [facility] , Dr. Oakley, next apt in November. Family states the patient is a full code. <Elinor Mitchell PA-C - Last Filed: 10/25/22 09:06> Related Data Home Medications: Home Medications Medication Instructions Recorded Confirmed rifaximin 550 mg tablet (Xifaxan) 550 mg PO BID 08/22/21 10/22/22 lactulose 10 gram/15 mL oral 30 g PO BID 06/25/22 10/22/22 solution omeprazole 20 mg capsule,delayed 20 mg PO DAILY 06/25/22 10/22/22 release furosemide 20 mg tablet 40 mg PO DAILY 08/25/22 10/22/22 aspirin 81 mg tablet 81 mg PO DAILY 10/03/22 10/22/22 furosemide 20 mg tablet 20 mg PO 1500 10/03/22 10/22/22 <Elinor Mitchell PA-C - Last Filed: 10/25/22 09:06> Allergies/Adverse Reactions: Allergies Allergy/AdvReac Type Severity Reaction Status Date / Time No Known Allergies Allergy Verified 10/22/22 16:49 <Elinor Mitchell PA-C - Last Filed: 10/25/22 09:06> Review of Systems Review of Systems: CONSTITUTIONAL: Denies fever, chills EYES: Denies visual changes, redness, or discharge. ENT: Denies rhinorrhea, congestion, sore throat, or otalgia. CARDIOVASCULAR: Denies chest pain, palpitations, or edema. RESPIRATORY: Denies cough or dyspnea. GASTROINTESTINAL: See HPI GENITOURINARY: Denies dysuria or hematuria. SKIN: Denies rash or itching. MUSCULOSKELETAL: Denies back pain, joint pain, or myalgia. NEUROLOGIC: See HPI PSYCHIATRIC: Denies anxiety or depression. 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 Schmidt History of removal of pigmented skin lesion History of basal cell carcinoma Removed from behind his ear and nose. Hx of tonsil
[2022-10-22] MEDS: SODIUM CHLORIDE 0.9% IV 1,000 ML 999 ML IV CONT (18:12)
[2022-10-22 18:46] LABS: Appearance Urine Clear (Clear); Bacteria Urine 1+ /hpf; Bilirubin Urine Negative (Negative); Blood Urine Negative (Negative); Color Urine Yellow (Yellow); Glucose Urine UA Negative (Negative); Ketones Urine Negative (Negative); Leukocyte Esterase Ur 1+ LEU/UL (Negative); Nitrate Urine Negative (Negative); Protein Urine Negative (Negative); RBC Urine 0-2 /hpf (0-2); Specific Grav Ur 1.011 (1.001-1.035); Squamous Epithelial Cell Urine None seen /hpf (Few); Urobilinogen Urine 0.2 mg/dL (<2.0); pH Urine 5.5 (5.0-9.0)
[2022-10-22 19:03] LABS: Add Urine Microscopic? YES
[2022-10-22 19:37] VITALS: BP 132/75; PULSE 85; RESP 16; O2SAT 98
[2022-10-22 19:46] LABS: Ammonia < 9 umol/L (9-30)
[2022-10-22 19:52] LABS: Lactic Acid Reflex 1.9 mmol/L (0.7-2.0)
[2022-10-22] MEDS: LACTULOSE 20 GM/30 ML UDC 30 GM BY MOUTH (20:40)
[2022-10-22] MEDS: SODIUM CHLORIDE 0.9% IV 1,000 ML 125 ML IV CONT (20:40)
[2022-10-22 20:53] VITALS: BP 100/63; PULSE 89; RESP 20; O2SAT 99
[2022-10-22 22:20] VITALS: BP 115/84; PULSE 92; RESP 22; TEMP 36.1; O2SAT 100; BMI 35.7
--- NOTE | 2022-10-22 22:25 | ADMGEN ---
This patient, Emmanuel Norris, was admitted to IMU Room 207-01. Patient/family oriented to hospital policies and general routines including ID bracelet, bed and alarms, visiting hours, pain management, procedures, bathroom and other care routines, personal items, smoking policy, room service/diet, and visiting hours. Information on how to activate the Rapid Response Team has been discussed. Patient/Family are encouraged to report perceived risks to care and to ask questions if they do not understand what they are told or what they should do.
[2022-10-22 22:37] VITALS: PULSE 86
--- NOTE | 2022-10-22 23:00 | PM.IMHP ---
H&P: HPI History of Present Illness Date/Time: 10/22/22 23:00 Chief Complaint: AMS Narrative: 72-year-old male with a history of sepsis, metabolic encephalopathy, cirrhosis, SBP, portal venous hypertension, hyperparathyroidism was brought in for evaluation by his and son for increased confusion and altered mental status for the past week, worsening over the past few days.? The patient's continue patient to history is minimal. HPI is gathered from chart review. Family states the patient has not been talking much the past few days, attempted to get ice out of the sink, and was unsure how to use kitchen utensils which is unusual for him.? They also report that his abdomen has distended more quickly than usual.? States he normally has to get a paracentesis 3-4 times a year, however in the past 3 weeks his abdomen is distended significantly..? Patient has been complaining of increased dizziness with movement that resolves when he lays still.? He denies chest pain or shortness of breath, cough or congestion, fever or abdominal pain, vision changes or focal numbness or weakness, neck pain or headache, urinary complaints or back pain.? He was admitted here on 10/03 from the ED after being diagnosed with ALLISON, UTI, AMS. He has a liver specialist at [facility] , Dr. Oakley, next apt in November.? Family states the patient is a full code. At the time of my evaluation, the patient is stable and afebrile with blood pressure 125/73, pulse 93, respiration 20, temperature 97.5?, O2 sat 100% on room air. 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 Schmidt History of removal of pigmented skin lesion History of basal cell carcinoma Removed from behind his ear and nose. Hx of tonsillectomy Family History Family History Father Family history of elevated blood lipids Family history of coronary artery disease Heart disease Mother Family history of lung cancer Grandparent Dementia Throat cancer Sibling Heart disease brother had pacemaker Social History Social History Social History: The patient is and has 4 sons. The patient used occasionally smokes cigars. The patient is retired. Code status full code Smoking packs per day: 0 Smoking cigarettes per day: 0.0 Years smoked: 10 Smoking pack-years: 0.00 Smoking status: Former smoker Additional smoking assessment comments: sttaes occasional cigar smoker Alcohol intake: never Alcohol use details: occasional Substance use: never Substance use type: does not use Lack of Transportation: No Lack of Food: Never True Current Housing: I Have Housing Concerned About Future Housing: No Difficulty Paying Gas/Electric Bills: No Difficulty Paying for Meds: No Currently Unemployed: No Education: High School Diploma/GED Difficulty w/ Childcare or Family Care: No Gender identity (if verbalized by the patient): Male Spiritual care concerns: No Meds Home Medications and Allergies Home Medications Medication Instruc
[2022-10-23] VITALS (20 sets, daily range): BP systolic 91–130; BP diastolic 43–88; PULSE 74–101; RESP 16–20; TEMP 36.1–36.7; O2SAT 99–100
[2022-10-23 04:02] LABS: Basophils Percent Auto 0.3 % (0.2-1.2); Eosinophils Absolute Auto 0.2 K/mm3 (0-0.3); Eosinophils Percent Auto 2.8 % (0-4.4); Hematocrit 23.7 % (42.0-52.0); Immature Granulocyte Absolute 0.04 K/mm3 (0.00-0.031); Immature Granulocyte Percent A 0.7 % (0-0.5); Immature Platelet Fraction Pct 5.6 % (0.9-11.2); Lymphocytes Absolute Auto 0.66 K/mm3 (0.9-3.2); Lymphocytes Percent Auto 10.9 % (18.3-44.2); Mean Corpuscular HGB Conc 33.8 g/dl (32-36); Mean Corpuscular Hemoglobin 37.7 pg (26-34); Mean Corpuscular Volume 111.8 fl (80-100); Mean Platelet Volume 12.5 fl (7.4-10.4); Monocytes Absolute Auto 0.6 K/mm3 (0.1-0.6); Monocytes Percent Auto 9.4 % (2.6-8.5); Neutrophils Absolute Auto 4.6 K/mm3 (1.3-6.7); Neutrophils Percent Auto 75.9 % (45.5-73.1); Platelet Count Result 48 k/mm3 (150-375); Red Blood Count 2.12 M/mm3 (4.6-6.20); Red Cell Distribution Width 14.3 % (11.5-14.5); White Blood Count 6.1 K/mm3 (4.5-10.0)
[2022-10-23 04:16] LABS: Alanine Aminotransferase 78 U/L (6-50); Albumin Level 2.3 g/dL (3.5-5.1); Alkaline Phosphatase 126 U/L (38-126); Anion Gap 4 mmol/L (8-16); Aspartate Amino Transferase 108 U/L (17-59); Bilirubin,Total 6.1 mg/dL (0.2-1.3); Blood Urea Nitrogen 36 mg/dL (9-20); Calcium 11.3 mg/dL (8.4-10.2); Carbon Dioxide 22 mmol/L (22-30); Chloride 107 mmol/L (98-107); Estimated CRCL calculation 45 ml/min; Estimated Glomerular Filt Rate 43; Glucose 92 mg/dL (65-110); Potassium 4.7 mmol/L (3.4-5.0); Sodium 133 mmol/L (137-145); Triglycerides 55 mg/dL (<150)
[2022-10-23] MEDS: SODIUM CHLORIDE 0.9% IV 1,000 ML 125 ML IV CONT (05:26)
[2022-10-23] MEDS: rifAXIMin 550 MG TABLET PO ×2 (10:28→17:13)
[2022-10-23] MEDS: FUROSEMIDE 40 MG TABLET PO (10:28)
--- NOTE | 2022-10-23 13:24 | PC.NURSE ---
returned to room post procedure- awake / alert at bedside- vss
[2022-10-23 14:03] LABS: Source Peritoneal Fluid Peritoneal Fluid
[2022-10-23 14:04] LABS: Appearance Peritoneal Fluid Hazy (Clear); Color Peritoneal Fluid Yellow (Colorless)
[2022-10-23 14:11] LABS: Lymphocytes Peritoneal Fluid 4 %; Mesothelial Cells Peritoneal Fluid 5 %; Monocytes Peritoneal Fluid 31 %; Neutrophils Peritoneal Fluid 60 % (0-25)
[2022-10-23 14:12] LABS: Nucleated Cells Peritoneal Flu 630 /uL (0-500); RBC Peritoneal Fluid 2000 /uL (0-100000)
--- NOTE | 2022-10-23 14:42 | WPDPN ---
Progress Note: A&P Assessment and Plan (1) AMS (altered mental status): Code(s): R41.82 - Altered mental status, unspecified Status: Acute Assessment and Plan: Patient family reports acute deterioration of mental status. He is already on lactulose at baseline; ammonia level was < 9. Patient does not have any evidence of focalisation. 10/23/2022 interval history: Patient with history TORO-cirrhosis and recurrent ascites requiring paracentesis, patient had been discharged on diuretics, was doing well per family until past few days, patient is unable to provider detail, ROS, his is present in the room. patient ammonina levels are normal and he is taking lactulose, patient is scheduled to have paracentesis later today and will follow up and further recommendation to follow. (2) Acute metabolic encephalopathy: Code(s): G93.41 - Metabolic encephalopathy Status: Acute Assessment and Plan: Likely secondary to UTI. PAtient started on broad spectrum with rocephin and vancomycin; later de-escalated to rocephin only by the write. Follow up urine culture. Historical cultures availabe for review in chart. (3) ALLISON (acute kidney injury): Code(s): N17.9 - Acute kidney failure, unspecified Status: Acute Assessment and Plan: BAseline kidney function: creatinine 0.6-0.7 between 07/29 and 07/31/2022. Creatinine has fluctuated between 1.3 and 1.5 on 10/22/2022. this is likely prerenal in the setting of decreased effective blood volume and decompensated liver failure/ascites. Avoid further renal insults and nephrotoxic medications. Please renally dose medications and consult nephrology if no improvement despite supportive care. (4) Abnormal urinalysis: Code(s): R82.90 - Unspecified abnormal findings in urine Status: Acute Assessment and Plan: Urinalysis shows pyuria. Patient started on IV antibiotics based on historical cultures results. Follow up urine culture. (5) Sepsis: Qualifiers: Sepsis type: sepsis due to unspecified organism Sepsis acute organ dysfunction status: with acute organ dysfunction Severe sepsis acute organ dysfunction type: encephalopathy Code(s): A41.9 - Sepsis, unspecified organism Status: Acute Assessment and Plan: Patient meets sepsis criteria at presentation with hypotension, confusion, elevated creatinine. Elevated bilirubin is chronic and trending down when compared to 10/06/2022. Lactic level is normal at 1.9. (6) Spontaneous bacterial peritonitis: Code(s): K65.2 - Spontaneous bacterial peritonitis Status: Acute Assessment and Plan: Patient has chronic ascites. ON exam, abdomen is tense, but not painful. (7) Abdominal ascites: Code(s): R18.8 - Other ascites Status: Acute Assessment and Plan: Secondary to decompensated liver cirrhosis secondary to TORO. 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 (10) Mixed hyperlipidemia: Code(s): E78.2 - Mixed hyperlipidemia Status: Acute (11) Hyponatremia: Code(s): E87.1 - Hypo-osmolality and hyponatremia Status: Acute Assessment and Plan: Likely related to reduced effective arterial blood volume in the setting of cirrhosis. Maintain fall precautions. May consider free water restriction. Subjective Date/time seen: 10/23/22 14:42 Interval history: AMS Narrative: 72-year-old male with a history of sepsis, metabolic encephalopathy, cirrhosis, SBP, portal venous hypertension, hyperparathyroidism was brought in for evaluation by his and son for increased confusion and altered mental status for the past
[2022-10-23] MEDS: FUROSEMIDE 20 MG TABLET PO (15:52)
[2022-10-23] MEDS: LACTULOSE 20 GM/30 ML UDC 30 GM PO (17:13)
[2022-10-24] VITALS (12 sets, daily range): BP systolic 90–117; BP diastolic 50–70; PULSE 66–100; RESP 18–22; TEMP 35.9–36.5; O2SAT 97–100
[2022-10-24 04:46] LABS: Hemoglobin 7.6 g/dL (14.0-18.0); Immature Platelet Fraction Pct 5.5 % (0.9-11.2); Mean Corpuscular Hemoglobin 37.8 pg (26-34); Mean Corpuscular Volume 114.4 fl (80-100); Platelet Count Result 40 k/mm3 (150-375); Red Blood Count 2.01 M/mm3 (4.6-6.20); Red Cell Distribution Width 14.1 % (11.5-14.5); White Blood Count 3.9 K/mm3 (4.5-10.0)
[2022-10-24 04:56] LABS: Alanine Aminotransferase 73 U/L (6-50); Albumin Level 2.1 g/dL (3.5-5.1); Alkaline Phosphatase 120 U/L (38-126); Anion Gap 1 mmol/L (8-16); Aspartate Amino Transferase 92 U/L (17-59); Bilirubin,Total 5.8 mg/dL (0.2-1.3); Blood Urea Nitrogen 32 mg/dL (9-20); Calcium 11.3 mg/dL (8.4-10.2); Carbon Dioxide 24 mmol/L (22-30); Chloride 105 mmol/L (98-107); Estimated CRCL calculation 51 ml/min; Estimated Glomerular Filt Rate 50; Glucose 80 mg/dL (65-110); Magnesium 1.9 mg/dL (1.6-2.3); Potassium 4.4 mmol/L (3.4-5.0); Sodium 130 mmol/L (137-145)
[2022-10-24] MEDS: PANTOPRAZOLE 40 MG TABLET PO (08:21)
[2022-10-24] MEDS: FUROSEMIDE 40 MG TABLET PO (08:21)
[2022-10-24] MEDS: LACTULOSE 20 GM/30 ML UDC 30 GM PO ×2 (08:21→16:38)
[2022-10-24] MEDS: rifAXIMin 550 MG TABLET PO ×2 (08:21→16:38)
--- NOTE | 2022-10-24 10:15 | PC.NURSE ---
This patient, Emmanuel Norris, was transferred to [ [id number]] on 10/24/22 at 1015. Personal belongings sent with patient. Report given to [REYES Stahl @ 1012 ]. Appropriate documentation sent with patient. Family at bedside and aware of pt being moved to a new room
--- NOTE | 2022-10-24 10:29 | PC.NURSE ---
This patient, Emmanuel Norris, was received from [[id number] ] on 10/24/22 at 1025. Patient/family oriented to unit policies and routines
--- NOTE | 2022-10-24 13:33 | WPDPN ---
Progress Note: A&P Assessment and Plan (1) AMS (altered mental status): Code(s): R41.82 - Altered mental status, unspecified Status: Acute Assessment and Plan: Patient family reports acute deterioration of mental status. He is already on lactulose at baseline; ammonia level was < 9. Patient does not have any evidence of focalisation. 10/24/2022 interval history: Patient with history TORO-cirrhosis and recurrent ascites requiring paracentesis, patient had been discharged on diuretics, was doing well per family until past few days, patient is unable to provider detail ROS, his is present in the room. patient had paracentesis on 10/23 and 5L was removed, will continue lasix, patient kidney function is improving, will add spironolactone at dose and monitor, patient ammonina levels are normal and he is taking lactulose, will follow up and further recommendation to follow. (2) Acute metabolic encephalopathy: Code(s): G93.41 - Metabolic encephalopathy Status: Acute Assessment and Plan: Likely secondary to UTI. PAtient started on broad spectrum with rocephin and vancomycin; later de-escalated to rocephin only by the write. Follow up urine culture. Historical cultures availabe for review in chart. (3) ALLISON (acute kidney injury): Code(s): N17.9 - Acute kidney failure, unspecified Status: Acute Assessment and Plan: BAseline kidney function: creatinine 0.6-0.7 between 07/29 and 07/31/2022. Creatinine has fluctuated between 1.3 and 1.5 on 10/22/2022. this is likely prerenal in the setting of decreased effective blood volume and decompensated liver failure/ascites. Avoid further renal insults and nephrotoxic medications. Please renally dose medications and consult nephrology if no improvement despite supportive care. (4) Abnormal urinalysis: Code(s): R82.90 - Unspecified abnormal findings in urine Status: Acute Assessment and Plan: Urinalysis shows pyuria. Patient started on IV antibiotics based on historical cultures results. Follow up urine culture. (5) Sepsis: Qualifiers: Sepsis type: sepsis due to unspecified organism Sepsis acute organ dysfunction status: with acute organ dysfunction Severe sepsis acute organ dysfunction type: encephalopathy Code(s): A41.9 - Sepsis, unspecified organism Status: Acute Assessment and Plan: Patient meets sepsis criteria at presentation with hypotension, confusion, elevated creatinine. Elevated bilirubin is chronic and trending down when compared to 10/06/2022. Lactic level is normal at 1.9. (6) Spontaneous bacterial peritonitis: Code(s): K65.2 - Spontaneous bacterial peritonitis Status: Acute Assessment and Plan: Patient has chronic ascites. ON exam, abdomen is tense, but not painful. (7) Abdominal ascites: Code(s): R18.8 - Other ascites Status: Acute Assessment and Plan: Secondary to decompensated liver cirrhosis secondary to TORO. 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 (10) Mixed hyperlipidemia: Code(s): E78.2 - Mixed hyperlipidemia Status: Acute (11) Hyponatremia: Code(s): E87.1 - Hypo-osmolality and hyponatremia Status: Acute Assessment and Plan: Likely related to reduced effective arterial blood volume in the setting of cirrhosis. Maintain fall precautions. May consider free water restriction. Subjective Date/time seen: 10/24/22 13:33 Interval history: AMS Narrative: 72-year-old male with a history of sepsis, metabolic encephalopathy, cirrhosis, SBP, portal venous hypertension, hyperparathyroidism was brought in
[2022-10-24] MEDS: FUROSEMIDE 20 MG TABLET PO (14:17)
[2022-10-24] MEDS: cefTRIAXone 2 GM/NS 100 ML 2 GM/100 ML BAG IVPB (14:17)
--- NOTE | 2022-10-24 16:03 | PCPTNOTE ---
On 10/24/22, the student, AMANDO Chu, provided care and completed [facility] documentation on this patient. I have reviewed the student's documentation and agree with the findings.
[2022-10-24] MEDS: SPIRONOLACTONE 12.5 MG TABLET PO (16:38)
[2022-10-25 06:00] VITALS: BP 97/65; PULSE 86; RESP 16; TEMP 36.8; O2SAT 100
[2022-10-25 06:34] LABS: Hematocrit 22.7 % (42.0-52.0); Hemoglobin 7.5 g/dL (14.0-18.0); Immature Platelet Fraction Pct 6.1 % (0.9-11.2); Mean Corpuscular Hemoglobin 37.7 pg (26-34); Mean Corpuscular Volume 114.1 fl (80-100); Mean Platelet Volume 11.9 fl (7.4-10.4); Platelet Count Result 42 k/mm3 (150-375); Red Blood Count 1.99 M/mm3 (4.6-6.20); Red Cell Distribution Width 13.9 % (11.5-14.5); White Blood Count 4.4 K/mm3 (4.5-10.0)
[2022-10-25 06:47] LABS: Alanine Aminotransferase 73 U/L (6-50); Albumin Level 2.1 g/dL (3.5-5.1); Alkaline Phosphatase 127 U/L (38-126); Anion Gap 3 mmol/L (8-16); Aspartate Amino Transferase 94 U/L (17-59); Bilirubin,Total 4.1 mg/dL (0.2-1.3); Blood Urea Nitrogen 31 mg/dL (9-20); Calcium 10.9 mg/dL (8.4-10.2); Carbon Dioxide 24 mmol/L (22-30); Chloride 104 mmol/L (98-107); Estimated CRCL calculation 50 ml/min; Estimated Glomerular Filt Rate 50; Glucose 88 mg/dL (65-110); Potassium 4.7 mmol/L (3.4-5.0); Sodium 131 mmol/L (137-145)
[2022-10-25] MEDS: SPIRONOLACTONE 12.5 MG TABLET PO ×2 (08:13→16:07)
[2022-10-25] MEDS: FUROSEMIDE 40 MG TABLET PO (08:13)
[2022-10-25] MEDS: PANTOPRAZOLE 40 MG TABLET PO (08:13)
[2022-10-25] MEDS: LACTULOSE 20 GM/30 ML UDC 30 GM PO ×2 (08:13→16:07)
[2022-10-25] MEDS: rifAXIMin 550 MG TABLET PO ×2 (08:13→16:07)
[2022-10-25] MEDS: cefTRIAXone 2 GM/NS 100 ML 2 GM/100 ML BAG IVPB (11:53)
[2022-10-25 13:48] VITALS: BP 91/59; PULSE 82; RESP 16; TEMP 36.6; O2SAT 98
--- NOTE | 2022-10-25 14:20 | WPDPN ---
Progress Note: A&P Assessment and Plan (1) AMS (altered mental status): Code(s): R41.82 - Altered mental status, unspecified Status: Acute Assessment and Plan: Patient family reports acute deterioration of mental status. He is already on lactulose at baseline; ammonia level was < 9. Patient does not have any evidence of focalisation. 10/25/2022 interval history: Patient with history TORO-cirrhosis and recurrent ascites requiring paracentesis, patient had been discharged on diuretics, was doing well per family until past few days, patient is unable to provider detail ROS, his is present in the room. patient had paracentesis on 10/23 and 5L was removed, will continue lasix, patient kidney function is improving, on 10/24 addd spironolactone 12.5mg BID and monitor, his kidney function remains stable, patient ammonina levels are normal and he is taking lactulose, will follow up and further recommendation to follow (2) Acute metabolic encephalopathy: Code(s): G93.41 - Metabolic encephalopathy Status: Acute Assessment and Plan: Likely secondary to UTI. PAtient started on broad spectrum with rocephin and vancomycin; later de-escalated to rocephin only by the write. Follow up urine culture. Historical cultures availabe for review in chart. (3) ALLISON (acute kidney injury): Code(s): N17.9 - Acute kidney failure, unspecified Status: Acute Assessment and Plan: BAseline kidney function: creatinine 0.6-0.7 between 07/29 and 07/31/2022. Creatinine has fluctuated between 1.3 and 1.5 on 10/22/2022. this is likely prerenal in the setting of decreased effective blood volume and decompensated liver failure/ascites. Avoid further renal insults and nephrotoxic medications. Please renally dose medications and consult nephrology if no improvement despite supportive care. (4) Abnormal urinalysis: Code(s): R82.90 - Unspecified abnormal findings in urine Status: Acute Assessment and Plan: Urinalysis shows pyuria. Patient started on IV antibiotics based on historical cultures results. Follow up urine culture. (5) Sepsis: Qualifiers: Sepsis type: sepsis due to unspecified organism Sepsis acute organ dysfunction status: with acute organ dysfunction Severe sepsis acute organ dysfunction type: encephalopathy Code(s): A41.9 - Sepsis, unspecified organism Status: Acute Assessment and Plan: Patient meets sepsis criteria at presentation with hypotension, confusion, elevated creatinine. Elevated bilirubin is chronic and trending down when compared to 10/06/2022. Lactic level is normal at 1.9. (6) Spontaneous bacterial peritonitis: Code(s): K65.2 - Spontaneous bacterial peritonitis Status: Acute Assessment and Plan: Patient has chronic ascites. ON exam, abdomen is tense, but not painful. (7) Abdominal ascites: Code(s): R18.8 - Other ascites Status: Acute Assessment and Plan: Secondary to decompensated liver cirrhosis secondary to TORO. 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 (10) Mixed hyperlipidemia: Code(s): E78.2 - Mixed hyperlipidemia Status: Acute (11) Hyponatremia: Code(s): E87.1 - Hypo-osmolality and hyponatremia Status: Acute Assessment and Plan: Likely related to reduced effective arterial blood volume in the setting of cirrhosis. Maintain fall precautions. May consider free water restriction. Subjective Date/time seen: 10/25/22 14:20 Interval history: AMS Narrative: 72-year-old male with a history of sepsis, metabolic encephalopathy, cirrhosis, SBP, portal venous hyperte
[2022-10-25] MEDS: FUROSEMIDE 20 MG TABLET PO (16:07)
[2022-10-25 20:00] VITALS: PULSE 82; RESP 16; O2SAT 98
[2022-10-25 21:50] VITALS: BP 90/56; PULSE 99; RESP 16; TEMP 36.6; O2SAT 95
[2022-10-26 06:00] VITALS: BP 120/75; PULSE 80; RESP 18; TEMP 36.6; O2SAT 100
[2022-10-26 06:24] LABS: Hematocrit 22.7 % (42.0-52.0); Hemoglobin 7.3 g/dL (14.0-18.0); Immature Platelet Fraction Pct 6.1 % (0.9-11.2); Mean Corpuscular HGB Conc 32.2 g/dl (32-36); Mean Corpuscular Hemoglobin 36.3 pg (26-34); Mean Corpuscular Volume 112.9 fl (80-100); Mean Platelet Volume 12.3 fl (7.4-10.4); Platelet Count Result 38 k/mm3 (150-375); Red Blood Count 2.01 M/mm3 (4.6-6.20); Red Cell Distribution Width 13.4 % (11.5-14.5); White Blood Count 4.5 K/mm3 (4.5-10.0)
[2022-10-26 06:55] LABS: Alanine Aminotransferase 70 U/L (6-50); Albumin Level 2.1 g/dL (3.5-5.1); Alkaline Phosphatase 120 U/L (38-126); Anion Gap -3 mmol/L (8-16); Aspartate Amino Transferase 94 U/L (17-59); Bilirubin,Total 4.7 mg/dL (0.2-1.3); Blood Urea Nitrogen 27 mg/dL (9-20); Calcium 11.1 mg/dL (8.4-10.2); Carbon Dioxide 26 mmol/L (22-30); Chloride 100 mmol/L (98-107); Estimated CRCL calculation 50 ml/min; Estimated Glomerular Filt Rate 50; Glucose 99 mg/dL (65-110); Magnesium 1.9 mg/dL (1.6-2.3); Potassium 4.4 mmol/L (3.4-5.0); Sodium 123 mmol/L (137-145)
[2022-10-26 08:00] VITALS: PULSE 80; RESP 18; O2SAT 100
[2022-10-26] MEDS: LACTULOSE 20 GM/30 ML UDC 30 GM PO ×2 (08:50→16:39)
[2022-10-26] MEDS: PANTOPRAZOLE 40 MG TABLET PO (08:50)
[2022-10-26] MEDS: rifAXIMin 550 MG TABLET PO ×2 (08:50→16:39)
--- NOTE | 2022-10-26 09:35 | WPDPN ---
Progress Note: A&P Assessment and Plan (1) AMS (altered mental status): Code(s): R41.82 - Altered mental status, unspecified Status: Acute Assessment and Plan: Patient family reports acute deterioration of mental status. He is already on lactulose at baseline; ammonia level was < 9. Patient does not have any evidence of focalisation. 10/26/2022 interval history: Patient with history TORO-cirrhosis and recurrent ascites requiring paracentesis, patient had been discharged on diuretics, was doing well per family until past few days, patient is unable to provider detail ROS, his is present in the room. patient had paracentesis on 10/23 and 5L was removed, today will switch PO lasix to IV and increase spironolactone to 25mg BID and add albumin to help diurese, also place patient on fluid restriction 1600cc per day. will consult structural steel fitter for further recommendation, his kidney function remains stable, patient ammonia levels are normal and he is taking lactulose, will follow up and further recommendation to follow. (2) Acute metabolic encephalopathy: Code(s): G93.41 - Metabolic encephalopathy Status: Acute Assessment and Plan: Likely secondary to UTI. PAtient started on broad spectrum with rocephin and vancomycin; later de-escalated to rocephin only by the write. Follow up urine culture. Historical cultures availabe for review in chart. (3) ALLISON (acute kidney injury): Code(s): N17.9 - Acute kidney failure, unspecified Status: Acute Assessment and Plan: BAseline kidney function: creatinine 0.6-0.7 between 07/29 and 07/31/2022. Creatinine has fluctuated between 1.3 and 1.5 on 10/22/2022. this is likely prerenal in the setting of decreased effective blood volume and decompensated liver failure/ascites. Avoid further renal insults and nephrotoxic medications. Please renally dose medications and consult nephrology if no improvement despite supportive care. (4) Abnormal urinalysis: Code(s): R82.90 - Unspecified abnormal findings in urine Status: Acute Assessment and Plan: Urinalysis shows pyuria. Patient started on IV antibiotics based on historical cultures results. Follow up urine culture. (5) Sepsis: Qualifiers: Sepsis type: sepsis due to unspecified organism Sepsis acute organ dysfunction status: with acute organ dysfunction Severe sepsis acute organ dysfunction type: encephalopathy Code(s): A41.9 - Sepsis, unspecified organism Status: Acute Assessment and Plan: Patient meets sepsis criteria at presentation with hypotension, confusion, elevated creatinine. Elevated bilirubin is chronic and trending down when compared to 10/06/2022. Lactic level is normal at 1.9. (6) Spontaneous bacterial peritonitis: Code(s): K65.2 - Spontaneous bacterial peritonitis Status: Acute Assessment and Plan: Patient has chronic ascites. ON exam, abdomen is tense, but not painful. (7) Abdominal ascites: Code(s): R18.8 - Other ascites Status: Acute Assessment and Plan: Secondary to decompensated liver cirrhosis secondary to TORO. 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 (10) Mixed hyperlipidemia: Code(s): E78.2 - Mixed hyperlipidemia Status: Acute (11) Hyponatremia: Code(s): E87.1 - Hypo-osmolality and hyponatremia Status: Acute Assessment and Plan: Likely related to reduced effective arterial blood volume in the setting of cirrhosis. Maintain fall precautions. May consider free water restriction. Subjective Date/time seen: 10/26/22 09:35 Interval history: AMS Narrative: 72
--- NOTE | 2022-10-26 10:25 | PM.CNNEP ---
Assessment and Plan Assessment and plan (1) Hyponatremia: Code(s): E87.1 - Hypo-osmolality and hyponatremia Status: Acute Assessment and Plan: acute on chronic baseline sodium level runs ~ 130 - 133mmol/L since June 2022 chronic low sodium likely secondary to decreased effective circulating volume in the context of liver disease/physiology suspect acute drop in sodium due to decompensation of liver disease and need for diuretics and possible increased free water intake check urine studies, TSH, corisol, SPEP, and UPEP start free water restriction could consider salt tabs but this may worsen already known issues with fluid retention/ascites...etc agree with trial of IV albumin with oral diuretic therapy follow trend of repeat sodium levels (2) ALLISON (acute kidney injury): Code(s): N17.9 - Acute kidney failure, unspecified Status: Acute Assessment and Plan: normal baseline creatinine (back in July 2022) relative hypotension palying a role(?) suspect higher creatinine due to liver disease/physioliogy and need for chronic diuretic therapy decreased ECV leading to chronic prerenal azotemia at baseline worsened by the need for diuretic therapy to maintain his volume status suspect his renal function will always fluctuate due to his need for diuretic therapy in association with his chronic prerenal azotemia secondary to his liver disease/physiology follow trend of repeat labs and UOP (3) AMS (altered mental status): Code(s): R41.82 - Altered mental status, unspecified Status: Acute Assessment and Plan: clinically improving ammonia okay and already on lactulose due to infection? blood culture with Micrococcus (1 out of 2 bottles) urine culture with enterococcus on antibiotics (4) Cirrhosis of liver with ascites: Code(s): K74.60 - Unspecified cirrhosis of liver; R18.8 - Other ascites Status: Chronic Assessment and Plan: followed by Dr. Oakley at [facility] worsening ascites recently s/p LVP - fluid results noted continue current therapy (5) Essential (primary) hypertension: Code(s): I10 - Essential (primary) hypertension Status: Acute Assessment and Plan: BP medicationss on hold in view to relative hypotension follow trend of hemodynamics I will continue follow the patient with you while he remains hospitalized and make further recommendations as necessary. Thank you for allowing me to participate in care of this patient. History of Present Illness Reason for Consult Consult date: 10/26/22 Reason for consult: acute renal failure and hyponatremia Chief Complaint Chief complaint: Metabolic Encephalopathy History of Present Illness Narrative: The patient is a 72-year-old male with a past medical history as outlined below who presented to [facility] Emergency room for further evaluation of altered mental status. According to his family who brought him to the ER, the patient has had increasing confusion and altered mentation for the past week but seemed to acutely worsen in the past few days. He apparently has not been talking very much and simple activities of daily living which he is able to do without any issues or problems at baseline has become increasingly difficult for him to do. Along with his altered mentation, they have also noticed that his abdomen has become significantly more distended more quickly than usual at baseline. He is known to get a paracentesis at least 3 or 4 times a year for his known liver cirrhosis in association with ascites but it would seem that in the past 3 weeks his abdominal bloating/swelling has worsened/increased fairly rapidly. No reported symptoms of chest pain, shortness of breath, fever, abdominal pain, nausea, vomiting, diarrhea, or palpitations but he does report some issues with dizziness with movement. Given these constellation of symptoms, he presented to t
--- NOTE | 2022-10-26 10:25 | P.CONNP_ITS ---
Assessment and Plan Assessment and plan (1) Hyponatremia: Code(s): E87.1 - Hypo-osmolality and hyponatremia Status: Acute Assessment and Plan: * acute on chronic * baseline sodium level runs ~ 130 - 133mmol/L since June 2022 * chronic low sodium likely secondary to decreased effective circulating volume in the context of liver disease/physiology * suspect acute drop in sodium due to decompensation of liver disease and need for diuretics and possible increased free water intake * check urine studies, TSH, corisol, SPEP, and UPEP * start free water restriction * could consider salt tabs but this may worsen already known issues with fluid retention/ascites...etc * agree with trial of IV albumin with oral diuretic therapy * follow trend of repeat sodium levels (2) ALLISON (acute kidney injury): Code(s): N17.9 - Acute kidney failure, unspecified Status: Acute Assessment and Plan: * normal baseline creatinine (back in July 2022) * relative hypotension palying a role(?) * suspect higher creatinine due to liver disease/physioliogy and need for chronic diuretic therapy * decreased ECV leading to chronic prerenal azotemia at baseline worsened by the need for diuretic therapy to maintain his volume status * suspect his renal function will always fluctuate due to his need for diuretic therapy in association with his chronic prerenal azotemia secondary to his nabil er disease/physiology * follow trend of repeat labs and UOP (3) AMS (altered mental status): Code(s): R41.82 - Altered mental status, unspecified Status: Acute Assessment and Plan: * clinically improving * ammonia okay and already on lactulose * due to infection? * blood culture with Micrococcus (1 out of 2 bottles) * urine culture with enterococcus * on antibiotics (4) Cirrhosis of liver with ascites: Code(s): K74.60 - Unspecified cirrhosis of liver; R18.8 - Other ascites Status: Chronic Assessment and Plan: * followed by Dr. Oakley at [facility] * worsening ascites recently * s/p LVP - fluid results noted * continue current therapy (5) Essential (primary) hypertension: Code(s): I10 - Essential (primary) hypertension Status: Acute Assessment and Plan: * BP medicationss on hold in view to relative hypotension * follow trend of hemodynamics I will continue follow the patient with you while he remains hospitalized and make further recommendations as necessary. Thank you for allowing me to participate in care of this patient. History of Present Illness Reason for Consult Consult date: 10/26/22 Reason for consult: acute renal failure and hyponatremia Chief Complaint Chief complaint: Metabolic Encephalopathy History of Present Illness Narrative: The patient is a 72-year-old male with a past medical history as outlined below who presented to [facility] Emergency room for further evaluation of altered mental status. According to his family who brought him to the ER, the patient has had increasing confusion and altered mentation for the past week but seemed to acutely worsen in the past few days. He apparently has not been talking very much and simple activities of daily living which he is able to do without any issues or problems at baseline has become increasingly difficult for him to do. Along with his altered mentation, they have also noticed that his abdomen has become significantly more distended more quickly than usual at baseline. He is known to get a paracentesis at least 3 or 4 times a year for his kn
[2022-10-26] MEDS: SPIRONOLACTONE 25 MG TABLET PO ×2 (11:03→16:39)
[2022-10-26] MEDS: FUROSEMIDE INJ 40 MG/4 ML VIAL IV PUSH (11:03)
[2022-10-26] MEDS: cefTRIAXone 2 GM/NS 100 ML 2 GM/100 ML BAG IVPB (11:07)
[2022-10-26 12:06] LABS: Creatinine Urine 48.6 mg/dL
[2022-10-26 12:32] LABS: Creatinine Urine 49.5 mg/dL; Total Protein Urine Random 10 mg/dL; Urea Random Urine 410 MG/DL
[2022-10-26 12:39] LABS: Sodium Urine Random 39 meq/L
[2022-10-26 12:41] LABS: Eosinophil Urine None Seen % (None Seen)
[2022-10-26 13:35] LABS: Urine Eos QC 2nd Tech Confirmed
[2022-10-26 14:00] VITALS: BP 95/52; PULSE 92; RESP 16; TEMP 36.1; O2SAT 95
[2022-10-26] MEDS: ALBUMIN HUMAN 25% 25 GM/100 ML 200 ML IVPB ×2 (15:10→21:32)
[2022-10-26] MEDS: FUROSEMIDE 20 MG TABLET PO (16:00)
[2022-10-26 19:57] LABS: Sodium 125 mmol/L (137-145)
[2022-10-26 20:00] VITALS: PULSE 96; RESP 20; O2SAT 98
[2022-10-26 21:55] VITALS: BP 110/64; PULSE 96; RESP 20; TEMP 37.1; O2SAT 98
[2022-10-27] VITALS (11 sets, daily range): BP systolic 81–108; BP diastolic 36–76; PULSE 62–93; RESP 15–20; TEMP 36.4–37.3; O2SAT 95–100
[2022-10-27] MEDS: ALBUMIN HUMAN 25% 25 GM/100 ML 200 ML IVPB ×3 (05:09→20:59)
[2022-10-27 06:16] LABS: Immature Platelet Fraction Pct 7.9 % (0.9-11.2); Mean Corpuscular HGB Conc 32.8 g/dl (32-36); Mean Corpuscular Hemoglobin 36.6 pg (26-34); Mean Corpuscular Volume 111.6 fl (80-100); Mean Platelet Volume 11.5 fl (7.4-10.4); Platelet Count Result 31 k/mm3 (150-375); Red Blood Count 1.72 M/mm3 (4.6-6.20); Red Cell Distribution Width 13.4 % (11.5-14.5); White Blood Count 2.8 K/mm3 (4.5-10.0)
[2022-10-27 06:18] LABS: Hemoglobin 6.3 g/dL (14.0-18.0)
[2022-10-27 06:19] LABS: Hematocrit 19.2 % (42.0-52.0)
[2022-10-27 06:22] LABS: Alanine Aminotransferase 57 U/L (6-50); Albumin Level 2.6 g/dL (3.5-5.1); Alkaline Phosphatase 103 U/L (38-126); Anion Gap 0 mmol/L (8-16); Aspartate Amino Transferase 83 U/L (17-59); Bilirubin,Total 3.4 mg/dL (0.2-1.3); Blood Urea Nitrogen 28 mg/dL (9-20); Calcium 11.5 mg/dL (8.4-10.2); Carbon Dioxide 27 mmol/L (22-30); Chloride 100 mmol/L (98-107); Creatine Kinase 29 U/L (55-170); Estimated CRCL calculation 46 ml/min; Estimated Glomerular Filt Rate 46; Glucose 88 mg/dL (65-110); Potassium 4.2 mmol/L (3.4-5.0); Sodium 127 mmol/L (137-145)
--- NOTE | 2022-10-27 06:24 | PC.NURSE ---
Spoke with Dr. Ratliff r/t patient hgb 6.3 this morning. New orders received to transfuse 1 unit PRBC.
[2022-10-27 06:49] LABS: Cortisol Random 8.19 ug/dL
[2022-10-27] MEDS: rifAXIMin 550 MG TABLET PO ×2 (08:36→16:30)
[2022-10-27] MEDS: SPIRONOLACTONE 25 MG TABLET PO ×2 (08:36→16:30)
[2022-10-27] MEDS: FUROSEMIDE INJ 40 MG/4 ML VIAL IV PUSH (08:36)
[2022-10-27] MEDS: PANTOPRAZOLE 40 MG TABLET PO (08:36)
[2022-10-27] MEDS: LACTULOSE 20 GM/30 ML UDC 30 GM PO ×2 (08:36→16:30)
[2022-10-27] MEDS: SODIUM CHLORIDE 0.9% IV 250 ML 30 ML IV CONT (08:37)
--- NOTE | 2022-10-27 10:40 | PM.PNNEP ---
Progress Note: A&P Assessment and Plan (1) Hyponatremia: Code(s): E87.1 - Hypo-osmolality and hyponatremia Status: Acute Assessment and Plan: slow improvement noted acute on chronic baseline sodium level runs ~ 130 - 133mmol/L since June 2022 chronic low sodium likely secondary to decreased effective circulating volume in the context of liver disease/physiology suspect acute drop in sodium due to decompensation of liver disease and need for diuretics and possible increased free water intake evaluation to date: TSH okay cortisol on the lowish side - consider cosyntropin stim test urine electrolytes prerenal UPEP/SPEP pending on fluid restriction agree with trial of IV albumin with diuresis follow trend of repeat sodium levels (2) ALLISON (acute kidney injury): Code(s): N17.9 - Acute kidney failure, unspecified Status: Acute Assessment and Plan: creatinine relatively stable normal baseline creatinine (back in July 2022) relative hypotension playing a role(?) suspect higher creatinine due to liver disease/physiology and need for chronic diuretic therapy decreased ECV leading to chronic prerenal azotemia at baseline worsened by the need for diuretic therapy to maintain his volume status suspect his renal function will always fluctuate due to his need for diuretic therapy in association with his chronic prerenal azotemia secondary to his liver disease/physiology evaluation to date: numerous previous imaging without kidney pathology urine electrolytes prerenal (due to liver disease) urine eosinophils negative CPK low follow trend of repeat labs and UOP (3) AMS (altered mental status): Code(s): R41.82 - Altered mental status, unspecified Status: Acute Assessment and Plan: clinically improving ammonia okay and already on lactulose due to infection? blood culture with Micrococcus (1 out of 2 bottles) urine culture with enterococcus on antibiotics (4) Cirrhosis of liver with ascites: Code(s): K74.60 - Unspecified cirrhosis of liver; R18.8 - Other ascites Status: Chronic Assessment and Plan: followed by Dr. Oakley at [facility] worsening ascites recently s/p LVP - fluid results noted continue current therapy (5) Essential (primary) hypertension: Code(s): I10 - Essential (primary) hypertension Status: Acute Assessment and Plan: BP medicationss on hold in view to relative hypotension follow trend of hemodynamics Will continue to follow. Subjective Date/time seen: 10/27/22 10:40 Interval history: Follow-up for acute kidney injury and hyponatremia. Renal function remains relatively stable but his H/H has dropped; getting PRBC transfusion; mentation seems better if not imporved at this time; no other acute events or issues reported. Exam Narrative: General: Caucasia male laying in bed in NAD Heart: normal S1 and S2; no rub Lungs: clear to auscultation Abdomen: soft, nontender, + distension, positive bowel sounds Extremities: no cyanosis or clubbing; no edema Skin: warm and dry Objective Data Vital Signs Vital Signs: Vital Signs Temp Pulse Resp BP Pulse Ox O2 Del Method 10/27/22 10:11 97.8 F 64 15 98/76 L 98 10/27/22 10:13 97.5 F L 62 16 99/56 L 100 10/27/22 09:11 97.7 F 62 16 99/62 L 100 10/27/22 08:00 92 16 99 Room Air 10/27/22 08:56 99.0 F 92 16 99/59 L 99 10/27/22 07:56 99 F 92 16 81/36 L 99 10/27/22 05:48 97.9 F 82 17 100/53 L 95 10/26/22 20:00 96 20 98 Room Air 10/26/22 21:55 98.7 F 96 20 110/64 98 10/26/22 14:00 97.0 F L 92 16 95/52 L 95 Intake/Output Intake/Output: Intake & Output 10/24/22 10/25/22 10/26/22 10/27/22 23:59 23:59 23:59 23:59 Intake Total 2068 1558 2148 400 Output Total 950 1200 875 300 Balance 4341 863 3789 100 Meds/Results Medications: Active Medications
--- NOTE | 2022-10-27 10:40 | P.PNNP_ITS ---
Progress Note: A&P Assessment and Plan (1) Hyponatremia: Code(s): E87.1 - Hypo-osmolality and hyponatremia Status: Acute Assessment and Plan: * slow improvement noted * acute on chronic * baseline sodium level runs ~ 130 - 133mmol/L since June 2022 * chronic low sodium likely secondary to decreased effective circulating volume in the context of liver disease/physiology * suspect acute drop in sodium due to decompensation of liver disease and need for diuretics and possible increased free water intake * evaluation to date: * TSH okay * cortisol on the lowish side - consider cosyntropin stim test * urine electrolytes prerenal * UPEP/SPEP pending * on fluid restriction * agree with trial of IV albumin with diuresis * follow trend of repeat sodium levels (2) ALLISON (acute kidney injury): Code(s): N17.9 - Acute kidney failure, unspecified Status: Acute Assessment and Plan: * creatinine relatively stable * normal baseline creatinine (back in July 2022) * relative hypotension playing a role(?) * suspect higher creatinine due to liver disease/physiology and need for chronic diuretic therapy * decreased ECV leading to chronic prerenal azotemia at baseline worsened by the need for diuretic therapy to maintain his volume status * suspect his renal function will always fluctuate due to his need for diuretic therapy in association with his chronic prerenal azotemia secondary to his liver disease/physiology * evaluation to date: * numerous previous imaging without kidney pathology * urine electrolytes prerenal (due to liver disease) * urine eosinophils negative * CPK low * follow trend of repeat labs and UOP (3) AMS (altered mental status): Code(s): R41.82 - Altered mental status, unspecified Status: Acute Assessment and Plan: * clinically improving * ammonia okay and already on lactulose * due to infection? * blood culture with Micrococcus (1 out of 2 bottles) * urine culture with enterococcus * on antibiotics (4) Cirrhosis of liver with ascites: Code(s): K74.60 - Unspecified cirrhosis of liver; R18.8 - Other ascites Status: Chronic Assessment and Plan: * followed by Dr. Oakley at [facility] * worsening ascites recently * s/p LVP - fluid results noted * continue current therapy (5) Essential (primary) hypertension: Code(s): I10 - Essential (primary) hypertension Status: Acute Assessment and Plan: * BP medicationss on hold in view to relative hypotension * follow trend of hemodynamics Will continue to follow. Subjective Date/time seen: 10/27/22 10:40 Interval history: Follow-up for acute kidney injury and hyponatremia. Renal function remains relatively stable but his H/H has dropped; getting PRBC transfusion; mentation seems better if not imporved at this time; no other acute events or issues reported. Exam Narrative: General: Caucasia male laying in bed in NAD Heart: normal S1 and S2; no rub Lungs: clear to auscultation Abdomen: soft, nontender, + distension, positive bowel sounds Extremities: no cyanosis or clubbing; no edema Skin: warm and dry Objective Data Vital Signs Vital Signs: Vital Signs Temp Pulse Resp BP Pulse Ox O2 Del Method 10/27/22 10:11 97.8 F 64 15 98/76 L 98 10/27/22 10:13 97.5 F L 62 16 99/56 L 100
[2022-10-27] MEDS: cefTRIAXone 2 GM/NS 100 ML 2 GM/100 ML BAG IVPB (12:38)
--- NOTE | 2022-10-27 13:03 | WPDPN ---
Progress Note: A&P Assessment and Plan (1) AMS (altered mental status): Code(s): R41.82 - Altered mental status, unspecified Status: Acute Assessment and Plan: Patient family reports acute deterioration of mental status. He is already on lactulose at baseline; ammonia level was < 9. Patient does not have any evidence of focalisation. 10/27/2022 interval history: Patient with history TORO-cirrhosis and recurrent ascites requiring paracentesis, patient had been discharged on diuretics, was doing well per family until past few days, patient is unable to provider detail ROS, his is present in the room. patient had paracentesis on 10/23 and 5L was removed, today will switch PO lasix to IV and increase spironolactone to 25mg BID and added albumin to help diurese, also place patient on fluid restriction 1600cc per day. and consult medical record administrator for further recommendation, today his kidney function remains stable, today his hgh is 6.3 there is no c/o any bleeding, will give 1 unit PRBC, patient ammonia levels are normal and he is taking lactulose, will follow up and further recommendation to follow (2) Acute metabolic encephalopathy: Code(s): G93.41 - Metabolic encephalopathy Status: Acute Assessment and Plan: Likely secondary to UTI. PAtient started on broad spectrum with rocephin and vancomycin; later de-escalated to rocephin only by the write. Follow up urine culture. Historical cultures availabe for review in chart. (3) ALLISON (acute kidney injury): Code(s): N17.9 - Acute kidney failure, unspecified Status: Acute Assessment and Plan: BAseline kidney function: creatinine 0.6-0.7 between 07/29 and 07/31/2022. Creatinine has fluctuated between 1.3 and 1.5 on 10/22/2022. this is likely prerenal in the setting of decreased effective blood volume and decompensated liver failure/ascites. Avoid further renal insults and nephrotoxic medications. Please renally dose medications and consult nephrology if no improvement despite supportive care. (4) Abnormal urinalysis: Code(s): R82.90 - Unspecified abnormal findings in urine Status: Acute Assessment and Plan: Urinalysis shows pyuria. Patient started on IV antibiotics based on historical cultures results. Follow up urine culture. (5) Sepsis: Qualifiers: Sepsis type: sepsis due to unspecified organism Sepsis acute organ dysfunction status: with acute organ dysfunction Severe sepsis acute organ dysfunction type: encephalopathy Code(s): A41.9 - Sepsis, unspecified organism Status: Acute Assessment and Plan: Patient meets sepsis criteria at presentation with hypotension, confusion, elevated creatinine. Elevated bilirubin is chronic and trending down when compared to 10/06/2022. Lactic level is normal at 1.9. (6) Spontaneous bacterial peritonitis: Code(s): K65.2 - Spontaneous bacterial peritonitis Status: Acute Assessment and Plan: Patient has chronic ascites. ON exam, abdomen is tense, but not painful. (7) Abdominal ascites: Code(s): R18.8 - Other ascites Status: Acute Assessment and Plan: Secondary to decompensated liver cirrhosis secondary to TORO. 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 (10) Mixed hyperlipidemia: Code(s): E78.2 - Mixed hyperlipidemia Status: Acute (11) Hyponatremia: Code(s): E87.1 - Hypo-osmolality and hyponatremia Status: Acute Assessment and Plan: Likely related to reduced effective arterial blood volume in the setting of cirrhosis. Maintain fall precautions. May consider free water restriction. Subjec
--- NOTE | 2022-10-27 13:47 | PCPTNOTE ---
On 10/27/22, the student, DEB Vera, provided care and completed [facility] documentation on this patient. I have reviewed the student's documentation and agree with the findings.
[2022-10-27] MEDS: FUROSEMIDE 20 MG TABLET PO (16:30)
[2022-10-27] MEDS: BETAMETHASONE/CLOTRIMAZOLE CR 15 GM TUBE 1 APPLIC TOPICAL ×2 (16:30→20:55)
[2022-10-28] VITALS (11 sets, daily range): BP systolic 84–105; BP diastolic 40–64; PULSE 76–92; RESP 16; TEMP 36.6–38.3; O2SAT 97–100
[2022-10-28] MEDS: ALBUMIN HUMAN 25% 25 GM/100 ML 200 ML IVPB ×3 (05:13→23:28)
[2022-10-28 06:40] LABS: Immature Platelet Fraction Pct 8.2 % (0.9-11.2); Mean Corpuscular HGB Conc 32.8 g/dl (32-36); Mean Corpuscular Hemoglobin 36.6 pg (26-34); Mean Corpuscular Volume 111.6 fl (80-100); Mean Platelet Volume 13.2 fl (7.4-10.4); Platelet Count Result 27 k/mm3 (150-375); Red Blood Count 1.72 M/mm3 (4.6-6.20); Red Cell Distribution Width 17.2 % (11.5-14.5); White Blood Count 2.3 K/mm3 (4.5-10.0)
[2022-10-28 07:03] LABS: Alanine Aminotransferase 46 U/L (6-50); Alkaline Phosphatase 84 U/L (38-126); Anion Gap 2 mmol/L (8-16); Aspartate Amino Transferase 67 U/L (17-59); Bilirubin,Total 5.3 mg/dL (0.2-1.3); Blood Urea Nitrogen 25 mg/dL (9-20); Calcium 12.2 mg/dL (8.4-10.2); Carbon Dioxide 27 mmol/L (22-30); Chloride 105 mmol/L (98-107); Estimated CRCL calculation 50 ml/min; Estimated Glomerular Filt Rate 50; Glucose 71 mg/dL (65-110); Magnesium 2.1 mg/dL (1.6-2.3); Potassium 4.4 mmol/L (3.4-5.0); Sodium 134 mmol/L (137-145)
[2022-10-28 07:19] LABS: Hemoglobin 6.3 g/dL (14.0-18.0)
[2022-10-28 07:20] LABS: Hematocrit 19.2 % (42.0-52.0)
[2022-10-28 08:42] LABS: Iron 116 ug/dL (49-181)
[2022-10-28 08:51] LABS: Percent Iron Saturation 70 % (20-50)
[2022-10-28] MEDS: FUROSEMIDE INJ 40 MG/4 ML VIAL IV PUSH (09:32)
[2022-10-28] MEDS: BETAMETHASONE/CLOTRIMAZOLE CR 15 GM TUBE 1 APPLIC TOPICAL ×2 (09:32→20:42)
[2022-10-28] MEDS: LACTULOSE 20 GM/30 ML UDC 30 GM PO ×2 (09:33→16:57)
[2022-10-28] MEDS: SODIUM CHLORIDE 0.9% IV 250 ML 30 ML IV CONT (09:42)
--- NOTE | 2022-10-28 09:59 | PCOTNOTE ---
The patient treatment was not able to be completed at 9:55 AM due to Patient getting blood. Will plan to continue treatment per plan of care.
[2022-10-28 10:01] LABS: Folic Acid 10.7 ng/mL (2.76->20); Vitamin B12 > 1000.0 pg/mL (239-931)
--- NOTE | 2022-10-28 10:17 | PC.NURSE ---
1003: unit of blood is transfusing. Rakesh RN, Nadiya, got pt's 15 minute vital signs showing a temperature of 101 degrees. pt's temperature when starting was 99.3 degrees. Rakesh RN notified pt's nurse, Tracy. Per policy, blood transfusions should be stopped for a rise in temperature by 2 degrees. Tracy notified hospitalist, Ani, who stated to give Tylenol and monitor.
--- NOTE | 2022-10-28 10:25 | P.PNNP_ITS ---
Progress Note: A&P Assessment and Plan (1) Hyponatremia: Code(s): E87.1 - Hypo-osmolality and hyponatremia Status: Acute Assessment and Plan: * slow improvement noted * acute on chronic * baseline sodium level runs ~ 130 - 133mmol/L since June 2022 * chronic low sodium likely secondary to decreased effective circulating volume in the context of liver disease/physiology * suspect acute drop in sodium due to decompensation of liver disease and need for diuretics and possible increased free water intake * evaluation to date: * TSH okay * cortisol on the lowish side - consider cosyntropin stim test * urine electrolytes prerenal * UPEP/SPEP pending * on fluid restriction * agree with trial of IV albumin with diuresis * follow trend of repeat sodium levels (2) ALLISON (acute kidney injury): Code(s): N17.9 - Acute kidney failure, unspecified Status: Acute Assessment and Plan: * slow improvement noted * normal baseline creatinine (back in July 2022) * relative hypotension playing a role(?) * suspect higher creatinine due to liver disease/physiology and need for chronic diuretic therapy * decreased ECV leading to chronic prerenal azotemia at baseline worsened by the need for diuretic therapy to maintain his volume status * suspect his renal function will always fluctuate due to his need for diuretic therapy in association with his chronic prerenal azotemia secondary to his liver disease/physiology * evaluation to date: * numerous previous imaging without kidney pathology * urine electrolytes prerenal (due to liver disease) * urine eosinophils negative * CPK low * follow trend of repeat labs and UOP (3) Anemia: Qualifiers: Anemia type: unspecified type Qualified Code(s): D64.9 - Anemia, unspecified Code(s): D64.9 - Anemia, unspecified Status: Acute Assessment and Plan: * low H/H for the last 48 hours * s/p PRBC transfusion * guaiac stool * given liver disease, consider GI consultation * follow trend of H/H (4) AMS (altered mental status): Code(s): R41.82 - Altered mental status, unspecified Status: Acute Assessment and Plan: * clinically improving * ammonia okay and already on lactulose * due to infection? * blood culture with Micrococcus (1 out of 2 bottles) * urine culture with enterococcus * on antibiotics (5) Cirrhosis of liver with ascites: Code(s): K74.60 - Unspecified cirrhosis of liver; R18.8 - Other ascites Status: Chronic Assessment and Plan: * followed by Dr. Oakley at [facility] * worsening ascites recently * s/p LVP - fluid results noted * continue current therapy (6) Essential (primary) hypertension: Code(s): I10 - Essential (primary) hypertension Status: Acute Assessment and Plan: * BP medicationss on hold in view to relative hypotension * follow trend of hemodynamics Will continue to follow. Subjective Date/time seen: 10/28/22 10:25 Interval history: Follow-up for acute kidney injury and hyponatremia. Slow improvement in renal function as well as sodium level by AM labs; H/H still low despite PRBC transfusion yesterday; another PRBC transfusion to be done; no other apparent distress or any other acute complaints to report. Exam Narrative: General: Cauc[place] male laying in bed in NAD Heart: normal S1 and S2; no rub Lungs: clear to auscultation Abdomen: soft, nontender, + distension, positi
--- NOTE | 2022-10-28 10:25 | PM.PNNEP ---
Progress Note: A&P Assessment and Plan (1) Hyponatremia: Code(s): E87.1 - Hypo-osmolality and hyponatremia Status: Acute Assessment and Plan: slow improvement noted acute on chronic baseline sodium level runs ~ 130 - 133mmol/L since June 2022 chronic low sodium likely secondary to decreased effective circulating volume in the context of liver disease/physiology suspect acute drop in sodium due to decompensation of liver disease and need for diuretics and possible increased free water intake evaluation to date: TSH okay cortisol on the lowish side - consider cosyntropin stim test urine electrolytes prerenal UPEP/SPEP pending on fluid restriction agree with trial of IV albumin with diuresis follow trend of repeat sodium levels (2) ALLISON (acute kidney injury): Code(s): N17.9 - Acute kidney failure, unspecified Status: Acute Assessment and Plan: slow improvement noted normal baseline creatinine (back in July 2022) relative hypotension playing a role(?) suspect higher creatinine due to liver disease/physiology and need for chronic diuretic therapy decreased ECV leading to chronic prerenal azotemia at baseline worsened by the need for diuretic therapy to maintain his volume status suspect his renal function will always fluctuate due to his need for diuretic therapy in association with his chronic prerenal azotemia secondary to his liver disease/physiology evaluation to date: numerous previous imaging without kidney pathology urine electrolytes prerenal (due to liver disease) urine eosinophils negative CPK low follow trend of repeat labs and UOP (3) Anemia: Qualifiers: Anemia type: unspecified type Qualified Code(s): D64.9 - Anemia, unspecified Code(s): D64.9 - Anemia, unspecified Status: Acute Assessment and Plan: low H/H for the last 48 hours s/p PRBC transfusion guaiac stool given liver disease, consider GI consultation follow trend of H/H (4) AMS (altered mental status): Code(s): R41.82 - Altered mental status, unspecified Status: Acute Assessment and Plan: clinically improving ammonia okay and already on lactulose due to infection? blood culture with Micrococcus (1 out of 2 bottles) urine culture with enterococcus on antibiotics (5) Cirrhosis of liver with ascites: Code(s): K74.60 - Unspecified cirrhosis of liver; R18.8 - Other ascites Status: Chronic Assessment and Plan: followed by Dr. Oakley at [facility] worsening ascites recently s/p LVP - fluid results noted continue current therapy (6) Essential (primary) hypertension: Code(s): I10 - Essential (primary) hypertension Status: Acute Assessment and Plan: BP medicationss on hold in view to relative hypotension follow trend of hemodynamics Will continue to follow. Subjective Date/time seen: 10/28/22 10:25 Interval history: Follow-up for acute kidney injury and hyponatremia. Slow improvement in renal function as well as sodium level by AM labs; H/H still low despite PRBC transfusion yesterday; another PRBC transfusion to be done; no other apparent distress or any other acute complaints to report. Exam Narrative: General: Cauc[place] male laying in bed in NAD Heart: normal S1 and S2; no rub Lungs: clear to auscultation Abdomen: soft, nontender, + distension, positive bowel sounds Extremities: no cyanosis or clubbing; no edema Skin: warm and intact Objective Data Vital Signs Vital Signs: Vital Signs Temp Pulse Resp BP Pulse Ox O2 Del Method 10/28/22 08:00 Room Air 10/28/22 10:18 101 F H 10/28/22 10:03 101 F H 84 16 92/64 L 98 10/28/22 09:45 99.3 F 92 16 100/57 L 97 10/28/22 05:43 97.9 F 90 16 98/58 L 99 10/27/22 20:00 Room Air 10/27/22 21:10 99.1 F 93 18 108/62 97 10/27/22 14:00 99.2 F 80 20 97/48 L 97
[2022-10-28] MEDS: PANTOPRAZOLE 40 MG TABLET PO (10:37)
[2022-10-28] MEDS: rifAXIMin 550 MG TABLET PO ×2 (10:37→16:57)
[2022-10-28] MEDS: SPIRONOLACTONE 25 MG TABLET PO ×2 (10:37→16:57)
[2022-10-28] MEDS: CIPROFLOXACIN 500 MG TAB PO (10:37)
[2022-10-28] MEDS: ACETAMINOPHEN 325 MG TABLET 650 MG PO (10:38)
[2022-10-28 11:40] LABS: Amylase Peritoneal Fluid 10 U/L
--- NOTE | 2022-10-28 12:25 | WPDPN ---
Progress Note: A&P Assessment and Plan (1) AMS (altered mental status): Code(s): R41.82 - Altered mental status, unspecified Status: Acute Assessment and Plan: Patient family reports acute deterioration of mental status. He is already on lactulose at baseline; ammonia level was < 9. Patient does not have any evidence of focalisation. 10/28/2022 interval history: Patient with history TORO-cirrhosis and recurrent ascites requiring paracentesis, patient had been discharged on diuretics, was doing well per family until past few days, patient is unable to provider detail ROS, his is present in the room. patient had paracentesis on 10/23 and 5L was removed, today will switch PO lasix to IV and increase spironolactone to 25mg BID and added albumin to help diurese, also place patient on fluid restriction 1600cc per day. and consulted sales representative printing for further recommendation, his kidney function remains stable, on 10/27 his hgb was 6.3 there was no c/o any bleeding, gave 1 unit PRBC, again today patien has dropped in hgb to 6.3 and there are no sympotms , will give 1 units of PRBC, will do stool hemmocult, will order NM-med RBC scan to check for any bleeding, patient is present and gave updates, patient ammonia levels are normal and he is taking lactulose, will follow up and further recommendation to follow (2) Acute metabolic encephalopathy: Code(s): G93.41 - Metabolic encephalopathy Status: Acute Assessment and Plan: Likely secondary to UTI. PAtient started on broad spectrum with rocephin and vancomycin; later de-escalated to rocephin only by the write. Follow up urine culture. Historical cultures availabe for review in chart. (3) ALLISON (acute kidney injury): Code(s): N17.9 - Acute kidney failure, unspecified Status: Acute Assessment and Plan: BAseline kidney function: creatinine 0.6-0.7 between 07/29 and 07/31/2022. Creatinine has fluctuated between 1.3 and 1.5 on 10/22/2022. this is likely prerenal in the setting of decreased effective blood volume and decompensated liver failure/ascites. Avoid further renal insults and nephrotoxic medications. Please renally dose medications and consult nephrology if no improvement despite supportive care. (4) Abnormal urinalysis: Code(s): R82.90 - Unspecified abnormal findings in urine Status: Acute Assessment and Plan: Urinalysis shows pyuria. Patient started on IV antibiotics based on historical cultures results. Follow up urine culture. (5) Sepsis: Qualifiers: Sepsis type: sepsis due to unspecified organism Sepsis acute organ dysfunction status: with acute organ dysfunction Severe sepsis acute organ dysfunction type: encephalopathy Code(s): A41.9 - Sepsis, unspecified organism Status: Acute Assessment and Plan: Patient meets sepsis criteria at presentation with hypotension, confusion, elevated creatinine. Elevated bilirubin is chronic and trending down when compared to 10/06/2022. Lactic level is normal at 1.9. (6) Spontaneous bacterial peritonitis: Code(s): K65.2 - Spontaneous bacterial peritonitis Status: Acute Assessment and Plan: Patient has chronic ascites. ON exam, abdomen is tense, but not painful. (7) Abdominal ascites: Code(s): R18.8 - Other ascites Status: Acute Assessment and Plan: Secondary to decompensated liver cirrhosis secondary to TORO. 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 (10) Mixed hyperlipidemia: Code(s): E78.2 - Mixed hyperlipidemia Status: Acute (11) Hyponatremia: Code(s): E87.1 - Hypo-osmolality and hyponat
[2022-10-28] MEDS: cefTRIAXone 2 GM/NS 100 ML 2 GM/100 ML BAG IVPB (15:30)
[2022-10-28 16:52] LABS: Hematocrit 22.4 % (42.0-52.0); Hemoglobin 7.4 g/dL (14.0-18.0)
[2022-10-28] MEDS: FUROSEMIDE 20 MG TABLET PO (16:57)
[2022-10-29 05:33] VITALS: BP 107/63; PULSE 87; RESP 14; TEMP 36.2; O2SAT 100
[2022-10-29 05:39] LABS: Glucose Peritoneal Fluid 101 mg/dL; LDH Peritoneal Fluid 27 U/L (<63)
[2022-10-29] MEDS: ALBUMIN HUMAN 25% 25 GM/100 ML 200 ML IVPB ×3 (06:30→22:45)
[2022-10-29 06:40] LABS: Alanine Aminotransferase 39 U/L (6-50); Albumin Level 3.3 g/dL (3.5-5.1); Alkaline Phosphatase 66 U/L (38-126); Anion Gap 5 mmol/L (8-16); Aspartate Amino Transferase 64 U/L (17-59); Blood Urea Nitrogen 28 mg/dL (9-20); Calcium 12.4 mg/dL (8.4-10.2); Carbon Dioxide 27 mmol/L (22-30); Chloride 106 mmol/L (98-107); Estimated CRCL calculation 53 ml/min; Estimated Glomerular Filt Rate 54; Glucose 74 mg/dL (65-110); Potassium 4.6 mmol/L (3.4-5.0); Sodium 138 mmol/L (137-145)
[2022-10-29 06:44] LABS: Immature Platelet Fraction Pct 10.7 % (0.9-11.2); Mean Corpuscular HGB Conc 31.9 g/dl (32-36); Mean Corpuscular Hemoglobin 34.9 pg (26-34); Mean Corpuscular Volume 109.4 fl (80-100); Mean Platelet Volume 11.8 fl (7.4-10.4); Platelet Count Result 26 k/mm3 (150-375); Red Blood Count 1.92 M/mm3 (4.6-6.20); Red Cell Distribution Width 19.3 % (11.5-14.5); White Blood Count 2.2 K/mm3 (4.5-10.0)
[2022-10-29 07:12] LABS: Hemoglobin 6.7 g/dL (14.0-18.0)
[2022-10-29] MEDS: SPIRONOLACTONE 50 MG TABLET PO ×2 (08:44→16:29)
[2022-10-29] MEDS: BETAMETHASONE/CLOTRIMAZOLE CR 15 GM TUBE 1 APPLIC TOPICAL ×2 (08:44→21:24)
[2022-10-29] MEDS: PANTOPRAZOLE 40 MG TABLET PO (08:44)
[2022-10-29] MEDS: LACTULOSE 20 GM/30 ML UDC 30 GM PO ×2 (08:44→16:29)
[2022-10-29] MEDS: rifAXIMin 550 MG TABLET PO ×2 (08:44→16:29)
[2022-10-29] MEDS: FUROSEMIDE INJ 40 MG/4 ML VIAL IV PUSH (08:45)
--- NOTE | 2022-10-29 10:54 | PCPTNOTE ---
On 10/29/22, the student, DEB Car, provided care and completed [facility] documentation on this patient. I have reviewed the student's documentation and agree with the findings.
--- NOTE | 2022-10-29 12:07 | WPDPN ---
Progress Note: A&P Assessment and Plan (1) AMS (altered mental status): Code(s): R41.82 - Altered mental status, unspecified Status: Acute Assessment and Plan: Patient family reports acute deterioration of mental status. He is already on lactulose at baseline; ammonia level was < 9. Patient does not have any evidence of focalisation. 10/29/2022 interval history: Patient with history TORO-cirrhosis and recurrent ascites requiring paracentesis, patient had been discharged on diuretics, was doing well per family until past few days, patient is unable to provider detail ROS, his is present in the room. patient had paracentesis on 10/23 and 5L was removed, on 10/26 switched PO lasix to IV and today increased spironolactone to 50 mg BID and added albumin to help diurese, also place patient on fluid restriction 1600cc per day. and consulted aerospace manager for further recommendation, his kidney function remains stable, on 10/27 his hgb was 6.3 there was no c/o any bleeding, gave 1 unit PRBC, again on 10/28 patient had dropped in hgb to 6.3 and there are no sympotms, gave 1 units of PRBC, NM-RBC scan did not show any source of bleeding stool hemmocult is pending, again today patient hgb is low 6.7 and no obvous source of bleding, will consult GI for further recommendation, patient ammonia levels are normal and he is taking lactulose, will follow up and further recommendation to follow (2) Acute metabolic encephalopathy: Code(s): G93.41 - Metabolic encephalopathy Status: Acute Assessment and Plan: Likely secondary to UTI. PAtient started on broad spectrum with rocephin and vancomycin; later de-escalated to rocephin only by the write. Follow up urine culture. Historical cultures availabe for review in chart. (3) ALLISON (acute kidney injury): Code(s): N17.9 - Acute kidney failure, unspecified Status: Acute Assessment and Plan: BAseline kidney function: creatinine 0.6-0.7 between 07/29 and 07/31/2022. Creatinine has fluctuated between 1.3 and 1.5 on 10/22/2022. this is likely prerenal in the setting of decreased effective blood volume and decompensated liver failure/ascites. Avoid further renal insults and nephrotoxic medications. Please renally dose medications and consult nephrology if no improvement despite supportive care. (4) Abnormal urinalysis: Code(s): R82.90 - Unspecified abnormal findings in urine Status: Acute Assessment and Plan: Urinalysis shows pyuria. Patient started on IV antibiotics based on historical cultures results. Follow up urine culture. (5) Sepsis: Qualifiers: Sepsis type: sepsis due to unspecified organism Sepsis acute organ dysfunction status: with acute organ dysfunction Severe sepsis acute organ dysfunction type: encephalopathy Code(s): A41.9 - Sepsis, unspecified organism Status: Acute Assessment and Plan: Patient meets sepsis criteria at presentation with hypotension, confusion, elevated creatinine. Elevated bilirubin is chronic and trending down when compared to 10/06/2022. Lactic level is normal at 1.9. (6) Spontaneous bacterial peritonitis: Code(s): K65.2 - Spontaneous bacterial peritonitis Status: Acute Assessment and Plan: Patient has chronic ascites. ON exam, abdomen is tense, but not painful. (7) Abdominal ascites: Code(s): R18.8 - Other ascites Status: Acute Assessment and Plan: Secondary to decompensated liver cirrhosis secondary to TORO. 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 (10) Mixed hyperlipidemia: Code(s): E78.2 - Mixed hyperlipidemia Status: Ac
--- NOTE | 2022-10-29 13:01 | PCNWS ---
Weekly nutritional screen. Patient is tolerating current diet with adequate intake. 90,100, 50, 100, 0% intakes last 48 hours. Pt said he did eat breakfast though it was recorded as 0%. No weight loss reported. No nutritional needs at this time.
[2022-10-29 14:00] VITALS: BP 105/61; PULSE 92; RESP 16; TEMP 36.8; O2SAT 99
--- NOTE | 2022-10-29 14:04 | PM.PNNEP ---
Progress Note: A&P Assessment and Plan (1) Hyponatremia: Code(s): E87.1 - Hypo-osmolality and hyponatremia Status: Acute Assessment and Plan: resolving/resolved acute on chronic baseline sodium level runs ~ 130 - 133mmol/L since June 2022 chronic low sodium likely secondary to decreased effective circulating volume in the context of liver disease/physiology suspect acute drop in sodium due to decompensation of liver disease and need for diuretics and possible increased free water intake evaluation to date: TSH okay cortisol on the lowish side - consider cosyntropin stim test urine electrolytes prerenal UPEP/SPEP pending on fluid restriction agree with trial of IV albumin with diuresis follow trend of repeat sodium levels (2) ALLISON (acute kidney injury): Code(s): N17.9 - Acute kidney failure, unspecified Status: Acute Assessment and Plan: slow improvement noted normal baseline creatinine (back in July 2022) relative hypotension playing a role(?) suspect higher creatinine due to liver disease/physiology and need for chronic diuretic therapy decreased ECV leading to chronic prerenal azotemia at baseline worsened by the need for diuretic therapy to maintain his volume status suspect his renal function will always fluctuate due to his need for diuretic therapy in association with his chronic prerenal azotemia secondary to his liver disease/physiology evaluation to date: numerous previous imaging without kidney pathology urine electrolytes prerenal (due to liver disease) urine eosinophils negative CPK low follow trend of repeat labs and UOP (3) Anemia: Qualifiers: Anemia type: unspecified type Qualified Code(s): D64.9 - Anemia, unspecified Code(s): D64.9 - Anemia, unspecified Status: Acute Assessment and Plan: low H/H for the last 48 hours s/p PRBC transfusion guaiac stool given liver disease, GI consulted follow trend of H/H (4) AMS (altered mental status): Code(s): R41.82 - Altered mental status, unspecified Status: Acute Assessment and Plan: clinically improving ammonia okay and already on lactulose due to infection? blood culture with Micrococcus (1 out of 2 bottles) urine culture with enterococcus on antibiotics (5) Cirrhosis of liver with ascites: Code(s): K74.60 - Unspecified cirrhosis of liver; R18.8 - Other ascites Status: Chronic Assessment and Plan: followed by Dr. Oakley at [facility] worsening ascites recently s/p LVP - fluid results noted continue current therapy (6) Essential (primary) hypertension: Code(s): I10 - Essential (primary) hypertension Status: Acute Assessment and Plan: BP medicationss on hold in view to relative hypotension follow trend of hemodynamics Will continue to follow. Subjective Date/time seen: 10/29/22 14:04 Interval history: Follow-up for acute kidney injury and hyponatremia. Renal function and sodium levels continue to improve but he continues to have low H/H despite PRBC transfusions; tagged RBC scan without evidence of GI blood loss; Gastroenterology consulted for further recommendations. Exam Narrative: General: male laying in bed in NAD Heart: normal S1 and S2; no rub Lungs: clear to auscultation Abdomen: soft, nontender, + distension, positive bowel sounds Extremities: no cyanosis or clubbing; no edema Skin: no rashes or nodules Objective Data Vital Signs Vital Signs: Vital Signs Temp Pulse Resp BP Pulse Ox O2 Del Method 10/29/22 14:00 98.2 F 92 16 105/61 99 10/29/22 08:00 Room Air 10/29/22 05:33 97.2 F L 87 14 107/63 100 10/28/22 20:00 Room Air 10/28/22 21:44 99.9 F H 88 16 96/55 L 98 10/28/22 15:35 99.3 F 76 16 105/62 100 Intake/Output Intake/Output: Intake & Output 10/26/22 10/27/22 10/28/22 10/29/22
--- NOTE | 2022-10-29 14:04 | P.PNNP_ITS ---
Progress Note: A&P Assessment and Plan (1) Hyponatremia: Code(s): E87.1 - Hypo-osmolality and hyponatremia Status: Acute Assessment and Plan: * resolving/resolved * acute on chronic * baseline sodium level runs ~ 130 - 133mmol/L since June 2022 * chronic low sodium likely secondary to decreased effective circulating volume in the context of liver disease/physiology * suspect acute drop in sodium due to decompensation of liver disease and need for diuretics and possible increased free water intake * evaluation to date: * TSH okay * cortisol on the lowish side - consider cosyntropin stim test * urine electrolytes prerenal * UPEP/SPEP pending * on fluid restriction * agree with trial of IV albumin with diuresis * follow trend of repeat sodium levels (2) ALLISON (acute kidney injury): Code(s): N17.9 - Acute kidney failure, unspecified Status: Acute Assessment and Plan: * slow improvement noted * normal baseline creatinine (back in July 2022) * relative hypotension playing a role(?) * suspect higher creatinine due to liver disease/physiology and need for chronic diuretic therapy * decreased ECV leading to chronic prerenal azotemia at baseline worsened by the need for diuretic therapy to maintain his volume status * suspect his renal function will always fluctuate due to his need for diuretic therapy in association with his chronic prerenal azotemia secondary to his liver disease/physiology * evaluation to date: * numerous previous imaging without kidney pathology * urine electrolytes prerenal (due to liver disease) * urine eosinophils negative * CPK low * follow trend of repeat labs and UOP (3) Anemia: Qualifiers: Anemia type: unspecified type Qualified Code(s): D64.9 - Anemia, unspecified Code(s): D64.9 - Anemia, unspecified Status: Acute Assessment and Plan: * low H/H for the last 48 hours * s/p PRBC transfusion * guaiac stool * given liver disease, GI consulted * follow trend of H/H (4) AMS (altered mental status): Code(s): R41.82 - Altered mental status, unspecified Status: Acute Assessment and Plan: * clinically improving * ammonia okay and already on lactulose * due to infection? * blood culture with Micrococcus (1 out of 2 bottles) * urine culture with enterococcus * on antibiotics (5) Cirrhosis of liver with ascites: Code(s): K74.60 - Unspecified cirrhosis of liver; R18.8 - Other ascites Status: Chronic Assessment and Plan: * followed by Dr. Oakley at [facility] * worsening ascites recently * s/p LVP - fluid results noted * continue current therapy (6) Essential (primary) hypertension: Code(s): I10 - Essential (primary) hypertension Status: Acute Assessment and Plan: * BP medicationss on hold in view to relative hypotension * follow trend of hemodynamics Will continue to follow. Subjective Date/time seen: 10/29/22 14:04 Interval history: Follow-up for acute kidney injury and hyponatremia. Renal function and sodium levels continue to improve but he continues to have low H/H despite PRBC transfusions; tagged RBC scan without evidence of GI blood loss; Gastroenterology consulted for further recommendations. Exam Narrative: General: male laying in bed in NAD Heart: normal S1 and S2; no rub Lungs: clear to auscultation Abdomen: soft, nontender, + distension, positive bowel sounds Extre
--- NOTE | 2022-10-29 15:09 | WPDGICN ---
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: Code(s): K75.81 - Nonalcoholic steatohepatitis (COLMENARES); K74.60 - Unspecified cirrhosis of liver Status: Chronic Assessment and Plan: decompensated he came in with sepsis, ascitic fluid was consistent with SBP but already treated, also liver encephalopathy MELD score is high at 22 he should complete liver transplant work up with follow-up at [facility] (family member says that next appointment is next month) (2) Spontaneous bacterial peritonitis: Code(s): K65.2 - Spontaneous bacterial peritonitis Status: Acute Assessment and Plan: treated (3) Liver encephalopathy: Code(s): K72.90 - Hepatic failure, unspecified without coma Status: Acute Assessment and Plan: continue with lactulose- ok to titrate to get 3-4 BM daily xifaxan (4) Acute on chronic anemia: Code(s): D64.9 - Anemia, unspecified Status: Acute Assessment and Plan: chronically low, 7-9 received blood transfusion again from decompensated liver disease, thrombocytopenia, etc probably at some point we can repeat EGD to assess (5) Thrombocytopenia: Code(s): D69.6 - Thrombocytopenia, unspecified Status: Acute Assessment and Plan: chronically low from liver disease (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: Code(s): Z14.8 - 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 of other disease Status: Acute (7) ALLISON (acute kidney injury): Code(s): N17.9 - Acute kidney failure, unspecified Status: Acute Assessment and Plan: improved (8) Sepsis: Qualifiers: Acute renal failure type: unspecified Sepsis acute organ dysfunction status: with acute organ dysfunction Sepsis type: sepsis due to unspecified organism Severe sepsis acute organ dysfunction type: acute renal failure Severe sepsis shock status: without septic shock Qualified Code(s): A41.9 - Sepsis, unspecified organism; R65.20 - Severe sepsis without septic shock; N17.9 - Acute kidney failure, unspecified Code(s): A41.9 - Sepsis, unspecified organism Status: Acute Assessment and Plan: treated and resolved uti and sbp GI Consult Note Consult date/time: 10/29/22 15:09 Reason for consult: encephalopathy, colmenares cirrhosis, sbp HPI: Emmanuel Norris is a 72 year old male who is our office patient and we have been seeing because decompensated COLMENARES cirrhosis, also has alpha-1 antitrypsin deficiency.? 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 Patient currently followed by Dr. Oakley at [facility].? He apparently is in the process of being placed on the liver transplant list.?He has been in the hospital multiple times because hepatic encephalopathy and UTI (last time was last month).? He has been maintained on lactulose and Xifaxan as an outpatient.??He was admitted few days ago with more confusion and lethargy, sepsis diagnosed again with UTI, paracentesis revealed SBP and has been treated with antibiotics and albumin. He is more alert. Family member at bedside. Also he has chronic pancytopenia with platelets 30's, hgb has been fluctuating mid 6's-9' and this time again required blood transfusion (no signs of melena or overt gib). Last EGD 09/2019 with mild PHG, no varices, moderate gastritis. Review of Systems Constitutional: Constitutional: Reports lethargy Eyes: Eyes: Denies blurry vision ENT: Reports Normal hearing present Cardiovascular: Cardiovascular: Denies chest pain Respiratory: Respiratory: Denies cough Gastrointestinal: Comments: ascites Genitourinary: Genitourinary: Denies hematuria Musculoskeletal: Musculoskeletal: Denies arthralgias Neurologic: Reports confusion Hematologic/Lymphatic: Hematologic/Lymphatic: Reports easy bleeding and Reports easy bruising PMFSH Past Medical History Medical History (Updated 10/29/22 @ 15:19 by Chapo Chiu MD) Acute on chronic anemia Alph
[2022-10-29] MEDS: FUROSEMIDE 20 MG TABLET PO (15:12)
[2022-10-29 15:48] LABS: Albumin 2.8 g/dL (3.8-4.8); Alpha 1 Globulin 0.1 g/dL (0.2-0.3); Alpha 2 Globulin 0.3 g/dL (0.5-0.9); Beta 1 Globulin 0.2 g/dL (0.4-0.6); Gamma Globulin 1.5 g/dL (0.8-1.7); Protein, Total 5.1 g/dL (6.1-8.1)
--- NOTE | 2022-10-29 17:54 | PC.NURSE ---
Called into patients room by . Complaints of bleeding in the mouth. I inspected patients mouth and there seemed to bleeding on patients tounge and gums. Notified Dr Law and he ordered labs
[2022-10-29 18:36] LABS: INR 3.1; Prothrombin Time 34.6 Seconds (11.1-14.7)
[2022-10-29 20:20] VITALS: PULSE 103; RESP 18; O2SAT 97
[2022-10-29] MEDS: CIPROFLOXACIN 500 MG TAB PO (21:23)
[2022-10-29 22:00] VITALS: BP 98/54; PULSE 103; RESP 18; TEMP 36.8; O2SAT 97
[2022-10-30] VITALS (14 sets, daily range): BP systolic 98–114; BP diastolic 48–73; PULSE 79–89; RESP 14–18; TEMP 36.3–37.1; O2SAT 95–100
[2022-10-30] MEDS: ALBUMIN HUMAN 25% 25 GM/100 ML 200 ML IVPB ×3 (05:48→22:48)
[2022-10-30 06:34] LABS: Immature Platelet Fraction Pct 8.5 % (0.9-11.2); Mean Corpuscular HGB Conc 32.2 g/dl (32-36); Mean Corpuscular Hemoglobin 34.9 pg (26-34); Mean Corpuscular Volume 108.5 fl (80-100); Red Blood Count 1.89 M/mm3 (4.6-6.20); Red Cell Distribution Width 18.8 % (11.5-14.5); White Blood Count 2.3 K/mm3 (4.5-10.0)
[2022-10-30 06:40] LABS: Prothrombin Time 34.1 Seconds (11.1-14.7)
[2022-10-30 06:49] LABS: Hemoglobin 6.6 g/dL (14.0-18.0)
[2022-10-30 06:50] LABS: Hematocrit 20.5 % (42.0-52.0); Platelet Count Result 23 k/mm3 (150-375)
--- NOTE | 2022-10-30 06:50 | PC.NURSE ---
Addendum entered by Deann Shahid RN 10/30/22 06:53: Results given to Leatha Viera RN. Original Note: Lab results received: HGB 6.6, HCT 20.5, PLT 23. Results given to Tory Chun RN.
[2022-10-30 06:51] LABS: Alanine Aminotransferase 35 U/L (6-50); Albumin Level 3.8 g/dL (3.5-5.1); Alkaline Phosphatase 55 U/L (38-126); Anion Gap 1 mmol/L (8-16); Aspartate Amino Transferase 64 U/L (17-59); Bilirubin,Total 5.7 mg/dL (0.2-1.3); Blood Urea Nitrogen 28 mg/dL (9-20); Calcium 12.8 mg/dL (8.4-10.2); Carbon Dioxide 29 mmol/L (22-30); Chloride 106 mmol/L (98-107); Estimated CRCL calculation 58 ml/min; Estimated Glomerular Filt Rate 60; Glucose 80 mg/dL (65-110); Magnesium 1.9 mg/dL (1.6-2.3); Potassium 4.2 mmol/L (3.4-5.0); Sodium 136 mmol/L (137-145)
[2022-10-30] MEDS: LACTULOSE 20 GM/30 ML UDC 30 GM PO ×2 (09:00→17:49)
[2022-10-30] MEDS: FUROSEMIDE INJ 40 MG/4 ML VIAL IV PUSH (09:00)
[2022-10-30] MEDS: rifAXIMin 550 MG TABLET PO ×2 (09:01→17:50)
[2022-10-30] MEDS: CIPROFLOXACIN 500 MG TAB PO ×2 (09:01→21:18)
[2022-10-30] MEDS: SPIRONOLACTONE 50 MG TABLET PO ×2 (09:01→17:50)
[2022-10-30] MEDS: BETAMETHASONE/CLOTRIMAZOLE CR 15 GM TUBE 1 APPLIC TOPICAL ×2 (09:01→21:20)
[2022-10-30] MEDS: PANTOPRAZOLE 40 MG TABLET PO (09:01)
[2022-10-30 11:24] LABS: Kappa\\Lambda Light Chains 2.09 (0.26-1.65); Lambda Light Chain 50.9 mg/L (5.7-26.3)
[2022-10-30] MEDS: PHYTONADIONE 5 MG TABLET PO (12:41)
--- NOTE | 2022-10-30 13:02 | P.PN_ITS ---
Progress Note: A&P Assessment and Plan (1) AMS (altered mental status): Code(s): R41.82 - Altered mental status, unspecified Status: Acute Assessment and Plan: Patient family reports acute deterioration of mental status. He is already on lactulose at baseline; ammonia level was < 9. Patient does not have any evidence of focalisation. 10/30/2022 interval history: Patient with history TORO-cirrhosis and recurrent ascites requiring paracentesis, patient had been discharged on diuretics, was doing well per family until past few days, patient is unable to provider detail ROS, his is present in the room. patient had paracentesis on 10/23 and 5L was removed, on 10/26 switched PO lasix to IV and today increased spironolactone to 50 mg BID and added albumin to help diurese, also place patient on fluid restriction 1600cc per day. 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 Patient's wifer is present and gave updates. (2) Acute metabolic encephalopathy: Code(s): G93.41 - Metabolic encephalopathy Status: Acute Assessment and Plan: Likely secondary to UTI. PAtient started on broad spectrum with rocephin and vancomycin; later de-escalated to rocephin only by the write. Follow up urine culture. Historical cultures availabe for review in chart. (3) ALLISON (acute kidney injury): Code(s): N17.9 - Acute kidney failure, unspecified Status: Acute Assessment and Plan: BAseline kidney function: creatinine 0.6-0.7 between 07/29 and 07/31/2022. Creatinine has fluctuated between 1.3 and 1.5 on 10/22/2022. this is likely prerenal in the setting of decreased effective blood volume and decompensated liver failure/ascites. Avoid further renal insults and nephrotoxic medications. Please renally dose medications and consult nephrology if no improvement despite supportive care. (4) Abnormal urinalysis: Code(s): R82.90 - Unspecified abnormal findings in urine Status: Acute Assessment and Plan: Urinalysis shows pyuria. Patient started on IV antibiotics based on historical cultures results. Follow up urine culture. (5) Sepsis: Qualifiers: Sepsis type: sepsis due to unspecified organism Sepsis acute organ dysfunction status: with acute organ dysfunction Severe sepsis acute organ dysfunction type: encephalopathy Code(s): A41.9 - Sepsis, unspecified organism Status: Acute Assessment and Plan: Patient meets sepsis criteria at presentation with hypotension, confusion, elevated creatinine. Elevated bilirubin is chronic and trending down when compared to 10/06/2022. Lactic level is normal at 1.9. (6) Spontaneous bacterial peritonitis: Code(s): K65.2 - Spontaneous bacterial peritonitis Status: Acute Assessment and Plan: Patient has chronic ascites. ON exam, abdomen is tense, but not painful. (7) Abdominal ascites: Code(s): R18.8 - Other ascites Status: Acute Asse
[2022-10-30] MEDS: TUBING, BLOOD PLUM PUMP TUBING 1 EACH XX (14:12)
[2022-10-30] MEDS: SODIUM CHLORIDE 0.9% IV 250 ML 30 ML IV CONT (14:12)
--- NOTE | 2022-10-30 14:12 | P.PNNP_ITS ---
Progress Note: A&P Assessment and Plan (1) Hyponatremia: Code(s): E87.1 - Hypo-osmolality and hyponatremia Status: Acute Assessment and Plan: * resolving/resolved * acute on chronic * baseline sodium level runs ~ 130 - 133mmol/L since June 2022 * chronic low sodium likely secondary to decreased effective circulating volume in the context of liver disease/physiology * suspect acute drop in sodium due to decompensation of liver disease and need for diuretics and possible increased free water intake * evaluation to date: * TSH okay * cortisol on the lowish side - consider cosyntropin stim test * urine electrolytes prerenal * UPEP/SPEP pending * on fluid restriction * agree with trial of IV albumin with diuresis * follow trend of repeat sodium levels (2) ALLISON (acute kidney injury): Code(s): N17.9 - Acute kidney failure, unspecified Status: Acute Assessment and Plan: * slow improvement noted * normal baseline creatinine (back in July 2022) * relative hypotension playing a role(?) * suspect higher creatinine due to liver disease/physiology and need for chronic diuretic therapy * decreased ECV leading to chronic prerenal azotemia at baseline worsened by the need for diuretic therapy to maintain his volume status * suspect his renal function will always fluctuate due to his need for diuretic therapy in association with his chronic prerenal azotemia secondary to his liver disease/physiology * evaluation to date: * numerous previous imaging without kidney pathology * urine electrolytes prerenal (due to liver disease) * urine eosinophils negative * CPK low * follow trend of repeat labs and UOP (3) Anemia: Qualifiers: Anemia type: unspecified type Qualified Code(s): D64.9 - Anemia, unspecified Code(s): D64.9 - Anemia, unspecified Status: Acute Assessment and Plan: * low H/H for the last 48 hours * s/p PRBC transfusion * guaiac stool * given liver disease, GI consulted * follow trend of H/H (4) AMS (altered mental status): Code(s): R41.82 - Altered mental status, unspecified Status: Acute Assessment and Plan: * clinically improving * ammonia okay and already on lactulose * due to infection? * blood culture with Micrococcus (1 out of 2 bottles) * urine culture with enterococcus * on antibiotics (5) Cirrhosis of liver with ascites: Code(s): K74.60 - Unspecified cirrhosis of liver; R18.8 - Other ascites Status: Chronic Assessment and Plan: * followed by Dr. Oakley at [facility] * worsening ascites recently * s/p LVP - fluid results noted * continue current therapy (6) Essential (primary) hypertension: Code(s): I10 - Essential (primary) hypertension Status: Acute Assessment and Plan: * BP medicationss on hold in view to relative hypotension * follow trend of hemodynamics Not much else to add -- will continue to follow from a distance. Subjective Date/time seen: 10/30/22 14:12 Interval history: Follow-up for acute kidney injury and hyponatremia. Sodium now in the normal range and renal function seems back to baseline as well; noted plans for possible transfer to [facility]; H/H remains low despite multiple PRBC transfusions; no apparent distress noted. Exam Narrative: General: male laying in bed in NAD Heart: normal S1 and S2; no rub Lungs: clear to auscultation Abdomen: soft, nontender, + distension, positiv
--- NOTE | 2022-10-30 14:12 | PM.PNNEP ---
Progress Note: A&P Assessment and Plan (1) Hyponatremia: Code(s): E87.1 - Hypo-osmolality and hyponatremia Status: Acute Assessment and Plan: resolving/resolved acute on chronic baseline sodium level runs ~ 130 - 133mmol/L since June 2022 chronic low sodium likely secondary to decreased effective circulating volume in the context of liver disease/physiology suspect acute drop in sodium due to decompensation of liver disease and need for diuretics and possible increased free water intake evaluation to date: TSH okay cortisol on the lowish side - consider cosyntropin stim test urine electrolytes prerenal UPEP/SPEP pending on fluid restriction agree with trial of IV albumin with diuresis follow trend of repeat sodium levels (2) ALLISON (acute kidney injury): Code(s): N17.9 - Acute kidney failure, unspecified Status: Acute Assessment and Plan: slow improvement noted normal baseline creatinine (back in July 2022) relative hypotension playing a role(?) suspect higher creatinine due to liver disease/physiology and need for chronic diuretic therapy decreased ECV leading to chronic prerenal azotemia at baseline worsened by the need for diuretic therapy to maintain his volume status suspect his renal function will always fluctuate due to his need for diuretic therapy in association with his chronic prerenal azotemia secondary to his liver disease/physiology evaluation to date: numerous previous imaging without kidney pathology urine electrolytes prerenal (due to liver disease) urine eosinophils negative CPK low follow trend of repeat labs and UOP (3) Anemia: Qualifiers: Anemia type: unspecified type Qualified Code(s): D64.9 - Anemia, unspecified Code(s): D64.9 - Anemia, unspecified Status: Acute Assessment and Plan: low H/H for the last 48 hours s/p PRBC transfusion guaiac stool given liver disease, GI consulted follow trend of H/H (4) AMS (altered mental status): Code(s): R41.82 - Altered mental status, unspecified Status: Acute Assessment and Plan: clinically improving ammonia okay and already on lactulose due to infection? blood culture with Micrococcus (1 out of 2 bottles) urine culture with enterococcus on antibiotics (5) Cirrhosis of liver with ascites: Code(s): K74.60 - Unspecified cirrhosis of liver; R18.8 - Other ascites Status: Chronic Assessment and Plan: followed by Dr. Oakley at [facility] worsening ascites recently s/p LVP - fluid results noted continue current therapy (6) Essential (primary) hypertension: Code(s): I10 - Essential (primary) hypertension Status: Acute Assessment and Plan: BP medicationss on hold in view to relative hypotension follow trend of hemodynamics Not much else to add -- will continue to follow from a distance. Subjective Date/time seen: 10/30/22 14:12 Interval history: Follow-up for acute kidney injury and hyponatremia. Sodium now in the normal range and renal function seems back to baseline as well; noted plans for possible transfer to [facility]; H/H remains low despite multiple PRBC transfusions; no apparent distress noted. Exam Narrative: General: male laying in bed in NAD Heart: normal S1 and S2; no rub Lungs: clear to auscultation Abdomen: soft, nontender, + distension, positive bowel sounds Extremities: no cyanosis or clubbing; no edema Skin: warm and dry Objective Data Vital Signs Vital Signs: Vital Signs Temp Pulse Resp BP Pulse Ox O2 Del Method 10/30/22 14:12 98.5 F 87 16 100/63 95 10/30/22 09:00 Room Air 10/30/22 06:00 97.4 F L 80 14 98/48 L 96 10/29/22 20:20 103 H 18 97 Room Air 10/29/22 22:00 98.3 F 103 H 18 98/54 L 97 Intake/Output Intake/Output: Intake & Output 10/27/22 10/28/22 10/29/22 10/30/22 23:59 23:59 23:5
--- NOTE | 2022-10-30 14:59 | WPDGIPROGNO ---
Progress Note: A&P Assessment and Plan (1) Cirrhosis of liver with ascites: Code(s): K74.60 - Unspecified cirrhosis of liver; R18.8 - Other ascites Status: Chronic Assessment and Plan: elevated MELD score, on admission complicated with SPE (on xifaxan and lactulose) and SBP (already treated) he has been accepted to [facility] by hepatology team (he is established with Dr Oakley) (2) Acute on chronic anemia: Code(s): D64.9 - Anemia, unspecified Status: Acute Assessment and Plan: no overt gib but required 2 units PRBC this hospitalization, if patient is still in the hospital then can proceed with EGD tomorrow to assess if portal hypertensive changes or varices he has pancytopenia will transfuse platelets tomorrow before egd (3) Spontaneous bacterial peritonitis: Code(s): K65.2 - Spontaneous bacterial peritonitis Status: Acute Assessment and Plan: treated (4) Pancytopenia: Code(s): D61.818 - Other pancytopenia Status: Acute Assessment and Plan: chronic from cirrhosis (5) Liver encephalopathy: Code(s): K72.90 - Hepatic failure, unspecified without coma Status: Acute Assessment and Plan: awake and alert continue with xifaxan and lactulose (6) Hyponatremia: Code(s): E87.1 - Hypo-osmolality and hyponatremia Status: Acute Subjective Date/time seen: 10/30/22 14:59 Interval history: no major changes Review of Systems Review of Systems: All systems reviewed & are unremarkable except as noted in HPI and below Exam Const: Other: awake and alert, chronically ill appearing HENMT: Face/Nose/Sinus: Normal nares present Eyes: Other: icteric sclerae Neck: Neck: supple Resp: Auscultation: clear to auscultation bilaterally Cardio: Rate: regular rate GI: GI Palp: Yes Soft to palpation and No Tenderness to palpation present (GI) Auscultation: normal bowel sounds Other: mild fluid wave Neuro: Speech: normal speech Other: awake and alert Extrem: General: normal to inspection Objective Data Vital Signs Vital Signs: Vital Signs - 24 hr 10/29/22 22:00 10/29/22 20:20 10/30/22 06:00 Temperature 98.3 F 97.4 F L Pulse Rate 103 H 103 H 80 Respiratory Rate 18 18 14 Blood Pressure 98/54 L 98/48 L Pulse Oximetry 97 97 96 Oxygen Delivery Room Air 10/30/22 09:00 10/30/22 14:12 10/30/22 14:27 Temperature 98.5 F 97.9 F Pulse Rate 87 86 Respiratory Rate 16 16 Blood Pressure 100/63 104/61 Pulse Oximetry 95 99 Oxygen Delivery Room Air Intake/Output Intake/Output: Intake & Output 10/27/22 10/28/22 10/29/22 10/30/22 23:59 23:59 23:59 23:59 Intake Total 1970 1650 1010 540 Output Total 1000 1370 2170 625 Balance 970 280 -1160 -85 Meds/Results Medications: Active Medications Generic Name Dose Route Start Last Admin Trade Name Freq PRN Reason Stop Dose Admin Acetaminophen 650 mg 10/28/22 10:15 10/28/22 10:38 Acetaminophen 325 Mg Tablet PO 650 mg Q6H PRN Administration Mild Pain (1-3) or Fever Ciprofloxacin 500 mg 10/29/22 09:00 10/30/22 09:01 Ciprofloxacin 500 Mg Tab PO 10/30/22 21:01 500 mg Q12HR [facility] Administration Clotrimazole 1 applic 10/27/22 16:00 10/30/22 09:01 Betamethasone/Clotrimazole Cr 15 Gm Tube TOPICAL 1 applic Q12HR [place] Administration Furosemide 20 mg 10/23/22 15:00 10/29/22 15:12 Furosemide 20 Mg Tablet PO 20 mg 1500 [place] Administration Furosemide 40 mg 10/26/22 09:00 10/30/22 09:00 Furosemide Inj 40 Mg/4 Ml Vial IV PUSH 40 mg DAILY [place] Administration Albumin Human 200 mls @ 60 mls/hr 10/26/22 14:00 10/30/22 05:48 Albutein IVPB 60 mls/hr Q8HR [place] Administration Sodium Chloride 250 mls @ 30 mls/hr 10/30/22 11:03 Normal Saline Iv IV CONT 10/30/22 19:22 .Q8H20M STA Sodium Chloride 250 mls @ 30 mls/hr 10/31/22 09:00 Normal Saline Iv IV CONT .Q8H20M
[2022-10-30] MEDS: FUROSEMIDE 20 MG TABLET PO (17:50)
--- NOTE | 2022-10-30 19:01 | PC.NURSE ---
Pt had decreased hgb and hct today. Pt received one unit of blood. Pt albumin delayed due to blood transfusing. [facility] of [facility] body care manager, pending bed availability. Pt tolerated blood transfusion well. Pt to have EGD tomorrow, with platelets. Platelets to transfuse 2-3 hours before EGD. Will continue to monitor pt.
[2022-10-31] VITALS (10 sets, daily range): BP systolic 94–114; BP diastolic 53–84; PULSE 80–84; RESP 14–20; TEMP 36.1–37.4; O2SAT 94–99
[2022-10-31] MEDS: ALBUMIN HUMAN 25% 25 GM/100 ML 200 ML IVPB ×3 (05:47→20:31)
[2022-10-31 06:33] LABS: Hematocrit 22.1 % (42.0-52.0); Immature Platelet Fraction Pct 9.7 % (0.9-11.2); Mean Corpuscular HGB Conc 31.2 g/dl (32-36); Mean Corpuscular Hemoglobin 33.7 pg (26-34); Mean Corpuscular Volume 107.8 fl (80-100); Mean Platelet Volume 12.6 fl (7.4-10.4); Red Blood Count 2.05 M/mm3 (4.6-6.20); Red Cell Distribution Width 21.1 % (11.5-14.5); White Blood Count 2.1 K/mm3 (4.5-10.0)
[2022-10-31 06:39] LABS: Hemoglobin 6.9 g/dL (14.0-18.0)
[2022-10-31 06:40] LABS: Platelet Count Result 22 k/mm3 (150-375)
[2022-10-31 06:41] LABS: INR 3.1
[2022-10-31 06:43] LABS: Alanine Aminotransferase 31 U/L (6-50); Albumin Level 4.2 g/dL (3.5-5.1); Alkaline Phosphatase 48 U/L (38-126); Anion Gap 4 mmol/L (8-16); Aspartate Amino Transferase 50 U/L (17-59); Blood Urea Nitrogen 27 mg/dL (9-20); Calcium 13.6 mg/dL (8.4-10.2); Carbon Dioxide 30 mmol/L (22-30); Chloride 105 mmol/L (98-107); Estimated CRCL calculation 57 ml/min; Estimated Glomerular Filt Rate 60; Glucose 100 mg/dL (65-110); Magnesium 1.9 mg/dL (1.6-2.3); Potassium 4.2 mmol/L (3.4-5.0); Sodium 139 mmol/L (137-145)
--- NOTE | 2022-10-31 11:50 | WPDPN ---
Progress Note: A&P Assessment and Plan (1) AMS (altered mental status): Code(s): R41.82 - Altered mental status, unspecified Status: Acute Assessment and Plan: Patient family reports acute deterioration of mental status. He is already on lactulose at baseline; ammonia level was < 9. Patient does not have any evidence of focalisation. 10/30/2022 interval history: Patient with history TORO-cirrhosis and recurrent ascites requiring paracentesis, patient had been discharged on diuretics, was doing well per family until past few days, patient is unable to provider detail ROS, his is present in the room. patient had paracentesis on 10/23 and 5L was removed, on 10/26 switched PO lasix to IV and today increased spironolactone to 50 mg BID and added albumin to help diurese, also place patient on fluid restriction 1600cc per day. and consulted test engine evaluator for further recommendation, his kidney function remains stable, on 10/27 his hgb was 6.3 there was no c/o any bleeding, gave 1 unit PRBC, again on 10/28 patient had dropped in hgb to 6.3 and there are no sympotms, gave 1 units of PRBC, NM-RBC scan did not show any source of bleeding stool hemmocult is pending, again on 10/29 patient hgb was low 6.7 and again today it 6.6 no obvous source of bleding, Call [facility] and discuss case with Bang Pagan electro mechanical solar technician fellow, has been acepeted for transfer, will give 1 units PRBC, and his INR is 3 will give Vitamin K 5mg POx1, patient is seen by consult GI for further recommendation, patient ammonia levels are normal and he is taking lactulose, will follow up and further recommendation to follow. Patient's wifer is present and gave updates. (2) Acute metabolic encephalopathy: Code(s): G93.41 - Metabolic encephalopathy Status: Acute Assessment and Plan: Likely secondary to UTI. PAtient started on broad spectrum with rocephin and vancomycin; later de-escalated to rocephin only by the write. Follow up urine culture. Historical cultures availabe for review in chart. (3) ALLISON (acute kidney injury): Code(s): N17.9 - Acute kidney failure, unspecified Status: Acute Assessment and Plan: BAseline kidney function: creatinine 0.6-0.7 between 07/29 and 07/31/2022. Creatinine has fluctuated between 1.3 and 1.5 on 10/22/2022. this is likely prerenal in the setting of decreased effective blood volume and decompensated liver failure/ascites. Avoid further renal insults and nephrotoxic medications. Please renally dose medications and consult nephrology if no improvement despite supportive care. (4) Abnormal urinalysis: Code(s): R82.90 - Unspecified abnormal findings in urine Status: Acute Assessment and Plan: Urinalysis shows pyuria. Patient started on IV antibiotics based on historical cultures results. Follow up urine culture. (5) Sepsis: Qualifiers: Sepsis type: sepsis due to unspecified organism Sepsis acute organ dysfunction status: with acute organ dysfunction Severe sepsis acute organ dysfunction type: encephalopathy Code(s): A41.9 - Sepsis, unspecified organism Status: Acute Assessment and Plan: Patient meets sepsis criteria at presentation with hypotension, confusion, elevated creatinine. Elevated bilirubin is chronic and trending down when compared to 10/06/2022. Lactic level is normal at 1.9. (6) Spontaneous bacterial peritonitis: Code(s): K65.2 - Spontaneous bacterial peritonitis Status: Acute Assessment and Plan: Patient has chronic ascites. ON exam, abdomen is tense, but not painful. (7) Abdominal ascites: Code(s): R18.8 - Other ascites Status: Acute Assessment and Plan: Secondary to decompensated liver cirrhosis secondary to TORO. 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
[2022-10-31] MEDS: LACTATED RINGERS 1,000 ML 150 ML IV CONT (12:04)
--- NOTE | 2022-10-31 12:12 | PC.NURSE ---
upon shift change this AM this RN was informed that the pt had a critical hgb/platelets but lab had not called with the critical . RN that gave report apparently did not communicate the critical values with a hospitalist or call lab to confirm. No orders were given to oncoming RN. Lab called oncoming RN a few hours after shift change and stated platelets were ready to give. At this point in time patient had just gone down for a planned EGD. this RN called dayshift hospitalist to confirm when to administer the platelets. MD Law advised to call GI Lab and have them give the platelets before procedure. this RN called GI lab and advised that 2 units were ready and MD would like for them to be given now. Looking further into the patients chart, a note was saved yesterday 10/30 stating that the patient was to get the platelets 2-3 hours before EGD. This however was not communicated. Will continue to follow and monitor patient. Still down in GI lab as of 1218.
--- NOTE | 2022-10-31 12:29 | WPDANESEPPF ---
Anes - Initial Pre Proc Eval Procedure: Operation Date: 10/31/22 11:30 Proposed Procedures p Esophagogastroduodenoscopy - Chapo Chiu MD Date/Time: 10/31/22 12:29 Surgeon: Karen Jean MD Pre Op Diagnosis: Metabolic Encephalopathy Patient Data Age: 72 Gender: M Height: 1.73 m Weight: 97 kg Last Vital Signs Temp 98.2 F 10/31/22 11:16 Pulse 81 10/31/22 11:16 Resp 18 10/31/22 11:16 BP 114/60 10/31/22 11:16 Pulse Ox 99 10/31/22 11:16 O2 Del Method Room Air 10/31/22 11:16 Allergies Allergy/AdvReac Type Severity Reaction Status Date / Time No Known Allergies Allergy Verified 10/31/22 11:14 Home Medications Medication Instructions Recorded Confirmed Type rifaximin 550 mg tablet (Xifaxan) 550 mg PO BID 08/22/21 10/22/22 History lactulose 10 gram/15 mL oral 30 g PO BID 06/25/22 10/22/22 History solution omeprazole 20 mg capsule,delayed 20 mg PO DAILY 06/25/22 10/22/22 History release furosemide 20 mg tablet 40 mg PO DAILY 08/25/22 10/22/22 History aspirin 81 mg tablet 81 mg PO DAILY 10/03/22 10/22/22 History furosemide 20 mg tablet 20 mg PO 1500 10/03/22 10/22/22 History spironolactone 50 mg tablet 50 mg PO BID 1 month #60 tabs 10/06/22 10/22/22 Rx (Aldactone) Laboratory Tests 10/30/22 10/31/22 11:36 06:05 WBC 2.1 L K/mm3 (4.5-10.0) RBC 2.05 L M/mm3 (4.6-6.20) Hgb 6.9 L* g/dL (14.0-18.0) Hct 22.1 L % (42.0-52.0) MCV 107.8 H fl (80-100) MCH 33.7 pg (26-34) MCHC 31.2 L g/dl (32-36) RDW 21.1 H % (11.5-14.5) Plt Count 22 L* k/mm3 (150-375) MPV 12.6 H fl (7.4-10.4) % Immature Plt Fraction 9.7 % (0.9-11.2) PT 35.0 H Seconds (11.1-14.7) INR 3.1 Sodium 139 mmol/L (137-145) Potassium 4.2 mmol/L (3.4-5.0) Chloride 105 mmol/L (98-107) Carbon Dioxide 30 mmol/L (22-30) Anion Gap 4 L mmol/L (8-16) BUN 27 H mg/dL (9-20) Creatinine 1.20 mg/dL (0.7-1.3) Estim Creat Clear Calc 57 ml/min Estimated GFR 60 (59 - ) Glucose 100 mg/dL (65-110) Calcium 13.6 H mg/dL (8.4-10.2) Magnesium 1.9 mg/dL (1.6-2.3) Total Bilirubin 6.0 H mg/dL (0.2-1.3) AST 50 U/L (17-59) ALT 31 U/L (6-50) Alkaline Phosphatase 48 U/L (38-126) Total Protein 6.0 L g/dL (6.3-8.2) Albumin 4.2 g/dL (3.5-5.1) Blood Type B Positive Antibody Screen Negative Crossmatch See Detail Patient hx anesthesia problems: none Family hx anesthesia problems: none Results Review: All pre-operative results and documents have been reviewed as part of the pre-operative evaluation. 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 Schmidt History of removal of pigmented skin lesion History of basal cell carcinoma Removed from behind his ear and nose. Hx of tonsillectomy Family History Family History Father Family history of elevated blood lipids Family history of coronary artery disease Heart disease Moth
--- NOTE | 2022-10-31 12:39 | PM.TDS ---
Transfer Discharge Sum: Prov Provider Date of admission: 10/22/22 20:20 Primary care physician: Marii Rhodes DO Admitting clinician: Karen Jean MD Consults: 10/26/22 Wound/ET Consult Routine Reason for Consult:: Rash to right hip and arms 10/26/22 08:40 Consult to Physician Routine Comment: Spoke to 10.26.22 @ 09--/us Consulting Provider: Nona Osuna call or contact centre coach/MD group to consult: battery plate remover Reason for consultation: TORO, ascites, hypoalbumim, hypnatremia, on lasix, need help Has provider been notified: Yes 10/29/22 07:37 Consult to Physician Routine Comment: Spoke w/ 10/29 (, ) Consulting Provider: Chapo Chiu call or contact centre coach/MD group to consult: GI Reason for consultation: Anemia Has provider been notified: Yes DS: Admitting Diagnosis Discharge Date 10/31/2022 Admitting Diagnosis liver cirrhosis recurrent ascites DS: Discharge Diagnosis Discharge Diagnosis (1) AMS (altered mental status): Code(s): R41.82 - Altered mental status, unspecified Status: Acute (2) Acute metabolic encephalopathy: Code(s): G93.41 - Metabolic encephalopathy Status: Acute (3) ALLISON (acute kidney injury): Code(s): N17.9 - Acute kidney failure, unspecified Status: Acute (4) Abnormal urinalysis: Code(s): R82.90 - Unspecified abnormal findings in urine Status: Acute (5) Sepsis: Qualifiers: Sepsis type: sepsis due to unspecified organism Sepsis acute organ dysfunction status: with acute organ dysfunction Severe sepsis acute organ dysfunction type: encephalopathy Code(s): A41.9 - Sepsis, unspecified organism Status: Acute (6) Spontaneous bacterial peritonitis: Code(s): K65.2 - Spontaneous bacterial peritonitis Status: Acute (7) Abdominal ascites: Code(s): R18.8 - Other ascites Status: Acute (8) 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: Code(s): K75.81 - Nonalcoholic steatohepatitis (TORO); K74.60 - Unspecified cirrhosis of liver Status: Chronic (9) Essential (primary) hypertension: Code(s): I10 - Essential (primary) hypertension Status: Acute (10) Mixed hyperlipidemia: Code(s): E78.2 - Mixed hyperlipidemia Status: Acute (11) Hyponatremia: Code(s): E87.1 - Hypo-osmolality and hyponatremia Status: Acute Plan Patient with history TORO-cirrhosis and recurrent ascites requiring paracentesis, patient had been discharged on diuretics, was doing well per family until past few days, patient had paracentesis on 10/23 and 5L was removed, on 10/26 switched PO lasix to IV and today increased spironolactone to 50 mg BID and added albumin to help diurese, also place patient on fluid restriction 1600cc per day. and consulted battery plate remover for further recommendation, his kidney function remains stable, on 10/27 his hgb was 6.3 there was no c/o any bleeding, gave 1 unit PRBC, again on 10/28 patient had dropped in hgb to 6.3 and there are no sympotms, gave 1 units of PRBC, NM-RBC scan did not show any source of bleeding stool hemmocult is pending, again on 10/29 patient hgb was low 6.7 and again today it 6.6 no obvous source of bleding, Call [facility] and discuss case with Bang Pagan latin american studies professor fellow, has been acepeted for transfer, will give 1 units PRBC, and his INR is 3 will give Vitamin K 5mg POx1, patient is seen by consult GI for further recommendation, patient ammonia levels are normal and he is taking lactulose, will follow up and further recommendation to follow. H&H low again and transfused 1 unit of PRBC. Discussed with hepatology team in [facility] again today. Awaiting bed placement. Meds score is high progresses guarded EGD with small esophageal varices and portal hypertensive changes 10/31/2022 Pancytopenia receive transfusion of platelets for thrombocytopenia with improved platelet count today pancytopenia likely du
[2022-10-31] MEDS: rifAXIMin 550 MG TABLET PO ×2 (13:27→18:02)
[2022-10-31] MEDS: SPIRONOLACTONE 50 MG TABLET PO ×2 (13:27→18:02)
[2022-10-31] MEDS: PANTOPRAZOLE 40 MG TABLET PO (13:27)
[2022-10-31] MEDS: FUROSEMIDE INJ 40 MG/4 ML VIAL IV PUSH (13:28)
[2022-10-31] MEDS: BETAMETHASONE/CLOTRIMAZOLE CR 15 GM TUBE 1 APPLIC TOPICAL ×2 (13:28→20:31)
[2022-10-31] MEDS: LACTULOSE 20 GM/30 ML UDC 30 GM PO ×2 (13:28→18:02)
[2022-10-31 15:17] LABS: Creatinine, Random Urine 48 mg/dL (20-320); Total Protein/Creatinine Ratio 146 mg/g creat (25-148)
[2022-10-31] MEDS: FUROSEMIDE 20 MG TABLET PO (18:01)
[2022-11-01] VITALS (7 sets, daily range): BP systolic 97–110; BP diastolic 51–74; PULSE 80–87; RESP 16–22; TEMP 36.1–37; O2SAT 90–97
[2022-11-01] MEDS: ALBUMIN HUMAN 25% 25 GM/100 ML 200 ML IVPB ×3 (05:02→22:07)
[2022-11-01 06:51] LABS: INR 2.8; Prothrombin Time 32.3 Seconds (11.1-14.7)
[2022-11-01 08:00] LABS: Immature Platelet Fraction Pct 6.7 % (0.9-11.2); Mean Corpuscular HGB Conc 31.7 g/dl (32-36); Mean Corpuscular Hemoglobin 34.8 pg (26-34); Mean Corpuscular Volume 109.6 fl (80-100); Mean Platelet Volume 11.5 fl (7.4-10.4); Platelet Count Result 50 k/mm3 (150-375); Red Blood Count 1.87 M/mm3 (4.6-6.20); Red Cell Distribution Width 21.1 % (11.5-14.5); White Blood Count 2.6 K/mm3 (4.5-10.0)
[2022-11-01 08:13] LABS: Hematocrit 20.5 % (42.0-52.0)
[2022-11-01 08:14] LABS: Alanine Aminotransferase 28 U/L (6-50); Albumin Level 4.5 g/dL (3.5-5.1); Alkaline Phosphatase 50 U/L (38-126); Anion Gap 8 mmol/L (8-16); Aspartate Amino Transferase 43 U/L (17-59); Bilirubin,Total 7.2 mg/dL (0.2-1.3); Blood Urea Nitrogen 31 mg/dL (9-20); Carbon Dioxide 28 mmol/L (22-30); Chloride 102 mmol/L (98-107); Estimated CRCL calculation 58 ml/min; Estimated Glomerular Filt Rate 60; Glucose 82 mg/dL (65-110); Sodium 138 mmol/L (137-145)
[2022-11-01 08:16] LABS: Hemoglobin 6.5 g/dL (14.0-18.0)
--- NOTE | 2022-11-01 08:20 | WPDANESPN ---
Anes - Prog Note Post-Op Date/Time: 11/01/22 08:20 Cardiovascular status: normal Respiratory status: normal Airway patency: baseline Mental status: baseline Post-Op hydration status: normal Vital Signs: Last Vital Signs Temp 36.2 C L 11/01/22 05:29 Pulse 83 11/01/22 05:29 Resp 22 H 11/01/22 05:29 BP 102/67 11/01/22 05:29 Pulse Ox 90 11/01/22 05:29 O2 Del Method Room Air 10/31/22 20:00 Pain Score (VAS): 05/30 I/O: Intake & Output 10/31/22 11/01/22 11/01/22 23:59 07:59 15:59 Intake Total 850 1000 Balance 850 1000 Laboratory Tests 11/01/22 05:47 11/01/22 05:47 10/26/22 10/30/22 11/01/22 11:40 11:36 05:47 WBC 2.6 L RBC 1.87 L Hgb 6.5 L* Hct 20.5 L* MCV 109.6 H MCH 34.8 H MCHC 31.7 L RDW 21.1 H Plt Count 50 L D MPV 11.5 H % Immature Plt Fraction 6.7 PT INR Sodium 138 Potassium 4.0 Chloride 102 Carbon Dioxide 28 Anion Gap 8 BUN 31 H Creatinine 1.20 Estim Creat Clear Calc 58 Estimated GFR 60 Glucose 82 Calcium Pending Total Bilirubin 7.2 H AST 43 ALT 28 Alkaline Phosphatase 50 Total Protein 7.0 Albumin 4.5 Ur Random Creatinine 48 U Random Total Protein 7 Protein/Creatinin Ratio 146 Urine Albumin see below U Hnvcx-5-Fbmrsxqr 0 U Tikcl-8-Ktsmeoma 0 U Beta Globulin 0 U Gamma Globulin 0 U Abnormal Prot Band 1 see below U Abnormal Prot Band 2 Not Reportable U Abnormal Prot Band 3 Not Reportable Urine PEP Interpret see below Blood Type B Positive Antibody Screen Negative Crossmatch See Detail 11/01/22 06:09 WBC RBC Hgb Hct MCV MCH MCHC RDW Plt Count MPV % Immature Plt Fraction PT 32.3 H INR 2.8 Sodium Potassium Chloride Carbon Dioxide Anion Gap BUN Creatinine Estim Creat Clear Calc Estimated GFR Glucose Calcium Total Bilirubin AST ALT Alkaline Phosphatase Total Protein Albumin Ur Random Creatinine U Random Total Protein Protein/Creatinin Ratio Urine Albumin U Helho-6-Gsrhqtml U Ppdrw-3-Bjubsqwh U Beta Globulin U Gamma Globulin U Abnormal Prot Band 1 U Abnormal Prot Band 2 U Abnormal Prot Band 3 Urine PEP Interpret Blood Type Antibody Screen Crossmatch Post-procedural complaints: none Patient Feedback: Patient satisfied with anesthetic care.
[2022-11-01] MEDS: SPIRONOLACTONE 50 MG TABLET PO ×2 (08:50→16:50)
[2022-11-01] MEDS: FUROSEMIDE INJ 40 MG/4 ML VIAL IV PUSH (08:50)
[2022-11-01] MEDS: rifAXIMin 550 MG TABLET PO ×2 (08:50→16:50)
[2022-11-01] MEDS: PANTOPRAZOLE 40 MG TABLET PO (08:50)
[2022-11-01] MEDS: LACTULOSE 20 GM/30 ML UDC 30 GM PO ×2 (08:51→16:50)
[2022-11-01] MEDS: BETAMETHASONE/CLOTRIMAZOLE CR 15 GM TUBE 1 APPLIC TOPICAL ×2 (08:51→22:09)
[2022-11-01] MEDS: SODIUM CHLORIDE 0.9% IV 250 ML 30 ML IV CONT (09:28)
[2022-11-01 09:54] LABS: Calcium 14.2 mg/dL (8.4-10.2)
[2022-11-01] MEDS: FUROSEMIDE 20 MG TABLET PO (14:49)
--- NOTE | 2022-11-01 15:15 | WPDGIPROGNO ---
Progress Note: A&P Assessment and Plan (1) Cirrhosis of liver with ascites: Code(s): K74.60 - Unspecified cirrhosis of liver; R18.8 - Other ascites Status: Chronic Assessment and Plan: elevated MELD score, on admission complicated with SPE (on xifaxan and lactulose) and SBP (already treated) [facility] (he is established with Dr Oakley) he will need liver transplant evaluation, prognosis is guarded (2) Acute on chronic anemia: Code(s): D64.9 - Anemia, unspecified Status: Acute Assessment and Plan: egd without signs of bleeding, only small EV and portal hypertensive changes he has pancytopenia (he received platelets before EGD) with cirrhosis and has been requiring blood transfusion as needed (3) Spontaneous bacterial peritonitis: Code(s): K65.2 - Spontaneous bacterial peritonitis Status: Acute Assessment and Plan: treated (4) Pancytopenia: Code(s): D61.818 - Other pancytopenia Status: Acute Assessment and Plan: chronic from cirrhosis (5) Liver encephalopathy: Code(s): K72.90 - Hepatic failure, unspecified without coma Status: Acute Assessment and Plan: awake and alert- back to baseline continue with xifaxan and lactulose Subjective Date/time seen: 11/01/22 15:15 Interval history: egd yesterday with small non-bleeding esophageal varices and PHG required another unit prbc microphone boom operator reports that he is doing well, mental status back to himself, eating and overall comfortable Review of Systems Review of Systems: All systems reviewed & are unremarkable except as noted in HPI and below Exam Const: Other: awake and alert, chronically ill appearing HENMT: Face/Nose/Sinus: Normal nares present Eyes: Other: icteric sclerae Neck: Neck: supple Resp: Auscultation: clear to auscultation bilaterally Cardio: Rate: regular rate GI: GI Palp: Yes Soft to palpation and No Tenderness to palpation present (GI) Auscultation: normal bowel sounds Other: + fluid wave c/w ascites Skin: Other: + bruises Neuro: Speech: normal speech Other: awake and alert Extrem: General: normal to inspection Objective Data Vital Signs Vital Signs: Vital Signs - 24 hr 10/31/22 21:58 10/31/22 20:00 11/01/22 05:29 Temperature 99.3 F 97.2 F L Pulse Rate 81 83 Respiratory Rate 16 22 H Blood Pressure 94/60 L 102/67 Pulse Oximetry 94 90 Oxygen Delivery Room Air 11/01/22 08:00 11/01/22 10:21 11/01/22 10:38 Temperature 97.6 F 97.0 F L Pulse Rate 80 80 Respiratory Rate 16 16 Blood Pressure 106/56 L 110/74 Pulse Oximetry 94 96 Oxygen Delivery Room Air 11/01/22 13:40 11/01/22 14:00 Temperature 97.6 F 98.3 F Pulse Rate 84 80 Respiratory Rate 16 16 Blood Pressure 110/60 110/68 Pulse Oximetry 97 96 Oxygen Delivery Intake/Output Intake/Output: Intake & Output 10/29/22 10/30/22 10/31/22 11/01/22 23:59 23:59 23:59 23:59 Intake Total 1010 1770 2103 2030 Output Total 2170 1225 100 Balance -4175 501 3137 2029 Meds/Results Medications: Active Medications Generic Name Dose Route Start Last Admin Trade Name Freq PRN Reason Stop Dose Admin Acetaminophen 650 mg 10/28/22 10:15 10/28/22 10:38 Acetaminophen 325 Mg Tablet PO 650 mg Q6H PRN Administration Mild Pain (1-3) or Fever Clotrimazole 1 applic 10/27/22 16:00 11/01/22 08:51 Betamethasone/Clotrimazole Cr 15 Gm Tube TOPICAL 1 applic Q12HR [place] Administration Furosemide 20 mg 10/23/22 15:00 11/01/22 14:49 Furosemide 20 Mg Tablet PO 20 mg 1500 [place] Administration Furosemide 40 mg 10/26/22 09:00 11/01/22 08:50 Furosemide Inj 40 Mg/4 Ml Vial IV PUSH 40 mg DAILY [place] Administration Albumin Human 200 mls @ 60 mls/hr 10/26/22 14:00 11/01/22 14:49 Albutein IVPB 60 mls/hr Q8HR [place] Administration Sodium Chloride 250 mls @ 30 mls/hr 10/18
[2022-11-01 15:26] LABS: Hemoglobin 7.5 g/dL (14.0-18.0)
--- NOTE | 2022-11-01 15:39 | PM.IMPN ---
Progress Note: A&P Assessment and Plan (1) AMS (altered mental status): Code(s): R41.82 - Altered mental status, unspecified Status: Acute (2) Acute metabolic encephalopathy: Code(s): G93.41 - Metabolic encephalopathy Status: Acute (3) ALLISON (acute kidney injury): Code(s): N17.9 - Acute kidney failure, unspecified Status: Acute (4) Abnormal urinalysis: Code(s): R82.90 - Unspecified abnormal findings in urine Status: Acute (5) Sepsis: Qualifiers: Sepsis type: sepsis due to unspecified organism Sepsis acute organ dysfunction status: with acute organ dysfunction Severe sepsis acute organ dysfunction type: encephalopathy Code(s): A41.9 - Sepsis, unspecified organism Status: Acute (6) Spontaneous bacterial peritonitis: Code(s): K65.2 - Spontaneous bacterial peritonitis Status: Acute (7) Abdominal ascites: Code(s): R18.8 - Other ascites Status: Acute (8) 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: Code(s): K75.81 - Nonalcoholic steatohepatitis (TORO); K74.60 - Unspecified cirrhosis of liver Status: Chronic (9) Essential (primary) hypertension: Code(s): I10 - Essential (primary) hypertension Status: Acute (10) Mixed hyperlipidemia: Code(s): E78.2 - Mixed hyperlipidemia Status: Acute (11) Hyponatremia: Code(s): E87.1 - Hypo-osmolality and hyponatremia Status: Acute Plan 11/01/2022 interval history: Patient with history TORO-cirrhosis and recurrent ascites requiring paracentesis, patient had been discharged on diuretics, was doing well per family until past few days, patient had paracentesis on 10/23 and 5L was removed, on 10/26 switched PO lasix to IV and today increased spironolactone to 50 mg BID and added albumin to help diurese, also place patient on fluid restriction 1600cc per day. and consulted oil painter for further recommendation, his kidney function remains stable, on 10/27 his hgb was 6.3 there was no c/o any bleeding, gave 1 unit PRBC, again on 10/28 patient had dropped in hgb to 6.3 and there are no sympotms, gave 1 units of PRBC, NM-RBC scan did not show any source of bleeding stool hemmocult is pending, again on 10/29 patient hgb was low 6.7 and again today it 6.6 no obvous source of bleding, Call [facility] and discuss case with [employer] project engineer fellow, has been acepeted for transfer, will give 1 units PRBC, and his INR is 3 will give Vitamin K 5mg POx1, patient is seen by consult GI for further recommendation, patient ammonia levels are normal and he is taking lactulose, will follow up and further recommendation to follow. H&H low again and transfused 1 unit of PRBC. Discussed with hepatology team in [facility] again today. Awaiting bed placement. Meds score is high progresses guarded EGD with small esophageal varices and portal hypertensive changes 10/31/2022 Pancytopenia receive transfusion of platelets for thrombocytopenia with improved platelet count today pancytopenia likely due to cirrhosis Subjective Date/time seen: 11/01/22 15:39 Interval history: Patient family reports acute deterioration of mental status. He is already on lactulose at baseline; ammonia level was < 9. Patient does not have any evidence of focalisation. 10/30/2022 interval history: Patient with history TORO-cirrhosis and recurrent ascites requiring paracentesis, patient had been discharged on diuretics, was doing well per family until past few days, patient is unable to provider detail ROS, his is present in the room. patient had paracentesis on 10/23 and 5L was removed, on 10/26 switched PO lasix to IV and today increased spironolactone to 50 mg BID and added albumin to help diurese, also place patient on fluid restriction 1600cc per day. and consulted oil painter for further recommendation, his kidney function remains stable, on 10/27 his hgb was 6.3 there was no c/o any ble
[2022-11-02 01:18] VITALS: BP 145/70; PULSE 84; RESP 16; TEMP 36.8; O2SAT 95
[2022-11-02 18:41] LABS: Cryoglobulin, QL Negative (Negative)
== END 2022-11-02 02:10 | disposition short-term general hospital (02) | DRG 871 ==
LOC: ANHED 17:44 → ANHIMU 21:15 → ANH3MEDSUR 10-24 10:23
PROVIDERS: Emergency Medicine; Internal Medicine; Internal Medicine Gastroenterology; Internal Medicine Nephrology; Admitting Provider Internal Medicine; Emergency Provider Physician Assistant; PCP Family Medicine; Visit Provider Family Medicine
PROC: 0DJ08ZZ Inspection of Upper Intestinal Tract, Via Natural or Artificial Opening Endoscopic (ICD-10-PCS; CPT 43235; principal; 2022-10-31 11:30)
DX: A41.9 Sepsis, unspecified organism (principal); G93.41 Metabolic encephalopathy; K65.2 Spontaneous bacterial peritonitis; I85.00 Esophageal varices without bleeding; N17.9 Acute kidney failure, unspecified; R18.8 Other ascites; E87.1 Hypo-osmolality and hyponatremia; N39.0 Urinary tract infection, site not specified; D61.818 Other pancytopenia; K76.6 Portal hypertension; R65.20 Severe sepsis without septic shock; K72.90 Hepatic failure, unspecified without coma; B95.2 Enterococcus as the cause of diseases classified elsewhere; K75.81 Nonalcoholic steatohepatitis (NASH); K74.60 Unspecified cirrhosis of liver; B96.89 Other specified bacterial agents as the cause of diseases classified elsewhere; D69.6 Thrombocytopenia, unspecified; E88.01 Alpha-1-antitrypsin deficiency; E78.2 Mixed hyperlipidemia; E21.3 Hyperparathyroidism, unspecified; G47.33 Obstructive sleep apnea (adult) (pediatric); I10 Essential (primary) hypertension; J45.909 Unspecified asthma, uncomplicated; K29.70 Gastritis, unspecified, without bleeding; K31.89 Other diseases of stomach and duodenum; Z85.828 Personal history of other malignant neoplasm of skin; Z99.89 Dependence on other enabling machines and devices; Z79.82 Long term (current) use of aspirin; Z87.891 Personal history of nicotine dependence
CPT/HCPCS: 36415; 36430; 49083; 70450; 78278; 80053; 81001; 81050; 82140; 82150; 82533; 82550; 82570; 82595; 82607; 82728; 82746; 82945; 83540; 83550; 83605; 83615; 83735; 83883; 84155; 84156; 84165; 84166; 84295; 84300; 84443; 84478; 84540; 85014; 85018; 85025; 85027; 85055; 85610; 85730; 85999; 86850; 86900; 86901; 86923; 87040; 87070; 87075; 87077; 87086; 87088; 87186; 87205; 89051; 93005; 96360; 97110; 97116; 97161; 97165; 97530; 97535; 99285; A9270; A9560; J0696; J1940; J2704; J3370; J7030; J7050; J7120; P9016; P9034; P9047

== ENCOUNTER 2022-11-18 13:54 | Emergency (ER) | payer MEDICARE, SELFPAY ==
[2022-11-18] VITALS (8 sets, daily range): BP systolic 98–131; BP diastolic 60–81; PULSE 68–92; RESP 16–22; TEMP 36.4–37.1; O2SAT 98–100
--- NOTE | 2022-11-18 14:27 | ED.GENADULT ---
HPI - General Adult General Chief complaint: Unspecified Stated complaint: bleeding wound Time Seen by Provider: 11/18/22 14:10 History of Present Illness HPI narrative: Patient is a 72-year-old male who presents ER with a bleeding wound to his right chest wall. Reports he scratched himself and began bleeding. He has been bleeding through multiple shirts and bandages over the last day. He has known low platelets and is a liver patient with an elevated INR. He has to get recurrent blood transfusions due to anemia. He has had no exertional fatigue or dyspnea. No dizziness. He is not on blood thinning medications. He has not been able to get the bleeding to stop. No known trauma to the chest wall. Related Data Home Medications Medication Instructions Recorded Confirmed rifaximin 550 mg tablet (Xifaxan) 550 mg PO BID 08/22/21 10/22/22 lactulose 10 gram/15 mL oral 30 g PO BID 06/25/22 10/22/22 solution omeprazole 20 mg capsule,delayed 20 mg PO DAILY 06/25/22 10/22/22 release furosemide 20 mg tablet 40 mg PO DAILY 08/25/22 10/22/22 aspirin 81 mg tablet 81 mg PO DAILY 10/03/22 10/22/22 furosemide 20 mg tablet 20 mg PO 1500 10/03/22 10/22/22 Allergies Allergy/AdvReac Type Severity Reaction Status Date / Time No Known Allergies Allergy Verified 10/31/22 11:14 Review of Systems Review of Systems: All systems reviewed & are unremarkable except as noted in HPI and below Constitutional: Constitutional: Denies chills, Reports fatigue and Denies fever(s) Cardiovascular: Cardiovascular: Denies chest pain, Denies rapid heart rate and Denies dyspnea on exertion Respiratory: Respiratory: Denies cough and Denies dyspnea Gastrointestinal: Gastrointestinal: Denies abdominal pain, Denies nausea and Denies vomiting [facility] Past Medical History Medical History (Updated 11/18/22 @ 17:51 by Aly Nunn MD) Acute on chronic anemia 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 Schmidt History of removal of pigmented skin lesion History of basal cell carcinoma Removed from behind his ear and nose. Hx of tonsillectomy Family History Family History Father Family history of elevated blood lipids Family history of coronary artery disease Heart disease Mother Family history of lung cancer Grandparent Dementia Throat cancer Sibling Heart disease brother had pacemaker Social History Social History Social History: The patient is and has 4 sons. The patient used occasionally smokes cigars. The patient is retired. Code status full code Smoking packs per day: 0 Smoking cigarettes per day: 0.0 Years smoked: 10 Smoking pack-years: 0.00 Smoking status: Former smoker Additional smoking assessment comments: sttaes occasional cigar smoker Alcohol intake: never Alcohol use details: occasional Substance use: never Substance use type: does not use Lack of Transportation: No Lack of Food: Never True Current Housing: I Have Housing Concerned About Future Housing: No Difficulty Paying Gas/Electric Bills: No Difficulty Paying for Meds: No Currently Unemployed: No Education: High School Diploma/GED Difficulty w/ Childcar
[2022-11-18 14:42] LABS: Basophils Percent Auto 0.4 % (0.2-1.2); Eosinophils Absolute Auto 0.1 K/mm3 (0-0.3); Eosinophils Percent Auto 2.6 % (0-4.4); Immature Granulocyte Absolute 0.02 K/mm3 (0.00-0.031); Immature Granulocyte Percent A 0.7 % (0-0.5); Immature Platelet Fraction Pct 9.4 % (0.9-11.2); Lymphocytes Absolute Auto 0.51 K/mm3 (0.9-3.2); Lymphocytes Percent Auto 18.8 % (18.3-44.2); Mean Corpuscular HGB Conc 32.4 g/dl (32-36); Mean Corpuscular Hemoglobin 35.1 pg (26-34); Mean Corpuscular Volume 108.2 fl (80-100); Mean Platelet Volume 12.6 fl (7.4-10.4); Monocytes Absolute Auto 0.3 K/mm3 (0.1-0.6); Monocytes Percent Auto 10.7 % (2.6-8.5); Neutrophils Absolute Auto 1.8 K/mm3 (1.3-6.7); Neutrophils Percent Auto 66.8 % (45.5-73.1); Platelet Count Result 32 k/mm3 (150-375); Red Blood Count 1.94 M/mm3 (4.6-6.20); Red Cell Distribution Width 21.6 % (11.5-14.5); White Blood Count 2.7 K/mm3 (4.5-10.0)
[2022-11-18 14:50] LABS: INR 2.5
[2022-11-18 14:51] LABS: Alanine Aminotransferase 41 U/L (6-50); Albumin Level 3.7 g/dL (3.5-5.1); Alkaline Phosphatase 142 U/L (38-126); Anion Gap 10 mmol/L (8-16); Aspartate Amino Transferase 83 U/L (17-59); Bilirubin,Total 7.4 mg/dL (0.2-1.3); Blood Urea Nitrogen 22 mg/dL (9-20); Calcium 8.7 mg/dL (8.4-10.2); Carbon Dioxide 21 mmol/L (22-30); Chloride 107 mmol/L (98-107); Estimated CRCL calculation 69 ml/min; Estimated Glomerular Filt Rate > 60; Glucose 121 mg/dL (65-110); Potassium 3.9 mmol/L (3.4-5.0); Sodium 138 mmol/L (137-145)
[2022-11-18 14:52] LABS: Partial Thromboplastin Time 51.5 SECONDS (22.3-36.8)
[2022-11-18 14:56] LABS: Hemoglobin 6.8 g/dL (14.0-18.0)
[2022-11-18 14:58] LABS: Platelet Estimate Decreased (Adequate)
[2022-11-18 14:59] LABS: Hypochromasia 1+ (NORMAL)
[2022-11-18 15:00] LABS: Ovalocytes 1+ (NORMAL); Schistocytes None Seen (NORMAL)
[2022-11-18] MEDS: LIDO 1%/EPINEPHRINE 1:100,000 20 ML VIAL (15:19)
[2022-11-18] MEDS: TUBING, BLOOD PLUM PUMP TUBING 1 EACH XX (17:58)
[2022-11-18] MEDS: SODIUM CHLORIDE 0.9% IV 250 ML 30 ML IV CONT (17:58)
== END 2022-11-18 19:54 | disposition home or self-care (01) ==
PROVIDERS: Emergency Provider Emergency Medicine; PCP Family Medicine
DX: S21.101A Unspecified open wound of right front wall of thorax without penetration into thoracic cavity, initial encounter (principal); D64.9 Anemia, unspecified; R79.1 Abnormal coagulation profile; I10 Essential (primary) hypertension; Z85.828 Personal history of other malignant neoplasm of skin; Z87.891 Personal history of nicotine dependence; Z79.899 Other long term (current) drug therapy; W45.8XXA Other foreign body or object entering through skin, initial encounter
CPT/HCPCS: 12001; 36415; 36430; 80053; 85025; 85055; 85610; 85730; 86850; 86900; 86901; 86923; 96360; 96361; 99285; J7050; P9016

== ENCOUNTER 2022-11-19 10:22 | Emergency (ER) | payer MEDICARE, SELFPAY ==
[2022-11-19] VITALS (12 sets, daily range): BP systolic 106–143; BP diastolic 60–82; PULSE 77–95; RESP 14–26; TEMP 36.6; O2SAT 98–100
[2022-11-19] MEDS: ONDANSETRON INJ 4 MG/2 ML VIAL IV PUSH (11:02)
[2022-11-19 11:09] LABS: Basophils Percent Auto 0.9 % (0.2-1.2); Eosinophils Percent Auto 0.9 % (0-4.4); Hematocrit 24.1 % (42.0-52.0); Hemoglobin 7.9 g/dL (14.0-18.0); Immature Granulocyte Absolute 0.01 K/mm3 (0.00-0.031); Immature Granulocyte Percent A 0.3 % (0-0.5); Immature Platelet Fraction Pct 8.8 % (0.9-11.2); Lymphocytes Absolute Auto 0.41 K/mm3 (0.9-3.2); Lymphocytes Percent Auto 11.8 % (18.3-44.2); Mean Corpuscular HGB Conc 32.8 g/dl (32-36); Mean Corpuscular Hemoglobin 34.5 pg (26-34); Mean Corpuscular Volume 105.2 fl (80-100); Monocytes Absolute Auto 0.3 K/mm3 (0.1-0.6); Monocytes Percent Auto 8.6 % (2.6-8.5); Neutrophils Absolute Auto 2.7 K/mm3 (1.3-6.7); Neutrophils Percent Auto 77.5 % (45.5-73.1); Platelet Count Result 31 k/mm3 (150-375); Red Blood Count 2.29 M/mm3 (4.6-6.20); Red Cell Distribution Width 21.5 % (11.5-14.5); White Blood Count 3.5 K/mm3 (4.5-10.0)
[2022-11-19 11:14] LABS: Ammonia 32 umol/L (9-30)
[2022-11-19 11:17] LABS: INR 2.4; Prothrombin Time 27.4 Seconds (11.1-14.7)
[2022-11-19 11:18] LABS: Alanine Aminotransferase 46 U/L (6-50); Albumin Level 4.3 g/dL (3.5-5.1); Alkaline Phosphatase 191 U/L (38-126); Anion Gap 12 mmol/L (8-16); Aspartate Amino Transferase 92 U/L (17-59); Bilirubin Direct 1.1 mg/dL (0-0.3); Bilirubin,Total 9.7 mg/dL (0.2-1.3); Blood Urea Nitrogen 22 mg/dL (9-20); Calcium 9.3 mg/dL (8.4-10.2); Carbon Dioxide 21 mmol/L (22-30); Chloride 107 mmol/L (98-107); Estimated CRCL calculation 77 ml/min; Estimated Glomerular Filt Rate > 60; Glucose 125 mg/dL (65-110); Lipase 793 U/L (23-300); Partial Thromboplastin Time 44.3 SECONDS (22.3-36.8); Potassium 4.2 mmol/L (3.4-5.0); Sodium 140 mmol/L (137-145)
--- NOTE | 2022-11-19 11:25 | ED.GENADULT ---
HPI - General Adult General Chief complaint: Nausea/Vomiting/Diarrhea Stated complaint: Nausea vomiting and weakness Time Seen by Provider: 11/19/22 10:30 History of Present Illness HPI narrative: Patient is a 72-year-old male who presents ER with nausea/vomiting. Woke up this morning and had an upset stomach and vomited x1 and had diarrhea x1. Was seen yesterday for bleeding from his chest and received a blood transfusion. feels patient is a bit more jaundiced today than typical. He does have end-stage liver disease and is going to be worked up for possible transplantation. Patient unsure if there was blood in his stool. No pain in his abdomen at this time but earlier was crampy. Related Data Home Medications Medication Instructions Recorded Confirmed rifaximin 550 mg tablet (Xifaxan) 550 mg PO BID 08/22/21 10/22/22 lactulose 10 gram/15 mL oral 30 g PO BID 06/25/22 10/22/22 solution omeprazole 20 mg capsule,delayed 20 mg PO DAILY 06/25/22 10/22/22 release furosemide 20 mg tablet 40 mg PO DAILY 08/25/22 10/22/22 aspirin 81 mg tablet 81 mg PO DAILY 10/03/22 10/22/22 furosemide 20 mg tablet 20 mg PO 1500 10/03/22 10/22/22 Allergies Allergy/AdvReac Type Severity Reaction Status Date / Time No Known Allergies Allergy Verified 11/19/22 10:33 Review of Systems Review of Systems: All systems reviewed & are unremarkable except as noted in HPI and below Constitutional: Constitutional: Denies chills, Reports fatigue and Denies fever(s) ENT: Denies nasal congestion and Denies sore throat Cardiovascular: Cardiovascular: Denies chest pain, Denies rapid heart rate and Denies radiating jaw, neck or arm pain Gastrointestinal: Gastrointestinal: Reports abdominal pain, Reports diarrhea, Reports nausea and Reports vomiting Genitourinary: Genitourinary: Denies dysuria and Denies urinary frequency Neurologic: Denies headache(s), Denies focal weakness and Denies numbness [facility] Past Medical History Medical History (Updated 11/19/22 @ 12:59 by Aly Nunn MD) Acute on chronic anemia Rqtnc-2-xjscazjykat deficiency carrier Asthma Bacteremia due to Streptococcus (06/2022) Basal cell carcinoma Colon polyps Decompensation of cirrhosis of liver Erosive gastritis Hepatitis C antibody test negative (05/11/03) Kidney stone 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 Schmidt History of removal of pigmented skin lesion History of basal cell carcinoma Removed from behind his ear and nose. Hx of tonsillectomy Family History Family History Father Family history of elevated blood lipids Family history of coronary artery disease Heart disease Mother Family history of lung cancer Grandparent Dementia Throat cancer Sibling Heart disease brother had pacemaker Social History Social History Social History: The patient is and has 4 sons. The patient used occasionally smokes cigars. The patient is retired. Code status full code Smoking packs per day: 0 Smoking cigarettes per day: 0.0 Years smoked: 10 Smoking pack-years: 0.00 Smoking status: Former smoker Additional smoking assessment comments: sttaes occasional cigar smoker Alcohol intake: never Alcohol use details: occasional Substance use: never Substance use type: does not use Lack of Transportation: No Lack of Food: Never True Current Housing: I Have Housing Concerned About Future Housing: No
[2022-11-19 11:34] LABS: Anisocytosis 2+ (NORMAL); Macrocytosis 1+ (NORMAL); Platelet Estimate Decreased (Adequate); Poikilocytosis 1+ (NORMAL); Schistocytes None Seen (NORMAL)
== END 2022-11-19 13:12 | disposition home or self-care (01) ==
PROVIDERS: Emergency Provider Emergency Medicine; PCP Family Medicine
DX: R11.2 Nausea with vomiting, unspecified (principal); E80.6 Other disorders of bilirubin metabolism; J45.909 Unspecified asthma, uncomplicated; Z87.442 Personal history of urinary calculi; G47.30 Sleep apnea, unspecified; K75.81 Nonalcoholic steatohepatitis (NASH)
CPT/HCPCS: 36415; 80048; 80076; 82140; 83690; 85025; 85055; 85610; 85730; 96374; 99284; J2405

== ENCOUNTER 2022-12-05 08:52 | Outpatient (RCR) | payer MEDICARE, SELFPAY ==
--- NOTE | 2022-12-05 10:16 | OPREHPOC ---
Outpatient Therapy Plan of Care This is a Multidisciplinary Plan of Care that may contain components documented by all disciplines (PT, OT, and ST.) PT Problem 1 PT Problem #1 Knowledge Deficit PT Goal 1 Goal 1* indep with HEP PT Problem 2 PT Problem #2 Impaired Strength PT Goal 1 Goal increase strength of trunk and legs: single leg standing x 10 seconds 1* R 2* L perform 25 reps with good stability: 3* R side lying hip abduction 4* L side lying hip abduction 5* supine bridge PT Problem 3 PT Problem #3 Impaired Functional Mobility PT Goal 1 Goal 1* Reid balance score of 56/56 2* up/down 12 steps with alternating step pattern and NO railing 3* pt report NO falls 4* pt report walking/activity tolerance of 30 minutes
--- NOTE | 2022-12-05 10:17 | PTOPEVAL1 ---
Assessment and note entered by Estefany Howell, PT Evaluation Information Assessment Status Evaluation Diagnosis musculoskeletal disorder Onset about one year ago Subjective Information recently hospitalization several times due to infections; have weakness but no falls in the past 6 months; is on the list for a liver transplant and need to get stronger; ACTIVITY: do not drive, walking short distances with and shopping; reported standing/walking activity tolerance of 15- 20 minutes; have good and bad days with moving; home with ; indep with bathing, dressing; have wheeled walker at home, but not really use anymore; at home- have weight set/ bench and hand weights; trying to go for more walks; Reported Pain Level Pain Score 0: Self Report Assessment PT Clinical Summary Freddie has the diagnosis of musculoskeletal disorder/ balance & strength issues; he has had several recent hospitalizations and infections. He is being assessed for a liver transplant list and needs to increase his overal strength. He has not had any falls in the past 6 months. His Bess was present during the eval and very supportive to pt. With the evaluation: decreased trunk and hip strength with single leg standing time of 1-2 seconds on R and L; Reid balance score of 50/56 and requires single step pattern on 12 steps; He has been walking at home, but not doing any strengthening exercises. Skilled PT services are indicated to increase LE and trunk strength, improve balance and mobility skills. Plan of Care Interventions Neuro Re-education,Patient/Caregiver Education, Therapeutic Activities,Therapeutic Exercise PT Services Indicated Yes Treatment Frequency and 2x/wk for 3 weeks Duration These treatments will address the objective and functional deficits as defined above. The patient will be advanced safely and appropriately in order for the patient to progress towards his/her prior level of function. Additional exercises will be introduced and as well as a comprehensive home exercise program upon discharge, if needed, ?to ensure carryover of functional gains achieved in the clinic. This treatment plan has been reviewed and agreement upon by the patient.
--- NOTE | 2022-12-10 09:07 | PCPTNOTE ---
pt called and canceled today's appt due to illness.
--- NOTE | 2022-12-12 16:26 | PCPTNOTE ---
pt's called and canceled PT;
--- NOTE | 2022-12-17 10:50 | PTOPDC ---
Assessment and note entered by Estefany Howell, PT Evaluation Information Assessment PT Clinical Summary PHYSICAL THERAPY DISCHARGE Pt's called and canceled his PT appointments, stated he was hospitalized. He received PT evaluation only on 12-05-22. The goals were not met. Discharge PT services. Plan of Care PT Services Indicated No
== END 2022-12-17 13:05 | disposition home or self-care (01) ==
LOC: ANHPT 08:52
PROVIDERS: PCP Family Medicine; Visit Provider Nurse Practitioner
DX: R29.898 Other symptoms and signs involving the musculoskeletal system (principal)
CPT/HCPCS: 97110; 97161

== ENCOUNTER 2022-12-18 15:21 | Emergency (ER) | payer MEDICARE, SELFPAY ==
[2022-12-18 15:33] VITALS: BP 113/50; PULSE 84; RESP 20; TEMP 36.3; O2SAT 100
--- NOTE | 2022-12-18 19:36 | PC.NURSE ---
Pt decided to leave before being seen at [id number]
== END 2022-12-18 19:36 | disposition left against medical advice (07) ==
LOC: ANHED 19:25
PROVIDERS: PCP Family Medicine
DX: R10.9 Unspecified abdominal pain (principal)
CPT/HCPCS: 99199

== ENCOUNTER → 2022-12-19 14:47 | Outpatient (CLI) | payer MEDICARE, SELFPAY ==
--- NOTE | ~2022-12-19 | XR_ITS ---
EXAMINATION: XR abdomen/kub 1V DATE: 12/19/2022 15:15 INDICATION: Dysuria. TECHNIQUE: A supine view of the abdomen on 3 radiographs was obtained. COMPARISON: CT abdomen and pelvis 07/27/2022 FINDINGS: There are no dilated loops of bowel. There are gallstones in the gallbladder. The kidneys a re obscured by bowel. IMPRESSION: 1. No visible urolithiasis. 2. Cholelithiasis. Reviewed, dictated and finalized at location E.
--- NOTE | ~2022-12-19 | XR_ITS ---
EXAMINATION: XR lumbar spine min 4V DATE: 12/19/2022 15:16 INDICATION: Low back pain, unspecified. TECHNIQUE: 5 views of lumbar spine were obtained. COMPARISON: CT abdomen and pelvis 07/27/2022 FINDINGS: There is 4 mm anterolisthesis of L4 on L5. Vertebral body heights are normal. There is mult ilevel facet joint osteoarthritis, severe bilaterally at L4-L5 and L5-S1. There are gallstones in the gallbladder. IMPRESSION: 1. Mild lumbar spondylosis. 2. Cholelithiasis. Reviewed, dictated and finalized at location E.
== END ==
PROVIDERS: PCP Family Medicine; Visit Provider Family Medicine
DX: R30.0 Dysuria (principal); R18.8 Other ascites; M47.896 Other spondylosis, lumbar region; K80.20 Calculus of gallbladder without cholecystitis without obstruction
CPT/HCPCS: 72110; 74018

== ENCOUNTER 2023-01-20 10:48 | Outpatient (CLI) | payer MEDICARE, SELFPAY ==
[2023-01-20 15:12] LABS: Kit Draw Collected
== END 2023-01-20 10:49 | disposition home or self-care (01) ==
PROVIDERS: PCP Family Medicine; Visit Provider Nurse Practitioner
DX: D64.9 Anemia, unspecified (principal); E87.1 Hypo-osmolality and hyponatremia
CPT/HCPCS: 36415